=== PATIENT | female | born 1965 | race Caucasian/White ===

== ENCOUNTER 2019-09-06 15:45 | Emergency (ER) | payer BC ==
[~2019-09-06] VITALS: Ht 162.6 cm; Wt 60.3 kg
--- OUTSIDE RECORDS SUMMARY | ~2019-09-06 | XMS | Encounter Summary ---
Demographics + + + | Address | [address] | | | [place] [address] | + + + | Home Phone | | + + + | Preferred Language | Unknown | + + + | Marital Status | | + + + | Oriental Orthodox Affiliation | 1013 | + + + | Race | Unknown | + + + | Ethnic Group | Unknown | + + + Author + + + | Author | [facility] | | | and [place] | + + + | Organization | [facility] | | | and [place] | + + + | Address | Unknown | + + + | Phone | Unavailable | + + + Support + + + + + | Name | Relationship | Address | Phone | + + + + + | Gamaliel Cornell | ECON | [address] | | | | | [place], [place] | | | | | [address] | | + + + + + Care Team Providers + +------+ + | Care Hat Forming Machine Operator Name | Role | Phone | + +------+ + | Raven Kim PA-C | PCP | | + +------+ + Encounter Details +--------+ + + + + | Date | Type | Department | Care Team | Description | +--------+ + + + + | 03/08/ | Transcribed | [facility] | Yuli He | | | 2019 | Orders | THERAPY PT MARYBEL | MD [address] | | | | | [address] | [address] | | | | | [place], [place] | [place], [place] | | | | | [address] | [address] | | | | | [phone] | [phone] | | | | | | | | +--------+ + + + + Social History + + + +--------+ + | Tobacco Use | Types | Packs/Day | Years | Date | | | | | Used | | + + + +--------+ + | Former Smoker | Cigarettes | | | Quit: 05/04/1987 | + + + +--------+ + + +---+---+---+ | Smokeless Tobacco: | | | | | Never Used | | | | + +---+---+---+ + + +---------+ + | Alcohol Use | Drinks/Week | oz/Week | Comments | + + +---------+ + | Yes | 1 Glasses of wine | 2.0 | 1-2 bottles per | | | 1 Cans of beer | | month | + + +---------+ + + + + | Sex Assigned at | Date Recorded | | | | + + + | Not on file | | + + + + + + + | Job Start Date | Occupation | Industry | + + + + | Not on file | Not on file | Not on file | + + + + + + + + | Travel History | Travel Start | Travel End | + + + + + + | No recent travel history available. | + + documented as of this encounter Plan of Treatment +--------+---------+ + + + | Date | Type | Specialty | Care Team | Description | +--------+---------+ + + + | 11/21/ | Office | Urology | Stephanie Robles | | | 2020 | Visit | | MD [address] | | | | | | [address] | | | | | | [place] [address] | | | | | | [phone] | | | | | | | | +--------+---------+ + + + documented as of this encounter Visit Diagnoses Not on filedocumented in this encounter"
--- OUTSIDE RECORDS SUMMARY | ~2019-09-06 | XMS | Encounter Summary ---
Demographics + + + | Address | [address] | | | [place] [address] | + + + | Home Phone | | + + + | Preferred Language | Unknown | + + + | Marital Status | | + + + | Yazidism Affiliation | 1013 | + + + | Race | Unknown | + + + | Ethnic Group | Unknown | + + + Author + + + | Author | [facility] | | | and [place] | + + + | Organization | [facility] | | | and [...] [place], [place] | | | | | [address] | | + + + + + Care Team Providers + +------+ + | Care Segmental Paving Supervisor Name | Role | Phone | + +------+ + | Raven Kim PA-C | PCP | | + +------+ + Encounter Details +--------+ + + + + | Date | Type | Department | Care Team | Description | +--------+ + + + + | 06/15/ | Abstract | [facility] | Provider, | | | 2019 | | GASTROENTEROLOGY | MD Daniel [address] | | | | | [address] [facility] | Fatmata Robledo | | | | | [address] [place] | [place] [address] | | | | | [address] | | | | | | [phone] | | | +--------+ + + + + Social History + +-------+ +--------+------+ | Tobacco Use | Types | Packs/Day | Years | Date | | | | | Used | | + +-------+ +--------+------+ | Former Smoker | | | | | + +-------+ +--------+------+ + +---+---+---+ | Smokeless Tobacco: | | [...] Urology | Stephanie Robles | | | 2019 | Visit | | MD [address] | | | | | | [address] | | | | | | [place] [address] | | | | | | [phone] | | | | | | | | +--------+---------+ + + + documented as of this encounter Visit Diagnoses Not on filedocumented in this encounter"
--- OUTSIDE RECORDS SUMMARY | ~2019-09-06 | XMS | Encounter Summary ---
Demographics + + + | Address | [address] | | | [place] [address] | + + + | Home Phone | | + + + | Preferred Language | Unknown | + + + | Marital Status | | + + + | Methodist Affiliation | 1013 | + + + | Race | Unknown | + + + | Ethnic Group | Unknown | + + + Author + + + | Author | [facility] | | | and [place] | + + + | Organization | [facility] | | | and [place] | + + + | Address | Unknown | + + + | Phone | Unavailable | + + + Support + + + + + | Name | Relationship | Address | Phone | + + + + + | Gamaliel Cornell | ECON | [address] | | | | | [place], [place] | | | | | [address] | | + + + + + Care Team Providers + +------+ + | Care Regional Cra Name | Role | Phone | + +------+ + | Raven Kim PA-C | PCP | | + +------+ + Reason for Visit Diagnostic/Screening (Routine) +--------+--------+ + + + + | Status | Reason | Specialty | Diagnoses / | Referred By | Referred To | | | | | Procedures | Contact | Contact | +--------+--------+ + + + + | Closed | | | Diagnoses | Ying | Jethro | | | | | ABIM[facility]A | Yuli | Pulmonary | | | | | (braulio | MD Keyonna | Function Lab | | | | | of breath) | [address] | [address] | | | | | Procedures | [address] | [address] | | | | | [address]CO ONLY [address] | [address] | [place], [place] | | | | | [place] | [place], [place] | [address] | | | | | | [address] | Phone: | | | | | | Phone: | [phone] | | | | | | [phone] | Fax: | | | | | | Fax: | [phone] | | | | | | [phone] | | +--------+--------+ + + + + Encounter Details +--------+ + + + + | Date | Type | Department | Care Team | Description | +--------+ + + + + | 03/30/ | Hospital | [facility] | Yuli He | Shortness of breath | | 2019 | Encounter | PULMONARY FUNCTION | MD [address] | | | | | LAB [address] [facility] | [address] [facility] [address] | | | | | [place], [place] | [place], [place] | | | | | [address] | [address] | | | | | [phone] | [phone] | | | | | | | [...] + + documented as of this encounter Medications at Time of Discharge + + + +---------+ + + | Medication | Sig | Dispensed | Refills | Start | End Date | | | | | | Date | | + + + +---------+ + + | ALPRAZolam | Take 0.5 mg by mouth | | 0 | | | | (ALPRAZOLAM XR) 0.5 | nightly. | | | | | | MG 24 hr tablet | | | | | | + + + +---------+ + + | ALPRAZolam (XANAX) | TK 1 TO 2 TS PO QHS | | 4 | 10/02/19 | | | 0.5 mg tablet | PRN | | | 19 | | + + + +---------+ + + | baclofen | TK 1 TO 2 TS PO 3 XD | | 0 | 10/16/19 | | | (LIORESAL) 10 mg | PRF SPASMS | | | 18 | | | tablet | | | | | | + + + +---------+ + + | betamethasone | APPLY A THIN LAYER | | 1 | 05/03/20 | | | dipropionate 0.05% | TO AFFECTED AREAS ON | | | 18 | | | cream | THE HANDS | | | | | | | DIRECTED BID FOLLOW | | | | | | | IMMEDIATELY WITH | | | | | | | MOISTURIZER | | | | | + + + +---------+ + + | Calcium | Take by mouth. | | 0 | | | | Carb-Cholecalciferol | | | | | | | (CALCIUM 1000 + D | | | | | | | PO) | | | | | | + + + +---------+ + + | cholecalciferol | Take 1,000 Units by | | 0 | | | | (VITAMIN D-3) 1000 | mouth Daily. | | | | | | units TABS | | | | | | + + + +---------+ + + | DULoxetine | | | 0 | 01/16/20 | | | (CYMBALTA) 30 mg | | | | 12 | | | capsule | | | | | | + + + +---------+ + + | DULoxetine | TK ONE C PO QD | | 1 | 04/05/20 | | | (CYMBALTA) [address] | | | | 18 | | | capsule | | | | | | + + + +---------+ + + | enoxaparin | Inject 0.6 mLs under | 6 | 0 | 09/13/19 | | | (LOVENOX) 100 mg/mL | the skin See Admin | Syringe | | 19 | | | injection | Instructions for 6 | | | | | | | doses. As directed | | | | | + + + +---------+ + + | estradiol | | | 4 | 02/08/20 | | | (ESTRACE) 0.1 mg/g | | | | 19 | | | vaginal cream | | | | | | + + + +---------+ + + | fluticasone | 1 spray by Nasal | | 0 | | | | (FLONASE) 50 | route Daily. | | | | | | mcg/nasal spray | | | | | | + + + +---------+ + + | levalbuterol | INHALE 2 PUFFS INTO | | 2 | 03/03/20 | | | (XOPENEX HFA) 45 | LUNGS EVERY 4 TO 6 | | | 19 | | | mcg/puff inhaler | HOURS DIRECTED | | | | | + + + +---------+ + + | levothyroxine | TK 1 T PO QD | | 0 | 05/29/19 | | | (SYNTHROID) 100 mcg | | | | 18 | | | tablet | | | | | | + + + +---------+ + + | loteprednol | INSTILL 1 TO 2 DROPS | | 10 | 03/28/20 | | | (LOTEMAX) 0.5 % | INTO BOTH EYES 4 | | | 19 | | | ophthalmic | TIMES DAILY | | | | | | suspension | | | | | | + + + +---------+ + + | Magnesium 100 MG | Take by mouth. | | 0 | | | | CAPS | | | | | | + + + +---------+ + + | pimecrolimus | Elidel 1 % topical | | 0 | | | | (ELIDEL) 1% cream | cream | | | | | + + + +---------+ + + | SUMAtriptan | TK 1 T PO AOS OF | | 2 | 06/12/19 | | | (IMITREX) 50 mg | MIGRAINE | | | 18 | | | tablet | DIRECTED. REPEAT | | | | | | | DOSE IN 2 HOUR IF | | | | | | | SYMPTOMS PERSIST. | | | | | | | MAX D DOSE 200 MG | | | | | + + + +---------+ + + | warfarin | TK 3 TS PO D OR UTD | | 5 | 09/15/19 | | | (COUMADIN) 4 MG | | | | 19 | | | tablet | | | | | | + + + +---------+ + + | amoxicillin | TK 4 CS PO 1 HOUR | | 0 | 05/05/19 | | | (AMOXIL) 500 MG | PRIOR TO DENTAL | | | 19 | 9 | | capsule | APPOINTMENT | | | | | + + + +---------+ + + | azithromycin | | | 0 | 12/01/19 | | | (ZITHROMAX) 250 mg | | | | 18 | 9 | | tablet | | | | | | + + + +---------+ + + | enoxaparin | Inject 0.6 mLs under | 21 | 0 | 02/18/20 | | | (LOVENOX) 60 mg/0.6 | the skin every 12 | Syringe | | 19 | 9 | | mL injection | hours. | | | | | + + + +---------+ + + | enoxaparin | inject 1 SYRINGE | | 0 | 09/11/19 | | | (LOVENOX) 60 mg/0.6 | subcutaneously (SEE | | | 19 | 9 | | mL injection | ADMIN INSTRUCTIONS) | | | | | | | FOR 6 DO... (REFER | | | | | | | TO PRESCRIPTION | | | | | | | NOTES). | | | | | + + + +---------+ + + | | INSTILL 1 1/4 INCH | | 1 | 12/19/19 | | | [id number]-cdgqvrzsq-o | RIBBON TO BOTH EYES | | | 18 | 9 | | examethasone | TID | | | | | | (MAXITROL) | | | | | | | [id number] | | | | | | | ophthalmic ointment | | | | | | + + + +---------+ + + | QVAR REDIHALER 40 | INHALE 1 PUFF TWICE | | 2 | 03/03/20 | | | MCG/ACT inhaler | DAILY DIRECTED | | | 19 | 9 | | | RINSE MOUTH AFTER | | | | | | | USE | | | | | + + + +---------+ + + documented as of this encounter [...] [address] | | | | | | [place] [address] | | | | | | [phone] | | | | | | | | +--------+---------+ + + + documented as of this encounter Procedures + +--------+ + + + | Procedure Name | Priori | Date/Time | Associated Diagnosis | Comments | | | ty | | | | + +--------+ + + + | PFT PULMONARY | JUANCARLOS | 03/30/2019 | Shortness of | Results for this | | FUNCTION TESTING | | 10:30 AM | breath | procedure are in the | | ORDERS | | PST | | results section. | + +--------+ + + + | PFT PULMONARY | JUANCARLOS | 03/30/2019 | Shortness of | Results for this | | FUNCTION TESTING | | 10:30 AM | breath | procedure are in the | | ORDERS | | PST | | results section. | + +--------+ + + + | PFT PULMONARY | JUANCARLOS | 03/30/2019 | Shortness of | Results for this | | FUNCTION TESTING | | 10:30 AM | breath | procedure are in the | | ORDERS | | PST | | results section. | + +--------+ + + + documented in this encounter Results Pulmonary function test full PFT (03/30/2019 10:30 AM PST) + + + | Narrative | Performed At | + + + | Eder Smith MD 04/08/2019 1:24 PM [facility] | | | Center Service: Pulmonology PULMONARY FUNCTION TEST Name : | | | Nilsa Cornell : 1965 FINDINGS | | | SPIROMETRY: 1. FEV-1/FVC is 75 2. FEV-1 is 2.63/96. 3. | | | FVC is 3.49/100 . DIFFUSING CAPACITY: Diffusing capacity is | | | 18.4/77 INTERPRETATION: The spirometry is normal. The diffusing | | | capacity is normal. Eder Smith MD 04/08/2019 1:23 PM | | | | | + + + documented in this encounter Visit Diagnoses + + | Diagnosis | + + | Shortness of breath | + + documented in this encounter"
--- OUTSIDE RECORDS SUMMARY | ~2019-09-06 | XMS | Encounter Summary ---
Demographics + + + | Address | [address] | | | [place] [address] | + + + | Home Phone | | + + + | Preferred Language | Unknown | + + + | Marital Status | | + + + | Buddhism Affiliation | 1013 | + + + | Race | Unknown | + + + | Ethnic Group | Unknown | + + + Author + + + | Author | [facility] | | | and [place] | + + + | Organization | [facility] | | [...] [place], [place] | | | | | [address] | | + + + + + Care Team Providers + +------+ + | Care Roll Hauler Name | Role | Phone | + +------+ + | Raven Kim PA-C | PCP | | + +------+ + Reason for Visit + + + | Reason | Comments | + + + | Anticoagulation | | + + + Encounter Details +--------+ + + + + | Date | Type | Department | Care Team | Description | +--------+ + + + + | 02/16/ | Telephone | [facility] | Jeovanny, | Anticoagulation | | 2019 | | CARDIOLOGY NATALEE | Alyssa Haley RN | | | | | [address] | | | | | | [place] | | | | | | [address] | | | | | | [phone] | | | +--------+ + + + [...] | | | | | | [address] | | | | | | [place] [address] | | | | | | [phone] | | | | | | | | +--------+---------+ + + + documented as of this encounter Visit Diagnoses Not on filedocumented in this encounter"
--- OUTSIDE RECORDS SUMMARY | ~2019-09-06 | XMS | Encounter Summary ---
Demographics + + + | Address | [address] | | | [place] [address] | + + + | Home Phone | | + + + | Preferred Language | Unknown | + + + | Marital Status | | + + + | Sabianist Affiliation | 1013 | + + + | Race | Unknown | + + + | Ethnic Group | Unknown | + + + Author + + + | Author | [facility] | | | and [place] | + + + | Organization | [facility] | | | and [...] [place], [place] | | | | | [address] | | + + + + + Care Team Providers + +------+ + | Care Fixed Wing Aircraft Flight Engineer Name | Role | Phone | + +------+ + | Raven Kim PA-C | PCP | | + +------+ + Reason for Visit + + + | Reason | Comments | + + + | Lab Results | | + + + Encounter Details +--------+ + + + + | Date | Type | Department | Care Team | Description | +--------+ + + + + | 06/30/ | Telephone | [facility] | Shankar Kaufman, | Lab Results | | 2018 | | PHYSIATRY [address] | [address] | | | | | [address] | [place], [place] | | | | | [place], [place] | [address] | | | | | [address] | | | | | | [phone] | | | +--------+ + + + [...] | | | | | [place] [address] | | | | | | [phone] | | | | | | | | +--------+---------+ + + + documented as of this encounter Visit Diagnoses Not on filedocumented in this encounter"
--- OUTSIDE RECORDS SUMMARY | ~2019-09-06 | XMS | Encounter Summary ---
Demographics + + + | Address | [address] | | | [place] [address] | + + + | Home Phone | | + + + | Preferred Language | Unknown | + + + | Marital Status | | + + + | Zoroastrian Affiliation | CHR | + + + | Race | White | + + + | Ethnic Group | Not or | + + + Author + + + | Author | [facility] | + + + | Organization | [facility] | + + + | Address | Unknown | + + + | Phone | Unavailable | + + + Support + + + + + | Name | Relationship | Address | Phone | + + + + + | Gamaliel Cornell | ECON | [address] | | | | | [place], [place] | | | | | [address] | | + + + + + Care Team Providers + +------+ + | Care Maintenance Advisor Name | Role | Phone | + +------+ + | Raven Kim | PCP | | + +------+ + Encounter Details +--------+ + + + + | Date | Type | Department | Care Team | Description | +--------+ + + + + | 05/05/ | Abstract | Otolaryngology | David Wilson | | | 2020 | | Laryngology Services | MD Adalgisa [address] | | | | | at [facility] [address] | [address] | | | | | [place], [place] | [place], [place] | | | | | [address] | [address] | | | | | [phone] | [phone] | | | | | | | | +--------+ + + + + Social History + +-------+ +--------+------+ | Tobacco Use | Types | Packs/Day | Years | Date | | | | | Used | | + +-------+ +--------+------+ | Never Smoker | | | | | + +-------+ +--------+------+ + + +---------+ + | Alcohol Use | Drinks/Week | oz/Week | Comments | + + +---------+ + | Yes | | | | + + +---------+ + + + [...] as of this encounter Plan of Treatment Not on filedocumented as of this encounter Visit Diagnoses Not on filedocumented in this encounter"
--- OUTSIDE RECORDS SUMMARY | ~2019-09-06 | XMS | Encounter Summary ---
Demographics + + + | Address | [address] | | | [place] [address] | + + + | Home Phone | | + + + | Preferred Language | Unknown | + + + | Marital Status | | + + + | Baptist Affiliation | 1013 | + + + [...] + + + + + | Gamaliel Kraig | ECON | [address] | | | | | [place] | | | | | [address] | | + + + + + Care Team Providers + +------+ + | Care Laundry Operator Name | Role | Phone | + +------+ + PCP | Unavailable | + +------+ + Encounter Details +--------+ + + + + | Date | Type | Department | Care Team | Description | +--------+ + + + + | 09/06/ | Hospital | [facility] | Anirudh Fleming | | | 2008 | Encounter | [facility] | MD [address] | | | | | GENERIC CONV DEPT | [address] [place] | | | | | [address] | [address] | | | | | [place] | | | | | | [address] | | | | | | [phone] | | | +--------+ + + + + Social History + +-------+ +--------+------+ | Tobacco Use | Types | Packs/Day | Years | Date | | | | | Used | | + +-------+ +--------+------+ | Never Assessed | | | | | + +-------+ +--------+------+ + + + | Sex Assigned at [...] | | | | | [place] [address] | | | | | | [phone] | | | | | | | | +--------+---------+ + + + documented as of this encounter Visit Diagnoses Not on filedocumented in this encounter"
--- OUTSIDE RECORDS SUMMARY | ~2019-09-06 | XMS | Encounter Summary ---
Demographics + + + | Address | [address] | | | [place] [address] | + + + | Home Phone | | + + + | Preferred Language | Unknown | + + + | Marital Status | | + + + | Anabaptist Affiliation | [id number] | + + + | Race | Unknown | + + + | Ethnic Group | Unknown | + + + Author + + + | Author | [facility] | | | and [place] | + + + | Organization | [facility] | | | and [place] | + + + | Address | Unknown | + + + | Phone | Unavailable | + + + Support + + + + + | Name | Relationship | Address | Phone | + + + + + | Gamaliel Cornell | ECON | [address] | | | | | [place], [place] | | | | | [address] | | + + + + + Care Team Providers + +------+ + | Care Lighting Technician Name | Role | Phone | + +------+ + | Bernard Cesar MD | PCP | | + +------+ + Reason for Visit Auth/Cert +--------+--------+ + + + + | Status | Reason | Specialty | Diagnoses / | Referred By | Referred To | | | | | Procedures | Contact | Contact | +--------+--------+ + + + + | | | | Diagnoses | | Gamaliel, | | | | | Cystocele | | Evelio Romero MD | | | | | Cystocele | | [id number] | | | | | Procedures | | [place] | | | | | Not Provided | | [place] | | | | | | | [place], [place] | | | | | | | [address] | | | | | | | Phone: | | | | | | | [phone] | | | | | | | Fax: | | | | | | | [phone] | +--------+--------+ + + + + Encounter Details +--------+---------+ + + + | Date | Type | Department | Care Team | Description | +--------+---------+ + + + | 01/22/ | Surgery | [facility] | Evelio Alston, | Repair Anterior | | 2015 | | MED CTR OR INTRA OP | [id number] | Colporrhaphy | | | | [address] | [place] | | | | | [place], [place] | [place] [address] | | | | | [address] | [phone] | | | | | [phone] | | | +--------+---------+ + + + Social History + +-------+ [...] +---------+ + | Yes | | | 1-2 bottles per | | | | | month | + + +---------+ [...] + + documented as of this encounter Last Filed Vital Signs + + + + + | Vital Sign | Reading | Time Taken | Comments | + + + + + | Blood Pressure | 116/74 | 01/24/2015 4:00 PM | | | | | PDT | | + + + + + | Pulse | 81 | 01/24/2015 4:00 PM | | | | | PDT | | + + + + + | Temperature | 36.8 C (98.2 F) | 01/24/2015 4:00 PM | | | | | PDT | | + + + + + | Respiratory Rate | 16 | 01/24/2015 4:00 PM | | | | | PDT | | + + + + + | Oxygen Saturation | 96% | 01/23/2015 7:25 AM | | | | | PDT | | + + + + + | Inhaled Oxygen | - | - | | | Concentration | | | | + + + + + | Weight | 61.2 kg (135 lb) | 01/22/2015 9:24 AM | | | | | PDT | | + + + + + | Height | 160 cm (5' 3") | 01/22/2015 9:24 AM | | | | | PDT | | + + + + + | Body Mass Index | 23.91 | 01/22/2015 9:24 AM | | | | | PDT | | + + + + + documented in this encounter Discharge Summaries Evelio Alston MD - 01/24/2015 5:38 PM PDTFormatting of this note might be different fro m the original. Physician Discharge Summary Patient ID: Nilsa Cornell [id number] y.o. 1965 Admit date: 01/22/2015 Discharge date and time: January 24, 2015 Admitting Physician: Evelio Alston MD Discharge Physician: Same Admission Diagnoses: Cystocele [618.01] Discharge Diagnoses: Same Admission Condition: good Discharged Condition: good Indication for Admission: See dictated H&P, however briefly Ms. cornell was admitted for darian gical correction of a symptomatic cystocele. Hospital Course: Patient underwent an anterior colporrhaphy on the morning of January 22. Although able to void, residual volumes were excessive and therefore patient was discharge d home with an indwelling catheter and leg bag. Consults: none Significant Diagnostic Studies: None Treatments: surgery: Anterior colporrhaphy Discharge Exam: See progress notes Disposition: home Patient Instructions: Discharge Medications Notice Some of the medications listed here do not show instructions, such as how often to take th e medication. Ask your doctor or nurse how to use these medications. Specifically ask about these and similar medications: - DULoxetine (CYMBALTA) 30 mg capsule - amitriptyline (ELAVIL) 75 MG tablet New Medications Details ibuprofen 800 MG tablet Take 1 tablet by mouth every 8 hours as needed for Pain for up to 10 days. aka: ADVIL,MOTRIN Unchanged Medications Details amitriptyline 75 MG tablet aka: ELAVIL CYMBALTA [address] capsule Generic drug: DULoxetine LOVENOX 60 mg/0.6 mL injection Generic drug: enoxaparin Inject 60 mg under the skin every 12 hours. SYNTHROID PO TABS Discontinued Medications COUMADIN PO Activity: no lifting, Driving, or Strenuous exercise for 2 weeks Diet: regular diet Wound Care: none needed Follow-up with voiding trial in 2 weeks. Signed: Evelio Alston MD 01/24/2015 17:38 documented in this en counter Discharge Instructions Instructions Shu Bravo RN - 01/24/2015 Discharge Instructions: Caring for Your Leg Bag You are going home with a urinary catheter and collection device (drainage bag) in place. O ne type of collection device is called a leg bag.This is a smaller drainage bag that you c an wear on your legto collect urine during the day. The bag can fit under your clothing. Y ou can move around with greater ease when using a leg bag instead of a larger collection bag . You were shown how to care for your catheter in the hospital. This sheet will help you lyle mber those steps when you are at home. Home care Wash your hands thoroughly before and after you care for your catheter or collection dev ice. Gather your supplies: Alcohol wipes Soap and water Towel and washcloth Leg strap and leg bag Use soap and water to wash the area where your catheter enters your body. Rinse well. Secure the bag mckee to your leg: Position the leg band high on your thigh with the product label pointing away from your leg. Stretch the leg band in place and fasten. Place the catheter tubing over the bag and secure it. You may secure it with a Velcro ta b or other method, depending on the product you use. Be sure to leave enough loop in the cat heter above the leg band to avoid pulling on the tube. Every 4 to 6 hours, reposition the bandto prevent pressure from the elastic on your le g. You can do this by changing the bag to the other leg or by raising or lowering the leg ba nd. Wash the band as frequently as needed. You can hand wash and dry the leg band. Place the bag in the bag mckee. Clean the urine bag end of the catheter and your catheter port with an alcohol wipe. Place a towel under the bag and port to keep urine from dripping onto your leg. Before connecting the outlet valve at the bottom of the bagto the catheter, make sure that it is firmly closed. Flip the valve upward toward the bag;it needs to snap firmly in place. Be sure not to tug on the tubing. Be gentle. Attach the urine bag to the end of the catheter; insert the connector snugly into the ca theter port. You can avoid dribbling urine by bending the catheter tubing just below the tip and holding it while you disconnect it from the catheter. Be careful to keep the tip clean while connecting the leg bag tubing to the catheter this keeps germs from getting into the system. Drain the bag when it is full. To drain the bag, flip the clamp downward. Direct the fle xible outlet tube to control the flow of urine. You don t have to disconnect the leg bag f rom the catheter to empty it. Raise your leg up to the edge of the toilet to reach the leg b ag. Then you can empty the bag directly into the toilet. This way, you won t need to bend over, which may be uncomfortable. Keep the leg bag clean. Rinse daily with equal parts water and vinegar to reduce odor an d keep the bag free of germs. Remember to keep the drainage bag below the level of your bladder for proper drainage. Follow-up Make a follow-up appointment as directed by your health care provider. When to call your health care provider Call yourhealth care providerimmediately if you have any of the following: Redness, swelling, or warmth around the catheter entry site Pus draining from your catheter entry site or into the catheter tubing and bag Blood, clots, or floating debris in the urine Nausea and vomiting Shaking chills Fever above 100.4F (38C) Pain that is not relieved by medication Catheter that falls out or is dislodged 2265-8614 [employer]. [address] [place] [address], [place] [address]. All righ ts reserved. This information is not intended as a substitute for professional medical care. Always follow your healthcare professional's instructions. c Pelvic Organ Prolapse: Surgery for Cystocele Cystocele occurs when the bladder prolapses (sags) into the vagina. The goal of surgery is to repair the problem. This will help relieve your symptoms. Your surgery may include1 or more repairs. The Surgical Procedure Cystocele can be treated with an anterior repair. This type of surgery is done through the vagina. The sagging bladder is moved back into its normal position. Sutures (stitches) are p laced in tissue between the bladder and the vagina. This helps hold the bladder in place. In some cases, another type of surgery is done. It can help correct weakness in the front wall of the vagina. The vagina is attached to strong tissues in the side wall of the pelvis. Your Incisions During surgery, the doctor will reach your pelvic organs through the vagina or the abdomen. An incision may be made in the vaginal wall. If an incision is made on the abdomen (lower b katya), it may be vertical (up and down). Or, it may be transverse (across). Possible Risks and Complications of this Surgery Infection Bleeding Risks of anesthesia Damage to nerves, muscles, or nearby pelvic structures Blood clots Prolapse of the pelvic organ or organs occurring again 3655-[address] [employer]. [address] [place] [address]. All rig ts reserved. This information is not intended as a substitute for professional medical care. Always follow your healthcare professional's instructions. documented in this encounter Medications at Time of Discharge [...] + + + +---------+ + + | amitriptyline | | | 0 | 01/16/20 | | | (ELAVIL) 75 MG | | | | 12 | 8 | | tablet | | | | | | + + + +---------+ + + | enoxaparin | Inject 60 mg under | | 0 | | | | (LOVENOX) 60 mg/0.6 | the skin every 12 | | | | 8 | | mL injection | hours. | | | | | + + + +---------+ + + | ibuprofen | Take 1 tablet by | 30 | 0 | 01/25/20 | | | (ADVIL,MOTRIN) 800 | mouth every 8 hours | tablet | | 15 | 5 | | MG tablet | as needed for Pain | | | | | | | for up to 10 days. | | | | | + + + +---------+ + + | Levothyroxine | TABS | | 0 | 01/16/20 | | | Sodium (SYNTHROID | | | | 12 | 8 | | PO) | | | | | | + + + +---------+ + + documented as of this encounter Progress Notes Shu Bravo RN - 01/24/2015 6:00 PM PDTPatient's catheter connected to a leg bag and pt given instructions on how to change from a leg bag to an overnight bag as well as how to em pty catheter bag. Pt given verbal and written discharge instructions. Questions answered and she verbalizes understanding. Discharged to home in stable condition with her .Elect ronically signed by Shu Bravo RN at 01/24/2015 6:15 PM PDTStefanyuapoorva, Evelio Romero MD - 015 5:31 PM PDTPM Check S-progressively increasing residual volumes of the bladder necessitated replacing the Pabon catheter. Also had a sense of constipation and 2 enemas and a suppository only yielded a s mall amount of stool. She still feels as if there is stool back up in the vagina. O-VSS Perineum: Minimal blood. Rectal exam is performed and there is no stool within at least 10-12 cm of the anus. Urinalysis: Nitrite negative, leukocyte esterase negative and 0-2 white cells. A/P-bladder atony following anterior colporrhaphy. Will send home with indwelling catheter . Regarding bowel function will just continue to use stool softeners, fish oil and will inc rease oral water intake which usually works for her. She will follow-up in 2 weeks for catheter removal and voiding test. Otherwise routine pos t-op instructions. Shu Bowman RN - 01/24/2015 5:30 PM PDTDr. Alston at bedside and does rectal exam. No stool f elt in rectum eventhough pt feels like there is. Pt given discharge instructions by Dr. Brittaney dejesus. Shu Bowman RN - 4:31 PM PDTPt is up ambulating in the hallways. Shu Bowman RN - 01/24/2015 4:00 PM PDTPt up to the [facility] hroom and just passes water, no stool.Electronically signed by Shu Bravo RN at 5 4:31 PM Shu Bowman RN - 01/24/2015 3:45 PM PDTNo results from dulcolax suppositor y. Second tap water enema given. 4:3 0 PM PDTShu Bravo RN - 01/24/2015 2:28 PM PDTPt up to the bathroom and only had one sm all hard piece of stool come out. Dr. Alston notified and orders received for dulcolax suppos itory now, followed by another tap water enema in one hour. Shu Bowman RN - 01/24/2015 2:05 PM PDTPt given tap w ater enema. Tolerated well. Shu Bowman RN - 01/24/2015 11:45 AM PDTPt up to the bathroom and voids 200cc. Bladder scan done for 675cc. Dr. Alston notified and order received to place indwelling pabon cathet er. Pabon catheter then placed using sterile technique and pt tolerated well. Approximately 700cc clear yellow urine returns. 1: 00 PM Evelio Charles MD - 01/24/2015 8:12 AM PDTPOD#2 S-declined recatheterization throughout the evening. Residual this am just above 400cc. Has agreed to one straight catheterization to empty bladder and "start from scratch". Will reas sess at noon. O-Vss No exam A/P- as above. Tera Bowman RN - 01/24/2015 8:00 AM PDTPt unable to void any more. Dr. Alston here and orders st raight cath to be done. Straight cath done using sterile technique. 500cc epi urine return s. Pt tolerated it well. Shu Kimball RN - 01/23/2015 5:45 PM PDTPt up to the bathroom and voids 100cc. Bladder sc an done for 354cc. Pt rates pain at 2/10. Up ambulating. Evelio Charles MD - 01/23/2015 5:20 PM PDTPM Check S-Nilsa is sleeping, so we did not disturb her. By the nurses report, she has voided twic e but significant residual has remained. We'll replace the Pabon catheter if more than 400 c c are in the bladder without her being able to void. O-VSS No exam A/P-some return of bladder function, but I anticipate she will need her Pabon catheter repl aced this evening. Shu Fam RN - 01/23/2015 4:05 PM PDTPt up to the bathroom and voids 175cc. Bladder scann ed for 324cc. Pt up ambulating in hallways.Electronically signed by Shu Bravo RN at 01/03 4:19 PM Shu Bowman RN - 01/23/2015 3:00 PM PDTPt up to the bathroom and void s 100cc. Bladder scan done for 251cc. Pt also passed 2 quarter sized blood clots when she wa s up. Shu Bowman RN - 01/23/2015 12:30 PM PDTPt is unable to void. Bladder scan done for 474cc. Straight cath don e using sterile technique for 500cc clear yellow urine. Pt tolerated well.Electronically sig ramsey by Shu Bravo RN at 01/23/2015 12:40 PM Shu Bowman RN - 01/23/2015 11:40 AM PD TPt unable to void any more. Dr. Alston notified and wants to wait a little longer to see if she can void more before doing a straight cath. Shu Bowman RN - 01/23/2015 11:00 AM PDTPt up to the bathroom and is able to void 100cc. Bladder scan done for 298cc. Pt back up to the bathroom to see if she can void more. hIsabel pimentel RN - 01/23/2015 7:35 AM PDTNo change since last notes. Plans on discharge tod ay. Adequate pain control. uEvelio guerin MD - 01/23/2015 7:32 AM PDTPOD#1 S-ambulating without difficulty. Adequate pain control and no nausea O-VSS UOP-appropriate amount and clear Lungs: clear Cardiac: regular rate and rhythm Abdomen: soft and nontender Perineum: minimal vaginal bleeding A/P- stable postop day 1. Will discontinue bladder catheter and monitor voidings. Will re assess for discharge, later today. Electronically signed by Evelio Alston MD at 5 7:39 AM Isabel Gibbons RN - 01/23/2015 12:15 AM PDTUp to br to change pad/ per icare. Some light red vaginal drainage. Medicated for pain. Isabel Gibbons RN - 01/22/2015 9:00 PM PDTUp to sink for HS care; pericare done. Some moderate to light drainage noted.Electronica lly signed by Isabel Carpenter RN at 01/23/2015 1:36 AM Evelio Charles MD - 01/22 4:51 PM PDTPM Check S-findings reviewed. Adequate pain control and no nausea. Catheter was replaced. O-VSS Chest: Clear Cardiac: Regular rate and rhythm Perineum: Scant bleeding A/P-stable approximately 6 hours postop. CPM Shu Bowman RN - 01/22/2015 4:30 PM PDTFoley catheter placed usin g sterile technique. Pt tolerated well. 15 5:20 PM PDTShu Bravo RN - 01/22/2015 4:20 PM PDTPt up to the bedside commode to id. She does feel the urge to void but she is unable to. Bladder scan done for 398cc. Dr. Leobardo guerin notified and order received to place indwelling pabon catheter. hu Bravo RN - 01/22/2015 2:20 PM PDTPt is a little bit sleepy and O2 saturations 88% on room air. RT notified and oxygen placed.Electr onically signed by Shu Bravo RN at 01/22/2015 2:39 PM PDTShu Bravo RN - 01/22/2015 2:15 PM PDTPt c/o neck pain and upper back pain. She reports she has chronic pain issues w ith her neck and upper back. Pt has an ice pack on her neck. Medicated with toradol.Electron ically signed by Shu Bravo RN at 01/22/2015 5:21 PM Shu Bowman RN - 01/22/2015 1:30 PM PDTDrMadhuri Alston at bedside and removes vaginal packing. Shu Bowman RN - 01/22/2015 1:20 PM PDTPt back from surgery. Moved to new bed. C/o neck/upper back pain rated at 5/10. See vitals and assessment . Elton Jenkins MD - 01/22/2015 12:42 PM PDTPatient complaining of neck pain. She is a chronic neck patient an d requests her dose of robaxin. Will write for one tablet. Electronically signed by: Elton Uribe MD 01/22/2015 12:43 documented in this encounter Plan of Treatment +--------+---------+ + + + | Date | Type | Specialty | Care Team | Description | +--------+---------+ + + + | 11/21/ | Office | Urology | Stephanie Robles | | | 2019 | Visit | | MD [address] | | | | | | [address] | | | | | | [place] [address] | | | | | | [phone] | | | | | | | | +--------+---------+ + + + documented as of this encounter Procedures + +--------+ + + + | Procedure Name | Priori | Date/Time | Associated Diagnosis | Comments | | | ty | | | | + +--------+ + + + | URINALYSIS WITH | Routin | 01/24/2015 | | Results for this | | MICROSCOPIC IF | e | 1:45 PM | | procedure are in the | | INDICATED | | PDT | | results section. | + +--------+ + + + | RESPIRATORY THERAPY | Routin | 01/22/2015 | | | | COMMUNICATION | e | 5:31 PM | | | | | | PDT | | | + +--------+ + + + | URINALYSIS WITH | Routin | 01/22/2015 | | Results for this | | MICROSCOPIC WITH | e | 10:29 AM | | procedure are in the | | CULTURE IF INDICATED | | PDT | | results section. | + +--------+ + + + | POCT FINGERSTICK INR | STAT | 01/22/2015 | | Results for this | | | | 10:28 AM | | procedure are in the | | | | PDT | | results section. | + +--------+ + + + | CBC WITH | STAT | 01/22/2015 | | Results for this | | DIFFERENTIAL | | 10:27 AM | | procedure are in the | | | | PDT | | results section. | + +--------+ + + + | REPAIR A&P | | 01/22/2015 | Cystocele | | | COLPORRHAPHY | | 10:16 AM | | | | | | PDT | | | + +--------+ + + + documented in this encounter Results Urinalysis with Microscopic if Indicated (01/24/2015 1:45 PM PDT) + + + + + + | Component | Value | Ref Range | Performed | Pathologist | | | | | At | Signature | + + + + + + | Color, | Yellow | Light Yellow, | [facility] | | | Urine | | Yellow | [facility] | | | | | | [facility] | | | | | | [facility] - | | | | | | LABORATORY | | + + + + + + | Clarity | Clear | Clear | [facility] | | | | | | [facility] | | | | | | [facility] | | | | | | [facility] - | | | | | | LABORATORY | | + + + + + + | pH, Urine | 7.0 | 5.0 - 8.0 | [facility] | | | | | | [facility] | | | | | | [facility] | | | | | | [facility] - | | | | | | LABORATORY | | + + + + + + | Specific | 1.010 | 1.001 - 1.030 | [facility] | | | [place], | | | [facility] | | | Urine | | | MEDICAL | | | | | | CENTER - | | | | | | LABORATORY | | + + + + + + | Protein, | Negative | Negative | [facility] | | | Urine | | | [facility] | | | | | | [facility] | | | | | | [facility] - | | | | | | LABORATORY | | + + + + + + | Blood, | Moderate (A) | Negative | [facility] | | | Urine | | | [facility] | | | | | | [facility] | | | | | | [facility] - | | | | | | LABORATORY | | + + + + + + | Glucose, | Negative | Negative | [facility] | | | Urine | | | [facility] | | | | | | [facility] | | | | | | [facility] - | | | | | | LABORATORY | | + + + + + + | Ketones, | Negative | Negative | [facility] | | | Urine | | | [facility] | | | | | | [facility] | | | | | | [facility] - | | | | | | LABORATORY | | + + + + + + | Bilirubin, | Negative | Negative | [facility] | | | Urine | | | [facility] | | | | | | [facility] | | | | | | [facility] - | | | | | | LABORATORY | | + + + + + + | Nitrite, | Negative | Negative | [facility] | | | Urine | | | [facility] | | | | | | [facility] | | | | | | [facility] - | | | | | | LABORATORY | | + + + + + + | Leukocyte | Negative | Negative | [facility] | | | Esterase, | | | [facility] | | | Urine | | | MEDICAL | | | | | | CENTER - | | | | | | LABORATORY | | + + + + + + | Urobilinoge | 0.2 E.U./dL | 0.2 E.U./dL, | [facility] | | | n, Urine | | 1.0 E.U./dL | [facility] | | | | | | [facility] | | | | | | [facility] - | | | | | | LABORATORY | | + + + + + + | White Blood | 0-2 | 0 - 2 /HPF | [facility] | | | Cells, | | | [facility] | | | Urine | | | MEDICAL | | | | | | CENTER - | | | | | | LABORATORY | | + + + + + + | Red Blood | 2-5 (A) | 0 - 2 /HPF | [facility] | | | Cells, | | | [facility] | | | Urine | | | MEDICAL | | | | | | CENTER - | | | | | | LABORATORY | | + + + + + + | Squamous | 0-2 | 0 - 2 /LPF | [facility] | | | Epithelial | | | [facility] | | | Cells, | | | MEDICAL | | | Urine | | | CENTER - | | | | | | LABORATORY | | + + + + + + | Bacteria, | 1+ (A) | Negative /HPF | [facility] | | | Urine | | | [facility] | | | | | | [facility] | | | | | | [facility]ENTER - | | | | | | LABORATORY | | + + + + + + + + | Specimen | + + | Urine - Urine | | specimen from ureter | | (specimen) | + + + + + + + | Performing | Address | City/State/Zipcode | Phone Number | | Organization | | | | + + + + + | [facility] | [address] | [place] | [phone] | | [facility] | | [address] | | | - LABORATORY | | | | + + + + + Urinalysis with Microscopic with Culture if Indicated (01/22/2015 10:29 AM PDT) + + + + + + | Component | Value | Ref Range | Performed | Pathologist | | | | | At | Signature | + + + + + + | Color, | Yellow | Light Yellow, | [facility] | | | Urine | | Yellow | [facility] | | | | | | MEDICAL | | | | | | CENTER - | | | | | | LABORATORY | | + + + + + + | Clarity | Clear | Clear | [facility] | | | | | | [facility] | | | | | | [facility] | | | | | | [facility] - | | | | | | LABORATORY | | + + + + + + | pH, Urine | 6.0 | 5.0 - 8.0 | [facility] | | | | | | [facility] | | | | | | [facility] | | | | | | [facility] - | | | | | | LABORATORY | | + + + + + + | Specific | 1.025 | 1.001 - 1.030 | [facility] | | | [place], | | | [facility] | | | Urine | | | MEDICAL | | | | | | CENTER - | | | | | | LABORATORY | | + + + + + + | Protein, | Negative | Negative | [facility] | | | Urine | | | [facility] | | | | | | [facility] | | | | | | CENTER - | | | | | | LABORATORY | | + + + + + + | Blood, | Negative | Negative | [facility] | | | Urine | | | [facility] | | | | | | [facility] | | | | | | C[facility] - | | | | | | LABORATORY | | + + + + + + | Glucose, | Negative | Negative | [facility] | | | Urine | | | [facility] | | | | | | [facility] | | | | | | [facility] - | | | | | | LABORATORY | | + + + + + + | Ketones, | Negative | Negative | [facility] | | | Urine | | | [facility] | | | | | | [facility] | | | | | | CENTER - | | | | | | LABORATORY | | + + + + + + | Bilirubin, | Negative | Negative | [facility] | | | Urine | | | [facility] | | | | | | [facility] | | | | | | C[facility] - | | | | | | LABORATORY | | + + + + + + | Nitrite, | Positive (A) | Negative | [facility] | | | Urine | | | [facility] | | | | | | [facility] | | | | | | CENTER - | | | | | | LABORATORY | | + + + + + + | Leukocyte | Negative | Negative | [facility] | | | Esterase, | | | [facility] | | | Urine | | | MEDICAL | | | | | | CENTER - | | | | | | LABORATORY | | + + + + + + | Urobilinoge | 1.0 E.U./dL | 0.2 E.U./dL, | [facility] | | | n, Urine | | 1.0 E.U./dL | [facility] | | [facility] | [facility] | | | | | | CENTER - | | | | | | LABORATORY | | + + + + + + | White Blood | 5-10 (A) | 0 - 2 /HPF | [facility] | | | Cells, | | | [facility] | | | Urine | | | MEDICAL | | | | | | CENTER - | | | | | | LABORATORY | | + + + + + + | Red Blood | 2-5 (A) | 0 - 2 /HPF | [facility] | | | Cells, | | | [facility] | | | Urine | | | MEDICAL | | | | | | CENTER - | | | | | | LABORATORY | | + + + + + + | Squamous | 0-2 | 0 - 2 /LPF | [facility] | | | Epithelial | | | [facility] | | | Cells, | | | MEDICAL | | | Urine | | | CENTER - | | | | | | LABORATORY | | + + + + + + | Bacteria, | 3+ (A) | Negative /HPF | [facility] | | | Urine | | | [facility] | | | | | | MEDICAL | | | | | | CENTER - | | | | | | LABORATORY | | + + + + + + + + | Specimen | + + | Urine | + + + + + + + | Performing | Address | City/State/Zipcode | Phone Number | | Organization | | | | + + + + + | [facility] | [address] | [place] | [phone] | | [facility] | | [address] | | | - LABORATORY | | | | + + + + + POC Fingerstick INR (01/22/2015 10:28 AM PDT) + +-------+ + + + | Component | Value | Ref Range | Performed | Pathologist | | | | | At | Signature | + +-------+ + + + | INR, POC | 1.1 | 0.9 - 1.2 | | | + +-------+ + + + | Instrument | | | | | | ID | | | | | + +-------+ + + + + + | Specimen | + + | Blood specimen | | (specimen) | + + CBC with Differential (01/22/2015 10:27 AM PDT) + +-------+ + + + | Component | Value | Ref Range | Performed | Pathologist | | | | | At | Signature | + +-------+ + + + | WBC | 7.0 | 4.0 - 11.0 K/uL | [facility] | | | | | | [facility] | | | | | | [facility] | | | | | | CENTER - | | | | | | LABORATORY | | + +-------+ + + + | RBC | 4.72 | 3.70 - 5.20 | [facility] | | | | | M/uL | [facility] | | | | | | MEDICAL | | | | | | CENTER - | | | | | | LABORATORY | | + +-------+ + + + | Hemoglobin | 14.3 | 11.5 - 16.0 | [facility] | | | | | g/dL | [facility] | | | | | | [facility] | | | | | | CENTER - | | | | | | LABORATORY | | + +-------+ + + + | Hematocrit | 43.9 | 34.0 - 47.0 % | [facility] | | | | | | [facility] | | | | | | [facility] | | | | | | CENTER - | | | | | | LABORATORY | | + +-------+ + + + | MCV | 93.1 | 83.0 - 101.0 fL | [facility] | | | | | | [facility] | | | | | | [facility] | | | | | | CENTER - | | | | | | LABORATORY | | + +-------+ + + + | MCH | 30.3 | 28.0 - 35.0 pg | [facility] | | | | | | [facility] | | | | | | [facility] | | | | | | CENTER - | | | | | | LABORATORY | | + +-------+ + + + | MCHC | 32.5 | 32.0 - 36.0 | [facility] | | | | | g/dL | [facility] | | | | | | [facility] | | | | | | CENTER - | | | | | | LABORATORY | | + +-------+ + + + | RDW-CV | 14.0 | <15.0 % | [facility] | | | | | | [facility] | | | | | | [facility] | | | | | | CENTER - | | | | | | LABORATORY | | + +-------+ + + + | Platelet | 307 | 140 - 440 K/uL | [facility] | | | Count | | | [facility] | | | | | | [facility] | | | | | | CENTER - | | | | | | LABORATORY | | + +-------+ + + + | MPV | 8.4 | fL | [facility] | | | | | | [facility] | | | [facility] | | [facility] | | | | | | CENTER - | | | | | | LABORATORY | | + +-------+ + + + | % | 66.3 | 45.0 - 82.0 % | [facility] | | | Neutrophils | | | [facility] | | | | | | [facility]ICAL | | | | | | CENTER - | | | | | | LABORATORY | | + +-------+ + + + | % | 21.1 | 20.0 - 45.0 % | [facility] | | | Lymphocytes | | | [facility] | | | | | | [facility]ICAL | | | | | | CENTER - | | | | | | LABORATORY | | + +-------+ + + + | % Monocytes | 8.6 | 4.0 - 12.0 % | [facility] | | | | | | [facility] | | | | | | [facility] | | | | | | CENTER - | | | | | | LABORATORY | | + +-------+ + + + | % | 3.2 | 0.0 - 5.0 % | [facility] | | | Eosinophils | | | [facility] | | | | | | MEDICAL | | | | | | CENTER - | | | | | | LABORATORY | | + +-------+ + + + | % Basophils | 0.8 | 0.0 - 1.0 % | [facility] | | | | | [facility] | | | | | | [facility] - | | | | | | LABORATORY | | + +-------+ + + + | Absolute | 4.60 | 1.80 - 8.50 | [facility] | | | Neutrophils | | K/uL | [facility] | | | | | [facility] | | | | | | CENTER - | | | | | | LABORATORY | | + +-------+ + + + | Absolute | 1.50 | 0.60 - 3.20 | [facility] | | | Lymphocytes | | K/uL | [facility] | | | | | | [facility] | | | | | | CENTER - | | | | | | LABORATORY | | + +-------+ + + + | Absolute | 0.60 | 0.00 - 1.00 | [facility] | | | Monocytes | | K/uL | [facility] | | | | | | [facility] | | | | | | CENTER - | | | | | | LABORATORY | | + +-------+ + + + | Absolute | 0.20 | 0.00 - 0.40 | [facility] | | | Eosinophils | | K/uL | [facility] | | | | | | [facility]ICAL | | | | | | CENTER - | | | | | | LABORATORY | | + +-------+ + + + | Absolute | 0.10 | 0.00 - 0.10 | [facility] | | | Basophils | | K/uL | [facility] | | | | | | MEDICAL | | | | | | CENTER - | | | | | | LABORATORY | | + +-------+ + + + + + | Specimen | + + | Blood | + + + + + + + | Performing | Address | City/State/Zipcode | Phone Number | | Organization | | | | + + + + + | [facility] | [address] | [place] | [phone] | | [facility] | | [address] | | | - LABORATORY | | | | + + + + + documented in this encounter Visit Diagnoses + + | Diagnosis | + + | Cystocele Cystocele, midline | + + documented in this encounter Administered Medications + +--------+ +--------+------+ + | Medication Order | MAR | Action | Dose | Rate | Site | | | Action | Date | | | | + +--------+ +--------+------+ + | vasopressin (PITRESSIN) 20 | Given | 01/23/20 | 10 mLs | | Surgical | | Units in bupivacaine (PF) | | 15 11:06 | | | Site | | (MARCAINE) 50 mL OpTesia mixture | | AM PDT | | | | | PRN, Starting 01/22/15 at | | | | | | | 1106, Intra-op | | | | | | + +--------+ +--------+------+ + +---+---+ | | | +---+---+ documented in this encounter
--- OUTSIDE RECORDS SUMMARY | ~2019-09-06 | XMS | Encounter Summary ---
Demographics + + + | Address | [address] | | | [place] [address] | + + + | Home Phone | | + + + | Preferred Language | Unknown | + + + | Marital Status | | + + + | Samaritan Affiliation | 1013 | + + + | Race | Unknown | + + + | Ethnic Group | Unknown | + + + Author + + + | Author | [facility] | | | and [place] | + + + | Organization | [facility] | | | and [...] [place], [place] | | | | | [address] | | + + + + + Care Team Providers + +------+ + | Care Logistics Solution Manager Name | Role | Phone | + +------+ + | Raven Kim PA-C | PCP | | + +------+ + Encounter Details +--------+ + + + + | Date | Type | Department | Care Team | Description | +--------+ + + + + | 10/30/ | Orders Only | [facility] [place] | Shankar Kaufman, | Dysphagia, | | 2018 | | NEUROLOGY SPIKEGATLeigha | MD [address] | unspecified type | | | | [address], | [place] | (Primary Dx) | | | | [address] [place] | [address] | | | | | [place] [address] | | | | | | [phone] | | | +--------+ + + + [...] [address] | | | | | | [place] [address] | | | | | | [phone] | | | | | | | | +--------+---------+ + + + + +---------+--------+ + + | Name | Type | Priori | Associated Diagnoses | Order Schedule | | | | ty | | | + +---------+--------+ + + | FL Barium Swallow | Imaging | Routin | Dysphagia, | Expected: | | | | e | unspecified type | 10/30/2017, Expires: | | | | | | 10/30/2018 | + +---------+--------+ + + documented as of this encounter Visit Diagnoses + + | Diagnosis | + + | Dysphagia, unspecified type - Primary | + + documented in this encounter"
--- OUTSIDE RECORDS SUMMARY | ~2019-09-06 | XMS | Encounter Summary ---
Demographics + + + | Address | [address] | | | [place] [address] | + + + | Home Phone | | + + + | Preferred Language | Unknown | + + + | Marital Status | | + + + | Gnosticism Affiliation | 1013 | + + + | Race | Unknown | + + + | Ethnic Group | Unknown | + + + Author + + + | Author | [facility] | | | and [place] | + + + | Organization | [facility] | | | [...] [place], [place] | | | | | [address] | | + + + + + Care Team Providers + +------+ + | Care Sales And Marketing Intern Name | Role | Phone | + +------+ + | Raven Kim PA-C | PCP | | + +------+ + Reason for Visit + + + | Reason | Comments | + + + | Procedure | | + + + Encounter Details +--------+ + + + + | Date | Type | Department | Care Team | Description | +--------+ + + + + | 09/10/ | Telephone | [facility] [place] | Pipo Don MD | Procedure | | 2019 | | GASTROENTEROLOGY | [address], [place] | | | | | [address] [place] | [address] [place], [place] | | | | | [address] [place], [place] | [address] | | | | | [address] | | | | | | [phone] | | | +--------+ + + + [...] | | | | | [place] [address] | | | | | | [phone] | | | | | | | | +--------+---------+ + + + documented as of this encounter Visit Diagnoses Not on filedocumented in this encounter"
--- OUTSIDE RECORDS SUMMARY | ~2019-09-06 | XMS | Encounter Summary ---
Demographics + + + | Address | [address] | | | [place] [address] | + + + | Home Phone | | + + + | Preferred Language | Unknown | + + + | Marital Status | | + + + | Mandaeism Affiliation | 1013 | + + + | Race | Unknown | + + + | Ethnic Group | Unknown | + + + Author + + + | Author | [facility] | | | and [place] | + + + | Organization | [facility] | | | [...] [place], [place] | | | | | [address] | | + + + + + Care Team Providers + +------+ + | Care Eddy Current Inspector Name | Role | Phone | + +------+ + | Raven Kim PA-C | PCP | | + +------+ + Reason for Visit + + + | Reason | Comments | + + + | Follow-up | [facility] study | + + + Encounter Details +--------+ + + + + | Date | Type | Department | Care Team | Description | +--------+ + + + + | 09/16/ | Telephone | [facility] Pipo Don MD | Follow-up ([facility] | | 2019 | | GASTROENTEROLOGY | [address], [place] | study) | | | | [address] [place] | [address] [place], [place] | | | | | [address] [place], [place] | [address] | | | | | [address] | | | | | | [phone] | | | +--------+ + + + [...] | | | | | [place] [address] | | | | | | [phone] | | | | | | | | +--------+---------+ + + + documented as of this encounter Visit Diagnoses Not on filedocumented in this encounter"
--- OUTSIDE RECORDS SUMMARY | ~2019-09-06 | XMS | Encounter Summary ---
Demographics + + + | Address | [address] | | | [place] [address] | + + + | Home Phone | | + + + | Preferred Language | Unknown | + + + | Marital Status | | + + + | Voodoo Affiliation | 1013 | + + + | Race | Unknown | + + + | Ethnic Group | Unknown | + + + Author + + + | Author | [facility] | | | and [place] | + + + | Organization | [facility] | | | [...] [place], [place] | | | | | [address] | | + + + + + Care Team Providers + +------+ + | Care Gold Stamper Name | Role | Phone | + +------+ + | Raevn Kim PA-C | PCP | | + +------+ + Reason for Visit + + + | Reason | Comments | + + + | New Patient | | + + + | Gastroesophageal | | | Reflux | | + + + Evaluate & Treat (Routine) +--------+--------+ + + + + | Status | Reason | Specialty | Diagnoses / | Referred By | Referred To | | | | | Procedures | Contact | Contact | +--------+--------+ + + + + | Closed | | Gastroenterol | Diagnoses | Bebeto, | Arian, | | | | ogy | Acid reflux | Robert Otto MD | Pipo Ahuja MD | | | | | Procedures | [address] | [address], | | | | | office | [place] | [address] [address] | | | | | visit | [place], | [place], | | | | | | [place] [address] | [place] [address] | | | | | | Phone: | Phone: | | | | | | [phone] | [phone] | | | | | | Fax: | Fax: | | | | | | [phone] | [phone] | +--------+--------+ + + + + Encounter Details +--------+---------+ + + + | Date | Type | Department | Care Team | Description | +--------+---------+ + + + | 08/17/ | Office | [facility] | Pipo Don MD | Change in voice | | 2019 | Visit | GASTROENTEROLOGY | [address], [place] | (Primary Dx); | | | | [address] [place] | [address] [place], [place] | Gastroesophageal | | | | [address] [place], [place] | [address] | reflux disease, | | | | [address] | | esophagitis presence | | | | [phone] | | not specified | +--------+---------+ + + + Social History [...] + + + | Blood Pressure | 122/70 | 08/17/2018 3:32 PM | | | | | PDT | | + + + + + | Pulse | 80 | 08/17/2018 3:32 PM | | | | | PDT | | + + + + + | Temperature | - | - | | + + + + + | Respiratory Rate | 16 | 08/17/2018 3:32 PM | | | | | PDT | | + + + + + | Oxygen Saturation | - | - | | + + + + + | Inhaled Oxygen | - | - | | | Concentration | | | | + + + + + | Weight | 63.6 kg (140 lb 3.4 | 08/17/2018 3:32 PM | | | | oz) | PDT | | + + + + + | Height | 160 cm (5' 3") | 08/17/2018 3:32 PM | | | | | PDT | | + + + + + | Body Mass Index | 24.84 | 08/17/2018 3:32 PM | | | | | PDT | | + + + + + documented in this encounter Plan of Treatment +--------+---------+ + + + | Date | Type | Specialty | Care Team | Description | +--------+---------+ + + + | 11/21/ | Office | Urology | Stephanie Robles | | | 2019 | Visit | | MD [address] | | | | | [address] | | | | | | [place] [address] | | | | | | [phone] | | | | | | | | +--------+---------+ + + + documented as of this encounter Visit Diagnoses + + | Diagnosis | + + | Change in voice - Primary Other voice and resonance disorders | + + | Gastroesophageal reflux disease, esophagitis presence not specified | + + documented in this encounter
--- OUTSIDE RECORDS SUMMARY | ~2019-09-06 | XMS | Encounter Summary ---
Demographics + + + | Address | [address] | | | [place] [address] | + + + | Home Phone | | + + + | Preferred Language | Unknown | + + + | Marital Status | | + + + | Restorationist Affiliation | 1013 | + + + | Race | Unknown | + + + | Ethnic Group | Unknown | + + + Author + + + | Author | [facility] | | | and [place] | + + + | Organization | [facility] | | | [...] [place], [place] | | | | | [address] | | + + + + + Care Team Providers + +------+ + | Care Container Finishing Inspector Name | Role | Phone | [...] | | | | Diagnoses | | | | | | | port | | | | | | | surgical | | | | | | | bleeding | | | | | | | Procedures | | | | | | | REPAIR A&P | | | | | | | COLPORRHAPHY | | | +--------+--------+ + + + + Encounter Details +--------+---------+ + + + | Date | Type | Department | Care Team | Description | +--------+---------+ + + + | 01/29/ | Surgery | [facility] | Pipo Rajan | Re-suturing of a/p | | 2014 | | [facility] | DO [address] | repair | | | | [address] | [address] [facility] | | | | | [place] | [place] [address] | | | | | [address] | [phone] | | | | | [phone] | | | +--------+---------+ + + + [...] + + + | Blood Pressure | 102/61 | 01/30/2015 3:39 PM | | | | | PDT | | + + + + + | Pulse | 86 | 01/30/2015 3:39 PM | | | | | PDT | | + + + + + | Temperature | 36.4 C (97.5 F) | 01/30/2015 3:39 PM | | | | | PDT | | + + + + + | Respiratory Rate | 17 | 01/30/2015 3:39 PM | | | | | PDT | | + + + + + | Oxygen Saturation | 100% | 01/30/2015 4:00 AM | | | | | PDT | | + + + + + | Inhaled Oxygen | - | - | | | Concentration | | | | + + + + + | Weight | 61.2 kg (135 lb) | 01/29/2015 8:59 AM | | | | | PDT | | + + + + + | Height | 160 cm (5' 3") | 01/29/2015 8:59 AM | | | | | PDT | | + + + + + | Body Mass Index | 23.91 | 01/29/2015 8:59 AM | | | | | PDT | | + + + + + documented in this encounter Discharge Instructions Instructions Nita Ramírez RN - 01/30/2015 If more straight cath supplies are needed [facility] has them and can also do teaching , phone number: [phone]. In emergency go to the emergency department. Follow up with physicians as directed. Self-Catheterization for Women This is what you ll need Soap and warm water, or a moist towelette Water-soluble lubricating jelly (not petroleum jelly) Clean catheter Mirror Toilet or basin Self-catheterization helps you empty your bladder if it doesn t empty by itself. It also helps if your bladder doesn t empty all the way. Follow the steps below. 1. Preparation Gather all equipment needed. Arrange clothing so it is out of the way. Wash your hands and your genitals. Use warm, soapy water or a moist towelette. Always wa sh from front to back. 2. Lubricate the catheter Lubricate2 inches to 4inches of the catheter tip. Place the other end in the toilet or basin. 3. Insert the catheter Spread the labia. Find the urethra with a mirror, or with your index finger. Slowly insert the catheter into your urethra. If it doesn t go in, take a deep breath and bear down as if trying to urinate. 4. Empty urine When the urine starts flowing, gently advance an additional one-half to one inch. When the urine stops flowing, slowly remove the catheter. 5. Wash the catheter Wash the catheter in mild soap and water. Rinse it well. Run water through it. Then let it air-dry. Wash your hands. If you use a basin, wash it out. [id number] [employer]. [address] [place] [address], [place] [address]. All righ ts reserved. This information is [...] + + + +---------+ + + | docusate-senna | Take 1 tablet by | 30 | 1 | 01/31/20 | | | (SENOKOT-S) 50-8.6 | mouth 2 times daily. | tablet | | 15 | 8 | | mg per tablet | | | | | | + + + +---------+ + + | enoxaparin | Inject 60 mg under | | 0 | | | | (LOVENOX) 60 mg/0.6 | the skin every 12 | | | | 8 | | mL injection | hours. | | | | | + + + +---------+ + + | ferrous sulfate | Take 1 tablet by | 60 | 1 | 01/31/20 | | | 325 mg tablet | mouth 2 times daily. | tablet | | 15 | 8 | + + + +---------+ + + | | Take 1-2 tablets by | 30 | 0 | 01/31/20 | | | HYDROcodone-acetamin | mouth every 6 hours | tablet | | 15 | 8 | | ophen (NORCO) 5-325 | as needed for Pain | | | | | | mg per tablet | for up to 30 doses. | | | | | + + + +---------+ + + | ibuprofen | Take 1 tablet by | 30 | 1 | 01/31/20 | | | (ADVIL,MOTRIN) 800 | mouth [...] documented as of this encounter Progress Notes Nita Ramírez RN - 01/30/2015 5:20 PM PDTDischarged to home with spouse. Electronic ally signed by Nita Ramírez RN at 01/30/2015 5:38 PM PDTVanNita amin RN - 5:00 PM PDTPatient was able to do the self cath independently this time. w as present and shown how to do procedure as well. Discharge instructions gone over with jazzmine ent and her spouse, both verbalize understanding. Nita Jason RN - 01/30/2015 2:00 PM PDTPatient giuliana ded in self catheterization, needed a little help. Will try again at 4pm and see if she is m ore comfortable. Nita mosley RN - 01/30/2015 11:45 AM PDTCase manager employment here to help organize supplies for self cathing at home. 12:0 0 PM Nita Jason RN - 01/30/2015 11:10 AM PDTPatient is still unable to void. Dr Rajan notified, new orders taken. Patient when given the choice of going home self ca theterizing or home with a pabon, she choose self catheterization. So intermittent cath done on patient while she used a hand held mirror to watch how the procedure is done. Patient wi ll try to self cath next time. Nita Jason RN - 01/30/2015 9:00 AM PDTUp to bathroom, unable to void . PVR is 381ml, encouraged patient to try again in about 30 minutes. Pipo Wu DO - 01/30/2015 8:26 AM PDT [facility] Progress note Hospital Day: 2 POST OP DAY # 1 Day Post-Op DATE/TIME: 01/30/2015 8:27 49 y.o. year old female SUBJECTIVE/ROS: Nilsa Cornell is now Hospital Day: 2. Post Procedure(s) with comments: Re-suturing of a/p repair - Re-suturing of a/p repair Pain is adequately controlled. Patient is passing flatus. She does not complain of nause a. Currently tolerating a normal diet as tolerated diet. Patient is not voiding without di fficulty however her Pabon catheter was just removed this morning. Patient reports no vagina l bleeding. . OBJECTIVE: Temp: 36 C (96.8 F) BP: 100/66 mmHg Pulse: 81 Resp: 16 SpO2: 100 % on Min/Max Temp past 24 hours:Temp Av.3 C (97.3 F) Min: 36 C (96.8 F) Max: 36. 8 C (98.2 F) Intake/Output Summary (Last 24 hours) at 01/30/15 0827 Last data filed at 01/30/15 0400 Gross per 24 hour Intake 1330 ml Output 2220 ml Net -890 ml General: alert, cooperative and no distress Heart: RRR Lungs: CTA B/L Abdomen:soft and non-distened, appropriate tenderness Incision/ Wound: clean, dry and no drainage Extremities: edema absence Hematology: Lab Results Component Value Date HGB 8.7 01/30/2015 HCT 25.9 01/30/2015 WBC 7.7 01/30/2015 PLT 255 01/30/2015 ASSESSMENT: POD #1 moderate anemia. Patient's hematocrit this morning was 25.9 significant drop from h er preoperative level. Patient has had no bleeding on the floor since her surgery. Her elisa n is significantly improved. The other concern is in regards to her thromboprophylaxis. Braeden geiger will receive a Lovenox dose this morning as well as 12 mg of Coumadin. Patient will t hen return to her alternating dose of Coumadin and continue on Lovenox 50 mg twice daily unt il she is therapeutic. This was on the recommendations of her primary care physician. PLAN: She will be discharged to home. If the patient is unable to void we will replace her Pabon catheter have the patient self cath after her release. Prescriptions including Lovenox, ir on, hydrocodone, senna S will be given to the patient prior to discharge. I expect this patient will be hospitalized for less than 2-midnights and expect the post-ho spital plan to be determined once additional information is obtained. Electronically Signed by: Pipo Rajan DO, 01/30/2015 8:27 [facility] Nita Jason RN - 01/30/2015 7:45 AM PDTAssessment completed. Denies complaints at this time. El ectronically signed by Nita Ramírez RN at 01/30/2015 9:35 AM Xochilt Alvarez RN - 01/29/2015 11:15 PM PDTPt requested nightly amitriptyline. called for orders and given t o pt. Melinda Mcgill RN - 01/29/2015 10:14 PM PDTReport to Xochilt Anand to assume care Melinda Mcgill RN - 7:15 PM PDTReport from Nita thornton, Assumed care Nita Jason RN - 01/29/2015 6:15 PM PDTPat ient stood at edge of bed to wash up a little, tolerated well. Nita Jason RN - 01/29/2015 4:15 PM P DTC/o pain increasing, encouraged to use [employer] consultant more frequently. Patient states she keeps forge tting that [employer] consultant is there. Nita Jason RN - 01/29/2015 3:30 PM PDTSleeping with even, unlabored respira tions. Nita Jason RN - 01/29/2015 3:00 PM PDTC/o pain 12/11, dilaudid [employer] consultant started. C/o itching and na usea, medicated with both benadryl and reglan both. esiree, Nita Otto RN - 01/29/2015 2:30 PM PDTReceived from PACU via stretcher. Transferred to bed using maxi sheet, tolerated well. Assessment com pleted. documented in this encounter Plan of Treatment +--------+---------+ + + + | Date | Type | Specialty | Care Team | Description | +--------+---------+ + + + | 11/21/ | Office | Urology | Stephanie Robles | | | 2019 | Visit | | MD [address] | | | | | | [address] | | | | | | [place] [address] | | | | | | [phone] | | | | | | | | +--------+---------+ + + + documented as of this encounter Procedures + +--------+ + + + | Procedure Name | Priori | Date/Time | Associated Diagnosis | Comments | | | ty | | | | + +--------+ + + + | PROTIME INR | Routin | 01/30/2015 | | Results for this | | | e | 5:58 AM | | procedure are in the | | | | PDT | | results section. | + +--------+ + + + | CBC WITH | Routin | 01/30/2015 | | Results for this | | DIFFERENTIAL | e | 5:58 AM | | procedure are in the | | | | PDT | | results section. | + +--------+ + + + | URINALYSIS WITH | Routin | 01/29/2015 | | Results for this | | MICROSCOPIC WITH | e | 4:49 PM | | procedure are in the | | CULTURE IF INDICATED | | PDT | | results section. | + +--------+ + + + | REPAIR A&P | | 01/29/2015 | port surgical | | | COLPORRHAPHY | | 12:06 PM | bleeding | | | | | PDT | | | + +--------+ + + + documented in this encounter Results Protime INR (01/30/2015 5:58 AM PDT) + + + + + + | Component | Value | Ref Range | Performed | Pathologist | | | | | At | Signature | + + + + + + | Prothrombin | 13.1 | 11.3 - 13.9 | [facility] | | | Time | | seconds | [facility] | | | | | | MEDICAL | | | | | | CENTER - | | | | | | LABORATORY | | + + + + + + | INR | 0.99Comment: Usual Oral | 0.90 - 1.10 | [facility] | | | | Anticoagulation Range: | | [facility] | | | | 2.0 - 3.0High | | MEDICAL | | | | Level Oral | | CENTER - | | | | Anticoagulation Range: | | LABORATORY | | | | 2.5 - 3.5 | | | | + + + + + + + + | Specimen | + + | Blood | + + + + + + + | Performing | Address | City/State/Zipcode | Phone Number | | Organization | | | | + + + + + | [facility] | [address] | [place] | [phone] | | [facility] | | [address] | | | - LABORATORY | | | | + + + + + CBC with Differential (01/30/2015 5:58 AM PDT) + + + + + + | Component | Value | Ref Range | Performed | Pathologist | | | | | At | Signature | + + + + + + | WBC | 7.7 | 4.0 - 11.0 K/uL | [facility] | | | | | | [facility] | | | | | | MEDICAL | | | | | | CENTER - | | | | | | LABORATORY | | + + + + + + | RBC | 2.78 (L) | 3.70 - 5.20 | [facility] | | | | | M/uL | [facility] | | | | | | MEDICAL | | | | | | CENTER - | | | | | | LABORATORY | | + + + + + + | Hemoglobin | 8.7 (L) | 11.5 - 16.0 | [facility] | | | | | g/dL | [facility] | | | | | | MEDICAL | | | | | | CENTER - | | | | | | LABORATORY | | + + + + + + | Hematocrit | 25.9 (L) | 34.0 - 47.0 % | [facility] | | | | | | [facility] | | | | | | MEDICAL | | | | | | CENTER - | | | | | | LABORATORY | | + + + + + + | MCV | 93.0 | 83.0 - 101.0 fL | [facility] | | | | | | [facility] | | | | | | MEDICAL | | | | | | CENTER - | | | | | | LABORATORY | | + + + + + + | MCH | 31.3 | 28.0 - 35.0 pg | [facility] | | | | | | [facility] | | | | | | MEDICAL | | | | | | CENTER - | | | | | | LABORATORY | | + + + + + + | MCHC | 33.6 | 32.0 - 36.0 | [facility] | | | | | g/dL | [facility] | | | | | | MEDICAL | | | | | | CENTER - | | | | | | LABORATORY | | + + + + + + | RDW-CV | 13.6 | <15.0 % | [facility] | | | | | | [facility] | | | | | | MEDICAL | | | | | | CENTER - | | | | | | LABORATORY | | + + + + + + | Platelet | 255 | 140 - 440 K/uL | [facility] | | | Count | | | [facility] | | | | | | MEDICAL | | | | | | CENTER - | | | | | | LABORATORY | | + + + + + + | MPV | 7.9 | fL | [facility] | | | | | | [facility] | | | | | | MEDICAL | | | | | | CENTER - | | | | | | LABORATORY | | + + + + + + | % | 68.2 | 45.0 - 82.0 % | [facility] | | | Neutrophils | | | [facility] | | | | | | MEDICAL | | | | | | CENTER - | | | | | | LABORATORY | | + + + + + + | % | 18.7 (L) | 20.0 - 45.0 % | [facility] | | | Lymphocytes | | | [facility] | | | | | | MEDICAL | | | | | | CENTER - | | | | | | LABORATORY | | + + + + + + | % Monocytes | 8.0 | 4.0 - 12.0 % | [facility] | | | | | | [facility] | | | | | | MEDICAL | | | | | | CENTER - | | | | | | LABORATORY | | + + + + + + | % | 4.3 | 0.0 - 5.0 % | [facility] | | | Eosinophils | | | [facility] | | | | | | MEDICAL | | | | | | CENTER - | | | | | | LABORATORY | | + + + + + + | % Basophils | 0.8 | 0.0 - 1.0 % | [facility] | | | | | | [facility] | | | | | | MEDICAL | | | | | | CENTER - | | | | | | LABORATORY | | + + + + + + | Absolute | 5.30 | 1.80 - 8.50 | [facility] | | | Neutrophils | | K/uL | [facility] | | | | | | MEDICAL | | | | | | CENTER - | | | | | | LABORATORY | | + + + + + + | Absolute | 1.40 | 0.60 - 3.20 | [facility] | | | Lymphocytes | | K/uL | [facility] | | | | | | MEDICAL | | | | | | CENTER - | | | | | | LABORATORY | | + + + + + + | Absolute | 0.60 | 0.00 - 1.00 | [facility] | | | Monocytes | | K/uL | [facility] | | | | | | MEDICAL | | | | | | CENTER - | | | | | | LABORATORY | | + + + + + + | Absolute | 0.30 | 0.00 - 0.40 | [facility] | | | Eosinophils | | K/uL | [facility] | | | | | | MEDICAL | | | | | | CENTER - | | | | | | LABORATORY | | + + + + + + | Absolute | 0.10 [...] | + + + + + | [facility] | [address] | [place] | [phone] | | [facility] | | [address] | | | - LABORATORY | | | | + + + + + Urinalysis with Microscopic with Culture if Indicated (01/29/2015 4:49 PM PDT) + + + + + [...] | | | | | | [facility] | | | | | | MEDICAL | | | | | | CENTER - | | | | | | LABORATORY | | + + + + + + | pH, Urine | 5.5 | 5.0 - 8.0 | [facility] | | | | | | [facility] | | | | | | MEDICAL | | | | | | CENTER - | | | | | | LABORATORY | | + + + + + + | Specific | >=1.030 | 1.001 - 1.030 | [facility] | | | [place], | | | [facility] | | | Urine | | | [...] + + + | White Blood | 2-5 (A) | 0 - 2 /HPF | [facility] | | | Cells, | | | [facility] | | | Urine | | | MEDICAL | | | | | | CENTER - | | | | | | LABORATORY | | + + + + + + | Red Blood | 0-2 | 0 - 2 [...] + + + + + + | Urine | Urine Culture Not | | [facility] | | | Comment | Indicated | | [facility] | | | [...] + + + + + | [facility] | [address] | [place] | [phone] | | [facility] | | [address] | | | - LABORATORY | | | | + + + + + documented in this encounter Visit Diagnoses Not on filedocumented in this encounter Administered Medications + +--------+ +------+------+ + | Medication Order | MAR | Action | Dose | Rate | Site | | | Action | Date | | | | + +--------+ +------+------+ + | bupivacaine (MARCAINE) 0.25% | Given | 01/30/20 | 1 mL | | Surgical | | injection PRN, Starting Mon | | 15 12:47 | | | Site | | 01/29/15 at 1247, Intra-op | | PM PDT | | | | + +--------+ +------+------+ + +---+---+ | | | +---+---+ + +-------+ + +---+ + | clindamycin (CLEOCIN) 2% | Given | 01/30/20 | 1 | | Surgical | | vaginal cream PRN, Starting Mon | | 15 12:46 | applicat | | Site | | 01/29/15 at 1246, Intra-op | | PM PDT | or | | | + +-------+ + +---+ + +---+---+ | | | +---+---+ + +-------+ + +---+ + | vasopressin (PITRESSIN) | Given | 01/30/20 | 20 Units | | Surgical | | injection PRN, Starting Mon | | 15 12:47 | | | Site | | 01/29/15 at 1247, Intra-op | | PM PDT | | | | + +-------+ + +---+ + +---+---+ | | | +---+---+ documented in this encounter
--- OUTSIDE RECORDS SUMMARY | ~2019-09-06 | XMS | Encounter Summary ---
Demographics + + + | Address | [address] | | | [place] [address] | + + + | Home Phone | | + + + | Preferred Language | Unknown | + + + | Marital Status | | + + + | Judaism Affiliation | 1013 | + + + | Race | Unknown | + + + | Ethnic Group | Unknown | + + + Author + + + | Author | [facility] | | | and [place] | + + + | Organization | [facility] | | | [...] [address] | | | | | [place], [place] | | | | | [address] | | + + + + + Care Team Providers + +------+ + | Care Fisher Scallop Name | Role | Phone | + +------+ + | Raven Kim PA-C | PCP | | + +------+ + Reason for Visit +--------+ + | Reason | Comments | +--------+ + | Other | request to [facility] | +--------+ + Encounter Details +--------+ + + + + | Date | Type | Department | Care Team | Description | +--------+ + + + + | 04/05/ | Documentati | [facility] | Shiv, | Other (request to | | 2018 | on | PULMONOLOGY [address] | Anabel [facility] | [facility]) | | | | KRISTY ROSARIO | Food And Beverage Manager | | | | | [place] | | | | | | [address] | | | | | | [phone] | | | +--------+ + + + [...] documented as of this encounter Progress Notes Anabel Chaney, Education And Development Manager - 04/05/2019 4:09 PM PSTSent faxed request to [facility] for GI imaging and chart notes faxed to , confirmation reciev ed documented in this encounter Plan of Treatment [...] | | | | | [place] [address] | | | | | | [phone] | | | | | | | | +--------+---------+ + + + documented as of this encounter Visit Diagnoses Not on filedocumented in this encounter"
--- OUTSIDE RECORDS SUMMARY | ~2019-09-06 | XMS | Encounter Summary ---
Demographics + + + | Address | [address] | | | [place] [address] | + + + | Home Phone | | + + + | Preferred Language | Unknown | + + + | Marital Status | | + + + | Sikhism Affiliation | 1013 | + + + | Race | Unknown | + + + | Ethnic Group | Unknown | + + + Author + + + | Author | [facility] | | | and [place] | + + + | Organization | [facility] | | | [...] [place], [place] | | | | | [address] | | + + + + + Care Team Providers + +------+ + | Care Dispatch Manager Name | Role | Phone | [...] | Jethro | | | | | Iqra | Yuli | Pulmonary | | | | | of breath | MD Keyonna | Function Lab | | | | | Cr(e)st | [address] | [address] | | | | | syndrome | [address] | [address] | | | | | (HCC) | [address] | [place], [place] | | | | | Procedures | [place], [place] | [address] | | | | | PFT | [address] | Phone: | | | | | | Phone: | [phone] | | | | | | [phone] | Fax: | | | | | | Fax: | [phone] | | | | | | [phone] | | +--------+--------+ + + + + Encounter Details +--------+ + + + + | Date | Type | Department | Care Team | Description | +--------+ + + + + | 03/01/ | Hospital | [facility] | Yuli He | Shortness of breath; | | 2019 | Encounter | PULMONARY FUNCTION | MD 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) | | | | LAB [address] | [address] | | | | | [place], [place] | [place], [place] | | | | | [address] | [address] | | | | | [phone] | [phone] | | | | | | | [...] | 1 | 12/19/19 | | | [id number]-gmbbniseg-a | RIBBON TO BOTH EYES | | | 18 | 9 | | examethasone | TID | | | | | | (MAXITROL) | | | | | | | 3.5-47892-7.1 | | | | | | | [...] [address] | | | | | | [place] [address] | | | | | | [phone] | | | | | | | | +--------+---------+ + + + documented as of this encounter Procedures + +--------+ + + + | Procedure Name | Priori | Date/Time | Associated Diagnosis | Comments | | | ty | | | | + +--------+ + + + | PFT PULMONARY | Routin | 03/01/2019 | Shortness of | Results for this | | FUNCTION TESTING | e | 3:57 PM | breath CRST | procedure are in the | | ORDERS | | PDT | syndrome (HCC) | results section. | + +--------+ + + + documented in this encounter Results Pulmonary function test full PFT (03/01/2019 3:57 PM PDT) + + + | Narrative | Performed At | + + + | Sonya Parker MD 03/01/2019 15:59 PULMONARY | | | FUNCTION TEST NAME: Nilsa Cornell : 1965 MRN: | | | [id number] REASON FOR TESTING: Dyspnea FINDINGS | | | SPIROMETRY: 1. FEV-1/FVC is 74 2. FEV-1 is 2.65 L or 85% 3. FVC | | | is 3.59L or 89%. LUNG VOLUMES: 1. TLC is 5.17L or 89%. 2. | | | RV/TLC is 31. DIFFUSING CAPACITY: Not done INTERPRETATION: | | | Pre-bronchodilator spirometry did not show any underlying | | | obstruction. Lung volumes are within normal. The rest of the | | | pulmonary function test was not completed because of worsening | | | symptoms of anxiety, shortness of breath, and cramping of the legs. | | | The patient was brought to the emergency department. Sonya | | | Isabelle Parker MD Pulmonary and Critical Care Medicine [facility] | | | [facility] [address], [address] | | | [place] [address] | | + + + documented in this encounter Visit Diagnoses + + | Diagnosis | + + | Shortness of breath | + + | CRST syndrome (HCC) Systemic sclerosis | + + documented in this encounter Administered Medications + +--------+ +--------+------+------+ | Medication Order | MAR | Action | Dose | Rate | Site | | | Action | Date | | | | + +--------+ +--------+------+------+ | albuterol 2.5 mg/3 mL nebulizer | Given | 03/01/20 | 2.5 mg | | | | solution 2.5 mg 2.5 mg, | | 19 10:57 | | | | | Nebulization, RT Once, Tue | | AM PDT | | | | | 03/01/19 at 1115, For 1 dose, RT | | | | | | | will administer., | | | | | | + +--------+ +--------+------+------+ +---+---+ | | | +---+---+ documented in this encounter"
--- OUTSIDE RECORDS SUMMARY | ~2019-09-06 | XMS | Encounter Summary ---
Demographics + + + | Address | [address] | | | [place] [address] | + + + | Home Phone [...] [place], [place] | | | | | [address] | | + + + + + Care Team Providers + +------+ + | Care City Detective Name | Role | Phone | + +------+ + | Raven Kim PA-C | PCP | | + +------+ + Encounter Details +--------+ + + + + | Date | Type | Department | Care Team | Description | +--------+ + + + + | 06/29/ | Imaging | [facility] | Provider, | | | 2018 | Exam | [facility] | MD [address] | | | | | IMAGING [address] | [address] | | | | | [address] [place] | [place] [address] | | | | | [place] [address] | | | | | | [phone] | | | +--------+ + + + [...] + +---------+ + | Yes | 1 Cans of beer 1 | 2.0 | 1-2 bottles per | | | Glasses of wine | | month | + + +---------+ [...] [address] | | | | | | [place] [address] | | | | | | [phone] | | | | | | | | +--------+---------+ + + + documented as of this encounter Procedures + +--------+ + + + | Procedure Name | Priori | Date/Time | Associated Diagnosis | Comments | | | ty | | | | + +--------+ + + + | MRI BRAIN W WO | Routin | 03/10/2017 | | Results for this | | CONTRAST | e | 10:15 AM | | procedure are in the | | | | PST | | results section. | + +--------+ + + + documented in this encounter Results MRI Brain w wo Contrast (03/10/2017 10:15 AM PST) + + | Specimen | + + | | + + + + + | Narrative | Performed At | + + + | External films for comparison only - no result from [facility]. | [facility] | + + + + +---------+ + + | Performing | Address | City/State/Zipcode | Phone Number | | Organization | | | | + +---------+ + + | [facility] | | | | + +---------+ + + documented in this encounter Visit Diagnoses Not on filedocumented in this encounter"
--- OUTSIDE RECORDS SUMMARY | ~2019-09-06 | XMS | Encounter Summary ---
Demographics + + + | Address | [address] | | | [place] [address] | + + + | Home Phone | | + + + | Preferred Language | Unknown | + + + | Marital Status | | + + + | Sabianist Affiliation | 1013 | + + + | Race | Unknown | + + + | Ethnic Group | Unknown | + + + Author + + + | Author | [facility] | | | and [place] | + + + | Organization | [facility] | | | and [place] | + + + | Address | Unknown | + + + | Phone | Unavailable | + + + Support + + + + + | Name | Relationship | Address | Phone | + + + + + | Gamaliel Cornell | ECON | [address] | | | | | [place], [place] | | | | | [address] | | + + + + + Care Team Providers + +------+ + | Care Weight Control Lecturer Name | Role | Phone | + [...] | | | | Diagnoses | | Harri, | | | | | Change in | | Pipo Ahuja MD | | | | | voice | | [address], | | | | | Gastroesopha | | [address] | | | | | geal reflux | | [place], | | | | | disease, | | [place] [address] | | | | | esophagitis | | Phone: | | | | | presence not | | [phone] | | | | | specified | | Fax: | | | | | Procedures | | [phone] | | | | | LA | | | | | | | ESOPHAGOGAST | | | | | | | RODUODENOSCO | | | | | | | PY TRANSORAL | | | | | | | DIAGNOSTIC | | | | | | | LA EGD | | | | | | | TRANSORAL | | | | | | | BIOPSY | | | | | | | SINGLE/MULTI | | | | | | | PLE LA GERD | | | | | | | TST W/ | | | | | | | MUCOS PH | | | | | | | ELECTROD LA | | | | | | | ANESTHESIA | | | | | | | UPPER GI | | | | | | | ENDOSCOPIC | | | | | | | PX NOS | | | | | | | ENDOSCOPIC | | | | | | | 48 HOUR PH | | | | | | | WALKER | | | | | | | "CAPSULE" | | | +--------+--------+ + + + + Encounter Details +--------+ + + + + | Date | Type | Department | Care Team | Description | +--------+ + + + + | 09/14/ | Anesthesia | [facility] | Jl Nunez MD | | | 2019 | Event | [facility] | [address] | | | | | [address] | [place] | | | | | [place] | [address] | | | | | [address] | [phone] | | | | | [phone] | | | +--------+ + + + + Anesthesia Record + + + + + | Procedure Name | Responsible | Anesthesia Start | Anesthesia Stop Time | | | Anesthesiologist | Time | | + + + + + | ENDOSCOPIC 48 HOUR | Jl Nunez MD | 09/14/18 1113 | 09/14/18 1138 | | PH WALKER "CAPSULE" | | | | | (N/A ) | | | | + + + + + +----+---+ + + | Da | T | Event | Comment | | te | i | | | | | m | | | | | e | | | +----+---+ + + | 05 | 1 | An Checkout | Pre-use anesthesia machine/equipment checkout. | | /1 | 1 | | | | 4/ | 1 | | | | 20 | 1 | | | | 19 | | | | +----+---+ + + | | 1 | | | | | 1 | | | | | 1 | | | | | 2 | | | +----+---+ + + | | 1 | An Start | | | | 1 | Data | | | | 1 | | | | | 2 | | | +----+---+ + + | | 1 | An Start | Reassessment prior to anesthesia induction/procedure. | | | 1 | | | | | 1 | | | | | 3 | | | +----+---+ + + | | 1 | First | | | | 1 | Inc/Proc St | | | | 1 | | | | | 3 | | | +----+---+ + + | | 1 | Pre-Procedu | | | | 1 | ral Timeout | | | | 1 | Completed | | | | 5 | | | +----+---+ + + | | 1 | An Stop | Patient handed off to recovery nurse. | | | 3 | | | | | 8 | | | +----+---+ + + +------+ | Meds | +------+ + + + | Name | Total | + + + | propofol | 150 mg | + + + | propofol | 109.03 mg | + + + | lidocaine 2% | 50 mg | + + + | lactated ringers (LR) infusion | 100 mL | + + + + + | No agents on file. | + + + + | No blood administrations on file. | + + +--------+ + + + | Type | Details | Placement | Removal | +--------+ + + + | Periph | 09/14/18; 1124; Left; Hand; | 09/14/18 1124 by | 09/14/18 1249 by | | lavelle | [id number]-syk-cjveea catheter system; | Carol Plummer, | Carol Plummer, | | IV | 20 gauge, 1 1/4 in length; | RN | RN | | | distraction, intradermal | | | | | injection; 09/14/18; 1249 | | | +--------+ + + + documented in this encounter Social History + + + +--------+ + [...] [address] | | | | | | [place] [address] | | | | | | [phone] | | | | | | | | +--------+---------+ + + + documented as of this encounter Visit Diagnoses Not on filedocumented in this encounter Administered Medications + +---------+ +------+------+------+ | Medication Order | MAR | Action | Dose | Rate | Site | | | Action | Date | | | | + +---------+ +------+------+------+ | lactated ringers (LR) infusion | New Bag | 09/15/19 | | | | | at 100 mL/hr, Intravenous, | | 19 10:56 | | | | | CONTINUOUS, Starting 09/14/18 | | AM PDT | | | | | at 1130, Pre-op | | | | | | + +---------+ +------+------+------+ +---+---+ | | | +---+---+ + +-------+ +-------+---+---+ | lidocaine (PF) 2% injection | Given | 09/15/19 | 50 mg | | | | Intravenous, PRN, Starting Tue | | 19 11:17 | | | | | 09/14/18 at 1117, Anesthesia | | AM PDT | | | | | Intra-op | | | | | | + +-------+ +-------+---+---+ +---+---+ | | | +---+---+ + + + + +-------+---+ | propofol (DIPRIVAN) injection | Rate/Dos | 09/15/19 | 180 | 70.1 | | | Intravenous, CONTINUOUS PRN, | e Change | 19 11:23 | mcg/kg/m | mL/hr | | | Starting 09/14/18 at 1120, | | AM PDT | in | | | | Anesthesia Intra-op | | | | | | + + + + +-------+---+ +---------+ + +-------+---+ | New Bag | 09/15/19 | 140 | 54.5 | | | | 19 11:20 | mcg/kg/m | mL/hr | | | | AM PDT | in | | | +---------+ + +-------+---+ +---+---+ | | | +---+---+ + +-------+ +-------+---+---+ | propofol (DIPRIVAN) injection | Given | 09/15/19 | 40 mg | | | | Intravenous, PRN, Starting Tue | | 19 11:23 | | | | | 09/14/18 at 1116, Anesthesia | | AM PDT | | | | | Intra-op | | | | | | + +-------+ +-------+---+---+ +-------+ +-------+---+---+ | Given | 09/15/19 | 30 mg | | | | | 19 11:18 | | | | | | AM PDT | | | | +-------+ +-------+---+---+ | Given | 09/15/19 | 70 mg | | | | | 19 11:17 | | | | | | AM PDT | | | | +-------+ +-------+---+---+ +---+---+ | | | +---+---+ documented in this encounter
--- OUTSIDE RECORDS SUMMARY | ~2019-09-06 | XMS | Encounter Summary ---
Demographics + + + | Address | [address] | | | [place] [address] | + + + | Home Phone | | + + + | Preferred Language | Unknown | + + + | Marital Status | | + + + | Methodist Affiliation | 1013 | + + + | Race | Unknown | + + + | Ethnic Group | Unknown | + + + Author + + + | Author | [facility] | | | and [place] | + + + | Organization | [facility] | | | and [place] | + + + | Address | Unknown | + + + | Phone | Unavailable | + + + Support + + + + + | Name | Relationship | Address | Phone | + + + + + | Gamaliel Cornell | ECON | [address] | | | | | [place], [place] | | | | | [address] | | + + + + + Care Team Providers + +------+ + | Care Welding Machine Operator Helper Gas Name | Role | Phone | + [...] | +--------+ + + + + | 02/28/ | Telephone | [facility] | Jeovanny, | Anticoagulation | | 2019 | | CARDIOLOGY NATALEE | Alyssa Haley RN | | | | | [address] | | | | | | [place] | | | | | | [address] | | | | | | [phone] | | | +--------+ + + + [...] | | | | | [place] [address] | | | | | | [phone] | | | | | | | | +--------+---------+ + + + documented as of this encounter Visit Diagnoses Not on filedocumented in this encounter"
--- OUTSIDE RECORDS SUMMARY | ~2019-09-06 | XMS | Encounter Summary ---
Demographics + + + | Address | [address] | | | [place] [address] | + + + | Home Phone | | + + + | Preferred Language | Unknown | + + + | Marital Status | | + + + | Druze Affiliation | 1013 | + + + | Race | Unknown | + + + | Ethnic Group | Unknown | + + + Author + + + | Author | [facility] | | | and [place] | + + + | Organization | [facility] | | | and [...] [place], [place] | | | | | [address] | | + + + + + Care Team Providers + +------+ + | Care Hall Clerk Name | Role | Phone | + +------+ + | Raven Kim PA-C | PCP | | + +------+ + Reason for Referral Evaluate & Treat (Routine) +--------+ + + + + + | Status | Reason | Specialty | Diagnoses / | Referred By | Referred To | | | | | Procedures | Contact | Contact | +--------+ + + + + + | Closed | Specialty | | Diagnoses | Kaufman, | Byron, | | | Services | | General | Shankar Meyers MD | MD Sera | | | Required | | weakness | [address] | | | | | Procedures | [address] | | | | | | HIM 10[address] | [place], | [place], [place] | | | | | | [place] [address] | [address] Phone: | | | | | | Phone: | [phone] | | | | | | [phone] | Fax: | | | | | | Fax: | [phone] | | | | | | [phone] | | +--------+ + + + + + Reason for Visit + + + | Reason | Comments | + + + | Neck Pain | | + + + | Pain | generalized | + + + Encounter Details +--------+---------+ + + + | Date | Type | Department | Care Team | Description | +--------+---------+ + + + | 09/29/ | Office | [facility] | Shankar Kaufman, | Fibromyalgia | | 2018 | Visit | PHYSIATRY [address] | [address] | (Primary Dx); | | | | [address] | [place], [place] | Vitamin D | | | | [place], [place] | [address] | deficiency; General | | | | [address] | | weakness; Chronic | | | | [phone] | | daily headache; | | | | | | Chronic migraine | | | | | | without aura without | | | | | | status migrainosus, | | | | | | not intractable | +--------+---------+ + + + Social History [...] + + + | Blood Pressure | 146/92 | 09/29/2017 3:14 PM | | | | | PDT | | + + + + + | Pulse | 75 | 09/29/2017 3:14 PM | | | | | PDT | | + + + + + | Temperature | - | - | | + + + + + | Respiratory Rate | - | - | | + + + + + | Oxygen Saturation | - | - | | + + + + + | Inhaled Oxygen | - | - | | | Concentration | | | | + + + + + | Weight | 62.1 kg (137 lb) | 09/29/2017 3:14 PM | | | | | PDT | | + + + + + | Height | 160 cm (5' 3") | 09/29/2017 3:14 PM | | | | | PDT | | + + + + + | Body Mass Index | 24.27 | 09/29/2017 3:14 PM | | | | | PDT | | + + + + + documented in this encounter Patient Instructions Patient Instructions Cindy Sandoval RN - 09/29/2017 2:40 PM PDTContinue to avoid caff eine Please keep sleep study consultation Start medication gabapentin, take as directed Continue regular daily exercise Referral to cardiology, there office will call you to schedule an appt. Electronically sign ed by Cindy Sandoval RN at 09/29/2017 3:51 PM PDT documented in this encounter Progress Notes Shankar Kaufman MD - 09/29/2017 2:40 PM PDTFormatting of this note might be different fro m the original. Shankar Kaufman MD [address] [facility], [address] [place] [address] FAX: PHYSICAL MEDICINE AND REHABILITATION H&P CHIEF COMPLAINT: Chief Complaint Patient presents with Neck Pain Pain generalized HISTORY OF PRESENT ILLNESS: Nilsa Cornell is a 51 y.o. female being seen today in follow-up for complaints of neck pain and headaches and upper extremity tingling. Nilsa Cornell was last see n on 06/22 and 06/24. Previously it was recommended that have and MRI completed, discontinue t he use of tylenol and advil, and have labs drawn. She returns today to review MRI and lab r esults and talk about her fibromyalgia. Nilsa Cornell reports stopping advil initi ally but has since started back on advil and aleve since falling on September 06 that has been ca using her pain. Nilsa Cornell reports participating in PT a few times since her fa ll. Nilsa Cornell reports still feeling very fatigued. Nilsa Cornell state s she has a sleep consult scheduled. Overall Nilsa Cornell reports that her symptoms are improving. Nilsa rey rates the pain as moderate. describes the pain as Soreness to legs and hips, general ly her pain all over. Her symptoms worsen with being still, climbing stairs and working out . Her symptoms improve with nothing. Nilsa Cornell does not describe numbness of the upper extremities. She does not report weakness of the upper extremities. She does n ot have bowel and bladder dysfunction. She does not have saddle anesthesia. Treatments for these complaints have included: Physical Therapy, medications,. Nilsa Cornell is currently taking aleve and cymbalta for treatment of pain. Nilsa Banegass medications, allergies, past medical, surgical, social and family histories were reviewed and updated as appropriate. CURRENT MEDICATIONS: Current Outpatient Prescriptions Medication Sig Dispense Refill ALPRAZolam (ALPRAZOLAM XR) 0.5 MG 24 hr tablet Take 0.5 mg by mouth nightly. DULoxetine (CYMBALTA) 30 mg capsule (Patient taking differently: 60 mg Daily.) fluticasone (FLONASE) 50 mcg/nasal spray 1 spray by Nasal route Daily. levothyroxine (SYNTHROID) 100 mcg tablet TK 1 T PO QD 0 SUMAtriptan (IMITREX) 50 mg tablet TK 1 T PO AOS OF MIGRAINE DIRECTED. REPEAT DOSE I N 2 HOUR IF SYMPTOMS PERSIST. MAX D DOSE 200 MG 2 warfarin (COUMADIN) 4 MG tablet 8 mg. 2 tablets a day except 3 tablets on Thursday No current facility-administered medications for this visit. ALLERGIES: Allergies Allergen Reactions Sulfa Antibiotics Diarrhea and Nausea And Vomiting REVIEW OF SYSTEMS: Review of Systems Constitutional: Positive for malaise/fatigue (feel exhausted). Eyes: Negative. Cardiovascular: Negative. Musculoskeletal: POSITIVE for generalized pain/soreness Skin: Negative. Neurological: Positive for headaches. Psychiatric/Behavioral: The patient has insomnia. GENERALLY: No fever, no night sweats, no anemia, no fatigue, no recent profound weight ch anges. EYES: No eye problems, no use of corrective lenses, no eye injury, no double vision, no bl indness. EARS, NOSE, AND THROAT: No changes in taste or smell, no hearing difficulty, no ringing in the ears, no ear drainage, no dizziness, no voice changes, no difficulty swallowing, no sig nificant snoring, no sleep apnea, no sinus problems, no major dental work. NEUROLOGICALLY:The patient has no numbness/pain of arms, no numbness/pain of legs, no awake with numbness/pain, no weakness, no muscle aching, no coordination difficulty, no change in walk, no head injury, no neck injury, no back injury, no pain in neck, no pain in back, no stroke, no fainting spells, no loss of consciousness, no tremor/shaking, no seizures, no hea daches, no migraine, no memory loss, no speech difficulty, no confusion and no numbness of f alvarado. PSYCHIATRIC: No depression, no sleep disorders, no anxiety, no bipolar disorder, no psycho tic episodes. CARDIOVASCULAR: No heart attacks, no heart murmur, no heart fluttering, no chest pain, no ankle swelling. LUNG DISEASE: No shortness of breath, no cough, no tuberculosis, no bloody cough, no asth ma, no emphysema/COPD. GASTROINTESTINAL: No bowel disease, no nausea or vomiting, no rectal bleeding, no constipa tion, no stool incontinence, no liver disease, no gallbladder disease, no abdominal pain, no ulcers. KIDNEY DISEASE: No urinary frequency, no painful or difficult urination, no incontinence. ENDOCRINE: No diabetes, no thyroid disease, no osteopenia or osteoporosis, no breast drain age. SKIN: No breast lumps, no skin changes, no rashes, no itches. HEMATOLOGIC/LYMPHATIC: No enlarged lymph nodes, no easy or unusual bleeding, no personal h istory of cancer. RHEUMATOLOGIC: No joint arthritis, no rheumatoid arthritis. PHYSICAL EXAMINATION: Blood pressure (!) 146/92, pulse 75, height 1.6 m (5' 3"), weight 62.1 kg (137 lb), last fl nstrual period 02/21/2014, not currently . Body mass index is 24.27 kg/m. Vitals: 09/29/17 1514 BP: (!) 146/92 Pulse: 75 PainSc: 5 GENERAL: The patient is well developed and well nourished. She does not appear uncomfortab le when seated. HEENT: Normocephalic and atraumatic. Normal sclerae without icterus. NECK (ANTERIOR): There is no apparent cervical lymphadenopathy or thyromegaly. PULMONARY: The patient is in no acute respiratory distress with unlabored respirations. CARDIOVASCULAR: Regular rate and rhythm. There is not lower extremity edema. ABDOMEN: Non-distended. SKIN: Limited skin exam shows no significant rashes or lesions. There are not scars in the cervical region. NEUROLOGIC: The patient is awake, alert, and oriented. She follows simple and complex commands. Her speech is fluent. She comprehends speech well. She has no apparent deficits with short or penitentiary memory. The cranial nerves appear grossly intact. MUSCULOSKELETAL : The patient localized the majority of the pain to bilateral hips There was no redness, effusion, warmth or joint line tenderness in the knees or ankles. DATABASE: MRI cervical spine competed 03/10/2017 was reviewed personally by me in detail during today 's visit. I concur with the results as reported by the Radiologist. The imaging demonstrate s: Degenerative disc disease and spondylosis at C6-C7. Mild bilateral foraminal narrowing is suspected . ASSESSMENT: 1. Fibromyalgia 2. Vitamin D deficiency 3. General weakness 4. Chronic daily headache 5. Chronic migraine without aura without status migrainosus, not intractable PLAN: 1. Today we discussed the results of Nilsa Cornell's labs she had drawn in detail. Explained to Nilsa Cornell that her liver enzymes were elevated and was advised t o follow up with her PCP. Nilsa Cornell states she did see her PCP and was tested f or hepatitis and liver enzymes were re-drawn and normal. Nilsa Cornell was also a dvised that she is vitamin d deficicient. Nilsa Cornell states she's also seeing he r pcp for this diagnosis as well and reports starting a Vitamin D supplement. Today we disc ussed the Pathophysiology of vitamin D deficiency and the effects it can have on the body . Nilsa Cornell was advised that we will test her vitamin D level again in 6 months after starting vitamin D supplements. 2. Today we discussed the possibility of sleep apnea with Nilsa Cornell's symptoms of chronic fatigue. Nilsa Cornell states she has a sleep study consultat ion scheduled on 10/28/2017. 3. Today we discussed her medication Cymbalta and to continue taking the dose she is comfor table with. 4. Today we discussed medication gabapentin in detail today as a possible option for treat ment of Nilsa Cornell's pain. Low dose gabapentin may give her some benefit. Brigid Cornell shows interest in trying this medication. She will take 1 tablet at night for 1 week then 2 tablets at night for 1 week, then 1 tablet in the morning and one tablet at night. Medication will be ordered and called into her pharmacy today. Taper up the dose of the medication as directed. If she has side effects to the medication, she should reduce the dose of the medication to the last dose that she was able to tolerate without side effe cts. 5. Today we discussed that with the symptoms she is having there is a good possibility she is experiencing fibromyalgia. We discussed the pathophysiology of fibromyalgia and chemistry changes in the brain. Explained to Nilsa Cornell that fibromyalgia tends to have some genetic predisposition to it and can be associated with depression, vitamin d deficienc y, headaches, and fatigue. 6. Today we discussed the importance of regular daily exercise. Explained to Nilsa Wilkes that the best treatment for fibromyalgia is aerobic exercise and water based exerci se. Nilsa Cornell is encouraged to maintain physical activity. We discussed herminio t inactivity may increase rate of degeneration when arthritis is involved. We discussed that activity maintains function, strength, and mobility. Nilsa Cornell is encour aged to maintain gradually increasing levels of activity. 7. Nilsa Cornell was advised to continue to avoid caffinated beverages. 8. Referral to cardiology will be ordered today to asses Nilsa Cornell's symptoms of fatigue. She has mechanical heart valve. She reports always feeling tired. She has not had cardiology appointment in over 3 years. She is on coumadin anticoagulation. 9. Nilsa Cornell will return to clinic for scheduled botox injections on 10/22/2017 for the treatment of chronic daily headaches. Nilsa Cornell has fibromyalgia. She was encouraged to participate in aerobic acti vity daily, which she has done in the recent past. We may consider cognitive behavioral the rapy in the future. She will continue Cymbalta. She will start gabapentin at low dose. She will have cardiology for routine management of mechanical heart valve and to determine if her fatigue may have cardiac origin. She will continue with treatment of her vitamin D deficiency. She will proceed with sleep clinic consult for her fatigue and possible sleep apnea. She will return to the clinic for Botox injections to treat her chronic daily headaches. Thank you for allowing me to be involved in the care of your patient. If you have any ques tions regarding the care of your patient please don't hesitate to call. Approximately 40 minutes was spent face to face with Nilsa Cornell, over half of w hich was spent formulating and discussing their medical treatment plan. I, Shankar Kaufman MD personally performed the services described in this documentation, as scribed by in my presence, Cindy Sandoval RN and are both accurate and complete. Shankar Kaufman MD - 09/29/2017 documented in this en counter Plan of Treatment +--------+---------+ + + + | Date | Type | Specialty | Care Team | Description | +--------+---------+ + + + | 11/21/ | Office | Urology | Stephanie Robles | | | 2019 | Visit | | MD [address] | | | | | | [address] | | | | | | [place] [address] | | | | | | [phone] | | | | | | | | +--------+---------+ + + + + + +--------+ + + | Name | Type | Priori | Associated Diagnoses | Order Schedule | | | | ty | | | + + +--------+ + + | Cardiology, External | Outpatient | Routin | General weakness | Ordered: 09/29/2017 | | - AMB Referral | Referral | e | | | + + +--------+ + + documented as of this encounter Procedures + +--------+ + + + | Procedure Name | Priori | Date/Time | Associated Diagnosis | Comments | | | ty | | | | + +--------+ + + + | IMAGING REPORT - | | 10/05/2017 | | Results for this | | EXTERNAL SCAN | | 12:00 AM | | procedure are in the | | | | PDT | | results section. | + +--------+ + + + documented in this encounter Results IMAGING REPORT - EXTERNAL SCAN (10/05/2017 12:00 AM PDT) + + + | Narrative | Performed At | + + + | Ordered by an | | | unspecified provider. | | + + + documented in this encounter Visit Diagnoses + + | Diagnosis | + + | Fibromyalgia - Primary Mylagia and myositis, unspecified | + + | Vitamin D deficiency Unspecified vitamin D deficiency | + + | General weakness Other malaise and fatigue | + + | Chronic daily headache Headache | + + | Chronic migraine without aura without status migrainosus, not intractable Chronic | | migraine without aura, without mention of intractable migraine without mention of status | | migrainosus | + + documented in this encounter
--- OUTSIDE RECORDS SUMMARY | ~2019-09-06 | XMS | Encounter Summary ---
Demographics + + + | Address | [address] | | | [place] [address] | + + + | Home Phone | | + + + | Preferred Language | Unknown | + + + | Marital Status | | + + + | Orthodox Affiliation | 1013 | + + + | Race | Unknown | + + + | Ethnic Group | Unknown | + + + Author + + + | Author | [facility] | | | and [place] | + + + | Organization | [facility] | | | [...] [place], [place] | | | | | [address] | | + + + + + Care Team Providers + +------+ + | Care Steel Box Toe Inserter Name | Role | Phone | + +------+ + | Bernard Cesar MD | PCP | | + +------+ + Encounter Details +--------+ + + + + | Date | Type | Department | Care Team | Description | +--------+ + + + + | 02/14/ | Abstract | [facility] | Shankar Kaufman Leigha Luigi, | | | 2017 | | PHYSIATRY [address] | MD [address] | | | | | [address] | [place], [place] | | | | | [place], [place] | [address] | | | | | [address] | | | | | | [phone] | | | +--------+ + + + [...] [address] | | | | | | [place] [address] | | | | | | [phone] | | | | | | | | +--------+---------+ + + + documented as of this encounter Visit Diagnoses Not on filedocumented in this encounter"
--- OUTSIDE RECORDS SUMMARY | ~2019-09-06 | XMS | Encounter Summary ---
Demographics + + + | Address | [address] | | | [place] [address] | + + + | Home Phone | | + + + | Preferred Language | Unknown | + + + | Marital Status | | + + + | Moravian Affiliation | 1013 | + + + | Race | Unknown | + + + | Ethnic Group | Unknown | + + + Author + + + | Author | [facility] | | | and [place] | + + + | Organization | [facility] | | [...] [place], [place] | | | | | [address] | | + + + + + Care Team Providers + +------+ + | Care Supply Chain Coordinator Name | Role | Phone | + +------+ + | Raven Kim PA-C | PCP | | + +------+ + Reason for Referral Diagnostic/Screening (Routine) +--------+--------+ + + + + | Status | Reason | Specialty | Diagnoses / | Referred By | Referred To | | | | | Procedures | Contact | Contact | +--------+--------+ + + + + | Closed | | Radiology | Diagnoses | Ying, | [facility] [address] | | | | | Breath | Yuli | [address] | | | | | shortness | MD Keyonna | [place], [place] | | | | | 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[address] | | | | | cutis, | [address] | Phone: | | | | | Raynaud's | [address] | [phone] | | | | | syndrome, | [place], [place] | Fax: | | | | | sclerodactyl | [address] | [phone] | | | | | y and | Phone: | | | | | | telangiectas | [phone] | | | | | | ia (CRST) | Fax: | | | | | | syndrome | [phone] | | | | | | (HCC) | | | | | | | Procedures | | | | | | | CT Chest | | | | | | | High | | | | | | | Resolution | | | | | | | WO Contrast | | | | | | | CT Chest | | | | | | | High | | | | | | | Resolution w | | | | | | | contrast | | | +--------+--------+ + + + + Reason for Visit Diagnostic/Screening (Routine) +--------+--------+ + + + + | Status | Reason | Specialty | Diagnoses / | Referred By | Referred To | | | | | Procedures | Contact | Contact | +--------+--------+ + + + + | Closed | | Radiology | Diagnoses | Ying, | [facility] [address] | | | | | Breath | Yuli | [address] | | | | | shortness | MD Keyonna | [place] | | | | | 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[address] | | | | | cutis, | [address] | Phone: | | | | | Raynaud's | [address] | [phone] | | | | | syndrome, | [place], [place] | Fax: | | | | | sclerodactyl | [address] | [phone] | | | | | y and | Phone: | | | | | | telangiectas | [phone] | | | | | | ia (CRST) | Fax: | | | | | | syndrome | [phone] | | | | | | (HCC) | | | | | | | Procedures | | | | | | | CT Chest | | | | | | | High | | | | | | | Resolution | | | | | | | WO Contrast | | | | | | | CT Chest | | | | | | | High | | | | | | | Resolution w | | | | | | | contrast | | | +--------+--------+ + + + + Encounter Details +--------+ + + + + | Date | Type | Department | Care Team | Description | +--------+ + + + + | 03/01/ | Hospital | [facility] | David Heen | Breath shortness; | | 2019 | Encounter | [facility] [address] | MD [address]onna [address] | Calcinosis cutis, | | | | [address] | [address] | Raynaud's syndrome, | | | | [place], [place] | [place], [place] | 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 | | | | [phone] | [phone] | (CRST) syndrome | | | | | | (HCC) | +--------+ + + + + Social [...] A THIN LAYER | | 1 | //20 | | | dipropionate 0.05% | TO [...] | 1 | 12/19/19 | | | [id number] | RIBBON TO BOTH EYES | | | 18 | 9 | | examethasone | TID | | | | | | (MAXITROL) | | | | | | | [id number] | | | | | | | [...] | | | | | | [address] | | | | | | [place] [address] | | | | | | [phone] | | | | | | | | +--------+---------+ + + + documented as of this encounter Procedures + +--------+ + + + | Procedure Name | Priori | Date/Time | Associated Diagnosis | Comments | | | ty | | | | + +--------+ + + + | CT CHEST HIGH | Routin | 03/01/2019 | Breath shortness | Results for this | | RESOLUTION WO | e | 3:45 PM | Calcinosis cutis, | procedure are in the | | CONTRAST | | PDT | Raynaud's syndrome, | results section. 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 No evidence of pulmonary fibrosis. 2. Mild bronchitis. 3. | [facility] | | Status post mitral valve replacement. Signed by: Chloe | | | Angelo Salamanca Date/Time: 03/02/2019 8:43 PM | | + + + + + + | Narrative | Performed At | + + + | CT CHEST WITHOUT CONTRAST (CPT) CT CHEST HIGH RESOLUTION | [facility] | | CLINICAL INFORMATION: Shortness of breath, Calcinosis cutis, | | | Raynaud's syndrome, sclerodactyly and telangiectasia (CRST) syndrome | | | COMPARISON: CHEST 2 VWS (09/07/2007); CHEST 1 VW (08/05/2007); CHEST | | | 1 VW (08/04/2007); PROCEDURE: Axial images through the chest with | | | thin section reconstructions. Additional limited prone and expiratory | | | views when possible. Multiplanar reconstructions. At least one | | | of the following CT dose optimization techniques were used: Automated | | | exposure control; Adjustment of mA and/or kV according to patient | | | size; Use of iterative reconstruction technique. FINDINGS: LUNGS, | | | PLEURA AND AIRWAYS: No pneumothorax or pleural fluid. No pulmonary | | | fibrosis. There is mild bronchiectasis. Nonspecific scarring is | | | seen along the lung apices. CHEST Mediastinum: The visualized | | | thyroid is normal. Mild calcification of the aortic arch is | | | present. The trachea and esophagus are normal. The patient is | | | status post mitral valve replacement. Lymph Nodes: No adenopathy. | | | Upper Abdomen: No significant abnormality in the visualized upper | | | abdomen. BODY WALL Soft Tissues: No bowel or inflamed fat | | | containing hernia, mass or hemorrhage. Bones: No acute fracture or | | | vertebral end plate destruction. No lytic or blastic lesion. | | + + + + + | Procedure Note | + + | Ivan, Rad Results In - 03/02/2019 8:47 PM PDT | | CT CHEST WITHOUT CONTRAST (CPT) | | | | CT CHEST HIGH RESOLUTION | | | | CLINICAL INFORMATION: | | Shortness of breath, Calcinosis cutis, Raynaud's syndrome, | | sclerodactyly and telangiectasia (CRST) syndrome | | | | COMPARISON: | | CHEST 2 VWS (09/07/2007); CHEST 1 VW (08/05/2007); CHEST 1 VW (08/04/2007); | | | | PROCEDURE: | | Axial images through the chest with thin section reconstructions. | | Additional limited prone and expiratory views when possible. | | Multiplanar reconstructions. | | | | At least one of the following CT dose optimization techniques were | | used: Automated exposure control; Adjustment of mA and/or kV according | | to patient size; Use of iterative reconstruction technique. | | | | FINDINGS: | | LUNGS, PLEURA AND AIRWAYS: No pneumothorax or pleural fluid. No | | pulmonary fibrosis. There is mild bronchiectasis. Nonspecific | | scarring is seen along the lung apices. | | | | CHEST | | Mediastinum: The visualized thyroid is normal. Mild calcification of | | the aortic arch is present. The trachea and esophagus are normal. The | | patient is status post mitral valve replacement. | | Lymph Nodes: No adenopathy. | | Upper Abdomen: No significant abnormality in the visualized upper | | abdomen. | | | | BODY WALL | | Soft Tissues: No bowel or inflamed fat containing hernia, mass or | | hemorrhage. | | Bones: No acute fracture or vertebral end plate destruction. No lytic | | or blastic lesion. | | | | IMPRESSION: | | 1. No evidence of pulmonary fibrosis. | | 2. Mild bronchitis. | | 3. Status post mitral valve replacement. | | | | | | | | | | Signed by: Jadyn Corona, Angelo | | Sign Date/Time: 03/02/2019 8:43 PM | + + + +---------+ + + | Performing | Address | City/State/Zipcode | Phone Number | | Organization | | | | + +---------+ + + | [facility] | | | | + +---------+ + + documented in this encounter Visit Diagnoses + + | Diagnosis | + + | Breath shortness Shortness of breath | + + | Calcinosis cutis, Raynaud's syndrome, sclerodactyly and telangiectasia (CRST) syndrome | | (HCC) | + + documented in this encounter"
--- OUTSIDE RECORDS SUMMARY | ~2019-09-06 | XMS | Encounter Summary ---
Demographics + + + | Address | [address] | | | [place] [address] | + + + | Home Phone | | + + + | Preferred Language | Unknown | + + + | Marital Status | | + + + | Islam Affiliation | 1013 | + + + | Race | Unknown | + + + | Ethnic Group | Unknown | + + + Author + + + | Author | [facility] | | | and [place] | + + + | Organization | [facility] | | [...] [place], [place] | | | | | [address] | | + + + + + Care Team Providers + +------+ + | Care Cylinder Sander Operator Name | Role | Phone | [...] | +--------+ + + + + | 01/29/ | Hospital | [facility] | iPpo Rajan | | | 2014 - | Encounter | [facility] | DO [address] | | | | | [address] | [facility] | | | 01/30/ | | [place] | [place] [address] | | | 2014 | | [address] | [phone] | | | | | [phone] | | | +--------+ + + + [...] can also do teaching , phone number: [phone]. In emergency go to the emergency department. [...] you use a basin, wash it out. [phone] [employer]. [address] [place] [address], [place] [address]. All righ ts reserved. This information is [...] Nita Ramírez RN at 01/30/2015 5:38 PM PDTVanderNita berrios RN - 5:00 PM PDTPatient was able [...] mosley RN - 01/30/2015 11:45 AM PDTCase reception centre manager here to help organize supplies for self [...] try again in about 30 minutes. Pipo Wu, - 01/30/2015 8:26 AM PDT [facility] Progress note Hospital Day: 2 POST [...] F) Intake/Output Summary (Last 24 hours) at 01/30/15826 Last data filed at 01/30/15 0400 Gross [...] Signed by: Pipo Rajan DO, 01/30/2015 8:27 [facility] Nita Jason RN - 01/30/2015 7:45 AM [...] - 7:15 PM PDTReport from Nita thornton, Tarah care Nita Jason RN - 01/29/2015 6:15 PM PDTPat ient stood at edge of bed to wash up a little, tolerated well. Nita Jason RN - 01/29/2015 4:15 PM P DTC/o pain increasing, encouraged to use cylinder sander operator more frequently. Patient states she keeps forge tting that cylinder sander operator is there. Nita Jason RN - 01/29/2015 3:30 PM PDTSleeping with even, unlabored respira tions. Nita Jason RN - 01/29/2015 3:00 PM PDTC/o pain 8/10, dilaudid cylinder sander operator started. C/o itching and na usea, medicated [...] [address] | | | | | | [place] [address] | | | | | | [phone] | | | | | | | [...] | | | Anticoagulation Range: | | [facility] | | | | 2.0 - 3.0High [...] [address] | [place] | [phone] | | [facility] | | [address] | | | - LABORATORY | | [...] | | Neutrophils | | K/uL | [facility] | | | | | | MEDICAL | | | | | | CENTER - | | | | | | LABORATORY | | + + + + + + | Absolute | 1.40 | 0.60 - 3.20 | [facility] | | | Lymphocytes | | K/uL | [facility] | | | | | | MEDICAL | | | | | | CENTER - | | | | | | LABORATORY | | + + + + + + | Absolute | 0.60 | 0.00 - 1.00 | [facility] | | | Monocytes | | K/uL | [facility] | | | | | | [...] | | Basophils | | K/uL | [facility] | | | | | | [...] + | [facility] | [address] | [place] | [phone] | | [facility] | | [address] | | | - LABORATORY | | [...] - 1.030 | [facility] | | | [place], | | | [facility] | | [...] ST. | [address] | [place] | [phone] | | [facility] | | [address] | | | - LABORATORY | | | | + + + + + documented in this encounter Visit Diagnoses Not on filedocumented in this encounter Administered Medications + +--------+ +-------+------+------+ | Medication Order | MAR | Action | Dose | Rate | Site | | | Action | Date | | | | + +--------+ +-------+------+------+ | amitriptyline (ELAVIL) tablet | Given | 01/30/20 | 75 mg | | | | 75 mg 75 mg, Oral, NIGHTLY PRN, | | 15 11:14 | | | | | Insomnia, Starting 01/29/15 at | | PM PDT | | | | | 2238 | | | | | | + +--------+ +-------+------+------+ +---+---+ | | | +---+---+ + +-------+ +-------+---+---+ | diphenhydrAMINE (BENADRYL) | Given | 01/30/20 | 25 mg | | | | injection 25 mg 25 mg, | | 15 11:14 | | | | | Intravenous, EVERY 6 HOURS PRN, | | PM PDT | | | | | Itching, Starting 01/29/15 at | | | | | | | 1441 | | | | | | + +-------+ +-------+---+---+ +-------+ +-------+---+---+ | Given | 01/30/20 | 25 mg | | | | | 15 3:07 | | | | | | PM PDT | | | | +-------+ +-------+---+---+ +---+---+ | | | +---+---+ + +-------+ +-------+---+---+ | DULoxetine (CYMBALTA) DR | Given | 01/31/20 | 60 mg | | | | capsule 60 mg 60 mg, Oral, | | 15 12:48 | | | | | DAILY, First dose on Thu01/30/15 | | PM PDT | | | | | at 1215, Do not open capsule., | | | | | | + +-------+ +-------+---+---+ +---+---+ | | | +---+---+ + +-------+ +-------+---+ + | enoxaparin (LOVENOX) 60 mg/0.6 | Given | 01/31/20 | 60 mg | | Abdomen- | | mL injection 60 mg 60 mg, | | 15 9:10 | | | RLQ | | Subcutaneous, EVERY 12 HOURS (2 | | AM PDT | | | | | times per day), First dose on Mon | | | | | | | 01/29/15 at 2100 | | | | | | + +-------+ +-------+---+ + +-------+ +-------+---+ + | Given | 01/30/20 | 60 mg | | Abdomen- | | | 15 8:08 | | | LUQ | | | PM PDT | | | | +-------+ +-------+---+ + +---+---+ | | | +---+---+ + +-------+ +--------+---+---+ | fentaNYL injection 25-50 mcg | Given | 01/30/20 | 25 mcg | | | | 25-50 mcg, Intravenous, EVERY 5 | | 15 2:07 | | | | | MIN PRN, Pain, Starting Mon | | PM PDT | | | | | 01/29/15 at 1257, Maximum total | | | | | | | dose 100 mcg. PACU IV Narcotic | | | | | | | Priority: Only use fentanyl for | | | | | | | immediate post-op pain (one dose) | | | | | | | or breakthrough pain when any | | | | | | | other IV narcotics ordered have | | | | | | | been ineffective (if ordered). | | | | | | | If both morphine and | | | | | | | hydromorphone are ordered, use | | | | | | | morphine first, and use | | | | | | | hydromporphone if morphine | | | | | | | ineffective., Recovery/Phase I | | | | | | + +-------+ +--------+---+---+ + + +--------+---+---+ | Given | 01/30/20 | 25 mcg | | | | | 15 1:44 | | | | | | PM PDT | | | | + + +--------+---+---+ | Given by Other | 01/30/20 | 25 mcg | | | | | 15 1:22 | | | | | | PM PDT | | | | + + +--------+---+---+ +---+---+ | | | +---+---+ + +-------+ +---------+---+---+ | HYDROcodone-acetaminophen | Given | 01/31/20 | 2 | | | | (NORCO) 5-325 mg per tablet 1-2 | | 15 5:07 | tablets | | | | tablet 1-2 tablet, Oral, EVERY 4 | | PM PDT | | | | | HOURS PRN, Pain, Starting Mon | | | | | | | 01/29/15 at 1433, If ineffective | | | | | | | use [place] 10/325 if ordered. If | | | | | | | not tolerated, use Percocet then | | | | | | | Oxycodone if ordered., | | | | | | | Post-op/Phase II | | | | | | + +-------+ +---------+---+---+ +-------+ +---------+---+---+ | Given | 01/31/20 | 2 | | | | | 15 12:48 | tablets | | | | | PM PDT | | | | +-------+ +---------+---+---+ | Given | 01/31/20 | 2 | | | | | 15 9:10 | tablets | | | | | AM PDT | | | | +-------+ +---------+---+---+ +---+---+ | | | +---+---+ + +-------+ +------+---+---+ | HYDROmorphone (DILAUDID) | Given | 01/30/20 | 1 mg | | | | injection 0.5-1 mg 0.5-1 mg, | | 15 11:19 | | | | | Intravenous, EVERY 1 HOUR PRN, | | AM PDT | | | | | Pain, Starting 01/29/15 at | | | | | | | 0906, 0.5mg to 1mg, | | | | | | + +-------+ +------+---+---+ +-------+ +------+---+---+ | Given | 01/30/20 | 1 mg | | | | | 15 9:38 | | | | | | AM PDT | | | | +-------+ +------+---+---+ +---+---+ | | | +---+---+ + +---------+ +---+---+---+ | HYDROmorphone in saline | New Bag | 01/30/20 | | | | | (DILAUDID) 1 mg/mL GRANULATOR MACHINE OPERATOR | | 15 3:01 | | | | | Intravenous, CONTINUOUS, Starting | | PM PDT | | | | | 01/29/15 at 1500, for adult | | | | | | | patients LESS than 65 years old | | | | | | | and NO risk of sleep apnea, | | | | | | | Post-op/Phase II, Loading | | | | | | | Dose(mg): 0, Starting GRANULATOR MACHINE OPERATOR | | | | | | | Dose(mg): 0.2, Incremental | | | | | | | Increase GRANULATOR MACHINE OPERATOR Dose(mg): 0.1, | | | | | | | Maximum GRANULATOR MACHINE OPERATOR Dose(mg): 0.4, | | | | | | | Lockout Interval(min): 10, One | | | | | | | Hour Limit(mg): 3 | | | | | | + +---------+ +---+---+---+ +---+---+ | | | +---+---+ + +-------+ +-------+---+---+ | ketorolac (TORADOL) injection | Given | 01/31/20 | 30 mg | | | | 30 mg 30 mg, Intravenous, EVERY | | 15 12:48 | | | | | 6 HOURS (4 times per day), First | | PM PDT | | | | | dose on Thu01/29/15 at 1800, For | | | | | | | 48 hours, If urine output is less | | | | | | | than 240mL/8 hours (30 mL/hr) or | | | | | | | if signs of bleeding, contact MD | | | | | | | and hold ketorolac., | | | | | | | Post-op/Phase II | | | | | | + +-------+ +-------+---+---+ +-------+ +-------+---+---+ | Given | 01/31/20 | 30 mg | | | | | 15 6:08 | | | | | | AM PDT | | | | +-------+ +-------+---+---+ | Given | 01/30/20 | 30 mg | | | | | 15 6:04 | | | | | | PM PDT | | | | +-------+ +-------+---+---+ +---+---+ | | | +---+---+ + +---------+ +--------+ +---+ | lactated ringers (LR) infusion | New Bag | 01/30/20 | 1,000 | 25 mL/hr | | | at 25 mL/hr, Intravenous, | | 15 1:33 | mLs | | | | CONTINUOUS, Starting 01/29/15 | | PM PDT | | | | | at 1015, Pre-op | | | | | | + +---------+ +--------+ +---+ +---------+ +---+ +---+ | New Bag | 01/30/20 | | 25 mL/hr | | | | 15 9:32 | | | | | | AM PDT | | | | +---------+ +---+ +---+ +---+---+ | | | +---+---+ + +---------+ +---+-------+---+ | lactated ringers (LR) infusion | New Bag | 01/30/20 | | 100 | | | at 100 mL/hr, Intravenous, | | 15 10:22 | | mL/hr | | | CONTINUOUS, Starting 01/29/15 | | PM PDT | | | | | at 1500, Post-op/Phase II | | | | | | + +---------+ +---+-------+---+ +---+---+ | | | +---+---+ + +-------+ +--------+---+---+ | levothyroxine (SYNTHROID, | Given | 01/31/20 | 88 mcg | | | | LEVOTHROID) tablet 88 mcg 88 | | 15 12:48 | | | | | mcg, Oral, DAILY BEFORE | | PM PDT | | | | | BREAKFAST, First dose on Thu | | | | | | | 01/30/15 at 1215, Give before | | | | | | | breakfast., | | | | | | + +-------+ +--------+---+---+ +---+---+ | | | +---+---+ + +-------+ +-------+---+---+ | metoclopramide (REGLAN) 5 mg/mL | Given | 01/30/20 | 10 mg | | | | injection 10 mg 10 mg, | | 15 3:12 | | | | | Intravenous, EVERY 4 HOURS PRN, | | PM PDT | | | | | Nausea, Vomiting, Starting Mon | | | | | | | 01/29/15 at 1433, Use if | | | | | | | ondansetron and prochlorperazine | | | | | | | ineffective after 30 minutes or | | | | | | | not ordered Use PO option unless | | | | | | | NPO status or unable to tolerate, | | | | | | | Post-op/Phase II | | | | | | + +-------+ +-------+---+---+ +---+---+ | | | +---+---+ + +-------+ +------+---+---+ | ondansetron (ZOFRAN) injection | Given | 01/30/20 | 4 mg | | | | 4 mg 4 mg, Intravenous, ONCE | | 15 2:05 | | | | | PRN, Nausea, Starting 01/29/15 | | PM PDT | | | | | at 1257, For 1 dose, | | | | | | | Recovery/Phase I | | | | | | + +-------+ +------+---+---+ +---+---+ | | | +---+---+ + +-------+ +-------+---+---+ | warfarin (COUMADIN) tablet 12 | Given | 01/31/20 | 12 mg | | | | mg 12 mg, Oral, Daily - | | 15 12:48 | | | | | Warfarin, First dose on Thu | | PM PDT | | | | | 01/30/15 at 1800, Reproductive | | | | | | | Risk: Use appropriate handling | | | | | | | precautions. Drug education | | | | | | | required., | | | | | | + +-------+ +-------+---+---+ +---+---+ | | | +---+---+ documented in this encounter
--- OUTSIDE RECORDS SUMMARY | ~2019-09-06 | XMS | Encounter Summary ---
Demographics + + + | Address | [address] | | | [place] [address] | + + + | Home Phone | | + + + | Preferred Language | Unknown | + + + | Marital Status | | + + + | Adventist Affiliation | 1013 | + + + | Race | Unknown | + + + | Ethnic Group | Unknown | + + + Author + + + | Author | [facility] | | | and [place] | + + + | Organization | [facility] | | | and [place] | + + + | Address | Unknown | + + + | Phone | Unavailable | + + + Support + + + + + | Name | Relationship | Address | Phone | + + + + + | Gamalielxiao [place] | ECON | [address] | | | | | [place], [place] | | | | | [address] | | + + + + + Care Team Providers + +------+ + | Care Pile Driving Nozzleman Name | Role | Phone | + +------+ + PCP | Unavailable | + +------+ + Encounter Details +--------+ + + + + | Date | Type | Department | Care Team | Description | +--------+ + + + + | 06/30/ | Hospital | [facility] | Eder Bunch | Unspecified Chest | | 2008 | Encounter | [facility] | [address] | Pain | | | | CLINICAL DECISION | [address] [place], [place] | | | | | [address] | [id number] | | | | | [place], [place] | | | | | | [address] | | | | | | [phone] | | | +--------+ + + + [...] | | | | | [place] [address] | | | | | | [phone] | | | | | | | | +--------+---------+ + + + documented as of this encounter Visit Diagnoses + + | Diagnosis | + + | Chest pain, unspecified | + + documented in this encounter"
--- OUTSIDE RECORDS SUMMARY | ~2019-09-06 | XMS | Encounter Summary ---
Demographics + + + | Address | [address] | | | [place] [address] | + + + | Home Phone | | + + + | Preferred Language | Unknown | + + + | Marital Status | | + + + | Moravian Affiliation | 1013 | + + + | Race | Unknown | + + + | Ethnic Group | Unknown | + + + Author + + + | Author | [facility] | | | and [place] | + + + | Organization | [facility] | | | [...] [place], [place] | | | | | [address] | | + + + + + Care Team Providers + +------+ + | Care Hole Digger Truck Driver Name | Role | Phone | + [...] + + + + | 01/29/ | Anesthesia | [facility] | Jesus Hyman MD | | | 2014 | Event | MED CTR OR IN[facility] OP | [address] | | | | | [address] | [place] | | | | | [place] | [address] | | | | | [address] | | | | | | [phone] | | | +--------+ + + + + Anesthesia Record + + + + + | Procedure Name | Responsible | Anesthesia Start | Anesthesia Stop Time | | | Anesthesiologist | Time | | + + + + + | Re-suturing of a/p | Jesus Hyman MD | 01/29/15 1220 | 01/29/15 1306 | | repair (N/A Cervix) | | | | + + + + + +----+---+ + + | Da | T | Event | Comment | | te | i | | | | | m | | | | | e | | | +----+---+ + + | 09 | 0 | | | | /2 | 9 | | | | 8/ | 3 | | | | 20 | 0 | | | | 15 | | | | +----+---+ + + | | 1 | An Checkout | Pre-use anesthesia machine/equipment checkout. | | | 2 | | | | | 1 | | | | | 3 | | | +----+---+ + + | | 1 | An Start | Reassessment prior to anesthesia induction/procedure. | | | 2 | | | | | 2 | | | | | 0 | | | +----+---+ + + | | 1 | Antibiotic | | | | 2 | Given | | | | 2 | | | | | 0 | | | +----+---+ + + | | 1 | Preoxygenat | | | | 2 | ed | | | | 2 | | | | | 3 | | | +----+---+ + + | | 1 | An | | | | 2 | Induction | | | | 2 | | | | | 4 | | | +----+---+ + + | | 1 | An | | | | 2 | Intubation | | | | 2 | | | | | 6 | | | +----+---+ + + | | 1 | [place] | | | | 2 | 43-degrees | | | | 2 | | | | | 8 | | | +----+---+ + + | | 1 | [place] off | | | | 2 | | | | | 5 | | | | | 8 | | | +----+---+ + + | | 1 | Breathing | | | | 2 | Spontaneous | | | | 5 | ly | | | | 8 | | | +----+---+ + + | | 1 | Oropharynx | | | | 2 | Suctioned | | | | 5 | | | | | 9 | | | +----+---+ + + | | 1 | an stop | | | | 3 | data | | | | 0 | | | | | 1 | | | +----+---+ + + | | 1 | An Stop | Patient handed off to recovery nurse. | | | 0 | | | | | 6 | | | +----+---+ + + +------+ | Meds | +------+ + + + | Name | Total | + + + | fentaNYL | 50 mcg | + + + | propofol | 80 mg | + + + | propofol | 64.26 mg | + + + | lidocaine 2% | 50 mg | + + + | ceFAZolin in dextrose (ANCEF) | 2 g | | IVPB 2 g | | + + + | ondansetron | 2 mg | + + + | lactated ringers (LR) infusion | 850 mL | + + + + + | Name | + + | N2O Flow Rate (L/Min) | + + | O2 Flow Rate (L/Min) | + + | Insp O2 | + + | Exp SEV | + + | Air Flow Rate (L/Min) | + + + + | No blood administrations on file. | + + +--------+ + + + | Type | Details | Placement | Removal | +--------+ + + + | [READ | 01/29/15; 931; removed in past; | 01/29/15931 by | 02/01/15 0000 by | | ONLY] | 02/01/15 | Cortney Delatorre RN | Rachel Farris RN | | | | | | | Periph | | | | | eral | | | | | IV - | | | | | Single | | | | | Lumen | | | | | | | | | +--------+ + + + | Airway | Placement Date: 01/29/15; | 01/29/15 1226 by | 01/29/15 1310 by | | | Placement Time: 1226; Mask | Jesus Hyman MD | Pallavi Villegas RN | | | Ventilation: EZ; Airway Grade: I; | | | | | Attempts: 1; Airway Type: | | | | | laryngeal mask, cuffed, | | | | | non-disposable; Size: 3; Trauma: | | | | | none; Placement Check: verified | | | | | by capnography; Placed By: | | | | | Anesthesiologist; Removal Date: | | | | | 01/29/15; Removal Time: 1310 | | | +--------+ + + + | Urethr | 01/29/15; 1248; indicated due to | 01/29/15 1248 by | 01/30/15 0800 by Nita | | al | specific surgical procedure; | Pamela Dixon RN | Fam Ramírez RN | | Cathet | indwelling double lumen catheter; | | | | er | latex; 14; 1; 10; 10; none; leg | | | | | bag to dependent drainage; | | | | | urethral catheter removed, tubing | | | | | intact; healing within | | | | | expectations; 01/30/15; 0800 | | | +--------+ + + + | Read | 01/29/15; 1248; perineum; | 01/29/15 1248 by | 07/27/18 1342 by | | only - | 07/27/18 (Completed/Removed by | Pamela Dixon RN | User Epic | | | Utility); 1342 (Completed/Removed | | | | Incisi | by Utility) | | | | on | | | | +--------+ + + + documented in this encounter Social History + +-------+ +--------+------+ | Tobacco [...] | | | | | [place] [address] | | | | | | [phone] | | | | | | | | +--------+---------+ + + + documented as of this encounter Visit Diagnoses Not on filedocumented in this encounter Administered Medications + +--------+ +------+------+------+ | Medication Order | MAR | Action | Dose | Rate | Site | | | Action | Date | | | | + +--------+ +------+------+------+ | ceFAZolin in dextrose (ANCEF) | Given | 01/30/20 | 2 g | | | | IVPB 2 g 2 g, Intravenous, | | 15 12:20 | | | | | Administer over 30 Minutes, Prior | | PM PDT | | | | | to Incision, Starting Mon | | | | | | | 01/29/15 at 0904, For 1 dose, | | | | | | | administer within 1 hour of | | | | | | | incision, Pre-op | | | | | | + +--------+ +------+------+------+ +---+---+ | | | +---+---+ + +-------+ +--------+---+---+ | fentaNYL injection | Given | 01/30/20 | 50 mcg | | | | Intravenous, PRN, Pain, Starting | | 15 12:22 | | | | | 01/29/15 at 1222, Anesthesia | | PM PDT | | | | | Intra-op | | | | | | + +-------+ +--------+---+---+ +---+---+ | | | +---+---+ + +-------+ +-------+---+---+ | lidocaine (PF) 2% injection | Given | 01/30/20 | 50 mg | | | | Intravenous, PRN, Starting Mon | | 12:24 | | | | | 01/29/15 at 1224, Anesthesia | | PM PDT | | | | | Intra-op | | | | | | + +-------+ +-------+---+---+ +---+---+ | | | +---+---+ + +-------+ +------+---+---+ | ondansetron (ZOFRAN) injection | Given | 01/30/20 | 2 mg | | | | Intravenous, PRN, Nausea, | | 15 12:25 | | | | | Vomiting, Starting 01/29/15 at | | PM PDT | | | | | 1225, Anesthesia Intra-op | | | | | | + +-------+ +------+---+---+ +---+---+ | | | +---+---+ + +-------+ +-------+---+---+ | propofol (DIPRIVAN) injection | Given | 01/30/20 | 80 mg | | | | Intravenous, PRN, Starting Mon | | 15 12:24 | | | | | 01/29/15 at 1224, Anesthesia | | PM PDT | | | | | Intra-op | | | | | | + +-------+ +-------+---+---+ +---+---+ | | | +---+---+ + +---------+ + +-------+---+ | propofol (DIPRIVAN) injection | New Bag | 01/30/20 | 50 | 18.4 | | | Intravenous, CONTINUOUS PRN, | | 15 12:34 | mcg/kg/m | mL/hr | | | Starting 01/29/15 at 1234, | | PM PDT | in | | | | Anesthesia Intra-op | | | | | | + +---------+ + +-------+---+ +---+---+ | | | +---+---+ documented in this encounter"
--- OUTSIDE RECORDS SUMMARY | ~2019-09-06 | XMS | Encounter Summary ---
Demographics + + + | Address | [address] | | | [place] [address] | + + + | Home Phone | | + + + | Preferred Language | Unknown | + + + | Marital Status | | + + + | Sikhism Affiliation | CHR | + + + | Race | White | + + + | Ethnic Group | Not or | + + + Author + + + | Author | [facility] | + + + | Organization | [facility] | + + + | Address | Unknown | + + + | Phone | Unavailable | + + + Support + + + + + | Name | Relationship | Address | Phone | + + + + + | Gamaliel Cornell | ECON | [address] | | | | | [place], [place] | | | | | [address] | | + + + + + Care Team Providers + +------+ + | Care Roofing Machine Operator Name | Role | Phone | + +------+ + | Bernard Cesar MD | PCP | | + +------+ + Reason for Visit + + + | Reason | Comments | + + + | New patient | | | consultation | | + + + Office Visit - E/M Services (Routine) +--------+--------+ + + + + | Status | Reason | Specialty | Diagnoses / | Referred By | Referred To | | | | | Procedures | Contact | Contact | +--------+--------+ + + + + | Closed | | Otolaryngolog | | Non-[facility] | Rick, | | | | y | | Epic Dept | Elton Otto MD | | | | | | | [address] | | | | | | | [address] | | | | | | | [place], [place] | | | | | | | [address] | | | | | | | Phone: | | | | | | | [phone] | | | | | | | Fax: | | | | | | | [phone] | +--------+--------+ + + + + Encounter Details +--------+---------+ + + + | Date | Type | Department | Care Team | Description | +--------+---------+ + + + | 04/06/ | Office | [facility] | Elton Cabrera, | Atypical Face Pain | | 2007 | Visit | Center at [facility] [address] | [address] | | | | | [address] | [place], [place] | | | | | Mailcode: [place] | [address] | | | | | [facility] | [phone] | | | | | and Healing, | | | | | | Building , 5th | | | | | | Floor [place], [place] | | | | | | [address] | | | | | | [phone] | | | +--------+---------+ + + + [...] + documented as of this encounter Progress Elton Cole - 04/06/2008 3:25 PM PSTI personally interviewed the patient, duplicated the pertinent parts of the physical examination and procedure and personally formulated the plan. I have reviewed, entered my findings, and agree with the above documentation. Elton Cabrera M.D., M.P.H., F.A.C.S. Director, [facility] Professor and Chief, Rhinology and Sinus Surgery Department of Otolaryngology/Head and Neck Surgery omasa Del Valle - 04/06 2:15 PM PST HPI: Nilsa Cornell is a 42 y.o. female who presents to the [facility] in consu ltation for Chronic headaches, referred by Dr. Cesar in [place], [place]. Current symptom s include facial pain. Symptoms began many years ago. Symptom severity is moderate. Impro vement occurred with Nothing. Additional evaluation has included CT scan sinuses. No current outpatient prescriptions on file. I have reviewed the New Patient History Form which was completed by the patient. I have ma de appropriate changes to the form, signed it and will have it scanned to the medical record . PHYSICAL EXAM: Ear, nose, and throat exam reveals a pleasant, well-developed, well-nourish ed patient, in no apparent distress. Voice quality is within normal limits. External audit ory canals and tympanic membranes appear normal. Anterior rhinoscopy reveals mucosal edema. Oral cavity and oropharynx reveals healthy mucosa. The pharyngeal mucosa reveals no lesio ns. Lips and tongue are within normal limits. Neck reveals no mass, adenopathy, or thyrom egaly. Salivary glands are normal to palpation. A current CT was reviewed which reveals overall well ventilated sinuses, septal deviation t o the right, Procedure: Nasal endoscopy was performed after lidocaine 4% topical anesthetic was placed. A rigid endoscope was utilized to evaluate the sinonasal cavities, mucosa, sinus ostia and turbinates. Overall, no significant mucosal inflammation is observed, no mucostasis, no ezra yposis. ASSESSMENT: Chronic headaches. Non-sinogenic in origin as her CT does not demosntrate any s igns of sinusitis, and at this stage her main complaint areher debilitating headaches. She h ad seen a neurologist several years ago and they had not addressed her atypical facial pain. We recommend a consultation with our Neurology colleagues to specifically address these iss ues. We've discussed issues and options today. The risks, benefits and alternatives were discus sed and questions answered. The patient has elected to proceed with referral to Neurology with Dr. Lisa Herrera and Dr. Salvador and return for follow up as needed. documented in this encou nter Plan of Treatment Not on filedocumented as of this encounter Procedures + +--------+ + + + | Procedure Name | Priori | Date/Time | Associated Diagnosis | Comments | | | ty | | | | + +--------+ + + + | RADIOLOGY | | 04/05/2008 | | Results for this | | | | 12:00 AM | | procedure are in the | | | | PST | | results section. | + +--------+ + + + documented in this encounter Results RADIOLOGY (04/05/2008 12:00 AM PST) + + + | Narrative | Performed At | + + + | | | + + + + + | Procedure Note | + + | Colt Graves - 04/05/2008 12:00 AM PST | + + documented in this encounter Visit Diagnoses + + | Diagnosis | + + | Atypical face pain | + + documented in this encounter"
--- OUTSIDE RECORDS SUMMARY | ~2019-09-06 | XMS | Encounter Summary ---
Demographics + + + | Address | [address] | | | [place] [address] | + + + | Home Phone | | + + + | Preferred Language | Unknown | + + + | Marital Status | | + + + | Jehovah'S Witness Affiliation | CHR | + + + | Race | White | + + + | Ethnic Group | Not or | + + + Author + + + | Author | [facility] | + + + | Organization | [facility] | + + + | Address | Unknown | + + + | Phone | Unavailable | + + + Support + + + + + | Name | Relationship | Address | Phone | + + + + + | Gamaliel Cornell | ECON | [address] | | | | | [place], [place] | | | | | [address] | | + + + + + Care Team Providers + +------+ + | Care University Dean Name | Role | Phone | + [...] | | | | | | | [place], [place] | | | | | | | [address] | | | | | | | Phone: | | | | | | | [phone] | | | | | | | Fax: | | | | | | | [phone] | +--------+--------+ + + + + Encounter Details +--------+---------+ + + + | Date | Type | Department | Care Team | Description | +--------+---------+ + + + | 04/06/ | Office | [facility] | Elton Cabrera, | Atypical Face Pain | | 2007 | Visit | Center at [facility] [address] | [address] | | | | | [address] | [place], [place] | | | | | Mailcode: [place] | [address] | | | | | [facility] | [phone] | | | | | and Healing, | | | | | | Building , 5th | | | | | | Floor [place], [place] | | | | | | [address] | | | | | | [phone] | | | +--------+---------+ + + + [...] documentation. Elton Cabrera M.D., M.P.H., F.A.C.S. Director, [facility] Professor and Chief, Rhinology and Sinus Surgery Department of Otolaryngology/Head and Neck Surgery omasa Del Valle - 04/06 2:15 PM PST HPI: Nilsa Cornell is a 42 y.o. female who presents to the [facility] in consu ltation for Chronic headaches, referred by Dr. Cesar in [place], [place]. Current symptom s include facial pain. [...]
--- OUTSIDE RECORDS SUMMARY | ~2019-09-06 | XMS | Encounter Summary ---
Demographics + + + | Address | [address] | | | [place] [address] | + + + | Home Phone | | + + + | Preferred Language | Unknown | + + + | Marital Status | | + + + | Restoration Affiliation | 1013 | + + + | Race | Unknown | + + + | Ethnic Group | Unknown | + + + Author + + + | Author | [facility] | | | and [place] | + + + | Organization | [facility] | | | and [place] | + + + | Address | Unknown | + + + | Phone | Unavailable | + + + Support + + + + + | Name | Relationship | Address | Phone | + + + + + | Gamaliel Cornell | ECON | [address] | | | | | [place], [place] | | | | | [address] | | + + + + + Care Team Providers + +------+ + | Care Body Service Team Member Name | Role | Phone | + [...] + | Closed | | Radiology | Procedures | Provider, | | | | | | CT | Daniel, | | | | | | Cervical | [address] | | | | | | Spine wo | [address] | | | | | | Contrast | [place] | | | | | | | [address] | | +--------+--------+ + + + + Encounter Details +--------+ + + + + | Date | Type | Department | Care Team | Description | +--------+ + + + + | 03/30/ | Imaging | [facility] | Jorge, | | | 2016 | Exam | [facility] | [address], [address] | | | | | IM[address] | [address] | | | | | [address] [place] | [place] [address] | | | | | [place] [address] | | | | | | [phone] | | | +--------+ + + + [...] | | | | | [place] [address] | | | | | | [phone] | | | | | | | | +--------+---------+ + + + documented as of this encounter Procedures + +--------+ + + + | Procedure Name | Priori | Date/Time | Associated Diagnosis | Comments | | | ty | | | | + +--------+ + + + | CT CERVICAL SPINE WO | Routin | 09/27/2009 | | Results for this | | CONTRAST | e | 10:55 AM | | procedure are in the | | | | PDT | | results section. | + +--------+ + + + documented in this encounter Results CT Cervical Spine wo Contrast (09/27/2009 10:55 AM PDT) + + | Specimen | + + | | + + + + + | Narrative | Performed At | + + + | External films | [facility] | | for comparison only - no result from [place]. | | + + + + +---------+ + + | Performing | Address | City/State/Zipcode | Phone Number | | Organization | | | | + +---------+ + + | [facility] | | | | + +---------+ + + documented in this encounter Visit Diagnoses Not on filedocumented in this encounter"
--- OUTSIDE RECORDS SUMMARY | ~2019-09-06 | XMS | Encounter Summary ---
Demographics + + + | Address | [address] | | | [place] [address] | + + + | Home Phone | | + + + | Preferred Language | Unknown | + + + | Marital Status | | + + + | Adventist Affiliation | 1013 | + + + | Race | Unknown | + + + | Ethnic Group | Unknown | + + + Author + + + | Author | [facility] | | | and [place] | + + + | Organization | [facility] | | | and [...] [place], [place] | | | | | [address] | | + + + + + Care Team Providers + +------+ + | Care Manager Business Systems Name | Role | Phone | + +------+ + | Raven Kim PA-C PCP | | + +------+ + Reason for Visit +---------+ + | Reason | Comments | +---------+ + | Anxiety | C/o worsening SOB, hyperventilation, and hand cramping while | | | performing outpatient PFT today. | +---------+ + Encounter Details +--------+ + + + + | Date | Type | Department | Care Team | Description | +--------+ + + + + | 03/01/ | Emergency | [facility] | Eduin Khoury, | Medication side | | 2019 | | MEDICAL CENTER | PA-C [address] | effect (Primary Dx); | | | | EMERGENCY CENTER | [address] [place], [place] | SOB (shortness of | | | | [address] | [address] | breath) | | | | [place], [place] | | | | | | [address] | Carmenza Espino, DO [address] | | | | | [phone] | [address] | | | | | | [place] [address] | | | | | | [phone] | | | | | | | [...] + + + | Blood Pressure | 152/72 | 03/01/2019 1:37 PM | | | | | PDT | | + + + + + | Pulse | 71 | 03/01/2019 1:37 PM | | | | | PDT | | + + + + + | Temperature | 36.6 C (97.9 F) | 03/01/2019 11:45 AM | | | | | PDT | | + + + + + | Respiratory Rate | 16 | 03/01/2019 1:37 PM | | | | | PDT | | + + + + + | Oxygen Saturation | 99% | 03/01/2019 1:37 PM | | | | | PDT | | + + + + + | Inhaled Oxygen | - | - | | | Concentration | | | | + + + + + | Weight | 57.6 kg (127 lb) | 03/01/2019 11:41 AM | | | | | PDT | | + + + + + | Height | 162.6 cm (5' 4") | 03/01/2019 11:45 AM | | | | | PDT | | + + + + + | Body Mass Index | 21.8 | 03/01/2019 11:41 AM | | | | | PDT | | + + + + + documented in this encounter Discharge Instructions AttachmentsThe following attachments cannot be sent through Care Everywhere.Albuterol inhal ation solution (Belarusian)documented in this encounter Medications at Time of [...] | 1 | 12/19/19 | | | [id number] | RIBBON TO BOTH EYES | | | 18 | 9 | | examethasone | TID | | | | | | (MAXITROL) | | | | | | | 3.5-48209-8.1 | | | | | | | ophthalmic ointment | | | | | | + + + +---------+ + + documented as of this encounter Plan of Treatment +--------+---------+ + + + | Date | Type | Specialty | Care Team | Description | +--------+---------+ + + + | 11/21/ | Office | Urology | tSephanie Robles | | | 2020 | Visit | | MD [address] | | | | | [facility] [address] | | | | | | [place] [address] | | | | | | [phone] | | | | | | | | +--------+---------+ + + + documented as of this encounter Procedures + +--------+ + + + | Procedure Name | Priori | Date/Time | Associated Diagnosis | Comments | | | ty | | | | + +--------+ + + + | ECG 12 LEAD | Routin | 03/01/2019 | | Results for this | | | e | 12:47 PM | | procedure are in the | | | | PDT | | results section. | + +--------+ + + + documented in this encounter Results ECG 12 lead (03/01/2019 12:47 PM PDT) + + + + + + | Component | Value | Ref Range | Performed | Pathologist | | | | | At | Signature | + + + + + + | VENTRICULAR | 77 | BPM | [facility] | | | RATE EKG | | | | | + + + + + + | ATRIAL RATE | 77 | BPM | [facility] | | + + + + + + | P-R | 156 | ms | [facility] | | | INTERVAL | | | | | + + + + + + | QRS | 70 | ms | [facility] | | | DURATION | | | | | + + + + + + | Q-T | 432 | ms | [facility] | | | INTERVAL | | | | | + + + + + + | Q-T | 488 | ms | [facility] | | | INTERVAL | | | | | | (CORRECTED) | | | | | + + + + + + | P WAVE AXIS | -64 | degrees | [facility] | | + + + + + + | QRS AXIS | -54 | degrees | [facility] | | + + + + + + | T AXIS | 26 | degrees | [facility] | | + + + + + + | INTERPRETAT | Unusual P axis, possible | | [facility] | | | ION TEXT | ectopic atrial | | | | | | rhythmLeft axis | | | | | | deviationLow voltage | | | | | | QRSInferior infarct , | | | | | | age undeterminedCannot | | | | | | rule out Anterior | | | | | | infarct (cited on or | | | | | | before | | | | | | 01-MAR-2019)Abnormal | | | | | | ECGWhen compared with | | | | | | ECG of 02-FEB-2018 | | | | | | 14:12,Previous ECG has | | | | | | undetermined rhythm, | | | | | | needs reviewInferior | | | | | | infarct is now | | | | | | PresentNonspecific T | | | | | | wave abnormality now | | | | | | evident in Inferior | | | | | | leadsThis ECG contains | | | | | | Unconfirmed | | | | | | Interpretation | | | | | | Statements. See ED | | | | | | Record for Physician | | | | | | Interpretation. | | | | | | Confirmed by MUSE READ | | | | | | ONLY, -COMPUTER ([id number]), | | | | | | legal editor Shane Campbell | | | | | | Jason ([id number]) on 03/02/2019 | | | | | | 2:46:35 AM | | | | + + + + + + + + | Specimen | + + | | + + + + + | Narrative | Performed At | + + + | | | + + + + +---------+ + + | Performing | Address | City/State/Zipcode | Phone Number | | Organization | | | | + +---------+ + + | [facility] | | | | + +---------+ + + documented in this encounter Visit Diagnoses + + | Diagnosis | + + | Medication side effect - Primary Unspecified adverse effect of unspecified drug, | | medicinal and biological substance | + + | SOB (shortness of breath) Shortness of breath | + + documented in this encounter
--- OUTSIDE RECORDS SUMMARY | ~2019-09-06 | XMS | Encounter Summary ---
Demographics + + + | Address | [address] | | | [place] [address] | + + + | Home Phone | | + + + | Preferred Language | Unknown | + + + | Marital Status | | + + + | Sabianist Affiliation | 1013 | + + + | Race | Unknown | + + + | Ethnic Group | Unknown | + + + Author + + + | Author | [facility] | | | and [place] | + + + | Organization | [facility] | | [...] [place], [place] | | | | | [address] | | + + + + + Care Team Providers + +------+ + | Care Shank Stitcher Name | Role | Phone | + +------+ + | Raven Kim PA-C | PCP | | + +------+ + Reason for Visit +--------+ + | Reason | Comments | +--------+ + | Other | | +--------+ + Encounter Details +--------+ + + + + | Date | Type | Department | Care Team | Description | +--------+ + + + + | 11/12/ | Telephone | [facility] | Shankar Kaufman, | Other | | 2017 | | PHYSIATRY [address] | MD [address] | | | | | [address] | [place], [place] | | | | | [place], [place] | [address] | | | | | [address] | | | | | | [phone] | | | +--------+ + + + [...] | | | | | [place] [address] | | | | | | [phone] | | | | | | | | +--------+---------+ + + + documented as of this encounter Visit Diagnoses Not on filedocumented in this encounter"
--- OUTSIDE RECORDS SUMMARY | ~2019-09-06 | XMS | Encounter Summary ---
Demographics + + + | Address | [address] | | | [place] [address] | + + + | Home Phone [...] [place], [place] | | | | | [address] | | + + + + + Care Team Providers + +------+ + | Care Mangle Roller Name | Role | Phone | + +------+ + | Raven Kim PA-C | PCP | | + +------+ + Reason for Visit + + + | Reason | Comments | + + + | Establish Care | | + + + Evaluate & Treat (Routine) + +--------+ + + + + | Status | Reason | Specialty | Diagnoses / | Referred By | Referred To | | | | | Procedures | Contact | Contact | + +--------+ + + + + | Authorized | | Pulmonology | Diagnoses | Harrjuli, | Son | | | | | Cough | ARRON Carbajal | Pulmonology | | | | | | [address] | | | | | | [address] | [address] | | | | | | [address] | [place], [place] | | | | | | [place], | [address] | | | | | | [place] [address] | Phone: | | | | | | Phone: | [phone] | | | | | | [phone] | Fax: | | | | | | Fax: | [phone] | | | | | | [phone] | | + +--------+ + + + + Encounter Details +--------+---------+ + + + | Date | Type | Department | Care Team | Description | +--------+---------+ + + + | 04/05/ | Office | [facility] | Marly Kaufman, | Shortness of breath | | 2019 | Visit | 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 [address] | 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 [address] | (Primary Dx); | | | | ERNIEETH[address]Adalgisa [address] | DR WATKINS, | Scleroderma (HCC); | | | | [facility] [place] | [place] [address] | Cough in adult; | | | | [address] | [phone] | Post-nasal drip; | | | | [phone] | | Seasonal allergic | | | | | | rhinitis due to | | | | | | pollen | +--------+---------+ + + + Social History + + [...] + + + | Blood Pressure | 138/98 | 04/05/2019 1:59 PM | | | | | PST | | + + + + + | Pulse | 71 | 04/05/2019 1:59 PM | | | | | PST | | + + + + + | Temperature | 36.1 C (96.9 F) | 04/05/2019 1:59 PM | | | | | PST | | + + + + + | Respiratory Rate | - | - | | + + + + + | Oxygen Saturation | 100% | 04/05/2019 1:59 PM | | | | | PST | | + + + + + | Inhaled Oxygen | - | - | | | Concentration | | | | + + + + + | Weight | 58.5 kg (129 lb) | 04/05/2019 1:59 PM | | | | | PST | | + + + + + | Height | 162.6 cm (5' 4") | 04/05/2019 1:59 PM | | | | | PST | | + + + + + | Body Mass Index | 22.14 | 04/05/2019 1:59 PM | | | | | PST | | + + + + + documented in this encounter Progress Notes Marly Kaufman ARNP - 04/05/2019 1:45 PM PSTFormatting of this note might be different fr om the original. Subjective: Patient ID: Nilsa Cornell is a 53 y.o. female. History of CRST, palpitations, SVT, hypothyroidism, sp MVR, chronic anticoagulation, hiatal hernia with severe GERD. Former occ asional smoker, not more than 10 collective pack years. HPI 04/05/19: Nilsa Cornell is a 53 y.o. female presenting today to [facility] care as a new patient to the clinic. She was referred to us by Raven Kim PA-C for eval and treatment of cough. 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 She notes progressively increased joint pain, worsening raynaud's symptoms of t he hands and feet, and progressively worsening dyspnea over the last year. She reports Dariela uds symptoms of the hands began a couple years ago. She notes her hands and feet have always looked large and bulky, but the skin started thickening on a couple of fingers since the be ginning of the year. She notes her voice quality changed at the beginning of the year, she u nderwent ENT eval with Dr Flakito Kaufman and vocal chord disease was noted, she was sent to GI f or eval and treatment of possible GERD related vocal chord changes. GI MD, Dr Aldana in [place] performed EGD and garcia study and found no sign of esophageal disease, but did note hi atal hernia and gastroparesis. She was not followed up with as closely as she preferred, so her PCP sent her to [place] [facility] specialist, Dr Gray. Ms Cornell reports Dr Gray noted esoph ageal dysmotility and also suggested she undergo EGD again in 6 months. We do not have Dr Bates's records, but are requesting these today. She was also [facility] Dr Yuli He. No treatment for Scleroderma has been initiated yet. She has an initial c onsultation with [facility] otolaryngology on May 06, 2019. She has had a dry cough in the morn ings for over a year. She also has a lifetime of seasonal allergy symptoms such as nasal con gestion, and post nasal drip. She is using xyzal and flonase for this currently without grea t relief. She was recently placed on Qvar and albuterol for dyspnea with exertion and chest tightness with activity in the pool. She reports this has greatly improved her breathing and activity intolerance and would like to continue these medications. She is requesting update d script to try to get insurance coverage as she paid for them out of pocket last month. Denies fever, chills, rashes, night sweats, chest pain, palpitations, peripheral edema, po or appetite, or unintentional weight loss. Social Hx: Nilsa is originally from [place]. She moved to [place] in 1984. 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 She denies any noxious exposures. Denies e xposure to birds. Denies tobacco history. Family history significant for grandmother with lupus, aunt with scleroderma, cousins with MS and lupus. No lung diseases noted in her family history. Family History Problem Relation Age of Onset Osteoporosis Mother Thyroid disease Mother Stroke Father Depression Father Thyroid cancer Father Lupus Maternal Grandmother Glaucoma Maternal Grandfather Arthritis Other Anxiety disorder Daughter Other (see comment) Daughter Neurofibromatosis Anxiety disorder Daughter Thyroid disease Daughter Alcohol abuse Brother ADD/ADHD Brother Bipolar disorder Paternal Grandmother Auto-Immune Disorders Maternal Aunt Neurofibromatosis Lupus Maternal Aunt Multiple sclerosis Maternal Aunt Stroke Maternal Aunt Renal failure Maternal Aunt Review of Systems Constitutional: Negative for activity change, appetite change, chills, diaphoresis, fatigue , fever and unexpected weight change. HENT: Negative for congestion, ear pain, facial swelling, hearing loss, mouth sores, nosebl eeds, postnasal drip, rhinorrhea, sinus pressure, sinus pain, sneezing, sore throat, tinnitu s, trouble swallowing and voice change. Eyes: Negative for pain, redness and itching. Respiratory: Negative for apnea, cough, choking, chest tightness, shortness of breath, whee zing and stridor. Cardiovascular: Negative for chest pain, palpitations and leg swelling. Gastrointestinal: Negative for abdominal distention, abdominal pain, nausea and vomiting. Musculoskeletal: Negative for arthralgias, back pain, gait problem, joint swelling, myalgia s, neck pain and neck stiffness. Skin: Negative for color change, pallor, rash and wound. Allergic/Immunologic: Negative for environmental allergies, food allergies and immunocompro mised state. Neurological: Negative for dizziness, syncope, weakness, light-headedness and headaches. Hematological: Negative for adenopathy. Does not bruise/bleed easily. Objective: Physical Exam Vitals signs reviewed. Constitutional: General: She is not in acute distress. Appearance: Normal appearance. She is well-developed. She is not ill-appearing, toxic-ap pearing or diaphoretic. HENT: Head: Normocephalic and atraumatic. Right Ear: External ear normal. Left Ear: External ear normal. Nose: Nose normal. No congestion or rhinorrhea. Mouth/Throat: Mouth: Mucous membranes are moist. Pharynx: Oropharynx is clear. No posterior oropharyngeal erythema. Eyes: General: No scleral icterus. Right eye: No discharge. Left eye: No discharge. Conjunctiva/sclera: Conjunctivae normal. Pupils: Pupils are equal, round, and reactive to light. Neck: Musculoskeletal: Normal range of motion and neck supple. No muscular tenderness. Thyroid: No thyromegaly. Vascular: No JVD. Trachea: No tracheal deviation. Cardiovascular: Rate and Rhythm: Normal rate and regular rhythm. Heart sounds: Normal heart sounds. No murmur. No friction rub. No gallop. Pulmonary: Effort: Pulmonary effort is normal. No respiratory distress. Breath sounds: Normal breath sounds. No stridor. No wheezing, rhonchi or rales. Chest: Chest wall: No tenderness. Abdominal: General: Bowel sounds are normal. There is no distension. Palpations: Abdomen is soft. Tenderness: There is no tenderness. There is no guarding. Musculoskeletal: Normal range of motion. General: No tenderness or deformity. Lymphadenopathy: Cervical: No cervical adenopathy. Skin: General: Skin is warm and dry. Capillary Refill: Capillary refill takes less than 2 seconds. Coloration: Skin is not pale. Findings: No erythema or rash. Neurological: Mental Status: She is alert and oriented to person, place, and time. Psychiatric: Mood and Affect: Mood normal. Behavior: Behavior normal. Thought Content: Thought content normal. Judgment: Judgment normal. Allergies Allergen Reactions Sulfa Antibiotics Diarrhea and Nausea And Vomiting Vitals: 04/05/19 1359 BP: (!) 138/98 Pulse: 71 Temp: 36.1 C (96.9 F) TempSrc: Oral SpO2: 100% Weight: 58.5 kg (129 lb) Height: 1.626 m (5' 4") Patient Active Problem List Diagnosis NECK PAIN HYPOTHYROIDISM DEGENERATIVE DISC DISEASE Anticoagulated Chronic constipation Heart valve disorder Change in voice Gastroesophageal reflux disease, esophagitis presence not specified History of mitral valve replacement with mechanical valve Nonsustained supraventricular tachycardia Palpitations Current Outpatient Medications: ALPRAZolam (ALPRAZOLAM XR) 0.5 MG 24 hr tablet, Take 0.5 mg by mouth nightly., Disp: , Rfl: ALPRAZolam (XANAX) 0.5 mg tablet, TK 1 TO 2 TS PO QHS PRN, Disp: , Rfl: 4 amoxicillin (AMOXIL) 500 MG capsule, TK 4 CS PO 1 HOUR PRIOR TO DENTAL APPOINTMENT, D isp: , Rfl: 0 azithromycin (ZITHROMAX) 250 mg tablet, , Disp: , Rfl: 0 baclofen (LIORESAL) 10 mg tablet, TK 1 TO 2 TS PO 3 XD PRF SPASMS, Disp: , Rfl: 0 betamethasone dipropionate 0.05% cream, APPLY A THIN LAYER TO AFFECTED AREAS ON THE UMANZOR NDS DIRECTED BID FOLLOW IMMEDIATELY WITH MOISTURIZER, Disp: , Rfl: 1 Calcium Carb-Cholecalciferol (CALCIUM 1000 + D PO), Take by mouth., Disp: , Rfl: cholecalciferol (VITAMIN D-3) 1000 units TABS, Take 1,000 Units by mouth Daily., Disp: , Rfl: DULoxetine (CYMBALTA) 30 mg capsule, , Disp: , Rfl: DULoxetine (CYMBALTA) [address] capsule, TK ONE C PO QD, Disp: , Rfl: 1 enoxaparin (LOVENOX) 100 mg/mL injection, Inject 0.6 mLs under the skin See Admin Inst ructions for 6 doses. As directed, Disp: 6 Syringe, Rfl: 0 enoxaparin (LOVENOX) 60 mg/0.6 mL injection, Inject 0.6 mLs under the skin every 12 ho urs., Disp: 21 Syringe, Rfl: 0 enoxaparin (LOVENOX) 60 mg/0.6 mL injection, inject 1 SYRINGE subcutaneously (SEE ADMI N INSTRUCTIONS) FOR 6 DO... (REFER TO PRESCRIPTION NOTES)., Disp: , Rfl: 0 estradiol (ESTRACE) 0.1 mg/g vaginal cream, , Disp: , Rfl: 4 fluticasone (FLONASE) 50 mcg/nasal spray, 1 spray by Nasal route Daily., Disp: , Rfl: levothyroxine (SYNTHROID) 100 mcg tablet, TK 1 T PO QD, Disp: , Rfl: 0 Magnesium 100 MG CAPS, Take by mouth., Disp: , Rfl: roackujr-oecyltbay-fickdduefebyv (MAXITROL) 3.5-48482-6.1 ophthalmic ointment, INSTILL 1 1/4 INCH RIBBON TO BOTH EYES TID, Disp: , Rfl: 1 pimecrolimus (ELIDEL) 1% cream, Elidel 1 % topical cream, Disp: , Rfl: SUMAtriptan (IMITREX) 50 mg tablet, TK 1 T PO AOS OF MIGRAINE DIRECTED. REPEAT DOSE IN 2 HOUR IF SYMPTOMS PERSIST. MAX D DOSE 200 MG, Disp: , Rfl: 2 warfarin (COUMADIN) 4 MG tablet, TK 3 TS PO D OR UTD, Disp: , Rfl: 5 Current Facility-Administered Medications: enoxaparin (LOVENOX) 60 mg/0.6 mL injection 60 mg, 60 mg, Subcutaneous, See Admin Inst ructions, Pipo Don MD Labs Reviewed: Component Latest Ref Rng & Units 06/24/2017 4:25 PM CRP <8.00 mg/L 1.01 Component Latest Ref Rng & Units 06/24/2017 4:25 PM Na 136 - 149 mmol/L 142 K 3.5 - 5.1 mmol/L 3.7 Chloride 98 - 109 mmol/L 104 Carbon dioxide 24 - 31 mmol/L 30 Anion Gap 3 - 16 mmol/L 8 Glucose 70 - 109 mg/dL 77 BUN 7 - 18 mg/dL 11 Creatinine 0.60 - 1.30 mg/dL 0.66 EGFR IF NOT >=60 mL/min/1.73m2 >60 Calcium 8.3 - 10.5 mg/dL 9.7 Albumin 3.2 - 5.0 g/dL 4.1 Bilirubin Total (Calculated) 0.1 - 1.5 mg/dL 0.9 Total Protein 6.0 - 7.8 g/dL 7.0 AST (SGOT) (REF) 10 - 42 U/L 53 (H) ALT (SGPT) (REF) 6 - 45 U/L 48 (H) ALK PHOS 40 - 110 U/L 101 Globulin 2.1 - 3.8 g/dL 2.9 Albumin/Globulin Ratio 0.8 - 2.0 1.4 BUN/Creatinine Ratio 16.7 Component Latest Ref Rng & Units 06/24/2017 4:25 PM ESR <30 mm/hr 3 Component Latest Ref Rng & Units 06/24/2017 4:25 PM WBC 4.0 - 11.0 K/uL 6.1 RBC COUNT 3.70 - 5.20 M/uL 4.43 TOTAL Hemoglobin 11.5 - 16.0 g/dL 13.5 Hematocrit 34.0 - 47.0 % 41.4 MCV 83.0 - 101.0 fL 93.5 MCH 28.0 - 35.0 pg 30.4 MCHC 32.0 - 36.0 g/dL 32.5 RDW-CV <15.0 % 14.3 Platelet Count 140 - 440 K/uL 357 MPV fL 8.1 % Neutrophils 45.0 - 82.0 % 74.2 % Lymphocytes 20.0 - 45.0 % 16.0 (L) % Monocytes 4.0 - 12.0 % 6.9 % Eosinophils 0.0 - 5.0 % 2.0 % Basophils 0.0 - 1.0 % 0.9 Absolute Neutrophils 1.80 - 8.50 K/uL 4.60 Absolute Lymphocytes 0.60 - 3.20 K/uL 1.00 Absolute Monocytes 0.00 - 1.00 K/uL 0.40 Absolute Eosinophils 0.00 - 0.40 K/uL 0.10 Absolute Basophils 0.00 - 0.10 K/uL 0.10 Component Latest Ref Rng & Units 06/24/2017 4:25 PM MYOGLOBIN 25 - 58 ng/mL <21 (L) Component Latest Ref Rng & Units 06/24/2017 4:25 PM LDH TOTAL 91 - 180 U/L 220 (H) Component Latest Ref Rng & Units 06/24/2017 4:25 PM Aldolase 3.3 - 10.3 U/L 8.1 Component Latest Ref Rng & Units 06/24/2017 4:25 PM CK, Total 22 - 269 U/L 49 Component Latest Ref Rng & Units 06/24/2017 4:25 PM DS DNA AB 0 - 9 IU/mL 1 DAILY RELEASE AND DUPE PRINTER Autoantibody 0.0 - 0.9 AI <0.2 CABRERA Autoantibody 0.0 - 0.9 AI <0.2 Cabrera DAILY RELEASE AND DUPE PRINTER Antibodies 0.0 - 0.9 AI <0.2 Scleroderma SCL-70 0.0 - 0.9 AI <0.2 SS-A Autoantibody 0.0 - 0.9 AI <0.2 SS-B Autoantibody 0.0 - 0.9 AI <0.2 Antichromatin IgG, Antibodies 0.0 - 0.9 AI <0.2 RIBOSOMAL P AB 0.0 - 0.9 AI <0.2 TAINA-1 autoantibody IgG 0.0 - 0.9 AI <0.2 Centromere B Autoantibody 0.0 - 0.9 AI 0.3 See below: Comment Reflex positive for connective tissue disease Component Latest Ref Rng & Units 06/24/2017 4:25 PM Cyclic Citrullin Peptide Ab 0 - 19 units 8 Component Latest Ref Rng & Units 06/24/2017 4:25 PM RHEUMATOID FACTOR 0.0 - 13.9 IU/mL <10.0 Component Latest Ref Rng & Units 06/24/2017 4:25 PM Lyme IgG/IgM EIA 0.00 - 0.90 ISR <0.91 Imaging: HRCT chest 03-01-2019: FINDINGS: LUNGS, PLEURA AND AIRWAYS: No pneumothorax or pleural fluid. No pulmonary fibrosis. There is mild bronchiectasis. Nonspecific scarring is seen along the lung apices. CHEST Mediastinum: The visualized thyroid is normal. Mild calcification of the aortic arch is present. The trachea and esophagus are normal. The patient is status post mitral valve replacement. Lymph Nodes: No adenopathy. Upper Abdomen: No significant abnormality in the visualized upper abdomen. IMPRESSION: 1. No evidence of pulmonary fibrosis. 2. Mild bronchitis. 3. Status post mitral valve replacement. Echo 03-01-2019: 1. Normal left ventricular systolic function. Left ventricular ejection fraction estimate d at 67% 2. Normal left ventricular wall motion. 3. Normal right ventricular size and systolic function 4. Normally functioning mechanical mitral valve. No prosthetic valvular or paravalvular r egurgitation. Mean gradient is 5 mmHg. Right Sided Pressures Normal right sided pressures. The right atrial pressure is normal. There is no pulmonary hypertension. Estimated right ventricular systolic pressure (RVSP) is 11 mmHg. Pulmonary Function Test: 03-01-2019: SPIROMETRY: 1. FEV-1/FVC is 74 2. FEV-1 is 2.65 L or 85% 3. FVC is 3.59L or 89%. LUNG VOLUMES: 1. TLC is 5.17L or 89%. 2. RV/TLC is 31. DIFFUSING CAPACITY: Not done INTERPRETATION: Pre-bronchodilator spirometry did not show any underlying obstruction. Lung volumes are w ithin normal. The rest of the pulmonary function test was not completed because of worsenin g symptoms of anxiety, shortness of breath, and cramping of the legs. The patient was broug ht to the emergency department. Assessment and Plan: 1. Shortness of breath Ms Cornell is a 53 year old female with progressively worsening shortness of breath for last 6 months. She has scleroderma, and was told she likely has CRST. We are working to collect the documentation for her diagnoses now including records from Rheumatology and GI specialis ts in [place]. She has seen many providers in the last year and we would like all records c entrally located for viewing in [facility] EMR. Considering her response to Qvar, we have requested she undergo methacholine challenge testing without PFT and will follow up with a P FT in 6 months (August,) for monitoring of autoimmune disease related lung progression. If any changes at that point, follow up imaging would be warranted at that time. I have plac ed Qvar refill for Nilsa per her urgent request. I expect it will not be paid for by insur [employer] as she does not have COPD or known asthma. My hope is that a methacholine challenge bright t may help define why she feels dyspneic with activity, or if generalized inflammation from autoimmune disease is more likely. I explained this to her, and she was pleased with this pl an. She will have to discontinue Qvar in preparation for methacholine challenge test and she is ok with this. She has another month supply of Qvar at home. I will contact her with the results of the methacholine challenge and direct her on future medication use at that time. - QVAR REDIHALER 40 MCG/ACT inhaler; Inhale 2 puffs into the lungs 2 times daily. Dispense : 3 Inhaler; Refill: 4 - Pulmonary function test - Methacholine challenge test only. 2. Scleroderma (HCC) Ms Cornell notes she was told she has CRST. She presents today without clear evidence of CRE ST and more of scleroderma. I have not visualized telangiectasia or calcinosis cutis, but he r hands do appear larger than average and skin mildly thickened. She notes she has been told by Dr Gray in [place] that she does have esophageal dysmotility. We have requested record s from Dr Gray today. She has not been started on therapy for scleroderma yet. Her PFT and CT chest in February, are clear of pulmonary disease. We will monitor her for progressio n for now. 3. Cough in adult Ms Cornell has had a cough for over a year. It is not productive. She notes qvar helps treme ndously. She does have post nasal drip and seasonal allergy symptoms that are not well contr olled on xyzal and flonase. - QVAR REDIHALER 40 MCG/ACT inhaler; Inhale 2 puffs into the lungs 2 times daily. Dispense : 3 Inhaler; Refill: 4 - Pulmonary function test; -methacholine challenge test. 4. Post-nasal drip Continue xyzal and flonase. Adding astelin for more coverage. - azelastine 0.1% nasal spray; 1 spray by Nasal route 2 times daily. Use in each nostril tw ice a day Dispense: 30 mL; Refill: 11 5. Seasonal allergic rhinitis due to pollen She is using flonase and xyzal already without great relief of symptoms. She can try asteli n with current regimen next. - azelastine 0.1% nasal spray; 1 spray by Nasal route 2 times daily. Use in each nostril tw ice a day Dispense: 30 mL; Refill: 11 It is a pleasure to be a part of Nilsa Cornell's care team. I have requested Mindy riggins follow up with me in 6-8 weeks. She was encouraged to return if needed for urgent appoint ment, and should present to the ED for emergent symptoms. Please feel free to contact us if questions or concerns arise. MICHEL Carmen [facility] PULMONOLOGY [address] [place] [place] [address] Dept: [phone] Loc: [phone] I have discussed my findings and plan with Dr Smith today. We are [facility] as detailed above. Electronically signed by MICHEL Rosenthal at 04/05 4:43 PM PSTdocumented in this encounter Plan of Treatment +--------+---------+ + + + | Date | Type | Specialty | Care Team | Description | +--------+---------+ + + + | 11/21/ | Office | Urology | Stephanie Robles | | | 2020 | Visit | | MD [address] | | | | | | [address] | | | | | | [place] [address] | | | | | | [phone] | | | | | | | | +--------+---------+ + + + documented as of this encounter Results Pulmonary function test (04/11/2019 8:30 AM PST) + + + | Narrative | Performed At | + + + | Sonya Parker MD 04/11/2019 12:15 PM | | | METHACHOLINE CHALLENGE TEST 04/11/2019 The patient underwent | | | serial administration of inhaled methacholine, and did not | | | demonstrate a reduction by more than 20% in his FEV1 with | | | methacholine challenge. Conclusion: This is a negative | | | methacholine challenge test, indicating the absence of bronchial | | | hyper-reactivity. Sonya Parker MD Pulmonary and | | | Critical Care Medicine [facility] | | | [address], [facility] [place] [place] [address] | | + + + documented in this encounter Visit Diagnoses + + | Diagnosis | + + | Shortness of breath - Primary | + + | Scleroderma (HCC) Systemic sclerosis | + + | Cough in adult | + + | Post-nasal drip Postnasal drip | + + | Seasonal allergic rhinitis due to pollen | + + documented in this encounter
--- OUTSIDE RECORDS SUMMARY | ~2019-09-06 | XMS | Encounter Summary ---
Demographics + + + | Address | [address] | | | [place] [address] | + + + | Home Phone | | + + + | Preferred Language | Unknown | + + + | Marital Status | | + + + | Hoahaoism Affiliation | CHR | + + + | Race | White | + + + | Ethnic Group | Not or | + + + Author + + + | Organization | Unknown | + + + | Address | Unknown | + + + | Phone | Unavailable | + + + Support + + + + + | Name | Relationship | Address | Phone | + + + + + | Gamaliel Cornell | ECON | [address] | | | | | [place], [place] | | | | | [address] | | + + + + + Care Team Providers + +------+ + | Care Boat Dispatcher Name | Role | Phone | + +------+ + | Raven Kim | PCP | | + +------+ + Encounter Details +--------+--------+ + + + | Date | Type | Department | Care Team | Description | +--------+--------+ + + + | 05/09/ | Travel | | | | | 2020 | | | | | +--------+--------+ + + + Social History + +-------+ [...]
--- OUTSIDE RECORDS SUMMARY | ~2019-09-06 | XMS | Encounter Summary ---
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 | Role | Phone | + [...] | | | | Cystocele | | [address] | | | | | Procedures | | [place] | | | | | Not Provided | | [place] | | | | | | | [place], [place] | | | | | | | [address] | | | | | | | Phone: | | | | | | | [phone] | | | | | | | Fax: | | | | | | | [phone] | +--------+--------+ + + + + Encounter Details +--------+ + + + + | Date | Type | Department | Care Team | Description | +--------+ + + + + | 01/22/ | Hospital | [facility] | Evelio Alston, | | | 2015 - | Encounter | [facility] | [id number] | | | | | [address] | [place] | | | 01/24/ | | [place] | [place] [address] | | | 2015 | | [address] | [phone] | | | | | [phone] | | | +--------+ + + + [...] Physician Discharge Summary Patient ID: Nilsa Cornell [id number] y.o. 1965 Admit date: 01/22/2015 Discharge date and time: January 24, 2015 Admitting Physician: Evelio Alston MD Discharge Physician: Same Admission Diagnoses: Cystocele [618.01] Discharge Diagnoses: Same Admission Condition: good Discharged Condition: good Indication for Admission: See dictated H&P, however briefly Ms. cornell was admitted for draian gical correction of a symptomatic cystocele. Hospital [...] Catheter that falls out or is dislodged [id number] [employer] [address] [place] [address], [place] [id number]. All righ ts reserved. This information is [...] the pelvic organ or organs occurring again [id number] [employer] [address] [place] [address], [place] [address]. All righ ts reserved. This information is [...] Shu Bravo RN at 01/24/2015 6:15 PM PDTWuapoorva, Evelio Romero MD - 015 5:31 PM [...] 01/24/2015 4:00 PM PDTPt up to the [facility] hroom and just passes water, no stool.Electronically [...] return s. Pt tolerated it well. Shu Bravo RN - 01/23/2015 5:45 PM PDTPt up to the bathroom and voids 100cc. Bladder sc an done for 354cc. Pt rates pain at 2/10. Up ambulating. Evelio Charles MD - 01/23/2015 5:20 PM PDTPM Check S-Nisla is sleeping, so we did not disturb [...] Evelio Alston MD at 5 7:39 AM PDTIsabel Carpenter RN - 01/23/2015 12:15 AM PDTUp to [...] technique. Pt tolerated well. 15 5:20 PM Shu Bowman RN - 01/22/2015 4:20 PM PDTPt up to the bedside commode to vo id. She does feel the urge to void but she is unable to. Bladder scan done for 398cc. Dr. Leobardo guerin notified and order received to place indwelling pabon catheter. Shu Bowman RN - 01/22/2015 2:20 PM PDTPt is a little bit sleepy and O2 saturations 88% on room air. RT notified and oxygen placed.Electr onically signed by Shu Bravo RN at 01/22/2015 2:39 PM Shu Bowman RN - 01/22/2015 2:15 PM PDTPt c/o [...] at 5/10. See vitals and assessment . aElton tolbert MD - 01/22/2015 12:42 PM PDTPatient complaining [...] [address] | | | | | | [place] [address] | | | | | | [phone] | | | | | | | [...] - 1.030 | [facility] | | [place], | | | [facility] | | [...] + | [facility] | [address] | [place] | [phone] | | [facility] | | [address] | | | - LABORATORY | | [...] | | Urine | | Yellow | [facility] | | | | [...] - 1.030 | [facility] | | | [place], | | | [facility] | | [...] [address] | [place] | [phone] | | [facility] | | [address] | | | - LABORATORY | | [...] [facility] | | | | | | [facility] | | | | [...] | | Lymphocytes | | K/uL | [facility] | [...] [address] | [place] | [phone] | | [facility] | | [address] | | | - LABORATORY | | [...] | amitriptyline (ELAVIL) tablet | Given | 01/24/20 | 75 mg | | | | 75 mg 75 mg, Oral, NIGHTLY, | | 15 8:29 | | | | | First dose on 01/22/15 at | | PM PDT | | | | | 2100, Post-op/Phase II | | | | | | + +--------+ +-------+------+------+ +-------+ +-------+---+---+ | Given | 01/23/20 | 75 mg | | | | | 15 8:33 | | | | | | PM PDT | | | | +-------+ +-------+---+---+ +---+---+ | | | +---+---+ + +---------+ +-----+-------+---+ | ampicillin 1 g in sodium | New Bag | 01/23/20 | 1 g | 100 | | | chloride 0.9% 50 mL IVPB 1 g, | | 15 4:36 | | mL/hr | | | Intravenous, Administer over 30 | | PM PDT | | | | | Minutes, ONCE, 01/22/15 at | | | | | | | 1700, For 1 dose, Activate system | | | | | | | and mix before use., | | | | | | + +---------+ +-----+-------+---+ +---+---+ | | | +---+---+ + +-------+ +-------+---+---+ | bisacodyl (DULCOLAX) | Given | 01/25/20 | 10 mg | | | | suppository 10 mg 10 mg, Rectal, | | 15 2:36 | | | | | DAILY PRN, Constipation, | | PM PDT | | | | | Starting 01/24/15 at 1427 | | | | | | + +-------+ +-------+---+---+ +---+---+ | | | +---+---+ + +-------+ +--------+---+---+ | docusate sodium (COLACE) | Given | 01/25/20 | 100 mg | | | | capsule 100 mg 100 mg, Oral, 2 | | 15 8:58 | | | | | TIMES DAILY PRN, Constipation, | | AM PDT | | | | | Starting 01/22/15 at 1320, | | | | | | | First line agent for | | | | | | | constipation, Post-op/Phase II | | | | | | + +-------+ +--------+---+---+ +---+---+ | | | +---+---+ + +-------+ +-------+---+---+ | DULoxetine (CYMBALTA) DR | Given | 01/25/20 | 60 mg | | | | capsule 60 mg 60 mg, Oral, | | 15 8:58 | | | | | DAILY, First dose on Thu01/22/15 | | AM PDT | | | | | at 1345, Do not open capsule., | | | | | | | Post-op/Phase II | | | | | | + +-------+ +-------+---+---+ +-------+ +-------+---+---+ | Given | 01/24/20 | 60 mg | | | | | 15 8:59 | | | | | | AM PDT | | | | +-------+ +-------+---+---+ | Given | 01/23/20 | 60 mg | | | | | 15 4:31 | | | | | | PM PDT | | | | +-------+ +-------+---+---+ +---+---+ | | | +---+---+ + +-------+ +-------+---+ + | enoxaparin (LOVENOX) 60 mg/0.6 | Given | 01/25/20 | 60 mg | | Abdomen- | | mL injection 60 mg 60 mg, | | 15 8:58 | | | LLQ | | Subcutaneous, EVERY 12 HOURS (2 | | AM PDT | | | | | times per day), First dose on Mon | | | | | | | 01/22/15 at 1345, Post-op/Phase | | | | | | | II | | | | | | + +-------+ +-------+---+ + +-------+ +-------+---+ + | Given | 01/24/20 | 60 mg | | Abdomen- | | | 15 8:30 | | | RLQ | | | PM PDT | | | | +-------+ +-------+---+ + | Given | 01/24/20 | 60 mg | | Abdomen- | | | 15 8:59 | | | LUQ | | | AM PDT | | | | +-------+ +-------+---+ + +---+---+ | | | +---+---+ + +-------+ +-------+---+---+ | famotidine (PEPCID) injection | Given | 01/25/20 | 20 mg | | | | 20 mg 20 mg, Intravenous, 2 | | 15 9:41 | | | | | TIMES DAILY, First dose on Mon | | AM PDT | | | | | 01/22/15 at 1345, Prior to | | | | | | | administration, prepare a 20 mg | | | | | | | dose by diluting 2 mL of | | | | | | | famotidine 10 mg/mL to 10 mL with | | | | | | | normal saline., Post-op/Phase II | | | | | | + +-------+ +-------+---+---+ +-------+ +-------+---+---+ | Given | 01/24/20 | 20 mg | | | | | 15 9:02 | | | | | | PM PDT | | | | +-------+ +-------+---+---+ | Given | 01/24/20 | 20 mg | | | | | 15 8:59 | | | | | | AM PDT | | | | +-------+ +-------+---+---+ +---+---+ | | | +---+---+ + +-------+ +-------+---+---+ | gentamicin 90 mg in sodium | Given | 01/23/20 | 90 mg | | | | chloride 0.9% 50 mL IVPB 90 mg, | | 15 10:28 | | | | | Intravenous, Administer over 30 | | AM PDT | | | | | Minutes, ONCE, 01/22/15 at | | | | | | | 1030, For 1 dose, Pre-op | | | | | | + +-------+ +-------+---+---+ +---------+ +-------+--------+---+ | New Bag | 01/23/20 | 90 mg | 104.5 | | | | 15 10:27 | | mL/hr | | | | AM PDT | | | | +---------+ +-------+--------+---+ +---+---+ | | | +---+---+ + +-------+ +---------+---+---+ | HYDROcodone-acetaminophen | Given | 01/25/20 | 2 | | | | (NORCO) 5-325 mg per tablet 1-2 | | 15 5:39 | tablets | | | | tablet 1-2 tablet, Oral, EVERY 4 | | PM PDT | | | | | HOURS PRN, Pain, Starting Mon | | | | | | | 01/22/15 at 1320, If ineffective | | | | | | | use [place] 10/325 if ordered. If | | | | | | | not tolerated, use Percocet then | | | | | | | Oxycodone if ordered., | | | | | | | Post-op/Phase II | | | | | | + +-------+ +---------+---+---+ +-------+ +---------+---+---+ | Given | 01/25/20 | 2 | | | | | 15 1:26 | tablets | | | | | PM PDT | | | | +-------+ +---------+---+---+ | Given | 01/25/20 | 2 | | | | | 15 8:58 | tablets | | | | | AM PDT | | | | +-------+ +---------+---+---+ +---+---+ | | | +---+---+ + +-------+ +--------+---+---+ | HYDROmorphone (DILAUDID) | Given | 01/23/20 | 0.5 mg | | | | injection 0.2-0.5 mg 0.2-0.5 mg, | | 15 12:28 | | | | | Intravenous, EVERY 5 MIN PRN, | | PM PDT | | | | | Pain, Starting 01/22/15 at | | | | | | | 1129, Maximum total dose 4 mg. | | | | | | | PACU IV Narcotic Priority: Only | | | | | | | use fentanyl for immediate | | | | | | | post-op pain (one dose) or | | | | | | | breakthrough pain when any other | | | | | | | IV narcotics ordered have been | | | | | | | ineffective (if ordered). If | | | | | | | both morphine and hydromorphone | | | | | | | are ordered, use morphine first, | | | | | | | and use hydromporphone if | | | | | | | morphine ineffective., | | | | | | | Recovery/Phase I | | | | | | + +-------+ +--------+---+---+ +-------+ +--------+---+---+ | Given | 01/23/20 | 0.5 mg | | | | | 15 12:19 | | | | | | PM PDT | | | | +-------+ +--------+---+---+ +---+---+ | | | +---+---+ + +-------+ +-------+---+---+ | ketorolac (TORADOL) injection | Given | 01/25/20 | 30 mg | | | | 30 mg 30 mg, Intravenous, EVERY | | 15 9:41 | | | | | 6 HOURS (4 times per day), First | | AM PDT | | | | | dose on 01/22/15 at 1345, For | | | | | | [...] +-------+ +-------+---+---+ +-------+ +-------+---+---+ | Given | 01/25/20 | 30 mg | | | | | 15 4:21 | | | | | | AM PDT | | | | +-------+ +-------+---+---+ | Given | 01/24/20 | 30 mg | | | | | 15 8:29 | | | | | | PM PDT | | | | +-------+ +-------+---+---+ +---+---+ | | | +---+---+ + +---------+ +---+-------+---+ | lactated ringers (LR) infusion | New Bag | 01/23/20 | | 100 | | | at 10-100 mL/hr, Intravenous, | | 15 10:26 | | mL/hr | | | CONTINUOUS, Starting 01/22/15 | | AM PDT | | | | | at 0945, TKO., Pre-op | | | | | | + +---------+ +---+-------+---+ +---------+ +---+---+---+ | New Bag | 01/23/20 | | | | | | 15 10:20 | | | | | | AM PDT | | | | +---------+ +---+---+---+ +---+---+ | | | +---+---+ + +-------+ +---------+---+---+ | levothyroxine (SYNTHROID, | Given | 01/24/20 | 100 mcg | | | | LEVOTHROID) tablet 100 mcg 100 | | 15 11:10 | | | | | mcg, Oral, DAILY BEFORE | | AM PDT | | | | | BREAKFAST, First dose on Mon | | | | | | | 01/22/15 at 1345, Post-op/Phase II | | | | | | + +-------+ +---------+---+---+ +-------+ +---------+---+---+ | Given | 01/23/20 | 100 mcg | | | | | 15 4:32 | | | | | | PM PDT | | | | +-------+ +---------+---+---+ +---+---+ | | | +---+---+ + +-------+ + +---+---+ | methocarbamol (ROBAXIN) tablet | Given | 01/23/20 | 1,500 mg | | | | 1,500 mg 1,500 mg, Oral, EVERY 6 | | 15 12:51 | | | | | HOURS PRN, Muscle spasms, | | PM PDT | | | | | Starting 01/22/15 at 1245, | | | | | | | Recovery/Phase I | | | | | | + +-------+ + +---+---+ +---+---+ | | | +---+---+ documented in this encounter
--- OUTSIDE RECORDS SUMMARY | ~2019-09-06 | XMS | Encounter Summary ---
Demographics + + + | Address | [address] | | | [place] [address] | + + + | Home Phone | | + + + | Preferred Language | Unknown | + + + | Marital Status | | + + + | Worship Affiliation | 1013 | + + + [...] [place], [place] | | | | | [address] | | + + + + + Care Team Providers + +------+ + | Care Fashion Design Professor Name | Role | Phone | + +------+ + PCP | Unavailable | + +------+ + Encounter Details +--------+ + + + + | Date | Type | Department | Care Team | Description | +--------+ + + + + | 02/05/ | Hospital | [facility] | Elton Castillo | | | 2010 | Encounter | [facility] [address] | [address] | | | | [address] | [place]iz[place] | | | | | [place], [place] | [place] [address] | | | | | [address] | [phone] | | | | | [phone] | | | +--------+ + + + [...] [address] | | | | | | [facility] [address] | | | | | | [place] [address] | | | | | | [phone] | | | | | | | | +--------+---------+ + + + documented as of this encounter Procedures + +--------+ + + + | Procedure Name | Priori | Date/Time | Associated Diagnosis | Comments | | | ty | | | | + +--------+ + + + | ECHO COMPLETE | Routin | 02/05/2010 | | Results for this | | | e | 3:19 PM | | procedure are in the | | | | PDT | | results section. | + +--------+ + + + documented in this encounter Results ECHO Complete (02/05/2010 3:19 PM PDT) + + | Specimen | + + | | + + + + + | Narrative | Performed At | + + + | [place] [address] | | | Patient Name: HERNANDO CORNELL Date of : | | | 1965 Medical Record: [id number] Account: [id number] | | | Exam Date/Time: 02/05/2010 14:17 Performing | | | Physician: Elton Castillo MD Order Detail: [id number] Exam | | | Description: ECHO CARDIAC ADULT WITH DOPPLER COLOR FLOW | | | | | | INDICATIONS eval for Constrictive Pericarditis. | | | CONCLUSIONS 1. Degenerative Valvular Heart Disease. 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 Aortic, Tricuspid, and Pulmonic | | | valve grossly NML. Trace TR. 2. Est systolic PAP 16mmHg. 3. LV | | | dimensions, systolic and diastolic functions NML, LVEF 60-65%. | | | LA/RA/RV NML. 4. Very small Pericardial effusion, no evidence of | | | tamponade. 5. No evidence of constrictive physiology. FINDINGS | | | -------- [no group]: Degenerative Valvular Heart Disease. ECG | | | rhythm: Sinus rhythm. Study: A 2-dimensional transthoracic | | | echocardiogram with m-mode, spectral and color flow Doppler was | | | perfomed. Study: This was a technically adequate study. Left | | | Ventricle: Overall left ventricular systolic function is normal with, | | | an EF between 60 - 65 %. Left Ventricle: Left Ventricle ejection | | | fraction by m-mode measures 59%. Left Ventricle: The left ventricle | | | cavity size is normal. Left Ventricle: Left ventricular wall | | | thickness is normal. Left Ventricle: The diastolic filling pattern is | | | normal for the age of the patient. Right Ventricle: The right | | | ventricle is normal in size. Right Ventricle: The right ventricular | | | systolic function is normal. Left Atrium: The left atrial size is | | | normal Left Atrium: , and the LA measures 4.0cm. Right Atrium: The | | | right atrial size is normal Right Atrium: , and the RA measures | | | 3.8cm. Aortic Valve: The aortic valve is trileaflet and appears | | | structurally normal. Aortic Valve: There is no evidence of aortic | | | regurgitation. Mitral Valve: The mechanical MVR is well seated. | | | Tricuspid Valve: The tricuspid valve appears structurally normal. | | | Tricuspid Valve: Trace tricuspid regurgitation present. Tricuspid | | | Valve: Right ventricular systolic pressure (pulmonary artery systolic | | | pressure) is normal at < 35 mmHg. Pulmonic Valve: The pulmonic valve | | | is normal. Pulmonic Valve: A wave normal. Pericardium: There is a | | | trivial pericardial effusion present. IVC/Hepatic Veins: The IVC is | | | small (<1.5cm) and collapses with sniff, consistent with central | | | venous pressures of 0-5mmHg. Mass: No mass visualized Thrombus: No | | | clot visualized Thrombus: No vegetation visualized. Septum: No ASD | | | observed. MEASUREMENTS LA Major: 4.07 cm | | | EDV(Teich): 77.02 ml IVSd: 0.58 cm LVIDd: 4.16 cm LVPWd: | | | 0.72 cm LVOT Diam: 1.65 cm %FS: 36.11 % EF(Teich): | | | 66.17 % ESV(Teich): 26.05 ml IVSs: 1.06 cm LVIDs: 2.66 cm | | | LVPWs: 0.99 cm SV(Teich): 50.97 ml RA Major: 3.82 cm | | | RVIDd: 2.81 cm LVEF MOD A2C: 66.34 % SV MOD A2C: 51.13 ml | | | LVEF MOD A4C: 67.24 % SV MOD A4C: 53.67 ml EF Biplane: | | | 67.26 % LVEDV MOD BP: 80.96 ml LVESV MOD BP: 26.50 ml LVEDV | | | MOD A2C: 77.07 ml LVLd A2C: 6.73 cm LVEDV MOD A4C: 79.83 ml | | | LVLd A4C: 7.26 cm LVESV MOD A2C: 25.93 ml LVLs A2C: 5.71 | | | cm LVESV MOD A4C: 26.15 ml LVLs A4C: 5.97 cm LAAs A4C: | | | 11.79 cm2 LAESV A-L A4C: 27.07 ml LALs A4C: 4.35 cm Ao Diam: | | | 2.81 cm AV Cusp: 1.86 cm LA Diam: 4.04 cm LA/Ao: 1.43 | | | %FS: 30.66 % EDV(Teich): 69.55 ml EF(Teich): 58.77 % | | | ESV(Teich): 28.67 ml IVSd: 0.53 cm IVSs: 0.85 cm LVIDd: | | | 3.98 cm LVIDs: 2.76 cm LVPWd: 0.69 cm LVPWs: 1.01 cm | | | SV(Teich): 40.88 ml IVC diameter: 1.29 cm IVC collapse: | | | 0.46 cm IVC % collapse: 62.99 % HR: 62.42 BPM AV maxPG: | | | 5.44 mmHg AV meanP.08 mmHg AV Vmax: 1.16 m/s AV Vmean: | | | 0.83 m/s AV VTI: 23.46 cm JASVIR Vmax: 1.67 cm2 JASVIR (VTI): | | | 1.99 cm2 AVET: 310.53 ms LVCI Dopp: 1.74 l/minm2 LVCO Dopp: | | | 2.80 l/min HR: 60.11 BPM LVOT maxP.30 mmHg LVOT | | | meanP.77 mmHg LVSI Dopp: 29.01 ml/m2 LVSV Dopp: 46.71 | | | ml LVOT Vmax: 0.90 m/s LVOT Vmean: 0.63 m/s LVOT VTI: | | | 21.69 cm MR maxP.27 mmHg MR meanP.27 mmHg MR Vmax: | | | 1.60 m/s MR Vmean: 0.63 m/s MR VTI: 59.84 cm MV A Sergio: | | | 0.46 m/s MV DecT: 175.04 ms MV E Sergio: 1.46 m/s MV E/A Ratio: | | | 3.95 MV PHT: 54.24 ms MVA By PHT: 4.05 cm2 MV A Dur: | | | 72.25 ms Septal e': 0.09 m/s Septal E/e': 14.85 Lateral e': | | | 0.10 m/s Lateral E/e': 14.43 P Vein A: 0.19 m/s P Vein A | | | Dur: 51.75 ms P Vein D: 0.54 m/s P Vein S/D Ratio: 0.73 P | | | Vein S: 0.40 m/s HR: 64.40 BPM WY maxP.45 mmHg WY | | | meanP.03 mmHg WY Vmax: 1.36 m/s WY Vmean: 0.82 m/s WY | | | VTI: 28.38 cm HR: 64.15 BPM PV maxP.54 mmHg PV meanPG: | | | 2.18 mmHg PV Vmax: 0.94 m/s PV Vmean: 0.70 m/s PV VTI: | | | 18.04 cm TR maxP.45 mmHg TR Vmax: 1.69 m/s TV A Sergio: | | | 0.32 m/s TV Dec Gregory: 4.76 m/s2 TV Dec Time: 133.12 ms TV E | | | Sergio: 0.63 m/s TV E/A Ratio: 1.94 Senior Project Accountant: ELVIRA | | | Authenticated by: Elton Castillo MD Report Date/Time: 02-05-2010 | | | 22:09:52 | | + + + + + | Procedure Note | + + | Bulmaro Love - 12/26/2018 6:58 PM [facility] | | [place], [place] [address]Nb: Patient Name: Mona CORNELL of : | | 1965Medical Record: [id number]: [id number] | | Date/Time: 02/05/2010 14:17Performing Physician: Elton Boyce Detail: | | Description: ECHO CARDIAC ADULT WITH DOPPLER COLOR | | FLOW INDICATIONS | | -eval for Constrictive Pericarditis. CONCLUSIONS 1. Degenerative Valvular | | Heart Disease. Mechanical prosthetic valve in the Mitral position, stable, no | | significant MR, mean gradient 3mmHg. Aortic, Tricuspid, and Pulmonic valve grossly NML. | | Trace TR. 2. Est systolic PAP 16mmHg. 3. LV dimensions,systolic and diastolic | | functions NML, LVEF 60-65%. LA/RA/RV NML. 4. Very small Pericardial effusion, no | | evidence of tamponade. 5. No evidence of constrictive physiology. FINDINGS--------[no | | group]: Degenerative Valvular Heart Disease.ECG rhythm: Sinus rhythm.Study: A | | 2-dimensional transthoracic echocardiogram with m-mode, spectral and color flow Doppler | | was perfomed.Study: This was a technically adequate study.Left Ventricle: Overall left | | ventricular systolic function is normal with, an EF between 60 - 65 %.Left Ventricle: | | Left Ventricle ejection fraction by m-mode measures 59%.Left Ventricle: The left | | ventricle cavity size is normal.Left Ventricle: Left ventricular wall thickness is | | normal.Left Ventricle: The diastolic filling pattern is normal for the age of the | | patient.Right Ventricle: The right ventricle is normal in size.Right Ventricle: The | | right ventricular systolic function is normal.Left Atrium: The left atrial size is | | normalLeft Atrium: , and the LA measures 4.0cm.Right Atrium: The right atrial size is | | normalRight Atrium: , and the RA measures 3.8cm.Aortic Valve: The aortic valve is | | trileaflet and appears structurally normal.Aortic Valve: There is no evidence of aortic | | regurgitation.Mitral Valve: The mechanical MVR is well seated.Tricuspid Valve: The | | tricuspid valve appears structurally normal.Tricuspid Valve: Trace tricuspid | | regurgitation present.Tricuspid Valve: Right ventricular systolic pressure (pulmonary | | artery systolic pressure) is normal at < 35 mmHg.Pulmonic Valve: The pulmonic valve is | | normal.Pulmonic Valve: A wave normal.Pericardium: There is a trivial pericardial | | effusion present.IVC/Hepatic Veins: The IVC is small (<1.5cm) and collapses with sniff, | | consistent with central venous pressures of 0-5mmHg.Mass: No mass visualizedThrombus: No | | clot visualizedThrombus: No vegetation visualized.Septum: No ASD observed. | | MEASUREMENTS LA Major: 4.07 cmEDV(Teich): 77.02 mlIVSd: 0.58 cmLVIDd: | | 4.16 cmLVPWd: 0.72 cmLVOT Diam: 1.65 cm%FS: 36.11 %EF(Teich): 66.17 | | %ESV(Teich): 26.05 mlIVSs: 1.06 cmLVIDs: 2.66 cmLVPWs: 0.99 cmSV(Teich): 50.97 | | mlRA Major: 3.82 cmRVIDd: 2.81 cmLVEF MOD A2C: 66.34 %SV MOD A2C: 51.13 mlLVEF | | MOD A4C: 67.24 %SV MOD A4C: 53.67 mlEF Biplane: 67.26 %LVEDV MOD BP: 80.96 | | mlLVESV MOD BP: 26.50 mlLVEDV MOD A2C: 77.07 mlLVLd A2C: 6.73 cmLVEDV MOD A4C: | | 79.83 mlLVLd A4C: 7.26 cmLVESV MOD A2C: 25.93 mlLVLs A2C: 5.71 cmLVESV MOD A4C: | | 26.15 mlLVLs A4C: 5.97 cmLAAs A4C: 11.79 uc2BTKQB A-L A4C: 27.07 mlLALs A4C: | | 4.35 cmAo Diam: 2.81 cmAV Cusp: 1.86 cmLA Diam: 4.04 cmLA/Ao: 1.43%FS: 30.66 | | %EDV(Teich): 69.55 mlEF(Teich): 58.77 %ESV(Teich): 28.67 mlIVSd: 0.53 cmIVSs: | | 0.85 cmLVIDd: 3.98 cmLVIDs: 2.76 cmLVPWd: 0.69 cmLVPWs: 1.01 cmSV(Teich): | | 40.88 mlIVC diameter: 1.29 cmIVC collapse: 0.46 cmIVC % collapse: 62.99 %HR: | | 62.42 BPMAV maxP.44 mmHgAV meanP.08 mmHgAV Vmax: 1.16 m/Jenn Vmean: 0.83 | | m/Jenn VTI: 23.46 cmAVA Vmax: 1.67 cm2AVA (VTI): 1.99 za9PVZN: 310.53 msLVCI | | Dopp: 1.74 l/oilf5MHAH Dopp: 2.80 l/minHR: 60.11 BPMLVOT maxP.30 mmHgLVOT | | meanP.77 mmHgLVSI Dopp: 29.01 ml/m2LVSV Dopp: 46.71 mlLVOT Vmax: 0.90 | | m/sLVOT Vmean: 0.63 m/sLVOT VTI: 21.69 cmMR maxP.27 mmHgMR meanP.27 | | mmHgMR Vmax: 1.60 m/sMR Vmean: 0.63 m/sMR VTI: 59.84 cmMV A Sergio: 0.46 m/sMV | | DecT: 175.04 msMV E Sergio: 1.46 m/sMV E/A Ratio: 3.95MV PHT: 54.24 msMVA By PHT: | | 4.05 cm2MV A Dur: 72.25 msSeptal e': 0.09 m/sSeptal E/e': 14.85Lateral e': 0.10 | | m/sLateral E/e': 14.43P Vein A: 0.19 m/sP Vein A Dur: 51.75 msP Vein D: 0.54 | | m/sP Vein S/D Ratio: 0.73P Vein S: 0.40 m/sHR: 64.40 BPMPR maxP.45 mmHgPR | | meanP.03 mmHgPR Vmax: 1.36 m/sPR Vmean: 0.82 m/sPR VTI: 28.38 cmHR: 64.15 | | BPMPV maxP.54 mmHgPV meanP.18 mmHgPV Vmax: 0.94 m/sPV Vmean: 0.70 m/sPV | | VTI: 18.04 cmTR maxP.45 mmHgTR Vmax: 1.69 m/sTV A Sergio: 0.32 m/sTV Dec | | Gregory: 4.76 m/s2TV Dec Time: 133.12 msTV E Sergio: 0.63 m/sTV E/A Ratio: 1.94 | | Senior Project Accountant: MIKAuthenticated by: Elton ARCEOeport Date/Time: 02-05-2010 22:09:52 | |LA Major: 4.07 cm | |EDV(Teich): 77.02 ml | |IVSd: 0.58 cm | |LVIDd: 4.16 cm | |LVPWd: 0.72 cm | |LVOT Diam: 1.65 cm | |%FS: 36.11 % | |EF(Teich): 66.17 % | |ESV(Teich): 26.05 ml | |IVSs: 1.06 cm | |LVIDs: 2.66 cm | |LVPWs: 0.99 cm | |SV(Teich): 50.97 ml | |RA Major: 3.82 cm | |RVIDd: 2.81 cm | |LVEF MOD A2C: 66.34 % | |SV MOD A2C: 51.13 ml | |LVEF MOD A4C: 67.24 % | |SV MOD A4C: 53.67 ml | |EF Biplane: 67.26 % | |LVEDV MOD BP: 80.96 ml | |LVESV MOD BP: 26.50 ml | |LVEDV MOD A2C: 77.07 ml | |LVLd A2C: 6.73 cm | |LVEDV MOD A4C: 79.83 ml | |LVLd A4C: 7.26 cm | |LVESV MOD A2C: 25.93 ml | |LVLs A2C: 5.71 cm | |LVESV MOD A4C: 26.15 ml | |LVLs A4C: 5.97 cm | |LAAs A4C: 11.79 cm2 | |LAESV A-L A4C: 27.07 ml | |LALs A4C: 4.35 cm | |Ao Diam: 2.81 cm | |AV Cusp: 1.86 cm | |LA Diam: 4.04 cm | |LA/Ao: 1.43 | |%FS: 30.66 % | |EDV(Teich): 69.55 ml | |EF(Teich): 58.77 % | |ESV(Teich): 28.67 ml | |IVSd: 0.53 cm | |IVSs: 0.85 cm | |LVIDd: 3.98 cm | |LVIDs: 2.76 cm | |LVPWd: 0.69 cm | |LVPWs: 1.01 cm | |SV(Teich): 40.88 ml | |IVC diameter: 1.29 cm | |IVC collapse: 0.46 cm | |IVC % collapse: 62.99 % | |HR: 62.42 BPM | |AV maxP.44 mmHg | |AV meanP.08 mmHg | |AV Vmax: 1.16 m/s | |AV Vmean: 0.83 m/s | |AV VTI: 23.46 cm | |JASVIR Vmax: 1.67 cm2 | |JASVIR (VTI): 1.99 cm2 | |AVET: 310.53 ms | |LVCI Dopp: 1.74 l/minm2 | |LVCO Dopp: 2.80 l/min | |HR: 60.11 BPM | |LVOT maxP.30 mmHg | |LVOT meanP.77 mmHg | |LVSI Dopp: 29.01 ml/m2 | |LVSV Dopp: 46.71 ml | |LVOT Vmax: 0.90 m/s | |LVOT Vmean: 0.63 m/s | |LVOT VTI: 21.69 cm | |MR maxP.27 mmHg | |MR meanP.27 mmHg | |MR Vmax: 1.60 m/s | |MR Vmean: 0.63 m/s | |MR VTI: 59.84 cm | |MV A Sergio: 0.46 m/s | |MV DecT: 175.04 ms | |MV E Sergio: 1.46 m/s | |MV E/A Ratio: 3.95 | |MV PHT: 54.24 ms | |MVA By PHT: 4.05 cm2 | |MV A Dur: 72.25 ms | |Septal e': 0.09 m/s | |Septal E/e': 14.85 | |Lateral e': 0.10 m/s | |Lateral E/e': 14.43 | |P Vein A: 0.19 m/s | |P Vein A Dur: 51.75 ms | |P Vein D: 0.54 m/s | |P Vein S/D Ratio: 0.73 | |P Vein S: 0.40 m/s | |HR: 64.40 BPM | |WY maxP.45 mmHg | |WY meanP.03 mmHg | |WY Vmax: 1.36 m/s | |WY Vmean: 0.82 m/s | |WY VTI: 28.38 cm | |HR: 64.15 BPM | |PV maxP.54 mmHg | |PV meanP.18 mmHg | |PV Vmax: 0.94 m/s | |PV Vmean: 0.70 m/s | |PV VTI: 18.04 cm | |TR maxP.45 mmHg | |TR Vmax: 1.69 m/s | |TV A Sergio: 0.32 m/s | |TV Dec Gregory: 4.76 m/s2 | |TV Dec Time: 133.12 ms | |TV E Sergio: 0.63 m/s | |TV E/A Ratio: 1.94 | | | |Senior Project Accountant: ELVIRA | |Authenticated by: Elton Castillo MD | |Report Date/Time: 02-05-2010 22:09:52 | + + documented in this encounter Visit Diagnoses Not on filedocumented in this encounter"
--- OUTSIDE RECORDS SUMMARY | ~2019-09-06 | XMS | Encounter Summary ---
Demographics + + + | Address | [address] | | | [place] [address] | + + + | Home Phone | | + + + | Preferred Language | Unknown | + + + | Marital Status | | + + + | Yazidism Affiliation | 1013 | + + + | Race | Unknown | + + + | Ethnic Group | Unknown | + + + Author + + + | Author | [facility] | | | and [place] | + + + | Organization | [facility] | | [...] [place], [place] | | | | | [address] | | + + + + + Care Team Providers + +------+ + | Care Pin Machine Operator Name | Role | Phone [...] | NEUROLOGY SPIKEGATLeigha | MD [address] | unspecified type | | | | [address], | [place] | (Primary Dx) | | | | [address] [place] | [address] | | | | | [place] [address] | | | | | | [phone] | | | +--------+ + + + [...] [address] | | | | | | [place] [address] | | | | | | [phone] | | | | | | | [...]
--- OUTSIDE RECORDS SUMMARY | ~2019-09-06 | XMS | Encounter Summary ---
Demographics + + + | Address | [address] | | | [place] [address] | + + + | Home Phone | | + + + | Preferred Language | Unknown | + + + | Marital Status | | + + + | Holiness Affiliation | 1013 | + + + | Race | Unknown | + + + | Ethnic Group | Unknown | + + + Author + + + | Author | [facility] | | | and [place] | + + + | Organization | [facility] | | | [...] [place], [place] | | | | | [address] | | + + + + + Care Team Providers + +------+ + | Care Audio Visual Coordinator Name | Role | Phone | + +------+ + | Raven Kim PA-C | PCP | | + +------+ + Reason for Visit + + + | Reason | Comments | + + + | Medication | lovenox | | Management | | + + + Encounter Details +--------+ + + + + | Date | Type | Department | Care Team | Description | +--------+ + + + + | 09/10/ | Telephone | [facility] | Pipo Don MD | Medication | | 2018 | | GASTROENTEROLOGY | [address], [place] | Management (lovenox) | | | | [address] [place] | [address] [place] [facility] [place], [place] | | | | | [address] [place], [place] | [address] | | | | | [address] | | | | | | [phone] | | | +--------+ + + + [...] | | | | | [address] | | | | | | [place] [address] | | | | | | [phone] | | | | | | | | +--------+---------+ + + + documented as of this encounter Visit Diagnoses Not on filedocumented in this encounter"
--- OUTSIDE RECORDS SUMMARY | ~2019-09-06 | XMS | Encounter Summary ---
Demographics + + + | Address | [address] | | | [place] [address] | + + + | Home Phone | | + + + | Preferred Language | Unknown | + + + | Marital Status | | + + + | Baptist Affiliation | 1013 | + + + | Race | Unknown | + + + | Ethnic Group | Unknown | + + + Author + + + | Author | [facility] | | | and [place] | + + + | Organization | [facility] | | | and [...] [place], [place] | | | | | [address] | | + + + + + Care Team Providers + +------+ + | Care Atomizer Assembler Name | Role | Phone | + [...] | | voice | | [address], | | | | | Gastroesopha | | [address] | | | | | geal reflux | | [place], | | | | | disease, | | [place] [address] | | | | | esophagitis | | Phone: | | | | | presence not | | [phone] | | | | | specified | | Fax: | | | | | Procedures | | [phone] | | | | | AR | | | | | | | ESOPHAGOGAST | | | | | | | RODUODENOSCO | | | | | | | PY TRANSORAL | | | | | | | DIAGNOSTIC | | | | | | | AR EGD | | | | | | | TRANSORAL | | | | | | | BIOPSY | | | | | | | SINGLE/MULTI | | | | | | | PLE AR GERD | | | | | | | TST W/ | | | | | | | MUCOS PH | | | | | | | ELECTROD AR | | | | | | | [...] Description | +--------+---------+ + + + | 09/14/ | Surgery | [facility] | Pipo Don MD | ENDOSCOPIC 48 HOUR | | 2019 | | MED CTR MP INTRA OP | [address], [place] | PH WALKER "CAPSULE" | | | | [address] | [address] [place], [place] | | | | | [place], [place] | [address] | | | | | [address] | | | | | | [phone] | | | +--------+---------+ + + + [...] + + + | Blood Pressure | 136/70 | 09/14/2018 12:00 PM | | | | | PDT | | + + + + + | Pulse | 69 | 09/14/2018 12:00 PM | | | | | PDT | | + + + + + | Temperature | 37.1 C (98.8 F) | 09/14/2018 10:51 AM | | | | | PDT | | + + + + + | Respiratory Rate | 16 | 09/14/2018 12:00 PM | | | | | PDT | | + + + + + | Oxygen Saturation | 98% | 09/14/2018 12:00 PM | | | | | PDT | | + + + + + | Inhaled Oxygen | - | - | | | Concentration | | | | + + + + + | Weight | 64.9 kg (143 lb 1.3 | 09/14/2018 10:51 AM | | | | oz) | PDT | | + + + + + | Height | 162.6 cm (5' 4") | 09/14/2018 10:51 AM | | | | | PDT | | + + + + + | Body Mass Index | 24.56 | 09/14/2018 10:51 AM | | | | | PDT | | + + + + + documented in this encounter Discharge Instructions Instructions Carol Plummer RN - 09/14/2018 Upper GI Endoscopy During endoscopy, a long, flexible tube is used to view the inside of your upper GI tract. Upper GI endoscopy allows your healthcare provider to look directly into the beginning of y our gastrointestinal (GI) tract. The esophagus, stomach, and duodenum (the first part of the small intestine) make up the upper GI tract. Before the exam Follow these and any other instructions you are given before your endoscopy. If you don t follow the healthcare provider s instructions carefully, the test may need to be canceled or done over: Don't eat or drink anything after midnight the night before your exam. If your exam is i n the afternoon, drink only clear liquids in the morning. Don't eat or drink anything for8 hours before the exam. In some cases, you may be able to take medicines with sips of water until 2 hours before the procedure. Speak with your healthcare provider about this. Bring your X-rays and any other test results you have. Because you will be sedated, arrange for an adult to drive you home after the exam. Tell your healthcare provider before the exam if you are taking any medicines or have an y medical problems. The procedure Here is what to expect: You will lie on the endoscopy table. Usually patients lie on the left side. You will be monitored and given oxygen. Your throat may be numbed with a spray or gargle. You are given medicine through an intr avenous (IV) line that will help you relax and remain comfortable. You may be awake or aslee p during the procedure. The healthcare provider will put the endoscope in your mouth and down your esophagus.I tis thinner than most pieces of food that you swallow. It will not affect your breathing. The medicine helps keep you from gagging. Air is put into your GI tract to expand it. It can make you burp. During the procedure, the healthcare provider can take biopsies (tissue samples), remove abnormalities, such as polyps, or treat abnormalities through a variety of devices placed t hrough the endoscope. You will not feel this. The endoscope carries images of your upper GI tract to a video screen. If you are awake, you may be able to look at the images. After the procedure is done, you will rest for a time. An adult must drive you home. When to call your healthcare provider Contact your healthcare provider if you have: Black or tarry stools, or blood in your stool Fever Pain in your belly that does not go away Nausea and vomiting, or vomiting blood Date Last Reviewed: 11/02/[id number] [employer]. [address] [place] [id number]. All righ ts reserved. This information is [...] PO 3 XD | | 0 | //20 | | | (LIORESAL) 10 mg | [...] | 1 | 12/19/19 | | | [id number] | RIBBON TO BOTH EYES | | | 18 | 9 | | examethasone | TID | | | | | | (MAXITROL) | | | | | | | [id number] | | | | | | | [...] | | | | | | [address] | | | | | | [place] [address] | | | | | | [phone] | | | | | | | | +--------+---------+ + + + documented as of this encounter Procedures + +--------+ + + + | Procedure Name | Priori | Date/Time | Associated Diagnosis | Comments | | | ty | | | | + +--------+ + + + | POCT FINGERSTICK INR | STAT | 09/14/2018 | | Results for this | | | | 11:32 AM | | procedure are in the | | | | PDT | | results section. | + +--------+ + + + | HELICOBACTER PYLORI | Routin | 09/14/2018 | | Results for this | | BIOPSY | e | 11:23 AM | | procedure are in the | | | | PDT | | results section. | + +--------+ + + + | ENDOSCOPIC 48 HOUR | | 09/14/2018 | Change in voice | | | PH WALKER "CAPSULE" | | 11:13 AM | Gastroesophageal | | | | | PDT | reflux disease, | | | | | | esophagitis presence | | | | | | not specified | | + +--------+ + + + +---+--------+ | | | | | Specia | | | l | | | Needs | | | | | | Loveno | | | x | | | bridgi | | | ng | | | while | | | off | | | coumad | | | in | +---+--------+ + +--------+ +---+ + | ENDOSCOPY, GI W/ | Routin | 09/14/2018 | | | | CAPSULE | e | 11:11 AM | | | | | | PDT | | | + +--------+ +---+ + | EGD | Routin | 09/14/2018 | | Results for this | | | e | 11:11 AM | | procedure are in the | | | | PDT | | results section. | + +--------+ +---+ + | SURGICAL PATHOLOGY | Routin | 09/14/2018 | | Results for this | | EXAM | e | 12:00 AM | | procedure are in the | | | | PDT | | results section. | + +--------+ +---+ + documented in this encounter Results POC Fingerstick INR (09/14/2018 11:32 AM PDT) + +---------+ + + + | Component | Value | Ref Range | Performed | Pathologist | | | | | At | Signature | + +---------+ + + + | INR, POC | 1.7 (A) | 0.9 - 1.2 | [facility] | | | | | [facility] | | | | | | [facility] | | | | | | [facility]AT[facility] | | + +---------+ + + + | Instrument | [id number] | | [facility] | | | ID | | [facility] | | | | | | [facility] | | | | | | LABORATORY | | + +---------+ + + + + + | Specimen | + + | Blood | + + + + + + + | Performing | Address | City/State/Zipcode | Phone Number | | Organization | | | | + + + + + | [facility] | [address] | [place] [address] | [phone] | | [facility] | | | | | LABORATORY | | | | + + + + + Helicobactor pylori Biopsy (09/14/2018 11:23 AM PDT) + + + + + + | Component | Value | Ref Range | Performed | Pathologist | | | | | At | Signature | + + + + + + | Helicobacte | Negative | Negative | [facility] | | | r pylori Ag | | | [facility] | | [facility] - | | | | | | LAB[facility]ATORY | | + + + + + + + + | Specimen | + + | Tissue - Specimen | | from stomach | | (specimen) | + + + + + + + | Performing | Address | City/State/Zipcode | Phone Number | | Organization | | | | + + + + + | [facility] | [address] | [place] | [phone] | | [facility] | | [address] | | | - LABORATORY | | | | + + + + + EGD (09/14/2018 11:11 AM PDT) + + | Specimen | + + | | + + + + + | Narrative | Performed At | + + + | Gastroenterology Patient Name: Nilsa Cornell Procedure Date: | [facility] | | 09/14/2018 11:11 AM Date of | [facility] | | : 1965 Admit Type: Ambulatory Age: 52 Room: [facility] 01 | | | Gender: Female Note Status: Finalized Attending MD: Pipo Don , | | | MD Procedure: Upper GI endoscopy Indications: | | | Suspected esophageal reflux, For therapy of esophageal | | | reflux Providers: Pipo Don MD, | | | Mateo Baugh RN, Phani Vu, | | | [facility], Jl Nunez MD (Anesthesia Staff) Referring MD: | | | Jesus Tate MD (Referring MD) Medicines: Propofol | | | per Anesthesia Complications: No immediate complications. | | | Estimated blood loss: Minimal. Procedure: Pre-Anesthesia | | | Assessment: - Prior to the procedure, a History and Physical | | | was performed, and patient medications, allergies and | | | sensitivities were reviewed. The patient's tolerance of | | | previous anesthesia was reviewed. - Prior to the procedure, a | | | History and Physical was performed, and patient medications | | | and allergies were reviewed. The patient is competent. The | | | risks and benefits of the procedure and the sedation options | | | and risks were discussed with the patient. All questions were | | | answered and informed consent was obtained. Patient identification | | | and proposed procedure were verified by the physician, the | | | nurse, the anesthesiologist and the pbx technician in the | | | endoscopy suite. Mental Status Examination: alert and | | | oriented. Airway Examination: normal oropharyngeal airway and | | | neck mobility and Mallampati Class III (part of the uvula | | | and soft palate visualized). Prophylactic Antibiotics: The | | | patient does not require prophylactic antibiotics. Prior | | | Anticoagulants: The patient has taken Coumadin (warfarin), | | | last dose was 3 days prior to procedure. ASA Grade | | | Assessment: III - A patient with severe systemic disease. | | | After reviewing the risks and benefits, the patient was deemed | | | in satisfactory condition to undergo the procedure. The anesthesia | | | plan was to use monitored anesthesia care (MAC). Immediately | | | prior to administration of medications, the patient was | | | re-assessed for adequacy to receive sedatives. The heart | | | rate, respiratory rate, oxygen saturations, blood pressure, | | | adequacy of pulmonary ventilation, and response to care were | | | monitored throughout the procedure. The physical status of | | | the patient was re-assessed after the procedure. - After | | | reviewing the risks and benefits, the patient was deemed in | | | satisfactory condition to undergo the procedure. - Immediately | | | prior to administration of medications, the patient was | | | re-assessed for adequacy to receive sedatives. - The heart | | | rate, respiratory rate, oxygen saturations, blood pressure, | | | adequacy of pulmonary ventilation, and response to care were monitored | | | throughout the procedure. - The physical status of | | | the patient was re-assessed after the procedure. After | | | obtaining informed consent, the endoscope was passed under direct | | | vision. Throughout the procedure, the patient's blood pressure, | | | pulse, and oxygen saturations were monitored continuously. | | | The Endoscope was introduced through the mouth, and advanced | | | to the third part of duodenum. The upper GI endoscopy was | | | accomplished without difficulty. The patient tolerated the | | | procedure well. Findings: The upper third of the esophagus, | | | middle third of the esophagus and lower third of the | | | esophagus were normal. The Z-line was regular and was found 35 | | | cm from the incisors. Biopsies were taken with a cold | | | forceps for histology. Verification of patient identification | | | for the specimen was done. Estimated blood loss was minimal. | | | The WALKER capsule with delivery system was introduced through | | | the mouth and advanced into the esophagus, such that the WALKER pH | | | capsule was positioned 31 cm from the incisors, which was 4 cm | | | proximal to the GE junction. The WALKER pH capsule was then | | | deployed and attached to the esophageal mucosa. The delivery | | | system was then withdrawn. Endoscopy was utilized for probe | | | placement and diagnostic evaluation. A gaping lower esophageal | | | sphincter was found. A 4 cm hiatal hernia was present. | | | Suspect gastroparesis due to absence of peristalsis. Biopsies were | | | taken with a cold forceps for Helicobacter pylori testing | | | using CLOtest. Verification of patient identification for the | | | specimen was done. Estimated blood loss was minimal. | | | Localized mild inflammation was found on the greater curvature of the | | | stomach and in the gastric antrum. The duodenal | | | bulb, second portion of the duodenum, area of the papilla and | | | third portion of the duodenum were normal. The retroflexed | | | view confirmed previous findings, Impression: - Normal upper | | | third of esophagus, middle third of esophagus and lower third | | | of esophagus. - Z-line regular, 35 cm from the incisors. | | | Biopsied. - Gaping lower esophageal sphincter. - 4 cm | | | hiatal hernia. - Gastroparesis. Biopsied. 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 - Normal duodenal bulb, second portion of the | | | duodenum, area of the papilla and third portion of the | | | duodenum. - The retroflexed view confirmed previous findings, | | | - The WALKER pH capsule was deployed. Recommendation: | | | - Patient has a contact number available for emergencies. The signs | | | and symptoms of potential delayed complications were | | | discussed with the patient. Return to normal activities | | | tomorrow. Written discharge instructions were provided to the | | | patient. - Discharge patient to home (ambulatory). - | | | Resume previous diet today. - Await pathology results. | | | - Return to primary care physician as previously scheduled. - | | | Telephone GI clinic for pathology results in 1 week. Pipo Don, | | | 09/14/2018 11:38:58 AM This report has been signed | | | electronically. Number of Addenda: 0 Note Initiated On: 09/14/2018 | | | 11:11 AM Scope In: 11:21:44 AM Scope Out: 11:29:49 AM | | | [facility], [address], [place] | | | [address] | | + + + + +---------+ + + | Performing | Address | City/State/Zipcode | Phone Number | | Organization | | | | + +---------+ + + | [facility] | | | | + +---------+ + + Surgical Pathology Exam (09/14/2018 12:00 AM PDT) + + | Specimen | + + | Tissue | + + + + + | Narrative | Performed At | + + + | SPECIMEN(S): A DISTAL ESOPHAGUS SPECIMEN SOURCE: [facility] | | ESOPHAGUS CLINICAL HISTORY: R49.9 (change in voice), K21.9 | [facility] | | (gastroesophageal reflux disease, esophagitis presence not specified). | | | MICROSCOPIC DESCRIPTION: Histologic sections of all submitted | | | blocks are examined by light microscopy. These findings, together with | | | the gross examination, support the pathologic diagnosis. FINAL | | | PATHOLOGIC DIAGNOSIS: Distal esophagus, biopsy: - Benign | | | esophageal mucosa; negative for increased epithelial eosinophils. - | | | Negative for glandular mucosa. JVR:[facility]:C2NR GROSS | | | DESCRIPTION: The specimen, labeled "JL, distal esophageal biopsy," is | | | received in formalin and consists of six pink-polk soft tissue | | | fragment(s) that measure 0.2-0.4 cm in greatest dimension. The | | | specimen is entirely submitted in cassette (A1). JS (under the | | | direct supervision of a pathologist) The Gross Description was | | | prepared using a voice recognition system. The report was reviewed | | | for accuracy; however, sound-alike word errors, addition and/or | | | deletions may occur. If there is any question about this report, | | | please contact Client Services. PERFORMING LABORATORY: The | | | technical component was performed by [employer], [address] [place] [address] | | | [facility] [address] (Ctc Operator: Nita Ríos MD; IA# | | | [id number]). Professional interpretation was performed by [employer] | | | [employer], [address] | | | [address] [place] [address] (Ctc Operator: José | | | Jadyn Samson). Diagnostician: José Samson MD | | | Pathologist Electronically Signed 09/15/2018 | | + + + + +---------+ + + | Performing | Address | City/State/Zipcode | Phone Number | | Organization | | | | + +---------+ + + | [facility] | | | | | [facility] | | | | + +---------+ + + documented in this encounter Visit Diagnoses + + | Diagnosis | + + | Change in voice Other voice and resonance disorders | + + | Gastroesophageal reflux disease, esophagitis presence not specified | + + documented in this encounter Admitting Diagnoses + + | Diagnosis | + + | Change in voice Other voice and resonance disorders | + + | Gastroesophageal reflux disease, esophagitis presence not specified | + + documented in this encounter Administered Medications + +---------+ [...] | | | | + +---------+ +------+------+------+ + +---+ | | | + +---+ | ondansetron (ZOFRAN) injection | | | 4 mg 4 mg, Oral, EVERY 4 HOURS | | | PRN, Nausea, Vomiting, Starting | | | 09/14/18 at 1207, | | | Recovery/Phase I | | + +---+ | | | + +---+ documented in this encounter
--- OUTSIDE RECORDS SUMMARY | ~2019-09-06 | XMS | Encounter Summary ---
Demographics + + + | Address | [address] | | | [place] [address] | + + + | Home Phone | | + + + | Preferred Language | Unknown | + + + | Marital Status | | + + + | Temple Affiliation | 1013 | + + + | Race | Unknown | + + + | Ethnic Group | Unknown | + + + Author + + + | Author | [facility] | | | and [place] | + + + | Organization | [facility] | | | and [...] [place], [place] | | | | | [address] | | + + + + + Care Team Providers + +------+ + | Care Quarter Supervisor Name | Role | Phone | + +------+ + | Bernard Cesar MD | PCP | | + +------+ + Reason for Visit + + + | Reason | Comments | + + + | Vaginal Bleeding | | + + + Encounter Details +--------+ + + + + | Date | Type | Department | Care Team | Description | +--------+ + + + + | 01/29/ | Emergency | [facility] | Dayne Kaplan, | Postoperative | | 2014 | | [facility] | MD [address] | vaginal bleeding | | | | CENTER [address] | [place] | (Primary Dx) | | | | [place], [place] | [id number] | | | | | [address] | | | | | | [phone] | | | +--------+ + + + [...] + + + | Blood Pressure | 110/91 | 01/29/2015 7:41 AM | | | | | PDT | | + + + + + | Pulse | 84 | 01/29/2015 7:41 AM | | | | | PDT | | + + + + + | Temperature | 35.8 C (96.4 F) | 01/29/2015 2:42 AM | | | | | PDT | | + + + + + | Respiratory Rate | 16 | 01/29/2015 2:42 AM | | | | | PDT | | + + + + + | Oxygen Saturation | 97% | 01/29/2015 7:41 AM | | | | | PDT | | + + + + + | Inhaled Oxygen | - | - | | | Concentration | | | | + + + + + | Weight | 61.2 kg (135 lb) | 01/29/2015 2:42 AM | | | | | PDT | | + + + + + | Height | 160 cm (5' 2.99") | 01/29/2015 2:42 AM | | | | | PDT | | + + + + + | Body Mass Index | 23.92 | 01/29/2015 2:42 AM | | | | | PDT | | + + + + + documented in this encounter Discharge Instructions Danye Ramírez MD - 01/29/2015Follow-up with gynecology clinic directly afte r leaving the emergency department documented in this encounter Medications at Time [...] [address] | | | | | | [place] [address] | | | | | | [phone] | | | | | | | | +--------+---------+ + + + documented as of this encounter Procedures + +--------+ + + + | Procedure Name | Priori | Date/Time | Associated Diagnosis | Comments | | | ty | | | | + +--------+ + + + | EXTRA GREEN TOP TUBE | Routin | 01/29/2015 | | Results for this | | | e | 3:22 AM | | procedure are in the | | | | PDT | | results section. | + +--------+ + + + | EXTRA GREEN TOP TUBE | Routin | 01/29/2015 | | Results for this | | | e | 3:20 AM | | procedure are in the | | | | PDT | | results section. | + +--------+ + + + | EXTRA GOLD TOP TUBE | Routin | 01/29/2015 | | Results for this | | | e | 3:20 AM | | procedure are in the | | | | PDT | | results section. | + +--------+ + + + | PTT | STAT | 01/29/2015 | | Results for this | | | | 3:10 AM | | procedure are in the | | | | PDT | | results section. | + +--------+ + + + | PROTIME INR | STAT | 01/29/2015 | | Results for this | | | | 3:10 AM | | procedure are in the | | | | PDT | | results section. | + +--------+ + + + | CBC WITH | STAT | 01/29/2015 | | Results for this | | DIFFERENTIAL | | 3:10 AM | | procedure are in the | | | | PDT | | results section. | + +--------+ + + + | TYPE AND SCREEN | STAT | 01/29/2015 | | Results for this | | | | 3:10 AM | | procedure are in the | | | | PDT | | results section. | + +--------+ + + + documented in this encounter Results EXTRA GREEN TOP TUBE (01/29/2015 3:22 AM PDT) + +-------+ + + + | Component | Value | Ref Range | Performed | Pathologist | | | | | At | Signature | + +-------+ + + + | Extra Green | Done | | [facility] | | | Top Tube | | | [facility] | | | | | | MEDICAL [...] + | [facility] | [address] | [place] | [phone] | | [facility] | | [address] | | | - LABORATORY | | | | + + + + + EXTRA GOLD TOP TUBE (01/29/2015 3:20 AM PDT) + +-------+ + + + | Component | Value | Ref Range | Performed | Pathologist | | | | | At | Signature | + +-------+ + + + | Extra Gold | Done | | [facility] | | | Top Tube | | | [facility] | | [...] + + | [facility] | [address] | [place] | [phone] | | [facility] | | [address] | | | - LABORATORY | | | | + + + + + EXTRA GREEN TOP TUBE (01/29/2015 3:20 AM PDT) + +-------+ + + + | Component | Value | Ref Range | Performed | Pathologist | | | | | At | Signature | + +-------+ + + + | Extra Green | Done | | [facility] | | | Top Tube | | | [facility] | | [...] [address] | [place] | [phone] | | [facility] | | [address] | | | - LABORATORY | | | | + + + + + Type and Screen (01/29/2015 3:10 AM PDT) + + + + + + | Component | Value | Ref Range | Performed | Pathologist | | | | | At | Signature | + + + + + + | ABO | O | | [facility] | | | | [facility] | | | | [facility] | MEDICAL | | | | | | CENTER - | | | | | | BLOOD BANK | | + + + + + + | Rh Type | Positive | | [facility] | | | | [facility] | | | | | | MEDICAL | | | | | | CENTER - | | | | | | BLOOD BANK | | + + + + + + | Antibody | Negative | | [facility] | | | Screen | | | [facility] | | | | | | MEDICAL | | | | | | CENTER - | | | | | | BLOOD BANK | | + + + + + + + + | Specimen | + + | Blood specimen | | (specimen) | + + + + + + + | Performing | Address | City/State/Zipcode | Phone Number | | Organization | | | | + + + + + | [facility] | [address] | [place] | | | [facility] | | [address] | | | - BLOOD BANK | | | | + + + + + PTT (01/29/2015 3:10 AM PDT) + +--------+ + + + | Component | Value | Ref Range | Performed | Pathologist | | | | | At | Signature | + +--------+ + + + | aPTT | 41 (H) | 22 - 36 seconds | [facility] | | | | | | [facility] | | | | | | MEDICAL | | | | | | CENTER - | | | | | | LABORATORY | | + +--------+ + + + + + | Specimen | + + | Blood | + + + + + + + | Performing | Address | City/State/Zipcode | Phone Number | | Organization | | | | + + + + + | [facility] | [address] | [place] | [phone] | | [facility] | | [address] | | | - LABORATORY | | | | + + + + + Protime INR (01/29/2015 3:10 AM PDT) + + + + + + | Component | Value | Ref Range | Performed | Pathologist | | | | | At | Signature | + + + + + + | Prothrombin | 13.0 | 11.3 - 13.9 | [facility] | | | Time | | seconds | [facility] | | | | | | MEDICAL | | | | | | CENTER - | | | | | | LABORATORY | | + + + + + + | INR | 0.98Comment: Usual Oral | 0.90 - 1.10 | [...] + | [facility] | [address] | [place] | [phone] | | [facility] | | [address] | | | - LABORATORY | | | | + + + + + CBC with Differential (01/29/2015 3:10 AM PDT) + + + + + + | Component | Value | Ref Range | Performed | Pathologist | | | | | At | Signature | + + + + + + | WBC | 9.5 | 4.0 - 11.0 K/uL | [facility] | | | | | | [facility] | | | | | | MEDICAL | | | | | | CENTER - | | | | | | LABORATORY | | + + + + + + | RBC | 3.75 | 3.70 - 5.20 | [facility] | | | | | M/uL | [facility] | | | | | | MEDICAL | | | | | | CENTER - | | | | | | LABORATORY | | + + + + + + | Hemoglobin | 11.6 | 11.5 - 16.0 | [facility] | | | | | g/dL | [facility] | | | | | | MEDICAL | | | | | | CENTER - | | | | | | LABORATORY | | + + + + + + | Hematocrit | 34.9 | 34.0 - 47.0 % | [facility] | | | | | | [facility] | | | | | | MEDICAL | | | | | | CENTER - | | | | | | LABORATORY | | + + + + + + | MCV | 93.1 | 83.0 - 101.0 fL | [facility] | | | | | | [facility] | | | | | | MEDICAL | | | | | | CENTER - | | | | | | LABORATORY | | + + + + + + | MCH | 31.0 | 28.0 - 35.0 pg | [facility] | | | | | | [facility] | | | | | | MEDICAL | | | | | | CENTER - | | | | | | LABORATORY | | + + + + + + | MCHC | 33.3 | 32.0 - 36.0 | [facility] | | | | | g/dL | [facility] | | | | | | MEDICAL | | | | | | CENTER - | | | | | | LABORATORY | | + + + + + + | RDW-CV | 13.9 | <15.0 % | [facility] | | | | | | [facility] | | | | | | MEDICAL | | | | | | CENTER - | | | | | | LABORATORY | | + + + + + + | Platelet | 347 | 140 - 440 K/uL | [facility] | | | Count | | | [facility] | | | | | | MEDICAL | | | | | | CENTER - | | | | | | LABORATORY | | + + + + + + | MPV | 8.1 | fL | [facility] | | | | | | [facility] | | | | | | MEDICAL | | | | | | CENTER - | | | | | | LABORATORY | | + + + + + + | % | 58.4 | 45.0 - 82.0 % | [facility] | | | Neutrophils | | | [facility] | | | | | | MEDICAL | | | | | | CENTER - | | | | | | LABORATORY | | + + + + + + | % | 24.7 | 20.0 - 45.0 % | [facility] | | | Lymphocytes | | | [facility] | | | | | | MEDICAL | | | | | | CENTER - | | | | | | LABORATORY | | + + + + + + | % Monocytes | 11.6 | 4.0 - 12.0 % | [facility] | | | | | | [facility] | | | | | | MEDICAL | | | | | | CENTER - | | | | | | LABORATORY | | + + + + + + | % | 4.6 | 0.0 - 5.0 % | [facility] | | | Eosinophils | | | [facility] | | | | | | MEDICAL | | | | | | CENTER - | | | | | | LABORATORY | | + + + + + + | % Basophils | 0.7 | 0.0 - 1.0 % | [facility] | | | | | | [facility] | | | | | | MEDICAL | | | | | | CENTER - | | | | | | LABORATORY | | + + + + + + | Absolute | 5.60 | 1.80 - 8.50 | [facility] | | | Neutrophils | | K/uL | [facility] | | | | | | MEDICAL | | | | | | CENTER - | | | | | | LABORATORY | | + + + + + + | Absolute | 2.40 | 0.60 - 3.20 | [facility] | | | Lymphocytes | | K/uL | [facility] | | | | | | MEDICAL | | | | | | CENTER - | | | | | | LABORATORY | | + + + + + + | Absolute | 1.10 (H) | 0.00 - 1.00 | [facility] | | | Monocytes | | K/uL | [facility] | | | | | | MEDICAL | | | | | | CENTER - | | | | | | LABORATORY | | + + + + + + | Absolute | 0.40 | 0.00 - 0.40 | [facility] | [...] + | [facility] | [address] | [place], [place] | [phone] | | [facility] | | [address] | | | - LABORATORY | | | | + + + + + documented in this encounter Visit Diagnoses + + | Diagnosis | + + | Postoperative vaginal bleeding - Primary Hemorrhage complicating a procedure | + + documented in this encounter Administered Medications + +--------+ +------+------+------+ | Medication Order | MAR | Action | Dose | Rate | Site | | | Action | Date | | | | + +--------+ +------+------+------+ | morphine injection 4 mg 4 mg, | Given | 01/30/20 | 4 mg | | | | Intravenous, EVERY 1 HOUR PRN, | | 15 7:22 | | | | | Pain, Starting 01/29/15 at | | AM PDT | | | | | 0258 | | | | | | + +--------+ +------+------+------+ +-------+ +------+---+---+ | Given | 01/30/20 | 4 mg | | | | | 15 5:48 | | | | | | AM PDT | | | | +-------+ +------+---+---+ | Given | 01/30/20 | 4 mg | | | | | 15 3:48 | | | | | | AM PDT | | | | +-------+ +------+---+---+ +---+---+ | | | +---+---+ documented in this encounter
--- OUTSIDE RECORDS SUMMARY | ~2019-09-06 | XMS | Encounter Summary ---
Demographics + + + | Address | [address] | | | [place] [address] | + + + | Home Phone | | + + + | Preferred Language | Unknown | + + + | Marital Status | | + + + | Holiness Affiliation | 1013 | + + + | Race | Unknown | + + + | Ethnic Group | Unknown | + + + Author + + + | Author | [facility] | | | and [place] | + + + | Organization | [facility] | | | [...] [place] | | | | | [address] | | + + + + + Care Team Providers + +------+ + | Care Pharmaceutical Laboratory Technician Name | Role | Phone | + +------+ + PCP | Unavailable | + +------+ + Encounter Details +--------+ + + + + | Date | Type | Department | Care Team | Description | +--------+ + + + + | 08/02/ | Hospital | [facility] | Anirudh Fleming | | | 2008 | Encounter | [facility] | MD Arlen [address] | | | | | LABORATORY [address] | [place] | | | | | [address] [place] | [address] | | | | | [address] | | | | | | [phone] | | | +--------+ + + + [...] | 11/21/ | Office | Urology | Margaret, Stephanie | | | 2020 | Visit | | MD [address] | | | | | | [facility] [address] | | | | | | [place] [address] | | | | | | [phone] | | | | | | | | +--------+---------+ + + + documented as of this encounter Visit Diagnoses Not on filedocumented in this encounter"
--- OUTSIDE RECORDS SUMMARY | ~2019-09-06 | XMS | Encounter Summary ---
Demographics + + + | Address | [address] | | | [place] [address] | + + + | Home Phone | | + + + | Preferred Language | Unknown | + + + | Marital Status | | + + + | Muslim Affiliation | 1013 | + + + | Race | Unknown | + + + | Ethnic Group | Unknown | + + + Author + + + | Author | [facility] | | | and [place] | + + + | Organization | [facility] | | | [...] [place], [place] | | | | | [address] | | + + + + + Care Team Providers + +------+ + | Care Ob/Gyn Doctor Name | Role | Phone | + [...] + + | 01/29/ | Anesthesia | [facility] | Jesus Hyman MD | | | 2014 | Event | [facility] OP | [address] | | | | | [address] | [place] | | | | | [place] | [address] | | | | | [address] | | | | | | [phone] | | | +--------+ + + + [...] +----+---+ + + | | 1 | [place] | | | | 2 | 43-degrees | | | | 2 | | | | | 8 | | | +----+---+ + + | | 1 | [place] off | | | | 2 | [...] | | | | | [place] [address] | | | | | | [phone] | | | | | | | [...]
--- OUTSIDE RECORDS SUMMARY | ~2019-09-06 | XMS | Encounter Summary ---
Demographics + + + | Address | [address] | | | [place] [address] | + + + | Home Phone | | + + + | Preferred Language | Unknown | + + + | Marital Status | | + + + | Taoist Affiliation | 1013 | + + + | Race | Unknown | + + + | Ethnic Group | Unknown | + + + Author + + + | Author | [facility] | | | and [place] | + + + | Organization | [facility] | | | and [...] [place], [place] | | | | | [address] | | + + + + + Care Team Providers + +------+ + | Care Physiotherapy Aide Name | Role | Phone | + [...] + + | 02/16/ | Telephone | [facility] | Jeovanny, | Anticoagulation | | 2019 | | CARDIOLOGY NATALEE | Alyssa Haley RN | | | | | [address] | | | | | | [place] | | | | | | [address] | | | | | | [phone] | | | +--------+ + + + [...] | | | | | [place] [address] | | | | | | [phone] | | | | | | | | +--------+---------+ + + + documented as of this encounter Visit Diagnoses Not on filedocumented in this encounter"
--- OUTSIDE RECORDS SUMMARY | ~2019-09-06 | XMS | Encounter Summary ---
Demographics + + + | Address | [address] | | | [place] [address] | + + + | Home Phone | | + + + | Preferred Language | Unknown | + + + | Marital Status | | + + + | Caodaism Affiliation | 1013 | + + + | Race | Unknown | + + + | Ethnic Group | Unknown | + + + Author + + + | Author | [facility] | | | and [place] | + + + | Organization | [facility] | | | [...] [place], [place] | | | | | [address] | | + + + + + Care Team Providers + +------+ + | Care Renewable Energy Project Manager Name | Role | Phone | [...] | +--------+ + + + + | 08/19/ | Telephone | [facility] | Pipo Don MD | Procedure | | 2019 | | GASTROENTEROLOGY | [address], [place] | | | | | [address] [place] | [address] [place], [place] | | | | | [address] [place], [place] | [address] | | | | | [address] | | | | | | [phone] | | | +--------+ + + + [...] | | | | | [place] [address] | | | | | | [phone] | | | | | | | | +--------+---------+ + + + documented as of this encounter Visit Diagnoses Not on filedocumented in this encounter"
--- OUTSIDE RECORDS SUMMARY | ~2019-09-06 | XMS | Encounter Summary ---
Demographics + + + | Address | [address] | | | [place] [address] | + + + | Home Phone | | + + + | Preferred Language | Unknown | + + + | Marital Status | | + + + | Shinto Affiliation | 1013 | + + + | Race | Unknown | + + + | Ethnic Group | Unknown | + + + Author + + + | Author | [facility] | | | and [place] | + + + | Organization | [facility] | | [...] [place], [place] | | | | | [address] | | + + + + + Care Team Providers + +------+ + | Care Critical Care Unit Manager Name | Role | Phone | + +------+ + | Raven Kim PA-C | PCP | | + +------+ + Encounter Details +--------+ + + + + | Date | Type | Department | Care Team | Description | +--------+ + + + + | 11/29/ | Orders Only | [facility] | Provider, | | | 2018 | | SYSTEM GENERIC OP | MD [address] | | | | | [address] | [place] | | | | | [address] [place], [place] | [place] [address] | | | | | [address] | | | | | | [phone] | | | +--------+ + + + [...] | | | | | [place] [address] | | | | | | [phone] | | | | | | | | +--------+---------+ + + + documented as of this encounter Visit Diagnoses Not on filedocumented in this encounter"
--- OUTSIDE RECORDS SUMMARY | ~2019-09-06 | XMS | Encounter Summary ---
Demographics + + + | Address | [address] | | | [place] [address] | + + + | Home Phone | | + + + | Preferred Language | Unknown | + + + | Marital Status | | + + + | Cheondoism Affiliation | 1013 | + + + | Race | Unknown | + + + | Ethnic Group | Unknown | + + + Author + + + | Author | [facility] | | | and [place] | + + + | Organization | [facility] | | | and [...] [place], [place] | | | | | [address] | | + + + + + Care Team Providers + +------+ + | Care Milk Bottler Name | Role | Phone | + [...] | | | | Cystocele | | [address] | | | | | Procedures | | [place] | | | | | Not Provided | | [place] | | | | | | | [place], [place] | | | | | | | [address] | | | | | | | Phone: | | | | | | | [phone] | | | | | | | Fax: | | | | | | | [phone] | +--------+--------+ + + + + Encounter Details +--------+---------+ + + + | Date | Type | Department | Care Team | Description | +--------+---------+ + + + | 01/22/ | Surgery | [facility] | Evelio lAston, | Repair Anterior | | 2015 | | MED CTR OR INTRA OP | [id number] | Colporrhaphy | | | | [address] | [place] | | | | | [place], [place] | [place] [address] | | | | | [address] | [phone] | | | | | [phone] | | | +--------+---------+ + + + [...] Physician Discharge Summary Patient ID: Nilsa Cornell [id number] y.o. 1965 Admit date: 01/22/2015 Discharge [...] Catheter that falls out or is dislodged [id number] [employer]. [address] [place] [address], [place] [address]. All righ ts reserved. This information is [...] the pelvic organ or organs occurring again [id number] [employer]. [address] [place] [address]. All rig ts reserved. This information is [...] 01/24/2015 4:00 PM PDTPt up to the [facility] hroom and just passes water, no stool.Electronically [...] [address] | | | | | | [place] [address] | | | | | | [phone] | | | | | | | [...] - 1.030 | [facility] | | | [place], | | | [facility] | | [...] + | [facility] | [address] | [place] | [phone] | | [facility] | | [address] | | | - LABORATORY | | [...] - 1.030 | [facility] | | | [place], | | | [facility] | | [...] [address] | [place] | [phone] | | [facility] | | [address] | | | - LABORATORY | | [...] [address] | [place] | [phone] | | [facility] | | [address] | | | - LABORATORY | | [...]
--- OUTSIDE RECORDS SUMMARY | ~2019-09-06 | XMS | Encounter Summary ---
Demographics + + + | Address | [address] | | | [place] [address] | + + + | Home Phone | | + + + | Preferred Language | Unknown | + + + | Marital Status | | + + + | Jehovah'S Witness Affiliation | 1013 | + + + | Race | Unknown | + + + | Ethnic Group | Unknown | + + + Author + + + | Author | [facility] | | | and [place] | + + + | Organization | [facility] | | | and [place] | + + + | Address | Unknown | + + + | Phone | Unavailable | + + + Support + + + + + | Name | Relationship | Address | Phone | + + + + + | Gamaliel Cornell | ECON | [address] | | | | | [place] | | | | | [address] | | + + + + + Care Team Providers + +------+ + | Care Bacteriology Teacher Name | Role | Phone | + [...] + + | Closed | Specialty | Otolaryngolog | Diagnoses | Kaufman, | [facility] | | | Services | y | Dysphagia, | Shankar Meyers MD | Otolaryngolog | | | Required | | unspecified | [address] | [address] | | | | | type | [address] | [address] | | | | | Dysphonia | [place], | [address] | | | | | Dysfunction | [place] [address] | [place], [place] | | | | | of both | Phone: | [address] | | | | | eustachian | [phone] | Phone: | | | | | tubes | Fax: | [phone] | | | | | | [phone] | Fax: | | | | | | | [phone] | +--------+ + + + + + Evaluate & Treat (Routine) +--------+ + + + + + | Status | Reason | Specialty | Diagnoses / | Referred By | Referred To | | | | | Procedures | Contact | Contact | +--------+ + + + + + | Closed | Specialty | Rehabilitatio | Diagnoses | Kaufman, | [facility] | | | Services | n | Dysphagia, | Shankar Meyers MD | Letter Of Credit Clerk [address] | | | Required | | unspecified | [address] | [address] [place] | | | | | type | [address] | [place], [place] | | | | | Dysphonia | [place], | [address] | | | | | [address] | [place] [address] | Phone: | | | | | (ICD-10-CM) | Phone: | [phone] | | | | | - 787.20 | [phone] | Fax: | | | | | (ICD-9-CM) - | Fax: | [phone] | | | | | Dysphagia, | [phone] | | | | | | unspecified | | | | | | | type | | | | | | | Procedures | | | | | | | inspector grain mill products eval | | | +--------+ + + + + + Reason for Visit + + + | Reason | Comments | + + + | Dysphagia | | + + + Encounter Details +--------+---------+ + + + | Date | Type | Department | Care Team | Description | +--------+---------+ + + + | 10/27/ | Office | [facility] | Shankar Kaufman, | Dysphagia, | | 2018 | Visit | PHYSIATRY [address] | MD [address] | unspecified type | | | | [address] | [place] | (Primary Dx); | | | | [place] | [address] | Dysphonia; | | | | [address] | | Dysfunction of both | | | | [phone] | | eustachian tubes | +--------+---------+ + + + Social History [...] + + + | Blood Pressure | 120/78 | 10/27/2017 5:08 PM | | | | | PDT | | + + + + + | Pulse | 78 | 10/27/2017 5:08 PM | | | | | PDT | | + + + + + | Temperature | 36.2 C (97.2 F) | 10/27/2017 5:08 PM | | | | | PDT [...] Weight | 62.1 kg (137 lb) | 10/27/2017 5:08 PM | | | | | PDT | | + + + + + | Height | 160 cm (5' 3") | 10/27/2017 5:08 PM | | | | | PDT | | + + + + + | Body Mass Index | 24.27 | 10/27/2017 5:08 PM | | | | | PDT | | + + + + + documented in this encounter Patient Instructions Patient Instructions Elena Carroll, St[employer]down [employer] Former - 10/27/2017 5:00 PM PDTSpeech therapy referral was placed today. Their office should be in contact with you. Otolaryngology consult was placed today. Their office should be in contact with you. documented in this encounter Progress Notes Shankar Kaufman MD - 10/27/2017 5:00 PM PDTFormatting of this note might be different fro m the original. Shankar Kaufman MD [address] [facility], [address] [place], [place] [address] FAX: PHYSICAL MEDICINE AND REHABILITATION H&P CHIEF COMPLAINT: Chief Complaint Patient presents with Dysphagia HISTORY OF PRESENT ILLNESS: Nilsa Cornell is a 51 y.o. female being seen today in follow-up for complaints of dysphagia, dysphonia and eustachian tube dysfunction following Botox injections on 10/22/17. She reports a change in her voice following Botox injections. She denies runny nose and coug h. She denies vertigo. She reports that she feels like she is under water. She reports that she feels like her throat is constricted. She reports that symptoms started one day followin g Botox injections 10/23/17 when she tried to swallow a mint. She reports that the thin rem aining portion of the mint stuck in her through and she had to eat food to get it to go down . She reports a persisting feeling of tightness over her throat since then and a continued feeling of difficulty swallowing. She reports that on on other occasion she also had diffic ulty swallowing her thyroid medication. She reports that the pill stopped in her upper thro at and wouldn't go down. She reports that she is still swallowing food. She denies problem s swallowing water. She reports a feeling of hesitation and having to think for initiating a swallow. She denies any weakness of face. She denies any weakness in arms. She denies a ny sensory changes on one side of the body. She denies any difficulty with word finding. S he reports that her voice feels horse. She reports that swallowing feels like process versu s as natural occurences. She reports increased worry since her symptoms have started, but de nies anxiety. CURRENT MEDICATIONS: Current Outpatient Prescriptions Medication Sig Dispense Refill ALPRAZolam (ALPRAZOLAM XR) 0.5 MG 24 hr tablet Take 0.5 mg by mouth nightly. baclofen (LIORESAL) 10 mg tablet TK 1 TO 2 TS PO 3 XD PRF SPASMS 0 DULoxetine (CYMBALTA) 30 mg capsule (Patient taking differently: 60 mg Daily.) fluticasone (FLONASE) 50 mcg/nasal spray 1 spray by Nasal route Daily. gabapentin (NEURONTIN) 300 mg capsule Take one capsule by mouth at night for one week, then two capsules at night for one week, then one capsule every morning and one capsule ever y evening. (Patient not taking: Reported on 10/22/2017) 90 capsule 2 ibuprofen (ADVIL,MOTRIN) 600 MG tablet TK 1 T PO Q 6 H FOR 7 DAYS. REPEAT INR AFTER 7 D AYS 0 levothyroxine (SYNTHROID) 100 mcg tablet TK 1 T PO QD 0 SUMAtriptan (IMITREX) 50 mg tablet TK 1 T PO AOS OF MIGRAINE DIRECTED. REPEAT DOSE I N 2 HOUR IF SYMPTOMS PERSIST. MAX D DOSE 200 MG 2 traMADol (ULTRAM) 50 mg tablet TK 1 TO 2 TS PO UP TO 3 XD PRF SEVERE PAIN 0 warfarin (COUMADIN) 4 MG tablet 8 mg. 2 tablets a day except 3 tablets on Thursday No current facility-administered medications for this visit. ALLERGIES: Allergies Allergen Reactions Sulfa Antibiotics Diarrhea and Nausea And Vomiting REVIEW OF SYSTEMS: ROS GENERALLY: No fever, no night sweats, no anemia, no fatigue, no recent profound weight ch anges. EYES: No eye problems, no use of corrective lenses, no eye injury, no double vision, no bl indness. EARS, NOSE, AND THROAT: No changes in taste or smell, no hearing difficulty, no ringing in the ears, no ear drainage, no dizziness, no voice changes, + difficulty swallowing, no sign ificant snoring, no sleep apnea, no sinus problems, no major dental work. NEUROLOGICALLY:The patient has no numbness/pain of arms, no numbness/pain of legs, no awake with numbness/pain, no weakness, no muscle aching, no coordination difficulty, no change in walk, no head injury, no neck injury, no back injury, no pain in neck, +pain in back, no st roke, no fainting spells, no loss of consciousness, no tremor/shaking, no seizures, +headach es, no migraine, no memory loss, no speech difficulty, no confusion and no numbness of face. PSYCHIATRIC: No depression, no sleep disorders, no [...] joint arthritis, no rheumatoid arthritis. PHYSICAL EXAMINATION: Vitals: 10/27/17 1708 BP: 120/78 Pulse: 78 Temp: 36.2 C (97.2 F) PainSc: 4 PainLoc: Head GENERAL: The patient is well developed and well nourished. HEENT: Normocephalic and atraumatic. Normal sclerae without icterus. Nose clear, no rhinorrhea noted. Small amount of wax in canal of right ear. Membrane of the right ear is mildly cloudy on the right. No fluid or erythema in the ears bilaterally. No signs of infection in ears. Tymapanic membrane partially obstructed by wax in left ear. Tonsils are normal in size. No sign of infection. Mild redness over posterior throat. Able to swallow water without difficulty. No coughing or signs of aspiration with swallow. NECK (ANTERIOR): There is no apparent cervical lymphadenopathy or thyromegaly. PULMONARY: The patient is in no acute respiratory distress with unlabored respirations. Nedra ng sounds are clear. No wheezing. No upper increase in upper airway sounds. CARDIOVASCULAR: Regular rate and rhythm. No murmurs, no gallops. ABDOMEN: Non-distended. SKIN: Limited skin exam shows no significant rashes or lesions. NEUROLOGIC: The patient is awake, alert, and oriented. She follows simple and complex commands. Her speech is fluent. She comprehends speech well. She has no apparent deficits with short or penitentiary memory. She reports feeling of dysphonia, but speech is clear, audible, normal volume. The cranial nerves appear grossly intact. MUSCULOSKELETAL : Normal strength in upper extremities and face. Facial movement intact. Eyelids movement and opposition is normal. Extraoccular muscles are intact. DATABASE: No new imaging was available to review. ASSESSMENT: 1. Dysphagia, unspecified type 2. Dysphonia 3. Dysfunction of both eustachian tubes PLAN: 1. Nilsa Cornell presents to clinic today for symptoms of dysphagia, dysphonia, a nd eustachian tube dysfunction (feeling like ears are plugged) on 10/23/17 following Botox in jection on 10/22/17. Nilsa Cornell reports an improvement in eustachian tube dysfunc tion today, 10/27/17 compared to yesterday 10/26/2017. Nilsa Cornell is concerned t hat symptoms may be as a results of Botox injections. Nilsa Cornell will have speech therapy consult with request to complete barium swa llow study, to evaluate for dysphagia. Nilsa Cornell will also have Otolaryngology consult for fiberoptic endoscopic eval uation of vocal cords as she reports dysphonia and feeling of ears being plugged. 2. We discussed today that Ms. Cornell symptoms could be the result of Botox, but this is s omewhat unlikely. We discussed that the effects of Botox at a minimum takes 3-4 days to hav e any effect and most cases it takes 7 days for Botox to take effect. She reported her symp toms started one day following injections, which is inconsistent with the known physiology o f Botox. We discussed that spread of Botox to distant muscle sites is known to occur, but likelihood of spread reduces over larger distances. She received Botox to forehead, temples, and post erior neck muscles. We discussed that spread to anterior neck muscles, while not impossible is unlikely. We discussed that spread to muscles effecting speech and swallowing is more c ommon with anterior neck Botox injections, which she did not receive. We also discussed that if Botox distant spread is to occur it is usually isolated to a sing le muscle. We discussed that spread to multiple muscles is increasingly unlikely. We reviewed the risks of Botox, which were also reviewed prior to injection. We discussed that the effects of Botox are semipermanent. We discussed that the effects of Botox will we ar off overtime. We discussed that Botox injections generally last 3-6 months and 4 months on average. While Nilsa Cornell's symptoms could be the result of distant spread of Botox, it is felt that her symptoms are more likely to be secondary to allergies or mild upper respira tory infection. Botox has also been known to cause time limited rhinorrhea. Repetitive swa llowing from rhinorrhea could contribute to her symptoms. Differential diagnosis includes, b ut not limited to (in no particular order): Botox distant spread with associated muscle weak ness, anxiety, laryngitis, pharyngitis, irritation of throat lining after having mint and pi ll stuck during the process of swallowing. 3. Nilsa Cornell should return to clinic as scheduled for review of Botox injectio ns. I spent 30 minutes in visit with Nilsa Cornell today with the majority of time spe nt counseling the patient on her diagnosis, options for her care, and coordinating her care. I, Shankar Kaufman MD personally performed the services described in this documentation, as scribed by in my presence, MARIA A Spann and are both accurate and complete. Shankar Kaufman MD - 10/27/2017 documented in this en counter Plan of [...] [address] | | | | | | [place] [address] | | | | | | [phone] | | | | | | | | +--------+---------+ + + + + + +--------+ + + | Name | Type | Priori | Associated Diagnoses | Order Schedule | | | | ty | | | + + +--------+ + + | * [facility] | Outpatient | Routin | Dysphagia, | Ordered: 10/27/2017 | | - AMB Referral | Referral | e | unspecified type | | | | | | Dysphonia | | + + +--------+ + + | * [facility] | Outpatient | Routin | Dysphagia, | Ordered: 10/27/2017 | | Otolaryngology - AMB | Referral | e | unspecified type | | | Referral | | | Dysphonia | | | | | | Dysfunction of both | | | | | | eustachian tubes | | + + +--------+ + + [...] unspecified type - Primary | + + | Dysphonia | + + | Dysfunction of both eustachian tubes Dysfunction of Eustachian tube | + + documented in this encounter
--- OUTSIDE RECORDS SUMMARY | ~2019-09-06 | XMS | Encounter Summary ---
Demographics + + + | Address | [address] | | | [place] [address] | + + + | Home Phone | | + + + | Preferred Language | Unknown | + + + | Marital Status | | + + + | Episcopal Affiliation | 1013 | + + + | Race | Unknown | + + + | Ethnic Group | Unknown | + + + Author + + + | Author | [facility] | | | and [place] | + + + | Organization | [facility] | | [...] [place], [place] | | | | | [address] | | + + + + + Care Team Providers + +------+ + | Care Regulatory Manager Name | Role | Phone | [...] | +--------+ + + + + | 07/15/ | Telephone | [facility] | Shankar Kaufman, | Lab Results | | 2018 | | PHYSIATRY [address] | MD [address] | | | | | [address] | [place], [place] | | | | | [place], [place] | [address] | | | | | [address] | | | | | | [phone] | | | +--------+ + + + [...] | | | | | [place] [address] | | | | | | [phone] | | | | | | | | +--------+---------+ + + + documented as of this encounter Visit Diagnoses Not on filedocumented in this encounter"
--- OUTSIDE RECORDS SUMMARY | ~2019-09-06 | XMS | Encounter Summary ---
Demographics + + + | Address | [address] | | | [place] [address] | + + + | Home Phone | | + + + | Preferred Language | Unknown | + + + | Marital Status | | + + + | Anabaptist Affiliation | 1013 | + + + | Race | Unknown | + + + | Ethnic Group | Unknown | + + + Author + + + | Author | [facility] | | | and [place] | + + + | Organization | [facility] | | [...] [place], [place] | | | | | [address] | | + + + + + Care Team Providers + +------+ + | Care Sales Team Recruiter Name | Role | Phone | + +------+ + | Bernard Cesar MD | PCP | | + +------+ + Encounter Details +--------+ + + + + | Date | Type | Department | Care Team | Description | +--------+ + + + + | 02/11/ | Hospital | [facility] | Evelio Alston, | | | 2015 | Encounter | MED CTR [place] | [id number] | | | | | PROCEDURES [address] | [place] | | | | | [place], | [place] [address] | | | | | [place] [address] | [phone] | | | | | [phone] | | | +--------+ + + + [...] + + + | Blood Pressure | 138/79 | 02/11/2015 3:00 PM | | | | | PDT | | + + + + + | Pulse | 76 | 02/11/2015 3:00 PM | | | | | PDT | | + + + + + | Temperature | 36.1 C (97 F) | 02/11/2015 3:00 PM | | | | | PDT | | + + + + + | Respiratory Rate | 16 | 02/11/2015 3:00 PM | | | | | PDT | | + + + + + | Oxygen Saturation | 99% | 02/11/2015 3:00 PM | | | | | PDT | | + + + + + | Inhaled Oxygen | - | - | | | Concentration | | | | + + + + + | Weight | - | - | | + + + + + | Height | - | - | | + + + + + | Body Mass Index | - | - | | + + + + + documented in this encounter Discharge Instructions Instructions Nita Ramírez RN - 02/11/2015 Oliva Catheter Removal Your health care provider has instructed you to remove your Oliva catheter. This is a thin, flexible tube that allows urine to drain out of your bladder and into a bag. It s importa nt to properly remove your catheter to help prevent infection and other complications. If yo u have any questions about removing the Oliva catheter, ask your health care provider before attempting to remove it. Otherwise, follow the instructions on this sheet. Oliva catheter The Oliva catheter is held in place by a small balloon that s filled with water. To remov e the catheter, you must first drain the water from the balloon. This is done using a syring e and the balloon port. This is the opening in the catheter that isn t attached to the bag . It allows you to access the balloon. Instructions for catheter removal Follow the directions closely. Note: If the catheter doesn t come out with gentle pulling , stop and call your health care provider right away. Empty the bag of urine if needed. Wash your hands with soap and warm water. Dry them well. Gather your supplies. This includes a syringe, wastebasket, atowel, and a syringe that was provided to you by your health care provider. Insert the syringe into the balloon port on the catheter. The syringe fits tightly into the port with a firm push and twist motion. Wait as the water from the balloon empties into the syringe. Once the balloon is emptied, gently pull out the catheter. Put the used catheter in the wastebasket. Also throw away the syringe. Use the towel to wipe up any spilled water or urine if necessary. Wash your hands again. When to seek medical care Call the health care provider right away if: You have a fever of100.4F(38C) or higher. You have questions about catheter removal. The catheter doesn t come out with gentle pulling. You can t urinate [id number] of catheter removal. Your abdomen is painful or bloated. You have burning pain with urination that lasts [id number]. You see a lot of blood in the urine (light bleeding [id number] is normal). It feels like the bladder is not emptying. 4212-[address] [employer]. [address] [place] [address]. All righ ts reserved. This information is [...] + +---------+ + + | warfarin | 8 mg. Followed by | | 0 | | | | (COUMADIN) 4 MG | Raven Kim | | | | 9 | | tablet | | | | | | + + + +---------+ + + documented as of this encounter Progress Notes Nita Ramírez RN - 02/11/2015 3:45 PM HUSAMDr Gamaliel notified that patient was able to 200cc after catheter removal and then post void residual bladder scan was 82cc. New orders taken. Patient discharged to home with instructions, verbalizes understanding. Nita Jason RN - 2014 3:00 PM PDTPresents to labor and delivery for scheduled appointment to remove Oliva ca theter. VS taken, ice water given. Oliva removed with catheter tip intact and 8cc deflated f rom balloon. Patient instructed to drink water and walk in halls, when she is able to void l et me know so i can do a pvr bladder scan. Patient and spouse both verbalize understanding.E lectronically signed by Nita Ramírez RN at 02/11/2015 3:04 PM PDTdocumented in this encounter Plan of Treatment +--------+---------+ + + + | Date | Type | Specialty | Care Team | Description | +--------+---------+ + + + | 11/21/ | Office | Urology | Margaret, Stephanie | | | 2020 | Visit | | MD [address] | | | | | | [address] | | | | | | [facility] [place] [address] | | | | | | [phone] | | | | | | | | +--------+---------+ + + + documented as of this encounter Visit Diagnoses Not on filedocumented in this encounter"
--- OUTSIDE RECORDS SUMMARY | ~2019-09-06 | XMS | Encounter Summary ---
Demographics + + + | Address | [address] | | | [place] [address] | + + + | Home Phone | | + + + | Preferred Language | Unknown | + + + | Marital Status | | + + + | Mu-Ism Affiliation | 1013 | + + + | Race | Unknown | + + + | Ethnic Group | Unknown | + + + Author + + + | Author | [facility] | | | and [place] | + + + | Organization | [facility] | | | [...] [place] | | | | | [address] | | + + + + + Care Team Providers + +------+ + | Care Purchasing Administrative Assistant Name | Role | Phone | + [...] | | | | | type | [address] | [address] | | | | | Dysphonia | [place], | [address] | | | | | Dysfunction | [place] [address] | [place], [place] | | | | | of both | Phone: | [address] | | | | | eustachian | [phone] | Phone: | | | | | tubes | Fax: | [phone] | | | | | | [phone] | Fax: | | | | | | | [phone] | +--------+ + + + + + [...] | Dysphagia, | Shankar Meyers MD | Journalism Intern [address] | | | Required | | unspecified | [address] | [address] [place] | | | | | type | [address] | [place], [place] | | | | | Dysphonia | [place], | [address] | | | | | [address] | [place] [address] | Phone: | | | | | (ICD-10-CM) | Phone: | [phone] | | | | | - 787.20 | [phone] | Fax: | | | | | (ICD-9-CM) - | Fax: | [phone] | | | | | Dysphagia, | [phone] | | | | | | unspecified | | | | | | | type | | | | | | | Procedures | | | | | | | sole rounder eval | | | +--------+ + + + + + Reason for Visit + + + | Reason | Comments | + + + | Dysphagia | | + + + Encounter Details +--------+---------+ + + + | Date | Type | Department | Care Team | Description | +--------+---------+ + + + | 10/27/ | Office | [facility] | Shankar Kaufman, | Dysphagia, | | 2018 | Visit | PHYSIATRY [address] | MD [address] | unspecified type | | | | [address] | [place] | (Primary Dx); | | | | [place] | [address] | Dysphonia; | | | | [address] | | Dysfunction of both | | | | [phone] | | eustachian tubes | +--------+---------+ + [...] encounter Patient Instructions Patient Instructions Elena Carroll, Dye Maker - 10/27/2017 5:00 PM PDTSpeech therapy referral was placed today. Their office should be in contact with you. Otolaryngology consult was placed today. Their office should be in contact with you. documented in this encounter Progress Notes Shankar Kaufman MD - 10/27/2017 5:00 PM PDTFormatting of this note might be different fro m the original. Shankar Kaufman MD [address] [facility], [address] [place], [place] [address] FAX: PHYSICAL MEDICINE AND REHABILITATION H&P CHIEF [...] has no apparent deficits with short or chcf memory. She reports feeling of dysphonia, but [...] [address] | | | | | | [place] [address] | | | | | | [phone] | | | | | | | [...]
--- OUTSIDE RECORDS SUMMARY | ~2019-09-06 | XMS | Encounter Summary ---
Demographics + + + | Address | [address] | | | [place] [address] | + + + | Home Phone | | + + + | Preferred Language | Unknown | + + + | Marital Status | | + + + | Worship Affiliation | CHR | + + + | Race | White | + + + | Ethnic Group | Not or | + + + Author + + + | Author | [facility] | + + + | Organization | [facility] | + + + | Address | Unknown | + + + | Phone | Unavailable | + + + Support + + + + + | Name | Relationship | Address | Phone | + + + + + | Gamaliel Cornell | ECON | [address] | | | | | [place], [place] | | | | | [address] | | + + + + + Care Team Providers + +------+ + | Care Doorkeeper Name | Role | Phone | + +------+ + | Bernard Cesar MD | PCP | | + +------+ + Encounter Details +--------+ + + + + | Date | Type | Department | Care Team | Description | +--------+ + + + + | 11/07/ | Telephone | Neurosurgery at | Zay Cortez MD | | | 2009 | | [facility] | [address] | | | | | and Healing [address] | Evelio Lamas | | | | | [place] Mailcode: | [place] [address] | | | | | [address] [facility] | [phone] | | | | | Health and Healing, | | | | | | | | | | | | Floor [place], [place] | | | | | | [address] | | | | | | [phone] | | | +--------+ + + + [...]
--- OUTSIDE RECORDS SUMMARY | ~2019-09-06 | XMS | Encounter Summary ---
Demographics + + + | Address | [address] | | | [place] [address] | + + + | Home Phone [...] + + + + + | Gamaliel Corenll | ECON | [address] | | | | | [place], [place] | | | | | [address] | | + + + + + Care Team Providers + +------+ + | Care Nitrator Operator Name | Role | Phone | + +------+ + | Raven Kim PA-C | PCP | | + +------+ + Reason for Visit +--------+ + | Reason | Comments | +--------+ + | Other | [place] [facility] | +--------+ + Encounter Details +--------+ + + + + | Date | Type | Department | Care Team | Description | +--------+ + + + + | 09/16/ | Telephone | [facility] | Pipo Don MD | Other ([place] | | 2019 | | MED CTR MP INTRA OP | [address], [place] | Monitor) | | | | [address] | [address] [place], [place] | | | | | [place], [place] | [id number] | | | | | [address] | | | | | | [phone] | | | +--------+ + + + [...] | | | | | [place] [address] | | | | | | [phone] | | | | | | | | +--------+---------+ + + + documented as of this encounter Visit Diagnoses Not on filedocumented in this encounter"
--- OUTSIDE RECORDS SUMMARY | ~2019-09-06 | XMS | Encounter Summary ---
Demographics + + + | Address | [address] | | | [place] [address] | + + + | Home Phone | | + + + | Preferred Language | Unknown | + + + | Marital Status | | + + + | Spiritism Affiliation | 1013 | + + + | Race | Unknown | + + + | Ethnic Group | Unknown | + + + Author + + + | Author | [facility] | | | and [place] | + + + | Organization | [facility] | | | [...] [place], [place] | | | | | [address] | | + + + + + Care Team Providers + +------+ + | Care Hat Blocking Machine Operator Name | Role | Phone [...] | | | | Diagnoses | | [place], | | | | | Cystocele | | Evelio Romero MD | | | | | Cystocele | | [address] | | | | | Procedures | | [place] | | | | | Not Provided | | [place] | | | | | | | [place], [place] | | | | | | | [address] | | | | | | | Phone: | | | | | | | [phone] | | | | | | | Fax: | | | | | | | [phone] | +--------+--------+ + + + + Encounter Details +--------+ + + + + | Date | Type | Department | Care Team | Description | +--------+ + + + + | 01/22/ | Anesthesia | [facility] | Elton Uribe | | | 2014 | Event | MED CTR OR INTRA OP | MD Jacque [address] | | | | | [address] | [address] [place] | | | | | [place] | [address] | | | | | [address] | | | | | | [phone] | Rivera Veloz | | | | | | MD Hernando [address] | | | | | | [address] [facility] | | | | | | [place] [address] | | | | | | [phone] | | | | | | | | +--------+ + + + + Anesthesia Record + + + + + | Procedure Name | Responsible | Anesthesia Start | Anesthesia Stop Time | | | Anesthesiologist | Time | | + + + + + | Repair Anterior | Elton Uribe, | 01/22/15 1031 | 01/22/15 1152 | | Colporrhaphlucio (N/A | | | | | Cervix) | | | | + + + + + +----+---+ + + | Da | T | Event | Comment | | te | i | | | | | m | | | | | e | | | +----+---+ + + | 09 | 1 | An Start | Reassessment prior to anesthesia induction/procedure. | | /2 | 0 | | | | 1/ | 3 | | | | 20 | 1 | | | | 15 | | | | +----+---+ + + | | 1 | An Start | | | | 0 | Data | | | | 3 | | | | | 1 | | | +----+---+ + + | | 1 | Antibiotic | | | | 0 | Given | | | | 3 | | | | | 2 | | | +----+---+ + + | | 1 | An | | | | 0 | Induction | | | | 3 | | | | | 4 | | | +----+---+ + + | | 1 | An | | | | 0 | Intubation | | | | 3 | | | | | 7 | | | +----+---+ + + | | 1 | Oropharynx | | | | 1 | Suctioned | | | | 4 | | | | | 8 | | | +----+---+ + + | | 1 | Extubated | | | | 1 | Awake | | | | 4 | | | | | 9 | | | +----+---+ + + | | 1 | An Stop | Patient handed off to recovery nurse. | | | 5 | | | | | 2 | | | +----+---+ + + | | 1 | | | | | 2 | | | | | 0 | | | | | 4 | | | +----+---+ + + +------+ | Meds | +------+ + +---------+ | Name | Total | + +---------+ | fentaNYL | 250 mcg | + +---------+ | propofol | 200 mg | + +---------+ | glycopyrrolate | 0.3 mg | + +---------+ | ondansetron | 4 mg | + +---------+ | lidocaine 2% | 60 mg | + +---------+ | cisatracurium | 10 mg | + +---------+ | gentamicin 90 mg in sodium | 90 mg | | chloride 0.9% 50 mL IVPB | | + +---------+ | ampicillin 2 g in sodium chloride | 2 g | | 0.9% 100 mL IVPB | | + +---------+ | neostigmine | 2 mg | + +---------+ | lactated ringers (LR) infusion | 650 mL | + +---------+ + + | Name | + + [...] +--------+ + + + | [READ | 01/22/15; 1025; Hematology; | 01/22/15 1025 by | 01/24/15 0945 by | | ONLY] | 01/24/15; 0945 | Nithin Osuna RN | Shu Bravo RN | | | | | | | Periph | | | | | eral | | | | | IV - | | | | | Single | | | | | Lumen | | | | | | | | | +--------+ + + + | Airway | Placement Date: 01/22/15; | 01/22/15 1037 by | 01/22/15 1149 by | | | Placement Time: 1037; Mask | Rivera Veloz, | Elton Uribe, | | | Ventilation: EZ; Airway Grade: I; | MD | MD | | | Successful Technique: FO-rigid; | | | | | Laryngoscope Blade Size: 3; | | | | | Attempts: 1; Airway Type: | | | | | endotracheal; Size: 7; Position: | | | | | Right; Airway Tube Secured At: | | | | | 0.2 m (7.87"); Tube Reference | | | | | Point: lip; Trauma: none; | | | | | Placement Check: verified by | | | | | capnography; Placed By: | | | | | Anesthesiologist; Removal Date: | | | | | 01/22/15; Removal Time: 1149 | | | +--------+ + + + | Read | 01/22/15; 1107; perineum; healing | 01/22/15 1107 by | 01/24/15 1800 by | | only - | within expectations; 01/24/15; | Rachel Newell RN | Shu Bravo RN | | | 1800 | | | | Incisi | | | | | on | | | | +--------+ + + + | Read | 01/22/15; 1107; vagina; healing | 01/22/15 1107 by | 01/24/15 1800 by | | only - | within expectations; 01/24/15; | Rachel Newell RN | Shu Bravo RN | | | 1800 | | | | Incisi | | | | | on | | [...] | | | | | | [facility] [address] | | | | | | [place] [address] | | | | | | [phone] | | | | | | | | +--------+---------+ + + + documented as of this encounter Visit Diagnoses Not on filedocumented in this encounter Administered Medications + +--------+ +------+------+------+ | Medication Order | MAR | Action | Dose | Rate | Site | | | Action | Date | | | | + +--------+ +------+------+------+ | ampicillin 2 g in sodium | Given | 01/23/20 | 2 g | | | | chloride 0.9% 100 mL IVPB 2 g, | | 15 10:47 | | | | | Intravenous, Administer over 30 | | AM PDT | | | | | Minutes, EVERY 6 HOURS (4 times | | | | | | | per day), First dose on Mon | | | | | | | 01/22/15 at 1200, Activate system | | | | | | | and mix before use., Pre-op | | | | | | + +--------+ +------+------+------+ +---+---+ | | | +---+---+ + +-------+ +-------+---+---+ | cisatracurium (NIMBEX) | Given | 01/23/20 | 10 mg | | | | injection Intravenous, PRN, | | 15 10:34 | | | | | Ventilator Dyssynchrony, Starting | | AM PDT | | | | | 01/22/15 at 1034, Anesthesia | | | | | | | Intra-op | | | | | | + +-------+ +-------+---+---+ +---+---+ | | | +---+---+ + +-------+ +---------+---+---+ | fentaNYL injection | Given | 01/23/20 | 100 mcg | | | | Intravenous, PRN, Pain, Starting | | 15 11:02 | | | | | 01/22/15 at 1034, Anesthesia | | AM PDT | | | | | Intra-op | | | | | | + +-------+ +---------+---+---+ +-------+ +---------+---+---+ | Given | 01/23/20 | 150 mcg | | | | | 15 10:34 | | | | | | AM [...] | | +---+---+ + +-------+ +--------+---+---+ | glycopyrrolate (PAULINEUL) | Given | 01/23/20 | 0.3 mg | | | | injection Intravenous, PRN, | | 15 11:30 | | | | | Secretions, Starting 01/22/15 | | AM PDT | | | | | at 1130, Anesthesia Intra-op | | | | | | + +-------+ +--------+---+---+ +---+---+ | | | +---+---+ + +---------+ [...] lidocaine (PF) 2% injection | Given | 01/23/20 | 60 mg | | | | Intravenous, PRN, Starting Mon | | 15 10:34 | | | | | 01/22/15 at 1034, Anesthesia | | AM PDT | | | | | Intra-op | | | | | | + +-------+ +-------+---+---+ +---+---+ | | | +---+---+ + +-------+ +------+---+---+ | neostigmine (BLOXIVERZ) 1 mg/mL | Given | 01/23/20 | 2 mg | | | | injection Intravenous, PRN, | | 15 11:30 | | | | | Starting 01/22/15 at 1130, | | AM PDT | | | | | Anesthesia Intra-op | | | | | | + +-------+ +------+---+---+ +---+---+ | | | +---+---+ + +-------+ +------+---+---+ | ondansetron (ZOFRAN) injection | Given | 01/23/20 | 4 mg | | | | Intravenous, PRN, Nausea, | | 15 10:53 | | | | | Vomiting, Starting 01/22/15 at | | AM PDT | | | | | 1053, Anesthesia Intra-op | | | | | | + +-------+ +------+---+---+ +---+---+ | | | +---+---+ + +-------+ +--------+---+---+ | propofol (DIPRIVAN) injection | Given | 01/23/20 | 200 mg | | | | Intravenous, PRN, Starting Mon | | 15 10:34 | | | | | 01/22/15 at 1034, Anesthesia | | AM PDT | | | | | Intra-op | | | | | | + +-------+ +--------+---+---+ +---+---+ | | | +---+---+ documented in this encounter
--- OUTSIDE RECORDS SUMMARY | ~2019-09-06 | XMS | Encounter Summary ---
Demographics + + + | Address | [address] | | | [place] [address] | + + + | Home Phone | | + + + | Preferred Language | Unknown | + + + | Marital Status | | + + + | Jewish Affiliation | CHR | + + + | Race | White | + + + | Ethnic Group | Not or | + + + Author + + + | Author | [facility] | + + + | Organization | [facility] | + + + | Address | Unknown | + + + | Phone | Unavailable | + + + Support + + + + + | Name | Relationship | Address | Phone | + + + + + | Gamaliel Cornell | ECON | [address] | | | | | [place], [place] | | | | | [address] | | + + + + + Care Team Providers + +------+ + | Care Plastics Engineering Teacher Name | Role | Phone | + +------+ + | Bernard Cesar MD | PCP | | + +------+ + Encounter Details +--------+ + + + + | Date | Type | Department | Care Team | Description | +--------+ + + + + | 11/07/ | Telephone | Neurosurgery at | Zay Cortez MD | | | 2009 | | [facility] | [address] | | | | | and Healing [address] | [address] | | | | | [place] Mailcode: | [place] [address] | | | | | [address] [facility] | [phone] | | | | | Health and Healing, | | | | | | | | | | | | Floor [place], [place] | | | | | | [address] | | | | | | [phone] | | | +--------+ + + + [...]
--- OUTSIDE RECORDS SUMMARY | ~2019-09-06 | XMS | Encounter Summary ---
Demographics + + + | Address | [address] | | | [place] [address] | + + + | Home Phone | | + + + | Preferred Language | Unknown | + + + | Marital Status | | + + + | Jewish Affiliation | 1013 | + + + [...] [place], [place] | | | | | [address] | | + + + + + Care Team Providers + +------+ + | Care Biller Name | Role | Phone | + [...] | | voice | | [address], | | | | | Gastroesopha | | [place] [address] | | | | | geal reflux | | [place], | | | | | disease, | | [place] [address] | | | | | esophagitis | | Phone: | | | | | presence not | | [phone] | | | | | specified | | Fax: | | | | | Procedures | | [phone] | | | | | [place] | | | | | | | ESOPHAGOGAST | | | | | | | RODUODENOSCO | | | | | | | PY TRANSORAL | | | | | | | DIAGNOSTIC | | | | | | | OK EGD | | | | | | | TRANSORAL | | | | | | | BIOPSY | | | | | | | SINGLE/MULTI | | | | | | | PLE OK GERD | | | | | | | TST W/ | | | | | | | MUCOS PH | | | | | | | ELECTROD OK | | | | | | | [...] + + | 09/14/ | Surgery | [facility] | Pipo Don MD | ENDOSCOPIC 48 HOUR | | 2019 | | MED CTR MP INTRA OP | [address], [place] | PH WALKER "CAPSULE" | | | | [address] | [address] [place], [place] | | | | | [place], [place] | [address] | | | | | [address] | | | | | | [phone] | | | +--------+---------+ + + + [...] vomiting, or vomiting blood Date Last Reviewed: 11/02/201519990212-7563 [employer]. [address] [place] [address]. All righ ts reserved. This information is [...] | 1 | 12/19/19 | | | xxqywopb-aeiugnyym-[id number] | RIBBON TO BOTH EYES | | | 18 | 9 | | examethasone | TID | | | | | | (MAXITROL) | | | | | | | [id number] | | | | | | | [...] | | | | | [place] [address] | | | | | | [phone] | | | | | | | [...] + + | [facility] | [address] | [place] [address] | [phone] | | [place] | | | [...] [address] | [place] | [phone] | | [facility] | | [address] | | | - LABORATORY | | [...] 1965 Admit Type: Ambulatory Age: 52 Room: [facility] 01 | | | Gender: Female Note Status: Finalized Attending MD: Pipo Don , | | | MD Procedure: Upper GI endoscopy Indications: | | | Suspected esophageal reflux, For therapy of esophageal | | | reflux Providers: Pipo Don MD, | | | Mateo Baugh RN, Phani Vu, | | | [facility], Jl Nunez MD (Anesthesia Staff) Referring [...] | | nurse, the anesthesiologist and the registered pharmacy technician in the | | | endoscopy [...] Scope Out: 11:29:49 AM | | | [facility], [address], [place] | | | [address] | | + + + + +---------+ [...] SPECIMEN(S): A DISTAL ESOPHAGUS SPECIMEN SOURCE: A. [facility]Y | | ESOPHAGUS CLINICAL HISTORY: R49.9 [...] | | | Negative for glandular mucosa. JVR:[facility]:C2NR GROSS | | | DESCRIPTION: The specimen, [...] | | technical component was performed by [facility], [address] [place] [address] | | | [facility] [address] (Brushing Machine Operator: Nita Ríos MD; IA# | | | [id number]). Professional interpretation was performed by [facility] | | | [employer], [address] | | | [facility] [address] [place] [address] (Brushing Machine Operator: José | | | Jadyn Samson). [...]
--- OUTSIDE RECORDS SUMMARY | ~2019-09-06 | XMS | Encounter Summary ---
Demographics + + + | Address | [address] | | | [place] [address] | + + + | Home Phone [...] [place], [place] | | | | | [address] | | + + + + + Care Team Providers + +------+ + | Care Car Dispatcher Name | Role | Phone | [...] | | | | CENTER [address] | [place] | (Primary Dx) | | | | [place], [place] | [id number] | | | | | [address] | | | | | | [phone] | | | +--------+ + + + [...] + documented in this encounter Discharge Instructions Dayne Ramírez MD - 01/29/2015Follow-up with gynecology clinic [...] [address] | | | | | | [place] [address] | | | | | | [phone] | | | | | | | [...] | [employer] | | | [facility] | | | | | | [...] [address] | [place] | [phone] | | [facility] | | [address] | | | - LABORATORY | | [...] [address] | [place] | [phone] | | [facility] | | [address] | | | - LABORATORY | | [...] [address] | [place] | [phone] | | [facility] | | [address] | | | - LABORATORY | | [...] [address] | [place] | | | [facility] | | [address] | | | - BLOOD BANK | [...] + | [facility] | [address] | [place] | [phone] | | [facility] | | [address] | | | - LABORATORY | | [...] + | [facility] | [address] | [place] | [phone] | | [facility] | | [address] | | | - LABORATORY | | [...] + | [address] | [address] | [place], [place] | [phone] | | [facility] | | [address] | | | - LABORATORY | | [...]
--- OUTSIDE RECORDS SUMMARY | ~2019-09-06 | XMS | Encounter Summary ---
Demographics + + + | Address | [address] | | | [place] [address] | + + + | Home Phone [...] + + | Author | [facility] | | | and [place] | + + + | Organization | [facility] | | [...] [place], [place] | | | | | [address] | | + + + + + Care Team Providers + +------+ + | Care Maintenance Manager Name | Role | Phone | [...] + + | 09/16/ | Telephone | [facility] | Pipo Don MD | Other ([facility] | | 2019 | | MED CTR MP INTRA OP | [address], [place] | Monitor) | | | | [address] | [address] [place], [place] | | | | | [place], [place] | [id number] | | | | | [address] | | | | | | [phone] | | | +--------+ + + + [...] | | | | | [place] [address] | | | | | | [phone] | | | | | | | | +--------+---------+ + + + documented as of this encounter Visit Diagnoses Not on filedocumented in this encounter"
--- OUTSIDE RECORDS SUMMARY | ~2019-09-06 | XMS | Encounter Summary ---
Demographics + + + | Address | [address] | | | [place] [address] | + + + | Home Phone | | + + + | Preferred Language | Unknown | + + + | Marital Status | | + + + | Spiritism Affiliation | 1013 | + + + | Race | Unknown | + + + | Ethnic Group | Unknown | + + + Author + + + | Author | [facility] | | | and [place] | + + + | Organization | [facility] | | | [...] [place], [place] | | | | | [address] | | + + + + + Care Team Providers + +------+ + | Care Submersible Pilot Name | Role | Phone | + +------+ + | Raven Kim PA-C | PCP | | + +------+ + Reason for Visit +--------+ + | Reason | Comments | +--------+ + | Other | Lovenox | +--------+ + Encounter Details +--------+ + + + + | Date | Type | Department | Care Team | Description | +--------+ + + + + | 09/10/ | Telephone | [facility] | Monty Kramer MD | Other (Lovenox) | | 2019 | | MED CTR MP INTRA OP | [address] | | | | | [address] | [place], [place] | | | | | [place], [place] | [address] | | | | | [address] | [phone] | | | | | [phone] | | | +--------+ + + + [...] | | | | | [place] [address] | | | | | | [phone] | | | | | | | | +--------+---------+ + + + documented as of this encounter Visit Diagnoses Not on filedocumented in this encounter"
--- OUTSIDE RECORDS SUMMARY | ~2019-09-06 | XMS | Encounter Summary ---
Demographics + + + | Address | [address] | | | [place] [address] | + + + | Home Phone | | + + + | Preferred Language | Unknown | + + + | Marital Status | | + + + | Latter-Day Affiliation | 1013 | + + + [...] [place] | | | | | [address] | | + + + + + Care Team Providers + +------+ + | Care Supervisor Warping Department Name | Role | Phone | + +------+ + | Raven Kim PA-C | PCP | | + +------+ + Reason for Visit +--------+ + | Reason | Comments | +--------+ + | Other | Lovenox question | +--------+ + Encounter Details +--------+ + + + + | Date | Type | Department | Care Team | Description | +--------+ + + + + | 09/10/ | Telephone | [facility] | Pipo Don MD | Other (Lovenox | | 2019 | | MED CTR MP INTRA OP | [address], [place] | question) | | | | [address] | [address] [place], [place] | | | | | [place], [place] | [address] | | | | | [address] | | | | | | [phone] | | | +--------+ + + + [...] | | | | | [place] [address] | | | | | | [phone] | | | | | | | | +--------+---------+ + + + documented as of this encounter Visit Diagnoses Not on filedocumented in this encounter"
--- OUTSIDE RECORDS SUMMARY | ~2019-09-06 | XMS | Encounter Summary ---
Demographics + + + | Address | [address] | | | [place] [address] | + + + | Home Phone | | + + + | Preferred Language | Unknown | + + + | Marital Status | | + + + | Confucianist Affiliation | 1013 | + + + | Race | Unknown | + + + | Ethnic Group | Unknown | + + + Author + + + | Author | [facility] | | | and [place] | + + + | Organization | [facility] | | [...] [place] | | | | | [place] | | | | | [address] | | + + + + + Care Team Providers + +------+ + | Care Golf Course Equipment Operator Name | Role | Phone | + +------+ + | Raven Kim PA-C | PCP | | + +------+ + Reason for Visit +--------+ + | Reason | Comments | +--------+ + | Other | recieved swallow test and chart records from [facility] | +--------+ + Encounter Details +--------+ + + + + | Date | Type | Department | Care Team | Description | +--------+ + + + + | 04/22/ | Documentati | [facility] | Shiv, | Other (recieved | | 2019 | on | PULMONOLOGY [address] | [facility] | swallow test and | | | | KRISTY ROSARIO | Director Of Emergency Nursing | chart records from | | | | [place], [place] | | [facility]) | | | | [address] | | | | | | [phone] | | | +--------+ + + + [...] of this encounter Progress Notes Anabel Chaney, Key Punch Teacher - 04/22/2019 8:58 AM PSTrecieved swallow [address] and chart records from [facility]. Labeled and scanned into pt chartElectronically sig ramsey by Anabel Chaney, Key Punch Teacher at 04/22/2019 8:59 AM PSTdocumented in this encounter Plan of Treatment +--------+---------+ + + + | Date | Type | Specialty | Care Team | Description | +--------+---------+ + + + | 11/21/ | Office | Urology | Stephanie Robles | | | 2019 | Visit | | MD [address] | | | | | | [address] | | | | | | [place] [address] | | | | | | [phone] | | | | | | | | +--------+---------+ + + + documented as of this encounter Visit Diagnoses Not on filedocumented in this encounter"
--- OUTSIDE RECORDS SUMMARY | ~2019-09-06 | XMS | Encounter Summary ---
Demographics + + + | Address | [address] | | | [place] [address] | + + + | Home Phone [...] [place] | | | | | [address] | | + + + + + Care Team Providers + +------+ + | Care Gill Box Fixer Name | Role | Phone | + +------+ + | Raven Kim PA-C | PCP | | + +------+ + Reason for Visit +--------+ + | Reason | Comments | +--------+ + | Other | recieved swallow test and chart records from [facility] | +--------+ + Encounter Details +--------+ + + + + | Date | Type | Department | Care Team | Description | +--------+ + + + + | 04/22/ | Documentati | [facility] | Shiv, | Other (recieved | | 2019 | on | PULMONOLOGY 1100 | [facility] | swallow test and | | | | KRISTY ROSARIO | Share Holder | chart records from | | | | [place], [place] | | [facility]) | | | | [address] | | | | | | [phone] | | | +--------+ + + + [...] of this encounter Progress Notes Anabel Chaney, Cut In Station Operator - 04/22/2019 8:58 AM PSTrecieved swallow [address] and chart records from [facility]. Labeled and scanned into pt chartElectronically sig ramsey by Anabel Chaney, Cut In Station Operator at 04/22/2019 8:59 AM PSTdocumented in this encounter Plan of Treatment +--------+---------+ + + + | Date | Type | Specialty | Care Team | Description | +--------+---------+ + + + | 11/21/ | Office | Urology | Stephanie Roblse | | | 2019 | Visit | | MD [address] | | | | | | [address] | | | | | | [place] [address] | | | | | | [phone] | | | | | | | | +--------+---------+ + + + documented as of this encounter Visit Diagnoses Not on filedocumented in this encounter"
--- OUTSIDE RECORDS SUMMARY | ~2019-09-06 | XMS | Encounter Summary ---
Demographics + + + | Address | [address] | | | [place] [address] | + + + | Home Phone | | + + + | Preferred Language | Unknown | + + + | Marital Status | | + + + | Religion Affiliation | 1013 | + + + | Race | Unknown | + + + | Ethnic Group | Unknown | + + + Author + + + | Author | [facility] | | | and [place] | + + + | Organization | [facility] | | | [...] [place], [place] | | | | | [address] | | + + + + + Care Team Providers + +------+ + | Care Cracker And Cookie Machine Operator Name | Role | Phone [...] | | | | [address] | [place], [place] | | | | | | [place], | [address] | | | | | | [place] [address] | Phone: | | | | | | Phone: | [phone] | | | | | | [phone] | Fax: | | | | | | Fax: | [phone] | | | | | | [phone] | | + +--------+ + + + + Encounter Details +--------+---------+ + + + | Date | Type | Department | Care Team | Description | +--------+---------+ + + + | 04/05/ | Office | [facility] | Marly Kaufman, | Shortness of breath | | 2019 | Visit | PULMONOLOGY 1100 | [facility] [address] | (Primary Dx); | | | | [place] | [address], | Scleroderma (HCC); | | | | [facility] | [place] [address] | Cough in adult; | | | | [address] | [phone] | Post-nasal drip; | | | | [phone] | | Seasonal allergic | | | [...] a 53 y.o. female presenting today to [facility] as a new patient [...] chord changes. GI MD, Dr Aldana in [place] performed EGD and garcia study and found no sign of esophageal disease, but did note hi atal hernia and gastroparesis. She was not followed up with as closely as she preferred, so her PCP sent her to [place] [facility] specialist, Dr Gray. Ms Cornell reports Dr Gray noted esoph ageal dysmotility and also suggested she undergo EGD again in 6 months. We do not have Dr Bates's records, but are requesting these today. [facility] Dr Yuli He. No treatment for Scleroderma has been initiated yet. She has an initial c onsultation with [facility] otolaryngology on May 06, 2019. She has [...] loss. Social Hx: Nilsa is originally from [place]. She moved to [place] in 1984. 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 She [...] CAPS, Take by mouth., Disp: , Rfl: zbhbudqu-nblzkioxz-mhzlgoeexyeak (MAXITROL) 3.5-76816-5.1 ophthalmic ointment, INSTILL 1 1/4 INCH RIBBON [...] DNA AB 0 - 9 IU/mL 1 C D REACTOR OPERATOR Autoantibody 0.0 - 0.9 AI <0.2 CABRERA Autoantibody 0.0 - 0.9 AI <0.2 Cabrera C D REACTOR OPERATOR Antibodies 0.0 - 0.9 AI <0.2 Scleroderma [...] from Rheumatology and GI specialis ts in [place]. She has seen many providers in the last year and we would like all records c entrally located for viewing in [facility]'s EMR. Considering her response to [facility], we [...] will not be paid for by insur [employer] as she does not have COPD or [...] has been told by Dr Gray in [place] that she does have esophageal dysmotility. We [...] if questions or concerns arise. MICHEL Carmen [facility] PULMONOLOGY [address] [place] [address] Dept: [phone] Loc: [phone] I have discussed my findings and plan with Dr Smith today. We are [facility] as detailed above. [...] | | | | | | [place] [address] | | | | | | [phone] | | | | | | | [...] and | | | Critical Care Medicine [facility] | | | [address], [facility] [place] [address] | | + + + documented in [...]
--- OUTSIDE RECORDS SUMMARY | ~2019-09-06 | XMS | Encounter Summary ---
Demographics + + + | Address | [address] | | | [place] [address] | + + + | Home Phone | | + + + | Preferred Language | Unknown | + + + | Marital Status | | + + + | Alevism Affiliation | 1013 | + + + | Race | Unknown | + + + | Ethnic Group | Unknown | + + + Author + + + | Author | [facility] | | | and [place] | + + + | Organization | [facility] | | [...] [place] | | | | | [address] | | + + + + + Care Team Providers + +------+ + | Care Coal Equipment Operator Name | Role | Phone | + +------+ + PCP | Unavailable | + +------+ + Encounter Details +--------+ + + + + | Date | Type | Department | Care Team | Description | +--------+ + + + + | 08/03/ | Hospital | [facility] | Marylou Pradhan | | | 2008 - | Encounter | [facility] | MD [address] | | | | | CARDIAC TELEMETRY | [address] [place] | | | 08/06/ | | [address] | [address] | | | 2007 | | [place] | | | | | | [address] | | | | | | [phone] | | | +--------+ + + + [...] + + documented as of this encounter Discharge Summaries Angelo Villagomez - 03/09/2013 4:10 PM PSTPATIENT NAME: Nilsa Mora DATE OF ADMISSION: 08/04/2007 AGE/SEX: 41/F DATE OF DISCHAR GE: 08/07/2007 : 1965 PREOPERATIVE DIAGNOSES: 1. Mitral regurgitation. 2. Mitral stenosis. POSTOPERATIVE DIAGNOSES: 1. Mitral regurgitation. 2. Mitral stenosis. OPERATIVE PROCEDURES: 1. Robotic mitral valve placement with a #29 St. Sandip mechanical valve. 2. Evaluation of left atrial appendage. HISTORY AND HOSPITAL COURSE: A 41-year-old female with increasing complaints of fatigue a nd shortness of breath. She had undergone evaluation and noted to have severe mitral regur gitation and mild to moderate mitral stenosis. She had normal LV function and had no sign ificant coronary artery disease. It did not appear that her valve would be reparable. The patient is aware of the risks, indications and benefits of surgeries including the standar d sternotomy approach versus the robotic approach. She would like to try the robotic appro ach. She was taken to surgery on 08/04/07 where she underwent robotic mitral valve placem ent with a #29 St. Sandip mechanical valve. The patient tolerated the procedure well and sta yed in the CICU in a stable condition. Postoperatively, the patient did well. The patient did have some postoperative pain which was given Lorane, as well as ibuprofen for this. She was started on Coumadin and titrated accordingly. On postoperative day #3, the patient wa s able to be discharged to [facility] where she will stay for 2 nights. DISCHARGE MEDICATIONS: 1. Elavil 75 mg at bedtime. 2. Celexa 20 mg at bedtime. 3. Synthroid 0.112 mg at bedtime. 4. Senokot one tablet twice daily. 5. Ibuprofen 40 mg q.8h. 6. Pepcid 21 mg daily. 7. Coumadin 4 mg daily. 8. Lorane 10 mg one tablet q.4h. p.r.n. pain, #60 with one refill given. DISPOSITION: The patient was discharged to the [facility] where she will stay on and Thursday nights. DISCHARGE INSTRUCTIONS: The patient will recheck PT/INR on Thursday with the results to Dr. Pradhan' office. The patient will have to take Coumadin 4 mg today and on Thursday. [facility] and activity level precautions. The patient will f ollow up with Dr. Pradhan in 3 to 4 weeks' time with chest x-ray prior to that. The patie nt again will call the office with further questions or concerns. STAN MORA [id number] 08/07/07 DIS IN [id number] DISCHARGE SUMMARY SILVANA Jesus ES N [facility] Tera Peck THIS REPORT IS CONFIDENTIAL AND NOT TO BE RELEASED WITHOUT PROPER AUTHORIZATION. [facility] ARRON Gallegos MD A SALES SERVICE TECHNICIAN/pmt #[id number] cc: ARRON Brown MD STAN MORA [id number] 08/07/07 DIS IN [id number] DISCHARGE SUMMARY SILVANA Jesus N [facility] Tera Peck THIS REPORT IS CONFIDENTIAL AND NOT TO BE RELEASED WITHOUT PROPER AUTHORIZATION.Electronica lly signed by Pati Love at 03/11/2013 4:54 AM PSTdocumented in this enc ounter Plan of Treatment +--------+---------+ + + + | Date | Type | Specialty | Care Team | Description | +--------+---------+ + + + | 11/21/ | Office | Urology | Stephanie Robles | | | 2020 | Visit | | MD [address] | | | | | | [address] | | | | | | [place] [address] | | | | | | [phone] | | | | | | | | +--------+---------+ + + + documented as of this encounter Procedures + +--------+ + + + | Procedure Name | Priori | Date/Time | Associated Diagnosis | Comments | | | ty | | | | + +--------+ + + + | SURGICAL PATHOLOGY | Routin | 08/04/2007 | | Results for this | | EXAM | e | 12:00 AM | | procedure are in the | | | | PDT | | results section. | + +--------+ + + + documented in this encounter Results Surgical Pathology Exam (08/04/2007 12:00 AM PDT) + + | Specimen | + + | | + + + + + | Narrative | Performed At | + + + | SURGICAL PATHOLOGY REPORT | [facility] | | Date Taken: 08/04/2007 Date Received: 08/04/2007 | | | Completed: 08/05/2007 Physician: MARYLOU PRADHAN Copy to: | | | DIAGNOSIS: Mitral valve, repair: Thickened valve leaflets with | | | myxoid degenerative changes, no vegetations identified. 0 | | | Jai Akhtar M.D. Electronic signature GROSS | | | DESCRIPTION: The specimen labeled and designated "Kraig, mitral | | | valve" is received in formalin and consists of three pale white to | | | pink-polk, rubbery valve leaflet fragments from 1.0 to 3.2 cm. The | | | outer surfaces are focally roughened. The chordae are rubbery and | | | appear thickened at their bases, up to 0.6 cm. Calcification or | | | vegetations are not identified. Director Of Sales Marketing section in A1. (PK) | | | 1: [address] | | | [address] or Testing performed at: | | | [facility] Evelio Hdz, | | | Jadyn, Director [address] [place], [place] [address], [place] [address] | | | | | + + + + + + + + | Performing | Address | City/State/Zipcode | Phone Number | | Organization | | | | + + + + + | [facility] | [address] | [place] [address] | | | [facility] | | | | | LABORATORY | | | | + + + + + | [place] | | | | + + + + + documented in this encounter Visit Diagnoses Not on filedocumented in this encounter
--- OUTSIDE RECORDS SUMMARY | ~2019-09-06 | XMS | Encounter Summary ---
Demographics + + + | Address | [address] | | | [place] [address] | + + + | Home Phone | | + + + | Preferred Language | Unknown | + + + | Marital Status | | + + + | Advent Affiliation | 1013 | + + + | Race | Unknown | + + + | Ethnic Group | Unknown | + + + Author + + + | Author | [facility] | | | and [place] | + + + | Organization | [facility] | | [...] [place], [place] | | | | | [address] | | + + + + + Care Team Providers + +------+ + | Care Digital Marketing Coordinator Name | Role | Phone | + +------+ + | Raven Kim PA-C | PCP | | + +------+ + Reason for Visit + + + | Reason | Comments | + + + | Imaging Only | | + + + Encounter Details +--------+ + + + + | Date | Type | Department | Care Team | Description | +--------+ + + + + | 06/26/ | Telephone | [facility] [place] | Shankar Kaufman, | Imaging Only | | 2018 | | PHYSIATRY [address] | MD [address] | | | | | [address] | [place] | | | | | [place] | [address] | | | | | [address] | | | | | | [phone] | | | +--------+ + + + [...] | | | | | [place] [address] | | | | | | [phone] | | | | | | | | +--------+---------+ + + + documented as of this encounter Visit Diagnoses Not on filedocumented in this encounter"
--- OUTSIDE RECORDS SUMMARY | ~2019-09-06 | XMS | Encounter Summary ---
Demographics + + + | Address | [address] | | | [place] [address] | + + + | Home Phone | | + + + | Preferred Language | Unknown | + + + | Marital Status | | + + + | Tenriism Affiliation | 1013 | + + + | Race | Unknown | + + + | Ethnic Group | Unknown | + + + Author + + + | Author | [facility] | | | and [place] | + + + | Organization | [facility] | | | and [...] [place], [place] | | | | | [address] | | + + + + + Care Team Providers + +------+ + | Care Corporate Physical Security Supervisor Name | Role | Phone | + +------+ + | Raven Kim PA-C | PCP | | + +------+ + Reason for Visit + + + | Reason | Comments | + + + | Botox Injection | side effects | + + + Encounter Details +--------+ + + + + | Date | Type | Department | Care Team | Description | +--------+ + + + + | 10/27/ | Telephone | [facility] [place] | Shankar Kaufman, | Botox Injection | | 2017 | | PHYSIATRY [address] | MD [address] | (side effects) | | | | [address] | [place] | | | | | [place] | [address] | | | | | [address] | | | | | | [phone] | | | +--------+ + + + [...] COOK | | | | | | [facility] [address] | | | | | | [phone] | | | | | | | | +--------+---------+ + + + documented as of this encounter Visit Diagnoses Not on filedocumented in this encounter"
--- OUTSIDE RECORDS SUMMARY | ~2019-09-06 | XMS | Encounter Summary ---
Demographics + + + | Address | [address] | | | [place] [address] | + + + | Home Phone | | + + + | Preferred Language | Unknown | + + + | Marital Status | | + + + | Baptist Affiliation | CHR | + + + [...] [place], [place] | | | | | [address] | | + + + + + Care Team Providers + +------+ + | Care Linux Unix System Administrator Name | Role | Phone | + [...]
--- OUTSIDE RECORDS SUMMARY | ~2019-09-06 | XMS | Encounter Summary ---
Demographics + + + | Address | [address] | | | [place] [address] | + + + | Home Phone | | + + + | Preferred Language | Unknown | + + + | Marital Status | | + + + | Yazidi Affiliation | 1013 | + + + [...] [place], [place] | | | | | [address] | | + + + + + Care Team Providers + +------+ + | Care Returned Goods Sorter Name | Role | Phone | + [...] | Closed | | | Diagnoses | Kaufman, | [facility] | | | | | Cough | [address]arly [address], | Pulmonary | | | | | Procedures | [address] | Function Lab | | | | | PULM | [address] | [address] | | | | | [address] | [address] | | | | | [facility] | [place], [place] | [place], [place] | | | | | | [address] | [address] | | | | | | Phone: | Phone: | | | | | | [phone] | [phone] | | | | | | Fax: | Fax: | | | | | | [phone] | [phone] | +--------+--------+ + + + + Encounter Details +--------+ + + + + | Date | Type | Department | Care Team | Description | +--------+ + + + + | 04/11/ | Hospital | [facility] | Marly Kaufman, | Shortness of breath; | | 2019 | Encounter | PULMONARY FUNCTION | [address] | Cough in adult | | | | LAB [address] | [address], | | | | | [place], [place] | [place] [address] | | | | | [address] | [phone] | | | | | [phone] | | | +--------+ + + + [...] + + + +---------+ + + | azelastine 0.1% | 1 spray by Nasal | 30 mL | 11 | 04/05/20 | | | nasal | route 2 times daily. | | | 19 | | | sprayIndications: | Use in each nostril | | | | | | Post-nasal drip, | twice a day | | | | | | Seasonal allergic | | | | | | | rhinitis due to | | | | | | | pollen | | | | | | + [...] + + + +---------+ + + | Methacholine | This medication has | 1 kit | 0 | 04/07/20 | | | Chloride | been compounded by | | | 19 | | | (METHACHOLINE PFT) | [facility] | | | | | | dilution kit | [facility] for | | | | | | | administration under | | | | | | | the direct | | | | | | | supervision of the | | | | | [facility] | | | | | | Function Lab. | | | | | + + + +---------+ + + | pimecrolimus | Elidel 1 % topical | | 0 | | | | (ELIDEL) 1% cream | cream | | | | | + + + +---------+ + + | QVAR REDIHALER 40 | Inhale 2 puffs into | 3 | 4 | 04/05/20 | | | MCG/ACT | the lungs 2 times | Inhaler | | 19 | | | inhalerIndications: | daily. | | | | | | Shortness of breath, | | | | | | | Cough in adult | | | | | | + [...] | | | | | [address] [facility] [address] | | | | | | [place] [address] | | | | | | [phone] | | | | | | | | +--------+---------+ + + + documented as of this encounter Procedures + +--------+ + + + | Procedure Name | Priori | Date/Time | Associated Diagnosis | Comments | | | ty | | | | + +--------+ + + + | PFT PULMONARY | Routin | 04/11/2019 | Shortness of | Results for this | | FUNCTION TESTING | e | 8:30 AM | breath Cough in | procedure are in the | | ORDERS | | PST | adult | results section. | + +--------+ + + + documented in this encounter Results Pulmonary function test (04/11/2019 [...] and | | | Critical Care Medicine [facility] | | | [address], [place] [address] | | + + + documented in this encounter Visit Diagnoses + + | Diagnosis | + + | Shortness of breath | + + | Cough in adult | + + documented in this encounter Administered Medications + +--------+ +--------+------+------+ | Medication Order | MAR | Action | Dose | Rate | Site | | | Action | Date | | | | + +--------+ +--------+------+------+ | albuterol 2.5 mg/3 mL nebulizer | Given | 04/11/20 | 2.5 mg | | | | solution 2.5 mg 2.5 mg, | | 19 9:16 | | | | | Nebulization, RT Once, Mon | | AM PST | | | | | 04/11/19 at 0930, For 1 dose, Dose | | | | | | | for outpatient testing., | | | | | | + +--------+ +--------+------+------+ +---+---+ | | | +---+---+ + +-------+ +---------+---+---+ | Methacholine (PROVOCHOLINE) | Given | 04/11/20 | 0.0625 | | | | 0.0625 mg/ml inhalation solution | | 19 9:20 | mg | | | | 0.0625 mg 0.0625 mg, Inhalation, | | AM PST | | | | | PRN, See Admin Instructions, | | | | | | | Starting 04/11/19 at 0919, For | | | | | | | 1 day, Use for challenge | | | | | | | testing., | | | | | | + +-------+ +---------+---+---+ +---+---+ | | | +---+---+ + +-------+ +---------+---+---+ | Methacholine (PROVOCHOLINE) | Given | 04/11/20 | 0.25 mg | | | | 0.25 mg/ml inhalation solution | | 19 9:20 | | | | | 0.25 mg 0.25 mg, Inhalation, | | AM PST | | | | | PRN, See Admin Instructions, | | | | | | | Starting 04/11/19 at 0919, For | | | | | | | 1 day, Use for challenge | | | | | | | testing., | | | | | | + +-------+ +---------+---+---+ +---+---+ | | | +---+---+ + +-------+ +------+---+---+ | methacholine (PROVOCHOLINE) 1 | Given | 04/11/20 | 1 mg | | | | mg/mL inhalation solution 1 mg 1 | | 19 9:20 | | | | | mg, Inhalation, PRN (PAR), | | AM PST | | | | | Other, Starting 04/11/19 at | | | | | | | 0919, For 1 day, Use for | | | | | | | challenge testing., | | | | | | + +-------+ +------+---+---+ +---+---+ | | | +---+---+ + +-------+ +-------+---+---+ | Methacholine (PROVOCHOLINE) 16 | Given | 04/11/20 | 16 mg | | | | mg/ml inhalation solution 16 mg | | 19 9:21 | | | | | 16 mg, Inhalation, PRN, See Admin | | AM PST | | | | | Instructions, Starting Mon | | | | | | | 04/11/19 at 0919, For 1 day, Use | | | | | | | for challenge testing., | | | | | | + +-------+ +-------+---+---+ +---+---+ | | | +---+---+ + +-------+ +------+---+---+ | Methacholine (PROVOCHOLINE) 4 | Given | 04/11/20 | 4 mg | | | | mg/ml inhalation solution 4 mg 4 | | 19 9:20 | | | | | mg, Inhalation, PRN, See Admin | | AM PST | | | | | Instructions, Starting Mon | | | | | | | 04/11/19 at 0919, For 1 day, Use | | | | | | | for challenge testing., | | | | | | + +-------+ +------+---+---+ +---+---+ | | | +---+---+ documented in this encounter"
--- OUTSIDE RECORDS SUMMARY | ~2019-09-06 | XMS | Encounter Summary ---
Demographics + + + | Address | [address] | | | [place] [address] | + + + | Home Phone | | + + + | Preferred Language | Unknown | + + + | Marital Status | | + + + | Evangelical Affiliation | 1013 | + + + [...] [place], [place] | | | | | [address] | | + + + + + Care Team Providers + +------+ + | Care Operations Assistant Name | Role | Phone | + +------+ + | Bernard Cesar MD | PCP | | + +------+ + Encounter Details +--------+ + + + + | Date | Type | Department | Care Team | Description | +--------+ + + + + | 04/02/ | Imaging | [facility] | Provider, | | | 2017 | Exam | [facility] | MD [address] | | | | | IMAGING [address] | [address] | | | | | [address] [place] | [place] [address] | | | | | [place] [address] | | | | | | [phone] | | | +--------+ + + + [...] [address] | | | | | | [place] [address] | | | | | | [phone] | | | | | | | | +--------+---------+ + + + documented as of this encounter Procedures + +--------+ + + + | Procedure Name | Priori | Date/Time | Associated Diagnosis | Comments | | | ty | | | | + +--------+ + + + | MRI CERVICAL SPINE | Routin | 03/10/2017 | | Results for this | | WO CONTRAST | e | 9:30 AM | | procedure are in the | | | | PST | | results section. | + +--------+ + + + documented in this encounter Results MRI Cervical Spine wo Contrast (03/10/2017 9:30 AM PST) + + | Specimen | + + | | + + + + + | Narrative | Performed At | + + + | External films | [facility] | | for comparison only - no result from [facility]. | | + + + + +---------+ + + | Performing | Address | City/State/Zipcode | Phone Number | | Organization | | | | + +---------+ + + | [facility] | | | | + +---------+ + + documented in this encounter Visit Diagnoses Not on filedocumented in this encounter"
--- OUTSIDE RECORDS SUMMARY | ~2019-09-06 | XMS | Encounter Summary ---
Demographics + + + | Address | [address] | | | [place] [address] | + + + | Home Phone | | + + + | Preferred Language | Unknown | + + + | Marital Status | | + + + | Religion Affiliation | 1013 | + + + | Race | Unknown | + + + | Ethnic Group | Unknown | + + + Author + + + | Author | [facility] | | | and [place] | + + + | Organization | [facility] | | | [...] [place], [place] | | | | | [address] | | + + + + + Care Team Providers + +------+ + | Care Denture Contour Wire Specialist Name | Role | Phone | + [...] + + | 06/30/ | Telephone | [facility] | Shankar Kaufman, | Lab Results | | 2018 | | PHYSIATRY [address] | [address] | | | | | [address] | [place], [place] | | | | | [place], [place] | [address] | | | | | [address] | | | | | | [phone] | | | +--------+ + + + [...] | | | | | [place] [address] | | | | | | [phone] | | | | | | | | +--------+---------+ + + + documented as of this encounter Visit Diagnoses Not on filedocumented in this encounter"
--- OUTSIDE RECORDS SUMMARY | ~2019-09-06 | XMS | Encounter Summary ---
Demographics + + + | Address | [address] | | | [place] [address] | + + + | Home Phone | | + + + | Preferred Language | Unknown | + + + | Marital Status | | + + + | Rastafari Affiliation | 1013 | + + + [...] [place], [place] | | | | | [address] | | + + + + + Care Team Providers + +------+ + | Care Web Merchant Name | Role | Phone | + +------+ + | Raven Kim PA-C | PCP | | + +------+ + Reason for Visit Evaluate & Treat (Routine) +--------+ + + + + + | Status | Reason | Specialty | Diagnoses / | Referred By | Referred To | | | | | Procedures | Contact | Contact | +--------+ + + + + + | Closed | Specialty | Physical | Diagnoses | Mandeep, | Shankar Kaufman | | | Services | Medicine and | Chronic | Shankar Meyers MD | Leigha Meyers MD [address] | | | Required | Rehabilitatio | daily | [address] | | | | n | headache | [address] | [place], | | | | | Chronic | [place], | [place] [address] | | | | | migraine | [place] [address] | Phone: | | | | | without aura | Phone: | [phone] | | | | | without | [phone] | Fax: | | | | | status | Fax: | [phone] | | | | | migrainosus, | [phone] | | | | | | not | | | | | | | intractable | | | | | | | Procedures | | | | | | | GA | | | | | | | CHEMODERVATE | | | | | | | | | | | | | | FACIAL/TRIGE | | | | | | | M/CERV MUSC | | | | | | | MIGRAINE - | | | | | | | BILATERAL | | | | | | | GA NEEDLE | | | | | | | EMG GUIDANCE | | | | | | | FOR | | | | | | | CHEMODENERVA | | | | | | | TION GA | | | | | | | INJECTION,ON | | | | | | | ABOTULINUMTO | | | | | | | BERNY, 1 | | | | | | | UNITS DOS | | | | | | | 10/22/17 | | | +--------+ + + + + + Encounter Details +--------+ + + + + | Date | Type | Department | Care Team | Description | +--------+ + + + + | 10/22/ | Procedure | [facility] | hSankar Kaufman, | Chronic migraine | | 2018 | visit | PHYSIATRY [address] | MD [address] | without aura without | | | | [address] | [place] | status migrainosus, | | | | [place], [place] | [address] | not intractable | | | | [address] | | (Primary Dx); | | | | [phone] | | Chronic daily | | | | | | headache | +--------+ + + + + Social [...] + + + | Blood Pressure | 130/79 | 10/22/2017 2:29 PM | | | | | PDT | | + + + + + | Pulse | 78 | 10/22/2017 2:29 PM | | | | | PDT | | + + + + + | Temperature | 36.2 C (97.2 F) | 10/22/2017 2:29 PM | | | | | PDT [...] Weight | 62.1 kg (137 lb) | 10/22/2017 2:29 PM | | | | | PDT | | + + + + + | Height | 160 cm (5' 3") | 10/22/2017 2:29 PM | | | | | PDT | | + + + + + | Body Mass Index | 24.27 | 10/22/2017 2:29 PM | | | | | PDT | | + + + + + documented in this encounter Patient Instructions Patient Instructions Shankar Kaufman MD - 10/22/2017 2:20 PM PDTRisks of Botox injection include, but are not limited to: bruising, bleeding, infection, damage to adjacent structure s, disability and . There is risk of developing upper respiratory symptoms (e.g. Rhinor cameron). There is risk of focal weakness and/or generalized weakness. There is risk of devel oping immunity to botulinum toxin with repeat injections. There is risk of respiratory fail ure, need for hospitalization and being placed on a ventilator. There is risk of dysphagia, aspiration and the possible need for alternative mechanism of feeding (e.g. Feeding tube). There is risk of developing an asymmetric facial features. There is risk of disconjugate g aze and double vision. There is risk of dysphonia. The effects of botulinum toxin take several days to take effect (approximately one week). T he effects of botulinum toxin usually reach peak effect at one month after injection. The e ffects of botulinum toxin are semi-permanent. This means that once botulinum toxin is injec lucy there is no way to reverse the effects of the botulinum toxin. The effects of botulinum toxin may last from three to six months, (four months on average). Please return to the clinic as scheduled to review your response to today's injections. documented in this encounter Progress Notes Shankar Kaufman MD - 10/22/2017 2:20 PM PDTFormatting of this note might be different fro m the original. Diagnosis: 1. Chronic migraine without aura without status migrainosus, not intractable 2. Chronic daily headache Procedure: Chemo-denervation of Facial and Neck Innervated muscles with botulinum toxin ty pe A (Botox), under needle EMG guidance for the treatment of 1. Chronic migraine without aura without status migrainosus, not intractable 2. Chronic daily headache Procedure detail: Nilsa Cornell was provided Risk Evaluation Mitigation Strategy (REMS) handout from [employer], the head of science of botulinum toxin type A. Informed consent was obtained. The risks, benefits, and alternative treatments to botulinum toxin injections were reviewed. Risks reviewed included, but not limited to: bruising, bleeding, infection, damage to adjac ent structures, disability and . The risk of developing upper respiratory symptoms (e.g . Rhinorrhea) were reviewed. The risk of increased neck pain was reviewed. The risk of foc al weakness and/or generalized weakness was reviewed. The risk of developing immunity to kana tulinum toxin with repeat injections was reviewed. The risk of respiratory failure, need fo r hospitalization and being placed on a ventilator was reviewed. The risk of dysphagia, asp iration and the possible need for alternative mechanism of feeding (e.g. Feeding tube) was r eviewed. The risk of developing an asymmetric face was reviewed. The risk of disconjugate gaze and double vision was reviewed. This risk of dysphonia was reviewed. Nilsa Rosasele Kraig was advised that the effects of botulinum toxin take several days to take effect (approximately one week). The patient was advised that the effects of botulinu m toxin usually reach peak effect at one month after injection. The patient was advised herminio t the effects of botulinum toxin are semi-permanent. This means that once botulinum toxin i s injected there is no way to reverse the effects of the botulinum toxin. The patient was a dvised that the effects of botulinum toxin may last from three to six months, and last four months on average. Once informed consent was obtained 200 units of botulinum toxin type A was reconstituted wi 8 ml of normal saline. The concentration of botulinum toxin type A was 25 units per ml. Care was taken not to agitate the botulinum toxin during the process of reconstitution. Th e botulinum toxin was milla up into 8 separate 1 ml syringes. The skin over each injection site was cleaned with alcohol swabs prior to injection. All f alvarado injections were performed using a 30 gauge 1/2 inch needle. All neck injections were pe rformed using needle EMG guidance. All neck injections were performed using a monopolar 30 gauge, 1 inch needle from [employer] manufactured by [employer]. Face: 3.125 units of botulinum toxin type A was injected into the left procerus muscle at one sit e. 3.125 units of botulinum toxin type A was injected into the right procerus muscle at one si te. 3.125 units of botulinum toxin type A was injected into the left frontalis muscle at each o f 3 separate sites, for a total of 9.375 units. 3.125 units of botulinum toxin type A was injected into the right frontalis muscle at each of 3 separate sites, for a total of 9.375 units. 3.125 units of botulinum toxin type A was injected into the left temporalis muscle at each of 4 separate sites, for a total of 12.5 units. 3.125 units of botulinum toxin type A was injected into the right temporalis muscle at each of 4 separate sites, for a total of 12.5 units. Neck: 12.5 units of botulinum toxin type A was injected into the left semispinalis capitus muscle at one site. 12.5 units of botulinum toxin type A was injected into the right semispinalis capitus muscl e at one site. 6.25 units of botulinum toxin type A was injected into the left occipitalis muscle at each of 2 separate sites, for a total of 12.5 units. 6.25 units of botulinum toxin type A was injected into the right occipitalis muscle at each of 2 separate sites, for a total of 12.5 units. 12.5 units of botulinum toxin type A was injected into the left trapezius muscle at each of 2 separate sites, for a total of 25 units. 12.5 units of botulinum toxin type A was injected into the right trapezius muscle at each o f 2 separate sites, for a total of 25 units. 12.5 units of botulinum toxin type A was injected into the left levator scapulae muscle at each of 2 separate sites, for a total of 25 units. 12.5 units of botulinum toxin type A was injected into the right levator scapulae muscle at each of 2 separate sites, for a total of 25 units. In total 200 units of botulinum toxin type A was injected. 0 units of botulinum toxin type A was unavoidably wasted. A total of 200 units of botulinum toxin is to be billed. In total 30 muscle sites were injected today. 16 face innervated sites were injected. 14 neck innervated sites were injected. The bilateral semispinalis muscles (left more than right) were the most dystonic under EMG guidance. The injections were tolerated without complication. Nilsa Cornell was instructed that should she have any alarming signs or symptoms she should seek emergent medical attenti on as well as inform me in the clinic. She will return to the clinic in approximately 6-8 w eeks to review her response to today's injections and to determine if botulinum injections s hould be repeated in the future; and review response to today's injections. Thank you for allowing me to be involved in the care of your patient. If you have any ques tions regarding the care of your patient please don't hesitate to call. Shankar Kaufman MD (Jr.) documented in this en counter Plan of Treatment +--------+---------+ + + + | Date | Type | Specialty | Care Team | Description | +--------+---------+ + + + | 11/21/ | Office | Urology | Stephanie Robles | | | 2020 | Visit | | MD [address] | | | | | | [facility] [address] | | | | | | [place] [address] | | | | | | [phone] | | | | | | | | +--------+---------+ + + + documented as of this encounter Visit Diagnoses + + | Diagnosis | + + | Chronic migraine without aura without status migrainosus, not intractable - Primary | | Chronic migraine without aura, without mention of intractable migraine without mention | | of status migrainosus | + + | Chronic daily headache Headache | + + documented in this encounter Administered Medications + + + +-------+------+ + | Medication Order | MAR | Action | Dose | Rate | Site | | | Action | Date | | | | + + + +-------+------+ + | onabotulinumtoxinA (BOTOX) | Given by | 10/23/19 | 100 | | Other | | injection 100 Units 100 Units, | Other | 18 3:52 | Units | | (Comment | | Intramuscular, ONCE, [facility] 10/22/17 | | PM PDT | | | ) | | at 1530, For 1 dose | | | | | | + + + +-------+------+ + +---+---+ | | | +---+---+ + + + +-------+---+ + | onabotulinumtoxinA (BOTOX) | Given by | 10/23/19 | 100 | | Other | | injection 100 Units 100 Units, | Other | 18 3:52 | Units | | (Comment | | Intramuscular, ONCE, [facility] 10/22/17 | | PM PDT | | | ) | | at 1530, For 1 dose | | | | | | + + + +-------+---+ + +---+---+ | | | +---+---+ documented in this encounter
--- OUTSIDE RECORDS SUMMARY | ~2019-09-06 | XMS | Clinical Summary ---
Demographics + + + | Address | [address] | | | [place] [address] | + + + | Home Phone | | + + + | Preferred Language | Unknown | + + + | Marital Status | | + + + | Baptist Affiliation | 1013 | + + + | Race | Unknown | + + + | Ethnic Group | Unknown | + + + Author + + + | Author | [facility] | | | and [place] | + + + | Organization | [facility] | | | [...] [place], [place] | | | | | [address] | | + + + + + Care Team Providers + +------+ + | Care Cook Fishing [facility]essel Name | Role | Phone | + +------+ + | Raven Kim PA-C | PCP | | + +------+ + Allergies + + + + + + | Active Allergy | Reactions | Severity | Noted | Comments | | | | | Date | | + + + + + + | Sulfa Antibiotics | Diarrhea, Nausea And | Medium | 01/23/20 | | | | Vomiting | | 15 | | + + + + + + Medications + +-----+ +---------+------+------+-------+ | Medication | Sig | Dispensed | Refills | Star | End | Statu | | | | | | t | Date | s | | | | | | Date | | | + +-----+ +---------+------+------+-------+ | DULoxetine | | | 0 | 01/02 | | Activ | | (CYMBALTA) 30 mg | | | | 08/21 | | e | | capsule | | | | 12 | | | + +-----+ +---------+------+------+-------+ +---+ + | | Additional | | | InformationPatient | | | not taking. Reported | | | on 06/22/2019 10:29 | | | AM | +---+ + + + +---------+---+------+---+-------+ | ALPRAZolam | Take 0.5 mg by mouth | | 0 | | | Activ | | (ALPRAZOLAM XR) 0.5 | nightly. | | | | | e | | MG 24 hr tablet | | | | | | | + + +---------+---+------+---+-------+ | fluticasone | 1 spray by Nasal | | 0 | | | Activ | | (FLONASE) 50 | route Daily. | | | | | e | | mcg/nasal spray | | | | | | | + + +---------+---+------+---+-------+ | levothyroxine | TK 1 T PO QD | | 0 | 01/2 | | Activ | | (SYNTHROID) 100 mcg | | | | 6/20 | | e | | tablet | | | | 18 | | | + + +---------+---+------+---+-------+ | SUMAtriptan | TK 1 T PO AOS OF | | 2 | 02/0 | | Activ | | (IMITREX) 50 mg | MIGRAINE | | | 9/20 | | e | | tablet | DIRECTED. REPEAT | | | 18 | | | | | DOSE IN 2 HOUR IF | | | | | | | | SYMPTOMS PERSIST. | | | | | | | | MAX D DOSE 200 MG | | | | | | + + +---------+---+------+---+-------+ | baclofen | TK 1 TO 2 TS PO 3 XD | | 0 | 06/ | | Activ | | (LIORESAL) 10 mg | PRF SPASMS | | | 08/21 | | e | | tablet | | | | 18 | | | + + +---------+---+------+---+-------+ | pimecrolimus | Elidel 1 % topical | | 0 | | | Activ | | (ELIDEL) 1% cream | cream | | | | | e | + + +---------+---+------+---+-------+ | enoxaparin | Inject 0.6 mLs under | 6 | 0 | 05/1 | | Activ | | (LOVENOX) 100 mg/mL | the skin See Admin | Syringe | | /20 | | e | | injection | Instructions for 6 | | | 19 | | | | | doses. As directed | | | | | | + + +---------+---+------+---+-------+ +---+ + | | Additional | | | InformationPatient | | | not taking. Reported | | | on 06/22/2019 10:29 | | | AM | +---+ + + + +---------+----+------+---+-------+ | Calcium | Take by mouth. | | 0 | | | Activ | | Carb-Cholecalciferol | | | | | | e | | (CALCIUM 1000 + D | | | | | | | | PO) | | | | | | | + + +---------+----+------+---+-------+ | Magnesium 100 MG | Take by mouth. | | 0 | | | Activ | | CAPS | | | | | | e | + + +---------+----+------+---+-------+ | cholecalciferol | Take 1,000 Units by | | 0 | | | Activ | | (VITAMIN D-3) 1000 | mouth Daily. | | | | | e | | units TABS | | | | | | | + + +---------+----+------+---+-------+ | ALPRAZolam (XANAX) | TK 1 TO 2 TS PO QHS | | 4 | 05/3 | | Activ | | 0.5 mg tablet | PRN | | | 1/20 | | e | | | | | | 19 | | | + + +---------+----+------+---+-------+ | betamethasone | APPLY A THIN LAYER | | 1 | 12/3 | | Activ | | dipropionate 0.05% | TO AFFECTED AREAS ON | | | 1/20 | | e | | cream | THE HANDS | | | 18 | | | | | DIRECTED BID FOLLOW | | | | | | | | IMMEDIATELY WITH | | | | | | | | MOISTURIZER | | | | | | + + +---------+----+------+---+-------+ | DULoxetine | TK ONE C PO QD | | 1 | 12/0 | | Activ | | (CYMBALTA) [address] | | | | 3/20 | | e | | capsule | | | | 18 | | | + + +---------+----+------+---+-------+ | warfarin | TK 3 TS PO D OR UTD | | 5 | 05/1 | | Activ | | (COUMADIN) 4 MG | | | | 4/20 | | e | | tablet | | | | 19 | | | + + +---------+----+------+---+-------+ | estradiol | | | 4 | 10/0 | | Activ | | (ESTRACE) 0.1 mg/g | | | | / | | e | | vaginal cream | | | | 19 | | | + + +---------+----+------+---+-------+ | levalbuterol | INHALE 2 PUFFS INTO | | 2 | 10/3 | | Activ | | (XOPENEX HFA) 45 | LUNGS EVERY 4 TO 6 | | | 1/20 | | e | | mcg/puff inhaler | HOURS DIRECTED | | | 19 | | | + + +---------+----+------+---+-------+ | loteprednol | INSTILL 1 TO 2 DROPS | | 10 | 11/2 | | Activ | | (LOTEMAX) 0.5 % | INTO BOTH EYES 4 | | | 5/20 | | e | | ophthalmic | TIMES DAILY | | | 19 | | | | suspension | | | | | | | + + +---------+----+------+---+-------+ | QVAR REDIHALER 40 | Inhale 2 puffs into | 3 | 4 | 12/0 | | Activ | | MCG/ACT | the lungs 2 times | Inhaler | | 3/20 | | e | | inhalerIndications: | daily. | | | 19 | | | | Shortness of breath, | | | | | | | | Cough in adult | | | | | | | + + +---------+----+------+---+-------+ | azelastine 0.1% | 1 spray by Nasal | 30 mL | 11 | 12/0 | | Activ | | nasal | route 2 times daily. | | | 20 | | e | | sprayIndications: | Use in each nostril | | | 19 | | | | Post-nasal drip, | twice a day | | | | | | | Seasonal allergic | | | | | | | | rhinitis due to | | | | | | | | pollen | | | | | | | + + +---------+----+------+---+-------+ | Methacholine | This medication has | 1 kit | 0 | 12/0 | | Activ | | Chloride | been compounded by | | | 5/20 | | e | | (METHACHOLINE PFT) | [facility] | | | 19 | | | | [facility] | [facility] | | | | | | | | administration under | | | | | | | | the direct | | | | | | | | supervision of the | | | | | | | | [facility] Pulmonary | | | | | | | | Function Lab. | | | | | | + + +---------+----+------+---+-------+ +---+ + | | Additional | | | InformationPatient | | | not taking. Reported | | | on 06/22/2019 10:29 | | | AM | +---+ + + +---+---+---+------+---+-------+ | cephalexin | | | 0 | 02/1 | | Activ | | (KEFLEX) 500 mg | | | | 8 | | e | | capsule | | | | 20 | | | + +---+---+---+------+---+-------+ + + +-------+ +------+------+-------+ | Hospital, Clinic, or | Ordered | Route | Frequency | Star | End | Statu | | Other Facility | Dose | | | t | Date | s | | Administered | | | | Date | | | | Medication | | | | | | | + + +-------+ +------+------+-------+ | enoxaparin | 60 mg | SC | SEE ADMIN | 09/01 | | Activ | | (LOVENOX) 60 mg/0.6 | | | INSTRUCTIONS | 06/23 | | e | | mL injection 60 mg | | | | 19 | | | + + +-------+ +------+------+-------+ Active Problems + + + | Problem | Noted Date | + + + | Recurrent UTI | 06/30/2019 | + + + | Change in voice | 08/19/2018 | + + + + + | Overview: Added automatically from request for surgery | | [id number] | + + + + + | Gastroesophageal reflux disease, esophagitis presence not | 08/19/2018 | | specified | | + + + + + | Overview: Added automatically from request for surgery | | [id number] | + + + + + | Chronic constipation | 06/15/2018 | + + + | Heart valve disorder | 06/15/2018 | + + + | Nonsustained supraventricular tachycardia | 05/06/2018 | + + + | History of mitral valve replacement with mechanical valve | 02/02/2018 | + + + | Palpitations | 02/02/2018 | + + + | Anticoagulated | 06/22/2017 | + + + | NECK PAIN | | + + + | HYPOTHYROIDISM | | + + + | DEGENERATIVE DISC DISEASE | | + + + Encounters +--------+ + + + + | Date | Type | Specialty | Care Team | Description | +--------+ + + + + | 06/24/ | Telephone | Pulmonology | Marly Kaufman, | Other (Results call) | | 2020 | | | COMMUNITY EDUCATOR | | +--------+ + + + + | 06/22/ | Office | Urology | Stephanie Robles | Recurrent UTI | | 2019 | Visit | | MD Jillian | (Primary Dx) | +--------+ + + + + from Last 3 Months Family History + + +------+ + | Medical History | Relation | Name | Comments | + + +------+ + | ADD/ADHD | Brother | | | + + +------+ + | Alcohol abuse | Brother | | | + + +------+ + | Anxiety disorder | Daughter | | | + + +------+ + | Other (see comment) | Daughter | | Neurofibromatosis | + + +------+ + | Anxiety disorder | Daughter | | | + + +------+ + | Thyroid disease | Daughter | | | + + +------+ + | Depression | Father | | | + + +------+ + | Stroke | Father | | | + + +------+ + | Thyroid cancer | Father | | | + + +------+ + | Auto-Immune | Maternal | | Neurofibromatosis | | Disorders | Aunt | | | + + +------+ + | Lupus | Maternal | | | | | Aunt | | | + + +------+ + | Multiple sclerosis | Maternal | | | | | Aunt | | | + + +------+ + | Renal failure | Maternal | | | | | Aunt | | | + + +------+ + | Stroke | Maternal | | | | | Aunt | | | + + +------+ + | Glaucoma | Maternal | | | | | Grandfath | | | | | er | | | + + +------+ + | Lupus | Maternal | | | | | Grandmoth | | | | | er | | | + + +------+ + | Osteoporosis | Mother | | | + + +------+ + | Thyroid disease | Mother | | | + + +------+ + | Arthritis | Other | | | + + +------+ + | Bipolar disorder | Paternal | | | | | Grandmoth | | | | | er | | | + + +------+ + + +------+ + + | Relation | Name | Status | Comments | + +------+ + + | Brother | | | | + +------+ + + | Daughter | | Alive | | + +------+ + + | Daughter | | Alive | | + +------+ + + | Father | | Alive | | + +------+ + + | Maternal Aunt | | | | + +------+ + + | Maternal Grandfather | | | | + +------+ + + | Maternal Grandmother | | | | + +------+ + + | Mother | | Alive | | + +------+ + + | Other | | | | + +------+ + + | Paternal Grandmother | | | | + +------+ + + Social History + + + [...] recent travel history available. | + + Last Filed Vital Signs + + + + + | Vital Sign | Reading | Time Taken | Comments | + + + + + | Blood Pressure | 143/87 | 06/22/2019 10:20 AM | | | | | PST | | + + + + + | Pulse | 77 | 06/22/2019 10:20 AM | | | | | PST | | + + + + + | Temperature | 36.2 C (97.1 F) | 06/22/2019 10:20 AM | | | | | PST | | + + + + + | Respiratory Rate | 16 | 03/01/2019 1:37 PM | | | | | PDT | | + + + + + | Oxygen Saturation | 100% | 06/22/2019 10:20 AM | | | | | PST | | + + + + + | Inhaled Oxygen | - | - | | | Concentration | | | | + + + + + | Weight | 60.3 kg (133 lb) | 06/22/2019 10:20 AM | | | | | PST | | + + + + + | Height | 162.6 cm (5' 4") | 06/22/2019 10:20 AM | | | | | PST | | + + + + + | Body Mass Index | 22.83 | 06/22/2019 10:20 AM | | | | | PST | | + + + + + Plan of Treatment +--------+---------+ + + + | Date | Type | Specialty | Care Team | Description | +--------+---------+ + + + | 11/21/ | Office | Urology | Stephanie Robles | | | 2019 | Visit | | MD [address] | | | | | | [address] | | | | | | [place] [address] | | | | | | [phone] | | | | | | | | +--------+---------+ + + + + + + + + | Health Maintenance | Due Date | Last Done | Comments | + + + + + | Vaccine: | | | | | Dtap/Tdap/Td (1 - | 7 | | | | Tdap) | | | | + + + + + | Cervical Cancer | | | | | Screening (Pap) | 6 | | | + + + + + | Breast Cancer | | | | | Screening | 1 | | | + + + + + | Colorectal Cancer | | | | | Screening | 6 | | | | (Colonoscopy) | | | | + + + + + | Vaccine: Zoster (2 | | 01/11/2018 | | | of 2) | 8 | | | + + + + + | Vaccine: Influenza | | | | | (Season Ended) | 0 | | | + + + + + Results Not on filefrom Last 3 Months Insurance +-------+--------+ +--------+-------+---------+------+ | Payer | Benefi | Subscriber | Effect | Phone | Address | Type | | | t Plan | ID | darling | | | | | | / | | Dates | | | | | | Group | | | | | | +-------+--------+ +--------+-------+---------+------+ | BCBS | BCBS | [id number] | 06/04/19 | | | PPO | | | OOS | 2 | 19-Pre | | | | | | PPO | | sent | | | | +-------+--------+ +--------+-------+---------+------+ | BCBS | BCBS | [id number] | 06/04/19 | | | PPO | | | OOS | 2 | 19-Pre | | | | | | PPO | | sent | | | | +-------+--------+ +--------+-------+---------+------+ + +--------+ +--------+ + + | Guarantor Name | Accoun | Relation to | Date | Phone | Billing Address | | | t Type | Patient | of | | | | | | | | | | + +--------+ +--------+ + + | Nilsa Cornell | Person | Self | [birth year] | [address] | | [place] | al/Fam | | 1965 | [id number] | [place], [place] | | | [place] | | | [address] (Home) | [address] | + +--------+ +--------+ + + | Nilsa Cornell | Person | Self | [birth year] | | [address] | | [place] | al/Fam | | 1965 | [id number] | [place], [place] | | | [place] | | | [address] (Home) | [address] | + +--------+ +--------+ + + Advance Directives + + + + + | Type | Date Recorded | Patient | Explanation | | | | Chart Clerk | | + + + + + | Power of | | | | | Test Lead Application Testing | | | | + + + + + | Advance | 01/22/2015 9:00 | | | | Directive | AM | | | + + + + + + + + + + | Code Status | Date | Date | Comments | | | Activated | Inactivated | | + + + + + | Full Code | 01/29/2015 | 01/30/2015 | | | | 2:33 PM | 7:39 PM | | + + + + + + + + +---+ | | | | | + + + +---+ | Full Code | 01/22/2015 | 01/24/2015 | | | | 1:21 PM | 8:19 PM | | + + + +---+
--- OUTSIDE RECORDS SUMMARY | ~2019-09-06 | XMS | Clinical Summary ---
Demographics + + + | Address | [address] | | | [place] [address] | + + + | Home Phone | | + + + | Preferred Language | Unknown | + + + | Marital Status | | + + + | Confucianist Affiliation | 1013 | + + + | Race | Unknown | + + + | Ethnic Group | Unknown | + + + Author + + + | Author | [facility] (Historical as of | | | 12-18-18) | + + + | Organization | [facility] (Historical as of | | | 12-18-18) | + + + | Address | Unknown | + + + | Phone | Unavailable | + + + Support + + + + + | Name | Relationship | Address | Phone | + + + + + | Gamaliel Cornell | ECON | [address] | | | | | [place] | | | | | [address] | | + + + + + Care Team Providers + +------+ + | Care Testing Analyst Name | Role | Phone | + +------+ + | Shankar Kaufman MD | PP | | + +------+ + Allergies + + + + + + | Active Allergy | Reactions | Severity | Noted | Comments | | | | | Date | | + + + + + + | Sulfa Antibiotics | Diarrhea, Nausea and | Medium | 01/23/20 | | | | Vomiting, Other | | 15 | | | | (See Comments) | | | | + + + + + + Current Medications + + +-------+---------+------+------+-------+ | Prescription | Sig. | Disp. | Refills | Star | End | Statu | | | | | | t | Date | s | | | | | | Date | | | + + +-------+---------+------+------+-------+ | ALPRAZolam (XANAX | Take 0.5 mg by | | | | | Activ | | XR) 0.5 MG 24 hr | mouth. | | | | | e | | tablet | | | | | | | + + +-------+---------+------+------+-------+ | baclofen | TK 1 TO 2 TS PO 3 XD | | | 10/02 | | Activ | | (LIORESAL) 10 mg | PRF SPASMS | | | 4/20 | | e | | tablet | | | | 18 | | | + + +-------+---------+------+------+-------+ | DULoxetine | | | | 09/ | | Activ | | (CYMBALTA) 30 MG | | | | 4/20 | | e | | capsule | | | | 12 | | | + + +-------+---------+------+------+-------+ | fluticasone | 1 spray by Nasal | | | | | Activ | | (FLONASE) 50 MCG/ACT | route. | | | | | e | | nasal | | | | | | | + + +-------+---------+------+------+-------+ | levothyroxine | TK 1 T PO QD | | | 01/2 | | Activ | | (SYNTHROID) 100 MCG | | | | 6/20 | | e | | tablet | | | | 18 | | | + + +-------+---------+------+------+-------+ | traMADol (ULTRAM) | TK 1 TO 2 TS PO UP | | | 10/02 | | Activ | | 50 MG tablet | TO 3 XD PRF SEVERE | | | 01/21 | | e | | | PAIN | | | 18 | | | + + +-------+---------+------+------+-------+ | warfarin | 8 mg. | | | | | Activ | | (COUMADIN) 4 MG | | | | | | e | | tablet | | | | | | | + + +-------+---------+------+------+-------+ | | clotrimazole-betamet | | | | | Activ | | clotrimazole-betamet | hasone 1 %-0.05 % | | | | | e | | hasone (LOTRISONE) | topical cream | | | | | | | cream | | | | | | | + + +-------+---------+------+------+-------+ | DULoxetine | Cymbalta 60 mg | | | | | Activ | | (CYMBALTA) [address] | capsule,delayed | | | | | e | | capsule | release Take 1 | | | | | | | | capsule every day by | | | | | | | | oral route. | | | | | | + + +-------+---------+------+------+-------+ | pimecrolimus | Elidel 1 % topical | | | | | Activ | | (ELIDEL) 1 % cream | cream | | | | | e | + + +-------+---------+------+------+-------+ | | TK 1 T PO BID | | 1 | 07/2 | | Activ | | amoxicillin-clavulan | | | | 6/20 | | e | | ate (AUGMENTIN) | | | | 18 | | | | 875-125 MG per | | | | | | | | tablet | | | | | | | + + +-------+---------+------+------+-------+ | RESTASIS 0.05 % | INT 1 GTT INTO OU | | 12 | 07/2 | | Activ | | ophthalmic emulsion | BID | | | 6/20 | | e | | | | | | 18 | | | + + +-------+---------+------+------+-------+ | SHINGRIX 50 MCG | ADM 0.5ML IM UTD | | 0 | 01/02 | | Activ | | injection | | | | 0/20 | | e | | | | | | 18 | | | + + +-------+---------+------+------+-------+ | omeprazole | Take 20 mg by mouth | | | | | Activ | | (PRILOSEC) 20 MG | 2 (two) times daily. | | | | | e | | capsule | | | | | | | + + +-------+---------+------+------+-------+ Active Problems + + + | Problem | Noted Date | + + + | Nonsustained supraventricular tachycardia (HCC) | 05/06/2018 | + + + | History of mitral valve replacement with mechanical valve | 02/02/2018 | + + + | Chronic constipation | 02/02/2018 | + + + | Degenerative disc disease | 02/02/2018 | + + + | Heart valve disorder | 02/02/2018 | + + + | Hypothyroidism | 02/02/2018 | + + + | Neck pain | 02/02/2018 | + + + | Palpitations | 02/02/2018 | + + + | Anticoagulated | 06/22/2017 | + + + Social History + + + +--------+------+ | Tobacco Use | Types | Packs/Day | Years | Date | | | | | Used | | + + + +--------+------+ | Light Tobacco Smoker | Cigarettes | | | | + + + +--------+------+ + +---+---+---+ | Smokeless Tobacco: | | | | | Never Used | | | | + +---+---+---+ + + | Tobacco Cessation: Ready to Quit: No | + + + + +---------+ + | Alcohol Use | Drinks/We | oz/Week | Comments | | | ek | | | + + +---------+ + | Yes | 12 | 9.0 | | | | Glasses | | | | | of wine | | | | | 3 Cans of | | | | | beer | | | + + +---------+ + + + + | Sex Assigned at | Date Recorded | | | | + + + | Not on file | | + + + Last Filed Vital Signs + + + + | Vital Sign | Reading | Time Taken | + + + + | Blood Pressure | 130/70 | 05/06/2018 1:13 PM PST | + + + + | Pulse | 76 | 05/06/2018 1:13 PM PST | + + + + | Temperature | - | - | + + + + | Respiratory Rate | 18 | 05/06/2018 1:13 PM PST | + + + + | Oxygen Saturation | 98% | 05/06/2018 1:13 PM PST | + + + + | Inhaled Oxygen | - | - | | Concentration | | | + + + + | Weight | 60.3 kg (133 lb) | 05/06/2018 1:13 PM PST | + + + + | Height | 162.6 cm (5' 4") | 05/06/2018 1:13 PM PST | + + + + | Body Mass Index | 22.83 | 05/06/2018 1:13 PM PST | + + + + Plan of Treatment + + + + + | Health Maintenance | Due Date | Last Done | Comments | + + + + + | Vaccine: | | | | | Dtap/Tdap/Td (1 - | 5 | | | | Tdap) | | | | + + + + + | Vaccine: | | | | | Pneumococcal 19-64 | 5 | | | | (PPSV23 only) Medium | | | | | Risk (1 of 1 - | | | | | PPSV23) | | | | + + + + + | Cervical Cancer | | | | | Screening (Pap) | 6 | | | + + + + + | Breast Cancer | | | | | Screening | 6 | | | | (Mammogram) | | | | + + + + + | Colon Cancer | | | | | Screening | 6 | | | | (Colonoscopy) | | | | + + + + + | Vaccine: Zoster (1 | | | | | of 2) | 6 | | | + + + + + | Vaccine: Influenza | | | | | (Season Ended) | 0 | | | + + + + + Results Not on filefrom Last 3 Months Insurance + +--------+ +------+-------+---------+ | Payer | Benefi | Subscriber | Type | Phone | Address | | | t Plan | ID | | | | | | / | | | | | | | Group | | | | | + +--------+ +------+-------+---------+ | COMMERCIAL OTHER | COMMER | [id number] | | | | | | CIAL | | | | | | | GENERI | | | | | | | C PLAN | | | | | + +--------+ +------+-------+---------+ | REGENCE | REGENC | [id number] | | | | | | E-OREG | 2 | | | | | | ON | | | | | + +--------+ +------+-------+---------+ + +--------+ +--------+ + + | Guarantor Name | Accoun | Relation to | Date | Phone | Billing Address | | | t Type | Patient | of | | | | | | | | | | + +--------+ +--------+ + + | HERNANDO CORNELL | Person | Self [birth year] | Home: | [address] | | [place] | [place] | | 1966 | [phone] [place] | | | [place] | | | [phone] | [address] | + +--------+ +--------+ + +
--- OUTSIDE RECORDS SUMMARY | ~2019-09-06 | XMS | Encounter Summary ---
Demographics + + + | Address | [address] | | | [place] [address] | + + + | Home Phone | | + + + | Preferred Language | Unknown | + + + | Marital Status | | + + + | Anabaptism Affiliation | 1013 | + + + | Race | Unknown | + + + | Ethnic Group | Unknown | + + + Author + + + | Author | [facility] | | | and [place] | + + + | Organization | [facility] | | | [...] [place], [place] | | | | | [address] | | + + + + + Care Team Providers + +------+ + | Care Telegraph Office Route Aide Name | Role | Phone | [...] | | | | | | | [address] | | +--------+--------+ + + + + [...] | [address] [place] | [place] [address] | | | | | [place] [address] | | | | | | [phone] | | | +--------+ + + + [...] | | | | | [place] [address] | | | | | | [phone] | | | | | | | [...] for comparison only - no result from [place]. | | + + + + +---------+ + + | Performing | Address | City/State/Zipcode | Phone Number | | Organization | | | | + +---------+ + + | [facility] | | | | + +---------+ + + documented in this encounter Visit Diagnoses Not on filedocumented in this encounter"
--- OUTSIDE RECORDS SUMMARY | ~2019-09-06 | XMS | Encounter Summary ---
Demographics + + + | Address | [address] | | | [place] [address] | + + + | Home Phone | | + + + | Preferred Language | Unknown | + + + | Marital Status | | + + + | Samaritan Affiliation | 1013 | + + + | Race | Unknown | + + + | Ethnic Group | Unknown | + + + Author + + + | Author | [facility] | | | and [place] | + + + | Organization | [facility] | | | [...] [place], [place] | | | | | [address] | | + + + + + Care Team Providers + +------+ + | Care Band Sewer Name | Role | Phone | + [...] PHYSIATRY [address] | MD [address] | | | | | [address] | [place], [place] | | | | | [place], [place] | [address] | | | | | [address] | | | | | | [phone] | | | +--------+ + + + [...] [address] | | | | | | [place] [address] | | | | | | [phone] | | | | | | | | +--------+---------+ + + + documented as of this encounter Visit Diagnoses Not on filedocumented in this encounter"
--- OUTSIDE RECORDS SUMMARY | ~2019-09-06 | XMS | Encounter Summary ---
Demographics + + + | Address | [address] | | | [place] [address] | + + + | Home Phone | | + + + | Preferred Language | Unknown | + + + | Marital Status | | + + + | Sabianist Affiliation | 1013 | + + + | Race | Unknown | + + + | Ethnic Group | Unknown | + + + Author + + + | Author | [facility] | | | and [place] | + + + | Organization | [facility] | | | [...] [place], [place] | | | | | [address] | | + + + + + Care Team Providers + +------+ + | Care Guide Winder Name | Role | Phone | + +------+ + | Raven Kim PA-C | PCP | | + +------+ + Encounter Details +--------+ + + + + | Date | Type | Department | Care Team | Description | +--------+ + + + + | 02/16/ | Transcribed | [facility] | Yuli He | Shortness of breath | | 2019 | Orders | CENTRAL SCHEDULING | MD [address] | (Primary Dx); [facility] | | | | [address] | [address] | syndrome (HCC) | | | | [place], [place] | [place], [place] | | | | | [address] | [address] | | | | | [phone] | [phone] | | | | | | | [...] [address] | | | | | | [facility] [address] | | | | | | [place] [address] | | | | | | [phone] | | | | | | | | +--------+---------+ + + + documented as of this encounter Results Pulmonary function test full PFT (03/01/2019 3:57 PM PDT) + + + | Narrative | Performed At | + + + | Sonya Parker MD 03/01/2019 15:59 PULMONARY | | | FUNCTION TEST NAME: Nilsa Cornell : 1965 MRN: | | | [id number] REASON FOR TESTING: Dyspnea FINDINGS | | [...] Parker MD Pulmonary and Critical Care Medicine [facility] | | | [facility] [address], [address] | | | [place] [address] | | + + + documented in this encounter Visit Diagnoses + + | Diagnosis | + + | Shortness of breath - Primary | + + | CRST syndrome (HCC) Systemic sclerosis | + + documented in this encounter"
--- OUTSIDE RECORDS SUMMARY | ~2019-09-06 | XMS | Encounter Summary ---
Demographics + + + | Address | [address] | | | [place] [address] | + + + | Home Phone [...] [place], [place] | | | | | [address] | | + + + + + Care Team Providers + +------+ + | Care Nuclear Licensing Engineer Name | Role | Phone | [...] 2019 | | GASTROENTEROLOGY | [address], [place] | | | | | [address] [place] | [address] [place], [place] | | | | | [address] [place], [place] | [address] | | | | | [address] | | | | | | [phone] | | | +--------+ + + + [...] | | | | | [place] [address] | | | | | | [phone] | | | | | | | | +--------+---------+ + + + documented as of this encounter Visit Diagnoses Not on filedocumented in this encounter"
--- OUTSIDE RECORDS SUMMARY | ~2019-09-06 | XMS | Encounter Summary ---
Demographics + + + | Address | [address] | | | [place] [address] | + + + | Home Phone | | + + + | Preferred Language | Unknown | + + + | Marital Status | | + + + | Faith Affiliation | [id number] | + + + | Race | Unknown | + + + | Ethnic Group | Unknown | + + + Author + + + | Author | [facility] | | | and [place] | + + + | Organization | [facility] | | [...] [place], [place] | | | | | [address] | | + + + + + Care Team Providers + +------+ + | Care Radar Scientist Name | Role | Phone | + [...] + + | Closed | Specialty | Sleep | Diagnoses | Mandeep, | | | | Services | Medicine | Poor sleep | Shankar Meyers MD | | | | Required | | Chronic | [address] | | | | | | daily | [address] | | | | | | headache | [place], | | | | | | Procedures | [place] [address] | | | | | | [facility] 07/14 | Phone: | | | | | | | [phone] | | | | | | | Fax: | | | | | | | [phone] | | +--------+ + + + + [...] | daily | [address] | | | | n | headache | [address] | [place], | | | | | Chronic | [place], | [place] [address] | | | | | migraine | [place] [address] | Phone: | | | | | without aura | Phone: | [phone] | | | | | without | [phone] | Fax: | | | | | status | Fax: | [phone] | | | | | migrainosus, | [phone] | | | | | | not | | | | | | | intractable | | | | | | | Procedures | | | | | | | OR | | | | | | | CHEMODERVATE | | | | | | | | | | | | | | FACIAL/TRIGE | | | | | | | M/CERV MUSC | | | | | | | MIGRAINE - | | | | | | | BILATERAL | | | | | | | OR NEEDLE | | | | | | | EMG GUIDANCE | | | | | | | FOR | | | | | | | CHEMODENERVA | | | | | | | TION OR | | | | | | | INJECTION,ON | | | | | | | ABOTULINUMTO | | | | | | | XINA, 1 | | | | | | | UNITS DOS | | | | | | | 10/22/17 | | | +--------+ + + + + + Reason for Visit + + + | Reason | Comments | + + + | Headache | | + + + Evaluate & Treat (Routine) +--------+--------+ + + + + | Status | Reason | Specialty | Diagnoses / | Referred By | Referred To | | | | | Procedures | Contact | Contact | +--------+--------+ + + + + | Closed | | Physical | Diagnoses | Judy, | Shankar Kaufman | | | | Medicine and | DDD | ARRON Carbajal | Leigha Meyers MD [address] | | | | Rehabilitatio | (degenerativ | [address] | | | | n | e disc | [place] | [place], | | | | | disease), | [address] | [place] [address] | | | | | cervical | [place], | Phone: | | | | | | [place] [address] | [phone] | | | | | | Phone: | Fax: | | | | | | [phone] | [phone] | | | | | | Fax: | | | | | | | [phone] | | +--------+--------+ + + + + Encounter Details +--------+---------+ + + + | Date | Type | Department | Care Team | Description | +--------+---------+ + + + | 06/22/ | Office | [facility] | Shankar Kaufman, | Chronic daily | | 2017 | Visit | PHYSIATRY [address] | MD [address] | headache (Primary | | | | [address] | [place] | Dx); Chronic | | | | [place] | [address] | migraine without | | | | [address] | | aura without status | | | | [phone] | | migrainosus, not | | | | | | intractable; | | | | | | Cervicogenic | | | | | | headache; Poor | | | | | | sleep; Medication | | | | | | overuse headache; | | | | | | Caffeine use; | | | | | | Anticoagulated | +--------+---------+ + + + Social History [...] + + + | Blood Pressure | 140/84 | 06/22/2017 11:36 AM | | | | | PST | | + + + + + | Pulse | 72 | 06/22/2017 11:36 AM | | | | | PST | | + + + + + | Temperature | - | - | | + + + + + | Respiratory Rate | 16 | 06/22/2017 11:36 AM | | | | | PST | | + + + + + | Oxygen Saturation | - | - | | + + + + + | Inhaled Oxygen | - | - | | | Concentration | | | | + + + + + | Weight | 61.2 kg (135 lb) | 06/22/2017 11:36 AM | | | | | PST | | + + + + + | Height | 160 cm (5' 3") | 06/22/2017 11:36 AM | | | | | PST | | + + + + + | Body Mass Index | 23.91 | 06/22/2017 11:36 AM | | | | | PST | | + + + + + documented in this encounter Patient Instructions Patient Instructions Elena Carroll, Cigarette Packing Machine Operator - 06/22/2017 11:20 AM PST Wor k towards caffeine free diet. Avoid routine use of abortive medications. Avoid use of alcohol. Sleep study referral was placed today. Their office should be in contact with you. Keep a headache diary. Document severity of pain and use of abortive medication. Laboratory tests have been requested. Please go to the lab to complete your laboratory bright ting. The results of your laboratory testing will be reviewed at your next appointment. If your labratory results demonstrate any emergent results the clinic will contact you. documented in this encounter Progress Notes Shankar Kaufman MD - 06/22/2017 11:20 AM PSTFormatting of this note might be different fro m the original. Shankar Kaufman MD [address] [facility], [address] [place], [place] [address] FAX: PHYSICAL MEDICINE AND REHABILITATION H&P Referring Provider: Raven Kim PA-C Date of Service: 06/22/17 Patient ID: [id number] y.o. female with chief complaint of headaches. HPI Nilsa Cornell reports that they first starting having headaches 15 years ago. She reports that she was about 35 years old when she had her first headache. In regards to sleep Nilsa Cornell reports that she does not sleep well. She report s that she sleeps about 5 hours a day. She reports that she wakes up about 2 times a night. She denies snoring. Nilsa Cornell reports that she wakes up with headaches. She als o reports clenching her jaw in her sleep. In regards to caffeine intake Nilsa Cornell reports that she drinks two cups of co ffee each morning. She reports that she also drinks spark before her workouts. Nilsajhony Rutherfordons reports reports that she has seen in the past. She reports that she is unsure of the medication she has tried in the past for the treatment of her hea daches. She reports that medication gave her side effects. Nilsa Madden Kraig reports th at she has tried occipital nerve blocks in the past with no relief. Nilsa Cornell r eports constant pressure in the occipital region. Nilsajhony Rutherfordons reports that she drinks wine on the weekends. Nilsajhony Cornell reports that she has history of smoking cigarettes. She reports rare/occasional cigarette u se socially, but no routine tobacco use. The location of the headaches are usually occipital and retro-orbital. The headaches involve the occipital region. The headaches are moderate to severe on a verbal analog scale. The frequency of the headaches is daily. The headaches occur approximately everyday. The duration of headaches is constant; lasting 24 hours a day. She reports that she has abo ut 3-4 severe headaches within a week. The headache progresses from onset to full severity with onset. The quality of headaches are: stabbing, pulsating and pressure. Headaches do wake them from sleep. Prodrome symptoms include: none. Aura symptoms include: blurry vision. Nilsa Cornell reports a constant ache in he r eyes. Nilsa Cornell denies changes in vision such as wavy lines. Symptoms associated with the headache include: nausea, lightheadedness, dizziness, diffcul ty with memory/concentration, scalp sensitivity, muscle ache and neck stiffness. She reports Physical headache triggers include: exposure to glare, flickering lights and fluorescent l ights. Food/Drink headache triggers include: none. Psychological headache triggers include: none. Seasonal/Allergy headache triggers include: cold or hot weather, high altitude, high humid ity and changes in weather. Occupation/Work headache triggers include: repetitive movements and prolonged computer use Migraine medications that have been tried to abort the headaches include: none. Medications that have been tried to abort the headaches include: Advil (ibuprofen). She re ports that she no longer takes ibuprofen because she is currently taking Coumadin. Nilsa Cornell reports history of mechanical heart valve. Muscle relaxant medications that have been tried to treat headaches include: Flexeril (cyc lobenzaprine). Opiate medications that have been tried to abort the headaches include: hydrocodone, oxyco done and oxycontin Prophylactic anticonvulsants that have been tried to prevent headaches include: none. Prophylactic antidepressants that been tried include: Cymbalta, amitriptyline and Lexapro. Nilsa Cornell reports that she has tried Amitriptyline in the past for about 15 ye ars. She reports that medication made her sluggish. She reports that her headaches did not i mprove with Amitriptyline. Nilsa Cornell is currently taking Cymbalta 60 mg with no relief. Prophylactic antihypertensives that have been tried include: none. Antiemetics that have been used to treat headache symptoms include: none. Past Medical History Past Medical History: Diagnosis Date Cervical spinal stenosis Chronic arthralgias of knees and hips hips bilaterally and shoulders Chronic daily headache Chronic sinusitis Degenerative cervical disc Depression with anxiety Disorder of right temporomandibular joint Heart valve replaced Hypothyroidism Long-term (current) use of anticoagulants Myalgia Paresthesias Persistent insomnia Presence of prosthetic heart valve Sleep-related bruxism Stomach ulcer TMJ dysfunction Past Surgical History Past Surgical History: Procedure Laterality Date CARDIAC VALVE REPLACEMENT 2007 mechanical heart valve mitral, Dr. Veliz; [facility]; [facility]. CHOLECYSTECTOMY, LAPAROSCOPIC 1995 ; [facility]. COLPORRHAPHY N/A 01/22/2015 Procedure: Repair Anterior Colporrhaphy; Surgeon: Evelio Alston MD; Location: [facility] MAIN OR COLPORRHAPHY N/A 01/29/2015 Procedure: Re-suturing of a/p repair ; Surgeon: Pipo Rajan DO; Location: [facility] MAIN OR Family History: Family History Problem Relation Age of Onset [...] sclerosis Maternal Aunt Stroke Maternal Aunt Renal Failure Maternal Aunt Social History: Social History Social History Marital status: Spouse name: Gamaliel Cornell Number of children: 2 Years of education: N/A Occupational History [employer] Social History Main Topics Smoking status: Former Smoker Smokeless tobacco: Never Used Alcohol use 1.2 oz/week 1 Glasses of wine, 1 Cans of beer per week Comment: 1-2 bottles per month Drug use: No Sexual activity: Not on file Other Topics Concern Not on file Social History Narrative No narrative on file Allergies: Allergies Allergen Reactions Sulfa Antibiotics Diarrhea and Nausea And Vomiting Medications: Outpatient Encounter Prescriptions as of 06/22/2017 Medication Sig Dispense Refill ALPRAZolam (ALPRAZOLAM XR) 0.5 MG 24 hr tablet Take 0.5 mg by mouth nightly. [DISCONTINUED] amitriptyline (ELAVIL) 75 MG tablet [DISCONTINUED] docusate-senna (SENOKOT-S) 50-8.6 mg per tablet Take 1 tablet by mouth 2 times daily. 30 tablet 1 DULoxetine (CYMBALTA) 30 mg capsule (Patient taking differently: 60 mg Daily.) [DISCONTINUED] enoxaparin (LOVENOX) 60 mg/0.6 mL injection Inject 60 mg under the skin every 12 hours. [DISCONTINUED] ferrous sulfate 325 mg tablet Take 1 tablet by mouth 2 times daily. 60 t ablet 1 fluticasone (FLONASE) 50 mcg/nasal spray 1 spray by Nasal route Daily. [DISCONTINUED] HYDROcodone-acetaminophen (NORCO) 5-325 mg per tablet Take 1-2 tablets b y mouth every 6 hours as needed for Pain for up to 30 doses. 30 tablet 0 levothyroxine (SYNTHROID) 100 mcg tablet TK 1 T PO QD 0 [DISCONTINUED] Levothyroxine Sodium (SYNTHROID PO) TABS (Patient taking differently: Ta ke 112 mcg by mouth Daily.) SUMAtriptan (IMITREX) 50 mg tablet TK 1 T PO AOS OF MIGRAINE DIRECTED. REPEAT DOSE I N 2 HOUR IF SYMPTOMS PERSIST. MAX D DOSE 200 MG 2 warfarin (COUMADIN) 4 MG tablet 8 mg. 2 tablets a day except 3 tablets on Thursday No facility-administered encounter medications on file as of 06/22/2017. Review of Systems: ROS GENERALLY: No fever, no night sweats, no anemia, + fatigue, no recent profound weight dixon nges. EYES: +eye problems, no use of corrective lenses, no eye injury, no double vision, no blin dness. EARS, NOSE, AND THROAT: No changes in taste or smell, no hearing difficulty, no ringing in the ears, no ear drainage, + dizziness, no voice changes,+ difficulty swallowing, no signif icant snoring, no sleep apnea, + sinus problems, +major dental work. NEUROLOGICALLY:The patient has+ numbness/pain of arms, +numbness/pain of legs, no awake wit h numbness/pain,+ weakness, +muscle aching, +coordination difficulty, no change in walk, no head injury,+ neck injury,+ back injury, + pain in neck,+pain in back, no stroke, no faintin g spells, no loss of consciousness, no tremor/shaking, no seizures, +headaches, no migraine, + memory loss, no speech difficulty, + confusion and + numbness of face. PSYCHIATRIC: + depression, +diffiuclty sleeping, + anxiety, no bipolar disorder, no psycho tic episodes. CARDIOVASCULAR: No heart attacks, no heart murmur, no heart fluttering, no chest pain, no ankle swelling. LUNG DISEASE: No shortness of breath, no cough, no tuberculosis, no bloody cough, no asth ma, no emphysema/COPD. GASTROINTESTINAL: No bowel disease, no nausea or vomiting, no rectal bleeding, + constipat ion, no stool incontinence, no liver disease,+ gallbladder disease, no abdominal pain, no ul cers. KIDNEY DISEASE: No urinary frequency, no painful or difficult urination, no incontinence. ENDOCRINE: No diabetes, no thyroid disease, no osteopenia or osteoporosis, no breast drain age. SKIN: No breast lumps, no skin changes, + rashes, +itches. HEMATOLOGIC/LYMPHATIC: No enlarged lymph nodes, no easy or unusual bleeding, no personal h istory of cancer. RHEUMATOLOGIC: + joint arthritis, no rheumatoid arthritis. Vitals: 06/22/17 1136 BP: 140/84 Pulse: 72 Resp: 16 PainSc: 4 PainLoc: Head Objective Physical Exam: General Appearance: Alert and Oriented to person, place, time and situation, no distress. HEENT: asymetry of the jaw crepitus within left TMJ. Tenderness to palpation diffusely over temples bilaterally Neck: Increased tone in cervical paraspinal muscles bilaterally Increased tone in right scalene complex Tenderness to palpation bilateral greater occipital nerves with reproduction of headache sy mptoms Increased tone in splenius capitis Heart: Regular Rate and Rhythm Lungs: No audible wheezing or crackles Abdomen: Non-distended Back: Symmetric Extremities: Rigth shoulder sits elevated to the left Neurological: Cranial Nerves: Grossly Intact Speech: Normal Memory: Intact Sensory: intact sensation Coordination: Intact with finger to nose testing in both upper extremities. Gait: normal. Balance: Romberg test negative mild swaying MOTOR EXAM: (5 IS NORMAL) * Indicates pain limited MUSCLE/ MOVEMENT: RIGHT LEFT Deltoids 5 5 Biceps 5 5 Triceps 4+ 5 Wrist Flexion 5 5 Wrist Extension 5 5 Finger Abduction 5 5 Rn Progressive Care Strength 5 5 REFLEX: RIGHT LEFT BICEPS 1+ 2+ BRACHIORADIALIS 1+ 2+ TRICEPS 2+ 2+ PATELLAR 2+ 2+ ACHILLES 2+ 2+ Database: Cervical MRI 03/10/2017 imaging was personally reviewed by me. I concur with findings repo rted by the radiologist. There is mild cervical spondylosis at C6-7. Brain imaging is not available at this time, but she reports recent brain imaging. Brain imaging has been reques lucy from outside source for review. Assessment 1. Chronic daily headache 2. Chronic migraine without aura without status migrainosus, not intractable 3. Cervicogenic headache 4. Poor sleep 5. Medication overuse headache 6. Caffeine use 7. Anticoagulated Plan 1. Today we discussed the pathology headaches. Nilsa Cornell has chronic headaches since the age of [age] years old. Today we discussed in detail the processes of headache chron ification and rebound headache. We discussed that headache chronification may be caused unfo rtunately by the medication that she is using to treat her headache pain. We discussed that rebound headaches can also be as a result includes the use of alcohol, nicotine use and slee p apnea. We discussed that the use of abortive medication, including ibprofen and tylenol ma y contribute to rebound headaches. We discussed the importance of reducing and more preferab le discontinuing the use of abortive medication including ibuprofen and tylenol . In additio n Nilsa Cornell was encouraged to become caffeine free, as this too may contribute to rebound headaches. Nilsa Cornell was also encouraged to avoid the use of alcoho l and nicotine use. Rebound headaches are as a results of withdrawal to substances that in c hange effect brain chemistry. We discussed that initially headaches may be worse with the discontinuation of caffeine, ty lenol, and alcohol for about 4-6 weeks. In addition we discussed the effects of sleep deprivation and hypoxia. We discussed that sl eep apnea is a results of hypoxic levels of oxygen. Nilsa Cornell has history of po or sleep. Nilsa Cornell reports a total of 5 hours of sleep on average. She reports being woken from sleep with headaches. Nilsa Cornell is low risk for sleep apnea. Nilsa Cornell will have sleep study to evaluate for sleep apnea that may be contrib uting to chronic daily headaches. 2. Today we discussed treatment options for chronic daily headaches includes, lifestyle dixon nges, medications and Botox injections. We discussed that Topamax is FDA approved for the tr eatment of chronic daily headaches. It is uncertain whether Nilsa Cornell has tried Topamax in the past. We will request raman notes from . We discussed that botox elaine s not work for everyone. We discussed that Botox injections consist of about 30 pin sticks. Nilsa Cornell has seen neurologist in the past for the treatment of chron ic daily headaches. .Nilsa Cornell has tried occipital nerve blocks with no relief. Nilsa Cornell has tried Amitriptyline. She is currently taking Cymbalta. Nilsa Cornell has chronic daily headaches for about 15 years. Headaches are constant in natu re with the severe headaches 3-4 times a week. Nilsa Cornell will discontinue abor tive medication and triggers for headaches through lifestyle changes. 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 Anticipate using 200 units of botulinum toxin. We discussed that the effects of botulinum toxin take several days to take effect (approxim ately one week). The effects of botulinum toxin usually reach peak effect at one month after injection. Nilsa Cornell was advised effects of botulinum toxin are semi-permane nt, meaning that once botulinum toxin is injected there is no way to reverse the effects of the botulinum toxin. The effects of botulinum toxin may last from three to six months, (fou r months on average). 3. Nilsa Cornell will also have laboratory test to evaluate for underlying conditi on such as temporal arteritis. 4. In addition we discussed pain chronicification can contribute to an increase in depressi on increasing electrical instability. Nilsa Cornell should return to clinic as sche duled to discuss neck pain and bilateral hand numbness. Nilsa Cornell will return t o clinic for Botox injections as scheduled. Nilsa Cornell has chronic daily headaches. Her headaches may be related to underl aric neck muscle tightness. She likely has component of medication overuse and rebound head aches She has tried and failed Topamax in the past (by her verbal report). She has headach es every day. She has severe headache 15+ days per month. She has had headaches for years. She has chronic daily headaches. She will have Botox chemo-denervation of facial and neck muscles, under EMG guidance for the treatment of chronic daily headaches. She has also bee n asked to make life style modifications. She has been asked to keep headache diary. She h as been instructed to abstain from all abortive medication. She has been asked to stop all caffeine. She is not currently using any tobacco. She has been asked to stop consumption o f all alcohol. Today we reviewed the risks, benefits and alternative treatments to Botox chemo-denervation . We discussed mechanism of action of Botox. We discussed the semi-permanent affects. We discussed the duration of effect of Botox. We discussed that it can take more than one roun d of Botox injections to determine if injections are going to be helpful. Sleep study has been requested. She has daytime sleepiness. She reports headaches that wa ke her from sleep. She has diffuse tenderness over temples. Temporal arteritis is unlikely due to age. CMP, CBC, ESR, and CRP have been requested. Nilsa Cornell also reports neck pain, total body pain, constant fatigue. She retu rns to the clinic in the near future to discuss possible nerve study and to discuss total kana dy pain. We may consider requesting labs relating to myopathy, fibromyalgia, etc in the fut ure. She asked about supplementation today. We discussed that she could take OTC magnesium only as directed, if she has normal renal function and cleared by her medical provider that fritz ges her anticoagulation. Thank you for allowing me to be involved in the care of your patient. If you have any ques tions regarding the care of your patient please don't hesitate to call. Approximately 60 minutes was spent face to face with Nilsa Cornell, over half of w hich was spent formulating and discussing their medical treatment plan. I, Shankar Kaufman MD personally performed the services described in this documentation, as scribed by in my presence, MARIA A Spann and are both accurate and complete. Shankar Kaufman MD - 06/22/2017 Cc: Raven Kim PA-C Cc: Raven Kim PA-C, Raven Kim PA-C documented in this en counter Plan of [...] [address] | | | | | | [place] [address] | | | | | | [phone] | | | | | | | | +--------+---------+ + + + + + +--------+ + + | Name | Type | Priori | Associated Diagnoses | Order Schedule | | | | ty | | | + + +--------+ + + | * [facility] [place] | Outpatient | Routin | Chronic daily | Ordered: 06/22/2017 | | Physiatry - AMB | Referral | e | headache Chronic | | | Referral | | | migraine without | | | | | | aura without status | | | | | | migrainosus, not | | | | | | intractable | | + + +--------+ + + | Sleep Studies, | Outpatient | Routin | Poor Sleep | Ordered: 06/22/2017 | | External - AMB | Referral | e | Chronic daily | | | Referral | | | headache | | + + +--------+ + + documented as of this encounter Results CBC with Differential (06/24/2017 4:25 PM PST) + + + + + + | Component | Value | Ref Range | Performed | Pathologist | | | | | At | Signature | + + + + + + | WBC | 6.1 | 4.0 - 11.0 K/uL | [facility] | | | | | | [facility] | | | | [facility] | | [facility] | | | | | | [facility]ORY | | + + + + + + | RBC | 4.43 | 3.70 - 5.20 | [facility] | | | | | M/uL | [facility] | | | | | | [facility] | | | | | [facility] - | | | | | | [facility]ATORY | | + + + + + + | Hemoglobin | 13.5 | 11.5 - 16.0 | [facility] | | | | | g/dL | [facility] | | | | | | [facility] | | | | | | [facility] - | | | | | | LABORATORY | | + + + + + + | Hematocrit | 41.4 | 34.0 - 47.0 % | [facility] | | | | | | [facility] | | | | | | [facility] | | | | | [facility] - | | | | | | [facility]ATORY | | + + + + + + | MCV | 93.5 | 83.0 - 101.0 fL | [facility] | | | | | | [facility] | | | | | | [facility] | | | | | [facility] - | | | | | | LAB[facility]ATORY | | + + + + + + | MCH | 30.4 | 28.0 - 35.0 pg | [facility] | | | | | | [facility] | | | | | | [facility] | | | | | | [facility] - | | | | | | LABORATORY | | + + + + + + | MCHC | 32.5 | 32.0 - 36.0 | [facility] | | | | | g/dL | [facility] | | | | | | [facility] | | | | | | [facility] - | | | | | | LABORATORY | | + + + + + + | RDW-CV | 14.3 | <15.0 % | [facility] | | | | | | [facility] | | | | | | [facility] | | | | | | [facility] - | | | | | | LAB[facility]ATORY | | + + + + + + | Platelet | 357 | 140 - 440 K/uL | [facility] [...] + + + + | % | 74.2 | 45.0 - 82.0 % | [facility] | | | Neutrophils | | | [facility] | | | | | | [facility] | | | | | | [facility] - | | | | | | LABORATORY | | + + + + + + | % | 16.0 (L) | 20.0 - 45.0 % | [facility] | | | Lymphocytes | | | [facility] | | | | | | [facility] | | | | | | [facility] - | | | | | | LABORATORY | | + + + + + + | % Monocytes | 6.9 | 4.0 - 12.0 % | [facility] | | | | | | [facility] - | | | | | | LABORATORY | | + + + + + + | % | 2.0 | 0.0 - 5.0 % | [facility] | | | Eosinophils | | | [facility] | | | [facility] | | [facility] | | | | | | CENTER - | | | | | | LABORATORY | | + + + + + + | % Basophils | 0.9 | 0.0 - 1.0 % | [facility] | | [facility] | [facility] | [facility] | [facility] | | | | | | CENTER - | | | | | | LABORATORY | | + + + + + + | Absolute | 4.60 | 1.80 - 8.50 | [facility] | | | Neutrophils | | K/uL | [facility] | | | | | | [facility] | | | | | | CENTER - | | | | | | LABORATORY | | + + + + + + | Absolute | 1.00 | 0.60 - 3.20 | [facility] | | | Lymphocytes | | K/uL | [facility] | | | | | | [facility] | | | | | | CENTER - | | | | | | LABORATORY | | + + + + + + | Absolute | 0.40 | 0.00 - 1.00 | [facility] | | | Monocytes | | K/uL | [facility] | | | | | | [facility]ICAL | | | | | | CENTER - | | | | | | LABORATORY | | + + + + + + | Absolute | 0.10 | 0.00 - 0.40 | [facility] | | | Eosinophils | | K/uL | [facility] | | | | | | [facility]ICAL | | | | | | CENTER - | | | | | | LABORATORY | | + + + + + + | Absolute | 0.10 | 0.00 - 0.10 | [facility] | | | Basophils | | K/uL | [facility] | [...] + | [facility] | [address] | [place], [place] | [phone] | | [facility] | | [address] | | | - LABORATORY | | | | + + + + + Sedimentation Rate (06/24/2017 4:25 PM PST) + +-------+ + + + | Component | Value | Ref Range | Performed | Pathologist | | | | | At | Signature | + +-------+ + + + | Erythrocyte | 3 | <30 mm/hr | [facility] | | | | | | [facility] | | | [facility] | | | MEDICAL | | | on Rate | | | CENTER - | | | | | | LABORATORY | | + +-------+ + + + + + | Specimen | + + | Blood | + + + + + + + | Performing | Address | City/State/Zipcode | Phone Number | | Organization | | | | + + + + + | [facility] | [address] | [place] | [phone] | | [facility] | | [address] | | | - LABORATORY | | | | + + + + + Comprehensive Metabolic Panel (06/24/2017 4:25 PM PST) + + + + + + | Component | Value | Ref Range | Performed | Pathologist | | | | | At | Signature | + + + + + + | Na | 142 | 136 - 149 | [facility] | | | | | mmol/L | [facility] | | | | | | MEDICAL | | | | | | CENTER - | | | | | | LABORATORY | | + + + + + + | K | 3.7 | 3.5 - 5.1 | [facility] | | | | | mmol/L | [facility] | | | | | | MEDICAL | | | | | | CENTER - | | | | | | LABORATORY | | + + + + + + | Cl | 104 | 98 - 109 mmol/L | [facility] | | | [facility] | [facility] | | | | | | [facility]ICAL | | | | | | CENTER - | | | | | | LABORATORY | | + + + + + + | CO2 | 30 | 24 - 31 mmol/L | [facility] | | | | [facility] | | | | | | MEDICAL | | | | | | CENTER - | | | | | | LABORATORY | | + + + + + + | Anion Gap | 8 | 3 - 16 mmol/L | [facility] | | | | | [facility] | | | | | | MEDICAL | | | | | | CENTER - | | | | | | LABORATORY | | + + + + + + | Glucose | 77 | 70 - 109 mg/dL | [facility] | | | [facility] | | | | | | [facility]ICAL | | | | | | CENTER - | | | | | | LABORATORY | | + + + + + + | BUN | 11 | 7 - 18 mg/dL | [facility] | | | | | | [facility] | | | | | | MEDICAL | | | | | | CENTER - | | | | | | LABORATORY | | + + + + + + | Creatinine | 0.66 | 0.60 - 1.30 | [facility] | | | | | mg/dL | [facility] | | | | | | MEDICAL | | | | | | CENTER - | | | | | | LABORATORY | | + + + + + + | eGFR if not | >60Comment: GLOMERULAR | >=60 | [facility] | | | | FILTRATION | mL/min/1.73m2 | [facility] | | | MICRONESIAN | RATE,ESTIMATED | | MEDICAL | | | | mL/min/1.80e3Efna than | | CENTER - | | | | 60 Chronic kidney | | LABORATORY | | | | disease,if found over a | | | | | | 3-month period.Less than | | | | | | 15 Kidney failureFor | | | | | | | | | | | | Americans,multiply the | | | | | | calculated GFR by 1.21. | | | | | | | | | | + + + + + + | Calcium | 9.7 | 8.3 - 10.5 | [facility] | | | | | mg/dL | [facility] | | | | | | MEDICAL | | | | | | CENTER - | | | | | | LABORATORY | | + + + + + + | Albumin | 4.1 | 3.2 - 5.0 g/dL | [facility] | | | | | | [facility] | | | | | | MEDICAL | | | | | | CENTER - | | | | | | LABORATORY | | + + + + + + | Bilirubin | 0.9 | 0.1 - 1.5 mg/dL | [facility] | | | Total | | | [facility] | | | | | | MEDICAL | | | | | | CENTER - | | | | | | LABORATORY | | + + + + + + | Total | 7.0 | 6.0 - 7.8 g/dL | [facility] | | | Protein | | | [facility] | | | | | | MEDICAL | | | | | | CENTER - | | | | | | LABORATORY | | + + + + + + | AST | 53 (H) | 10 - 42 U/L | [facility] | | | | | | [facility] | | [facility] | | | MEDICAL | | | | | | CENTER - | | | | | | LABORATORY | | + + + + + + | ALT | 48 (H) | 6 - 45 U/L | [facility] | | | | | | [facility] | | | | | | MEDICAL | | | | | | CENTER - | | | | | | LABORATORY | | + + + + + + | Alkaline | 101 | 40 - 110 U/L | [facility] | | | Phosphatase | | | [facility] | | | | | | MEDICAL | | | | | | CENTER - | | | | | | LABORATORY | | + + + + + + | Globulin | 2.9 | 2.1 - 3.8 g/dL | [facility] | | | | | | [facility] | | [facility] | [facility] | | | | | | CENTER - | | | | | | LABORATORY | | + + + + + + | Albumin/Yodit | 1.4 | 0.8 - 2.0 | [facility] | | | bulin Ratio | | | [facility] | | | | | | MEDICAL | | | | | | CENTER - | | | | | | LABORATORY | | + + + + + + | BUN/Creatin | 16.7 | | [facility] | | | ine Ratio | | | [facility] | | [...] [address] | [place] | [phone] | | [facility] | | [address] | | | - LABORATORY | | | | + + + + + C-Reactive Protein (06/24/2017 4:25 PM PST) + +-------+ + + + | Component | Value | Ref Range | Performed | Pathologist | | | | | At | Signature | + +-------+ + + + | CRP | 1.01 | <8.00 mg/L | [facility] | | | | | | [facility] [...] [address] | [place] | [phone] | | [facility] | | [address] | | | - LABORATORY | | | | + + + + + documented in this encounter Visit Diagnoses + + | Diagnosis | + + | Chronic daily headache - Primary Headache | + + | Chronic migraine without aura without status migrainosus, not intractable Chronic | | migraine without aura, without mention of intractable migraine without mention of status | | migrainosus | + + | Cervicogenic headache Headache | + + | Poor sleep | + + | Medication overuse headache Drug induced headache, not elsewhere classified | + + | Caffeine use | + + | Anticoagulated Encounter for long-term (current) use of anticoagulants | + + documented in this encounter
--- OUTSIDE RECORDS SUMMARY | ~2019-09-06 | XMS | Encounter Summary ---
Demographics + + + | Address | [address] | | | [place] [address] | + + + | Home Phone [...] [place], [place] | | | | | [address] | | + + + + + Care Team Providers + +------+ + | Care Strike Out Machine Operator Name | Role | Phone | + +------+ + | Raven Kim PA-C | PCP | | + +------+ + Reason for Visit +--------+ + | Reason | Comments | +--------+ + | Other | Results call | +--------+ + Encounter Details +--------+ + + + + | Date | Type | Department | Care Team | Description | +--------+ + + + + | 06/24/ | Telephone | [facility] | Marly Kaufman, | Other (Results call) | | 2019 | | PULMONOLOGY [address] | COMPACT ASSEMBLER [address] | | | | | [address] | [address], | | | | | [place], [place] | [place] [address] | | | | | [address] | [phone] | | | | | [phone] | | | +--------+ + + + [...] | | | | | [place] [address] | | | | | | [phone] | | | | | | | | +--------+---------+ + + + documented as of this encounter Visit Diagnoses Not on filedocumented in this encounter"
--- OUTSIDE RECORDS SUMMARY | ~2019-09-06 | XMS | Clinical Summary ---
Demographics + + + | Address | [address] | | | [place] [address] | + + + | Home Phone | | + + + | Preferred Language | Unknown | + + + | Marital Status | | + + + | Anabaptist Affiliation | CHR | + + + | Race | White | + + + | Ethnic Group | Not or | + + + Author + + + | Author | [facility] | + + + | Organization | [facility] | + + + | Address | Unknown | + + + | Phone | Unavailable | + + + Support + + + + + | Name | Relationship | Address | Phone | + + + + + | Gamaliel Cornell | ECON | [address] | | | | | [place], [place] | | | | | [address] | | + + + + + Care Team Providers + +------+ + | Care Reference Data Expert Name | Role | Phone | + +------+ + | Raven Kim | PCP | | + +------+ + Source Comments [facility] In[facility] Allergies + + + + + + | Active Allergy | Reactions | Severity | Noted | Comments | | | | | Date | | + + + + + + | Sulfa (Sulfonamide | Nausea/Vomiting | High | 04/06/20 | | | Antibiotics) | | | 08 | | + + + + + + Medications + + + +---------+------+------+-------+ | Medication | Sig | Dispensed | Refills | Star | End | Statu | | | | | | t | Date | s | | | | | | Date | | | + + + +---------+------+------+-------+ | WARFARIN OR | 3 days 12mg and 4 | | 0 | | | Activ | | | day 8 mg | | | | | e | + + + +---------+------+------+-------+ | duloxetine | Take 30 mg by mouth | | 0 | | | Activ | | (CYMBALTA) 30 mg | once daily. | | | | | e | | Oral Capsule, | | | | | | | | Delayed | | | | | | | | Release(E.C.) | | | | | | | + + + +---------+------+------+-------+ | beclomethasone | Inhale by mouth. | | 0 | 12/0 | | Activ | | (APRYL GRIFFINR) 40 | | | | 3/20 | | e | | mcg/actuation | | | | 19 | | | | inhalation HFA | | | | | | | | aerosol breath | | | | | | | | activated | | | | | | | + + + +---------+------+------+-------+ | levalbuterol 45 | INHALE 2 PUFFS INTO | | 0 | 10/3 | | Activ | | mcg/actuation | LUNGS EVERY 4 TO 6 | | | 1/20 | | e | | inhalation HFA | HOURS DIRECTED | | | 19 | | | | aerosol inhaler | | | | | | | + + + +---------+------+------+-------+ | azelastine 137 mcg | Instill 1 spray in | | 0 | 12/0 | | Activ | | (0.1 %) nasal | nose. | | | 3/20 | | e | | aerosol,spray | | | | 19 | | | + + + +---------+------+------+-------+ | baclofen 10 mg | TAKE 1 TO 2 TABLETS | | 0 | 11/0 | | Activ | | oral tablet | BY MOUTH THREE TIMES | | | 12/21 | | e | | | DAILY NEEDED FOR | | | 19 | | | | | SPASMS | | | | | | + + + +---------+------+------+-------+ | levothyroxine 100 | Take 100 mcg by | | 0 | 12/0 | | Activ | | mcg oral tablet | mouth once daily. | | | 01/21 | | e | | | | | | 19 | | | + + + +---------+------+------+-------+ | calcium | Take 120 mg by mouth | | 0 | | | Activ | | carbonate/vitamin D3 | once daily. | | | | | e | | (CALCIUM+D ORAL) | | | | | | | + + + +---------+------+------+-------+ | Levocetirizine | Take by mouth. 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 | + + + | Dysphonia | 05/19/2019 | + + + | Pharyngeal dysphagia | 05/19/2019 | + + + Family History + + +------+ + | Medical History | Relation | Name | Comments | + + +------+ + | Thyroid disease | Father | | | + + +------+ + | Autoimmune Disease | Mother | | | + + +------+ + | Thyroid disease | Mother | | | + + +------+ + | Osteoporosis | Other | | | + + +------+ + + +------+--------+ + | Relation | Name | Status | Comments | + +------+--------+ + | Father | | Alive | | + +------+--------+ + | Mother | | Alive | | + +------+--------+ + | Other | | | | + +------+--------+ + Social History + +-------+ +--------+------+ | [...] + + +---------+ + | Yes | 2 Glasses of wine | 2.0 | | + + +---------+ + + + + + | Alcohol Habits | Answer | Date Recorded | + + + + | How often do you have a drink containing | 2-4 times a month | 05/19/2019 | | alcohol? | | | + + + + | How many drinks containing alcohol do you | 1 or 2 | 05/19/2019 | | have on a typical day when you are | | | | drinking? | | | + + + + | How often do you have six or more drinks on | Not asked | | | one occasion? | | | + + + + + + + | Sex Assigned [...] + + + | Blood Pressure | 107/71 | 09/24/2009 12:06 PM | | | | | PDT | | + + + + + | Pulse | 95 | 09/24/2009 12:06 PM | | | | | PDT [...] Weight | 58.5 kg (129 lb) | 05/09/2019 2:54 PM | | | | | PST | | + + + + + | Height | 162.6 cm (5' 4") | 05/09/2019 2:54 PM | | | | | PST | | + + + + + | Body Mass Index | 22.14 | 05/09/2019 2:54 PM | | | | | PST | | + + + + + Plan of Treatment + + + + + | Health Maintenance | Due Date | Last Done | Comments | + + + + + | Influenza (Flu) | | | | | vaccination (#1) | 9 | | | + + + + + | Pneumococcal | Aged Out | 03/13/2019 | No longer eligible | | vaccination | | | based on patient's | | | | | age to complete this | | | | | topic | + + + + + Results Not on filefrom Last 3 Months Insurance + +--------+ +--------+ + +------+ | Payer | Benefi | Subscriber | Effect | Phone | Address | Type | | | t Plan | ID | darling | | | | | | / | | Dates | | | | | | Group | | | | | | + +--------+ +--------+ + +------+ | BLUE CROSS BLUE | BCBS | [phone] | 06/04/19 | [phone] | [address] | PPO | | SHIELD | OUT OF | x | 19-Pre | 8 | [address] [address] | | | | STATE | | sent | | [place], | | | | | | | | [place] | | | | | | | | [address] | | + +--------+ +--------+ + +------+ + +--------+ +--------+ + + | Guarantor Name | Accoun | Relation to | Date | Phone | Billing Address | | | t Type | Patient | of | | | | | | | | | | + +--------+ +--------+ + + | Nilsa Cornell | Person | Self [birth year] | [address] | | | al/Fam | | 1966 | [phone] | [place] | | | [place] | | | [address] (Home) | [address] | + +--------+ +--------+ + +
--- OUTSIDE RECORDS SUMMARY | ~2019-09-06 | XMS | Encounter Summary ---
Demographics + + + | Address | [address] | | | [place] [address] | + + + | Home Phone [...] [place], [place] | | | | | [address] | | + + + + + Care Team Providers + +------+ + | Care Meter Installer Name | Role | Phone | + [...] + + | 01/29/ | Hospital | [facility] | Pipo Rajan | | | 2014 - | Encounter | [facility] | DO [address] | | | | | [address] | [facility] | | | 01/30/ | | [place] | [place] [address] | | | 2014 | | [address] | [phone] | | | | | [phone] | | | +--------+ + + + [...] can also do teaching , phone number: [phone]. In emergency go to the emergency department. [...] you use a basin, wash it out. [phone] [employer]. [address] [place] [address], [place] [address]. All righ ts reserved. This information is [...] mosley RN - 01/30/2015 11:45 AM PDTCase manufacturing manager here to help organize supplies for [...] Pipo Wu, - 01/30/2015 8:26 AM PDT [facility] Progress note Hospital Day: 2 POST [...] Signed by: Pipo Rajan DO, 01/30/2015 8:27 [facility] Nita Jason RN - 01/30/2015 7:45 AM [...] P DTC/o pain increasing, encouraged to use acidity tester more frequently. Patient states she keeps forge tting that acidity tester is there. Nita Jason RN - 01/29/2015 3:30 PM PDTSleeping with even, unlabored respira tions. Nita Jason RN - 01/29/2015 3:00 PM PDTC/o pain 8/10, dilaudid acidity tester started. C/o itching and na usea, medicated [...] [address] | | | | | | [place] [address] | | | | | | [phone] | | | | | | | [...] [address] | [place] | [phone] | | [facility] | | [address] | | | - LABORATORY | | [...] + | [facility] | [address] | [place] | [phone] | | [facility] | | [address] | | | - LABORATORY | | [...] - 1.030 | [facility] | | | [place], | | | [facility] | | [...] [address] | [place] | [phone] | | [facility] | | [address] | | | - LABORATORY | | [...] | | | | | | use Savage 10/325 if ordered. If | | | [...] | | | | (DILAUDID) 1 mg/mL TRENCH PIPE LAYER HELPER | | 15 3:01 | | | [...] | | | | Dose(mg): 0, Starting TRENCH PIPE LAYER HELPER | | | | | | | Dose(mg): 0.2, Incremental | | | | | | | Increase TRENCH PIPE LAYER HELPER Dose(mg): 0.1, | | | | | | | Maximum TRENCH PIPE LAYER HELPER Dose(mg): 0.4, | | | | | [...]
--- OUTSIDE RECORDS SUMMARY | ~2019-09-06 | XMS | Encounter Summary ---
Demographics + + + | Address | [address] | | | [place] [address] | + + + | Home Phone | | + + + | Preferred Language | Unknown | + + + | Marital Status | | + + + | Jew Affiliation | 1013 | + + + | Race | Unknown | + + + | Ethnic Group | Unknown | + + + Author + + + | Author | [facility] | | | and [place] | + + + | Organization | [facility] | | | [...] [place], [place] | | | | | [address] | | + + + + + Care Team Providers + +------+ + | Care Surgical Technician Name | Role | Phone | + +------+ + | Raven Kim PA-C | PCP | | + +------+ + Reason for Visit +---------+ + | Reason | Comments | +---------+ + | Results | Patterson pH study | +---------+ + Encounter Details +--------+ + + + + | Date | Type | Department | Care Team | Description | +--------+ + + + + | 10/07/ | Telephone | [facility] | Pipo Don MD | Results (Patterson pH | | 2019 | | GASTROENTEROLOGY | [address], [place] | study) | | | | [address] [place] | [address] [place], [place] | | | | | [address] [place], [place] | [address] | | | | | [address] | | | | | | [phone] | | | +--------+ + + + [...] | | | | | [place] [address] | | | | | | [phone] | | | | | | | | +--------+---------+ + + + documented as of this encounter Visit Diagnoses Not on filedocumented in this encounter"
--- OUTSIDE RECORDS SUMMARY | ~2019-09-06 | XMS | Encounter Summary ---
Demographics + + + | Address | [address] | | | [place] [address] | + + + | Home Phone [...] [place], [place] | | | | | [address] | | + + + + + Care Team Providers + +------+ + | Care Computer Systems Architect Name | Role | Phone | + [...] | 10/07/ | Telephone | [facility] [place] | Pipo Don MD | Results (Patterson pH | | 2019 | | GASTROENTEROLOGY | [address], [place] | study) | | | | [address] [place] | [address] [place], [place] | | | | | [address] [place], [place] | [address] | | | | | [address] | | | | | | [phone] | | | +--------+ + + + [...] | | | | | | [address] | | | | | | [place] [address] | | | | | | [phone] | | | | | | | | +--------+---------+ + + + documented as of this encounter Visit Diagnoses Not on filedocumented in this encounter"
--- OUTSIDE RECORDS SUMMARY | ~2019-09-06 | XMS | Clinical Summary ---
Demographics + + + | Address | [address] | | | [place] [address] | + + + | Home Phone | | + + + | Preferred Language | Unknown | + + + | Marital Status | | + + + | Buddhist Affiliation | CHR | + + + [...] [place], [place] | | | | | [address] | | + + + + + Care Team Providers + +------+ + | Care Systems Accountant Name | Role | Phone | + +------+ + | Raven Kim | PCP | | + +------+ + Source Comments SAN[facility] is fully [facility] InPatient.[facility] & [facility] Allergies + + + + + [...] | BCBS | xxxxxxxxxxx | 06/04/19 | [phone] | [address] | PPO | | SHIELD | OUT OF | x | 19-Pre | 8 | [address] [address] | | | | STATE | | sent | | [place], | | | | | | | | [place] | | | | | | | | [address] | | + +--------+ +--------+ + +------+ [...] [place] | | | 6 (Home) | [address] | + +--------+ +--------+ + +
--- OUTSIDE RECORDS SUMMARY | ~2019-09-06 | XMS | Encounter Summary ---
Demographics + + + | Address | [address] | | | [place] [address] | + + + | Home Phone | | + + + | Preferred Language | Unknown | + + + | Marital Status | | + + + | Congregation Affiliation | 1013 | + + + [...] [place], [place] | | | | | [address] | | + + + + + Care Team Providers + +------+ + | Care Negative Notcher Name | Role | Phone | + [...] Radiology | Diagnoses | Ying, | [facility] | | | | | Pulmonary | Yuli | [address] | | | | | hypertension | MD [address] | [address] | | | | | ([facility]) | [address] | [place], [place] | | | | | Procedures | [address] | [address] | | | | | ECHO | [address] | Phone: | | | | | Complete | [place], [place] | [phone] | | | | | | [address] | Fax: | | | | | | Phone: | [phone] | | | | | | [phone] | | | | | | | Fax: | | | | | | | [phone] | | +--------+--------+ + + + + Reason for Visit Diagnostic/Screening (Routine) +--------+--------+ + + + + | Status | Reason | Specialty | Diagnoses / | Referred By | Referred To | | | | | Procedures | Contact | Contact | +--------+--------+ + + + + | Closed | | Radiology | Diagnoses | Ying, | [facility] | | | | | Pulmonary | Yuli | [address] | | | | | hypertension | MD [address] | [address] | | | | | (HCC) | [address] | [place], [place] | | | | | Procedures | [address] | [address] | | | | | ECHO | [address] | Phone: | | | | | Complete | [place], [place] | [phone] | | | | | | [address] | Fax: | | | | | | Phone: | [phone] | | | | | | [phone] | | | | | | | Fax: | | | | | | | [phone] | | +--------+--------+ + + + + Encounter Details +--------+ + + + + | Date | Type | Department | Care Team | Description | +--------+ + + + + | 03/01/ | Hospital | [facility] | Yuli He | Pulmonary | | 2019 | Encounter | [facility] ECHO | MD [address] | hypertension (HCC) | | | | [address] | [address] | | | | | [address] [place], [place] | [place], [place] | | | | | [address] | [address] | | | | | [phone] | [phone] | | | | | | | [...] | 1 | 12/19/19 | | | [id number]-hxycttiaz-q | RIBBON TO BOTH EYES | | | 18 | 9 | | examethasone | TID | | | | | | (MAXITROL) | | | | | | | 3.5-07066-8.1 | | | | | | | [...] [address] | | | | | | [place] [address] | | | | | | [phone] | | | | | | | | +--------+---------+ + + + documented as of this encounter Procedures + +--------+ + + + | Procedure Name | Priori | Date/Time | Associated Diagnosis | Comments | | | ty | | | | + +--------+ + + + | ECHO COMPLETE | Routin | 03/01/2019 | Pulmonary | Results for this | | | e | 2:52 PM | hypertension (HCC) | procedure are in the | | | | PDT | | results section. | + +--------+ + + + documented in this encounter Results ECHO Complete (03/01/2019 2:52 PM PDT) + +--------+ + + + | Component | Value | Ref Range | Performed | Pathologist | | | | | At | Signature | + +--------+ + + + | LVEF-TTE | 67 | % | [facility] | | | TRANSTHORAC | | | | | | IC ECHO | | | | | + +--------+ + + + | BASELINE | 120/80 | mmHg | [facility] | | | BLOOD | | | | | | PRESSURE | | | | | + +--------+ + + + | Patient | 127# | | [facility] | | | Weight | | | | | | (lbs) | | | | | + +--------+ + + + | Patient | 64" | | [facility] | | | Height | | | | | + +--------+ + + + | Inferior | 0.3 | cm | [facility] | | | Vena Cava | | | | | | Diameter at | | | | | | | | | | | | Inspiration | | | | | + +--------+ + + + | Inferior | 1.8 | cm | [facility] | | | Vena Cava | | | | | | Diameter at | | | | | | Expiration | | | | | + +--------+ + + + | RA PRESSURE | 3 | mmHg | [facility] | | + +--------+ + + + | LVIDd | 4.43 | cm | [facility] | | + +--------+ + + + | FS | 33 | % | [facility] | | + +--------+ + + + | LA volume | 39.93 | mL | [facility] | | + +--------+ + + + | Ascending | 2.82 | cm | [facility] | | | aorta | | | | | + +--------+ + + + | AV mean | 5.81 | mmHg | [facility] | | | gradient | | | | | + +--------+ + + + | MV mean | 5 | mmHg | [facility] | | | gradient | | | | | + +--------+ + + + | MV Area by | 3.55 | cm2 | [facility] | | | P 1/2 | | | | | | method | | | | | + +--------+ + + + | PV peak | 6.23 | mmHg | [facility] | | | gradient | | | | | + +--------+ + + + | LVOT peak | 108.7 | cm/s | [facility] | | | shelley | | | | | + +--------+ + + + | LVOT peak | 23.76 | cm | [facility] | | | VTI | | | | | + +--------+ + + + | AV peak shelley | 140.11 | cm/s | [facility] | | + +--------+ + + + | AV VTI | 32.96 | cm | [facility] | | + +--------+ + + + | AV peak | 7.85 | mmHg | [facility] | | | gradient | | | | | + +--------+ + + + | MV peak | 10.24 | mmHg | [facility] | | | gradient | | | | | + +--------+ + + + | TV peak | 2.26 | mmHg | [facility] | | | gradient | | | | | + +--------+ + + + | PV mean | 3.36 | mmHg | [facility] | | | gradient | | | | | + +--------+ + + + | MV Pressure | 61.9 | msec | [facility] | | | 1/2 time | | | | | + +--------+ + + + | LA Volume | 25 | mL/m2 | [facility] | | | Index | | | | | + +--------+ + + + | AV LVOT | 4.73 | mmHg | [facility] | | | Peak | | | | | | Gradient | | | | | + +--------+ + + + | AV LVOT | 3.08 | mmHg | [facility] | | | Mean | | | | | | Gradient | | | | | + +--------+ + + + | TR Peak | 8 | mmHg | [facility] | | | Gradient | | | | | + +--------+ + + + | RV Free | 11.98 | cm/s | [facility] | | | Wall Peak | | | | | | S' | | | | | + +--------+ + + + | TR Velocity | 143.84 | cm | [facility] | | + +--------+ + + + | PI Peak | 124.82 | cm/s | [facility] | | | Velocity | | | | | + +--------+ + + + | LV | 6.25 | cm | [facility] | | | Diastolic | | | | | | Length 4C | | | | | + +--------+ + + + | RV | 2.79 | cm | [facility] | | | Diastolic | | | | | | Basal | | | | | | Diameter | | | | | + +--------+ + + + | LV | 67 | % | [facility] | | | Tate's | | | | | | Biplane EF | | | | | + +--------+ + + + | LV ED | 73.76 | ml | [facility] | | | Volume | | | | | | (Tate's) | | | | | + +--------+ + + + | LV ED | 46 | ml/m2 | [facility] | | | Volume | | | | | | Index | | | | | + +--------+ + + + | LV ES | 24.56 | ml | [facility] | | | Volume | | | | | + +--------+ + + + | LVOT Mean | 84.08 | cm/s | [facility] | | | Velocity | | | | | + +--------+ + + + | RVSP | 11 | mmHg | [facility] | | | Estimated | | | | | + +--------+ + + + | MV E' | 8.3 | cm/s | [facility] | | | Lateral | | | | | | Velocity | | | | | + +--------+ + + + | MV E' | 8.65 | cm/s | [facility] | | | Septal | | | | | | Velocity | | | | | + +--------+ + + + | MV | 208.83 | msec | [facility] | | | Deceleratio | | | | | | n Time | | | | | + +--------+ + + + | MV E/A | 1.61 | | [facility] | | | Ratio | | | | | + +--------+ + + + | MV Mean | 106.24 | cm/s | [facility] | | | Velocity | | | | | + +--------+ + + + | MV Peak | 93.59 | cm/s | [facility] | | | A-Wave | | | | | + +--------+ + + + | MV Peak | 150.9 | cm/s | [facility] | | | E-Wave | | | | | + +--------+ + + + | TV | 198.58 | msec | [facility] | | | Deceleratio | | | | | | n Time | | | | | + +--------+ + + + | TV Peak | 46.13 | cm/s | [facility] | | | A-Wave | | | | | + +--------+ + + + | TV Peak | 75.23 | cm/s | [facility] | | | E-Wave | | | | | + +--------+ + + + | PV Mean | 85.41 | cm/s | [facility] | | | Velocity | | | | | + +--------+ + + + | AV Mean | 117.82 | cm/s | [facility] | | | Velocity | | | | | + +--------+ + + + | RA Area | 14.6 | cm2 | [facility] | | + +--------+ + + + | RA | 3.5 | cm | [facility] | | | Dimension | | | | | + +--------+ + + + | LA/Aorta | 1.28 | | [facility] | | | Ratio | | | | | + +--------+ + + + | LA Area | 12.67 | cm2 | [facility] | | + +--------+ + + + | LA Systolic | 24.73 | mmHg | [facility] | | | Pressure | | | | | + +--------+ + + + | MV E/E | 17.45 | | [facility] | | | SEPTAL | | | | | + +--------+ + + + | MV E/E | 18.18 | | [facility] | | | LATERAL | | | | | + +--------+ + + + | LA Major | 0.3296 | cm | [facility] | | + +--------+ + + + | LV ES | 15 | ml/m2 | [facility] | | | Volume | | | | | | Index | | | | | + +--------+ + + + | Heart Rate | 80 | | [facility] | | + +--------+ + + + | MV E/E' | 17.8 | | [facility] | | | AVERAGE | | | | | + +--------+ + + + | Aortic Root | 3.2 | cm | [facility] | | | Diameter | | | | | + +--------+ + + + | IVS | 0.8 | cm | [facility] | | | Diastolic | | | | | | Thickness | | | | | | MM | | | | | + +--------+ + + + | LVPW | 0.89 | cm | [facility] | | | Diastolic | | | | | | Thickness | | | | | | MM | | | | | + +--------+ + + + | IVS | 1.23 | cm | [facility] | | | Systolic | | | | | | Thickness | | | | | | MM | | | | | + +--------+ + + + | LV Systolic | 2.98 | cm | [facility] | | | Diameter | | | | | | MM | | | | | + +--------+ + + + | LVPW | 1.4 | cm | [facility] | | | Systolic | | | | | | Thickness | | | | | | MM | | | | | + +--------+ + + + | AV Cusp | 1.27 | cm | [facility] | | | Seperation | | | | | | MM | | | | | + +--------+ + + + | LA Systolic | 4.11 | cm | [facility] | | | Diameter | | | | | | MM | | | | | + +--------+ + + + | TAPSE | 1.67 | cm | [facility] | | + +--------+ + + + + + | Specimen | + + | | + + + + + | Narrative | Performed At | + + + | 1. Normal | [facility] | | left ventricular systolic function. Left ventricular ejection | | | fraction estimated at 67%2. Normal left ventricular wall motion.3. | | | Normal right ventricular size and systolic function4. Normally | | | functioning mechanical mitral valve. No prosthetic valvular or | | | paravalvular regurgitation. Mean gradient is 5 mmHg. | | | | | + + + + +---------+ + + | Performing | Address | City/State/Zipcode | Phone Number | | Organization | | | | + +---------+ + + | [facility] | | | | + +---------+ + + documented in this encounter Visit Diagnoses + + | Diagnosis | + + | Pulmonary hypertension (HCC) Other chronic pulmonary heart diseases | + + documented in this encounter
--- OUTSIDE RECORDS SUMMARY | ~2019-09-06 | XMS | Encounter Summary ---
Demographics + + + | Address | [address] | | | [place] [address] | + + + | Home Phone | | + + + | Preferred Language | Unknown | + + + | Marital Status | | + + + | Adventism Affiliation | 1013 | + + + | Race | Unknown | + + + | Ethnic Group | Unknown | + + + Author + + + | Author | [facility] | | | and [place] | + + + | Organization | [facility] | [...] [place], [place] | | | | | [address] | | + + + + + Care Team Providers + +------+ + | Care Women'S Health Care Nurse Practitioner Name | Role | Phone | + [...] + + | 03/01/ | Emergency | [facility] | Eduin Khoury, | Medication side | | 2019 | | MEDICAL CENTER | PA-C [address] | effect (Primary Dx); | | | | EMERGENCY CENTER | [address]VD [place], [place] | SOB (shortness of | | | | [address] | [address] | breath) | | | | [place], [place] | | | | | | [address] | Carmenza Espino, DO [address] | | | | | [phone] | [address] | | | | | | [place] [address] | | | | | | [phone] | | | | | | | [...] sent through Care Everywhere.Albuterol inhal ation solution (Afghan)documented in this encounter Medications at Time of [...] | 1 | 12/19/19 | | | [id number] | RIBBON TO BOTH EYES | | | 18 | 9 | | examethasone | TID | | | | | | (MAXITROL) | | | | | | | 3.5-05540-8.1 | | | | | | | [...] | | | | | | [address] [facility] [address] | | | | | | [place] [address] | | | | | | [phone] | | | | | | | [...] (500), | | | | | | development editor Shane Campbell | | | | [...]
--- OUTSIDE RECORDS SUMMARY | ~2019-09-06 | XMS | Encounter Summary ---
Demographics + + + | Address | [address] | | | [place] [address] | + + + | Home Phone | | + + + | Preferred Language | Unknown | + + + | Marital Status | | + + + | Religion Affiliation | 1013 | + + + | Race | Unknown | + + + | Ethnic Group | Unknown | + + + Author + + + | Author | [facility] | | | and [place] | + + + | Organization | [facility] | | | [...] [place], [place] | | | | | [address] | | + + + + + Care Team Providers + +------+ + | Care Underwear Cutter Name | Role | Phone | + +------+ + PCP | Unavailable | + +------+ + Encounter Details +--------+ + + + + | Date | Type | Department | Care Team | Description | +--------+ + + + + | / | Hospital | [facility] | Joon Ferris, | | | 2008 - | Encounter | [facility] | MD [address] | | | | | [address] | [address] [facility] | | | 07/06/ | | [place] | [place] | | | 2007 | | [address] | [address] | | | | | [phone] | [phone] | | | | | | | [...] documented as of this encounter Discharge Summaries Emre Lopez PA-C - 03/09/2013 4:32 PM PSTPATIENT NAME: Hernando Mora DATE OF ADMISSION: 07/02/2007 AGE/SEX: 41/F DATE OF DISCHAR GE: 07/07/2007 : 1965 ADMISSION DIAGNOSIS: Mitral regurgitation. DISCHARGE DIAGNOSES: 1. Severe mitral regurgitation. 2. Mitral stenosis. HISTORY OF PRESENT ILLNESS: The patient had mitral problems and has been evaluated and fo und to need mitral valve surgery. Hoping for robotic surgery, this had been arranged throtequila Ferris as well as Dr. Mendoza Fleming by the primary doctor as well as her cardiol ogist in [facility]. GAVIN was performed and patient was transferred up here for further amanda luation. HOSPITAL COURSE: The patient was admitted to the hospital after a couple of days wait for an available bed. When the patient was brought up here, she underwent cardiac catheteriza tion with right heart pressures and outputs and the case was reviewed by Dr. Oliva or Dr. Lawson. The patient was on beta-blockers. This was discontinued. Lasix was increased and afterload reduction was also obtained. The patient really did very well actually with IV morphine to help with her breathing as well as some of the anxiety associated with this. After evaluation, it was not quite as clear whether or not robotic surgery would be benef icial for this patient as she was found to have some degree of mitral stenosis. Unfortunat twin, both Dr. Fleming as well as Dr. Dickson are out of town this entire week. Then the pat ient decided she would like to try to stay at home until this was able to be reviewed and a final determination on surgery of choice would be made. DISPOSITION: The patient is discharged home in satisfactory condition. She did well for n early 24 hours with any IV morphine. She did well with Ativan, Lasix, and afterload reduct ion. DISCHARGE MEDICATIONS: 1. Elavil 75 mg at night. 2. Celexa 20 mg at night. 3. Enalapril 5 mg daily. 4. Lasix 40 mg daily. 5. Levoxyl 0.112 mg daily. 6. Potassium chloride 10 mEq daily. 7. Ativan 0.5 mg 1-2 every 4-6 hours as needed. We will open invitation to return or to give our office a call if she is having any increa sing problems at all. ARRON Rothman MD,FSCAI HERNANDO MORA [id number] 07/07/07 DIS IN [id number] DISCHARGE SUMMARY SILVANA Coley ES R [facility] Curtis Lawson MD [facility] B THIS REPORT IS CONFIDENTIAL AND NOT TO BE RELEASED WITHOUT PROPER AUTHORIZATION. [facility] P DEW/pmt #[id number] cc: Curtis parnell MD,[facility] MD Emre Hanna PA-C Digitally authenticated 09/02/07 1043 Curtis Lawson MD [facility] [place] [id number] 07/07/07 DIS IN [id number] DISCHARGE SUMMARY SILVANA Coley R [facility] Curtis Lawson MD [facility] B THIS REPORT IS CONFIDENTIAL AND NOT TO BE RELEASED WITHOUT PROPER AUTHORIZATION.Electronica lly signed by Emre Lopez PA-C at 03/11/2013 5:55 AM PSTdocumented in this encount er Plan of Treatment +--------+---------+ + + + | Date | Type | Specialty | Care Team | Description | +--------+---------+ + + + | 11/21/ | Office | Urology | Stephanie Robles | | | 2019 | Visit | | MD [address] | | | | | | [address] | | | | | | [place] [address] | | | | | | [phone] | | | | | | | | +--------+---------+ + + + documented as of this encounter Visit Diagnoses Not on filedocumented in this encounter"
--- OUTSIDE RECORDS SUMMARY | ~2019-09-06 | XMS | Encounter Summary ---
Demographics + + + | Address | [address] | | | [place] [address] | + + + | Home Phone | | + + + | Preferred Language | Unknown | + + + | Marital Status | | + + + | Confucianism Affiliation | 1013 | + + + [...] [place], [place] | | | | | [address] | | + + + + + Care Team Providers + +------+ + | Care Cement Crusher Operator Name | Role | Phone | [...] | | voice | | [address], | | | | | Gastroesopha | | [address] | | | | | geal reflux | | [place], | | | | | disease, | | [place] [address] | | | | | esophagitis | | Phone: | | | | | presence not | | [phone] | | | | | specified | | Fax: | | | | | Procedures | | [phone] | | | | | [place] | [...] + + + + | 09/14/ | Hospital | [facility] | Pipo Don MD | Change in voice; | | 2019 | Encounter | MED CTR [facility] INTRA OP | [address], [place] | Gastroesophageal | | | | [address] | [address] [place], [place] | reflux disease, | | | | [place], [place] | [address] | esophagitis presence | | | | [address] | | not specified | | | | [phone] | | | +--------+ + + + [...] vomiting, or vomiting blood Date Last Reviewed: 11/02/[id number] [employer]. [address] [place] [address], [place] [address]. All caro centerh ts reserved. This information is not intended [...] PO 3 XD | | 0 | / | | | (LIORESAL) 10 mg | [...] | 1 | 12/19/19 | | | [id number]-trgknvgwr-w | RIBBON TO BOTH EYES | | | 18 | 9 | | examethasone | TID | | | | | | (MAXITROL) | | | | | | | 3.5-94261-1.1 | | | | | | | [...] | | | | | [place] [address] | | | | | | [phone] | | | | | | | [...] | + + + + + | [address] | [address] | [place] [address] | [phone] | | [place] | | | [...] Negative | [facility] | | | r pau [facility] | | | [facility] | | [...] ST. | [address] | [place] | [phone] | | [facility] | | [address] | | | - LABORATORY | | | | + + + + + MARK (09/14/2018 11:11 AM PDT) + + | Specimen | + + | | + + + + + | Narrative | Performed At | + + + | Gastroenterology Patient Name: Nilsa Cornell Procedure Date: | [facility] | | 09/14/2018 11:11 AM Date of | PROVATION | | : 1965 Admit Type: Ambulatory Age: 52 Room: [facility] 01 | | | Gender: Female Note Status: Finalized Attending MD: Pipo Don , | | | MD Procedure: Upper GI endoscopy Indications: | | | Suspected esophageal reflux, For therapy of esophageal | | | reflux Providers: Pipo Don MD, | | | Mateo Baugh RN, Pahni Vu, | | | [facility], Jl Nunez MD (Anesthesia Staff) Referring MD: [...] | | nurse, the anesthesiologist and the proof technician in the | | | endoscopy [...] for pathology results in 1 week. Pipo Don | | | 09/14/2018 11:38:58 AM This report has been signed | | | electronically. Number of Addenda: 0 Note Initiated On: 09/14/2018 | | | 11:11 AM Scope In: 11:21:44 AM Scope Out: 11:29:49 AM | | | [facility], [address] , [place], [place] | | | [address] | | + + + + +---------+ [...] SPECIMEN(S): A DISTAL ESOPHAGUS SPECIMEN SOURCE: A. DISTAL | [place] [facility] | | ESOPHAGUS CLINICAL HISTORY: R49.9 [...] | | | Negative for glandular mucosa. JVR:[employer]:C2NR GROSS | | | DESCRIPTION: The specimen, [...] | | technical component was performed by [employer], [address] [place] [address] | | | [facility] [address] (Jelly Maker: Nita Ríos MD; CLIA# | | | [id number]). Professional interpretation was performed by [employer] | | | [employer] [address] | | | [facility] [address] [place] [address] (Jelly Maker: José | | | Jadyn Samson). Diagnostician: José V Rittenbach MD | | | Pathologist Electronically Signed [...]
--- OUTSIDE RECORDS SUMMARY | ~2019-09-06 | XMS | Encounter Summary ---
Demographics + + + | Address | [address] | | | [place] [address] | + + + | Home Phone | | + + + | Preferred Language | Unknown | + + + | Marital Status | | + + + | Hinduism Affiliation | 1013 | + + + | Race | Unknown | + + + | Ethnic Group | Unknown | + + + Author + + + | Author | [facility] | | | and [place] | + + + | Organization | [facility] | | | [...] [place], [place] | | | | | [address] | | + + + + + Care Team Providers + +------+ + | Care Stay Cutter Name | Role | Phone | + +------+ + | Raven Kim PA-C | PCP | | + +------+ + Reason for Visit + + + | Reason | Comments | + + + | Numbness | BUE | + + + | Pain | generalized all over body pain | + + + | Fatigue | | + + + Encounter Details +--------+---------+ + + + | Date | Type | Department | Care Team | Description | +--------+---------+ + + + | 06/24/ | Office | [facility] | Shankar Kaufman, | Fibromyalgia | | 2018 | Visit | PHYSIATRY [address] | MD [address] | (Primary Dx); | | | | [address] | [place] | Myalgia; Total body | | | | [place] | [id number] | pain; Vitamin D | | | | [address] | | deficiency; Chronic | | | | [phone] | | fatigue; Acquired | | | | | | hypothyroidism; | | | | | | General weakness; | | | | | | Bilateral hip pain | +--------+---------+ + + + Social History [...] + + + | Blood Pressure | 129/80 | 06/24/2017 2:34 PM | | | | | PST | | + + + + + | Pulse | 83 | 06/24/2017 2:34 PM | | | | | PST | | + + + + + | Temperature | - | - | | + + + + + | Respiratory Rate | 18 | 06/24/2017 2:34 PM | | | | | PST | | + + + + + | Oxygen Saturation | - | - | | + + + + + | Inhaled Oxygen | - | - | | | Concentration | | | | + + + + + | Weight | 61.2 kg (135 lb) | 06/24/2017 2:34 PM | | | | | PST | | + + + + + | Height | 160 cm (5' 3") | 06/24/2017 2:34 PM | | | | | PST | | + + + + + | Body Mass Index | 23.91 | 06/24/2017 2:34 PM | | | | | PST | | + + + + + documented in this encounter Patient Instructions Patient Instructions Alyssa Salvador RN - 06/24/2017 2:30 PM PSTLaboratory tests have be en requested. Please go to the lab to complete your laboratory testing. The results of you r laboratory testing will be reviewed at your next appointment. If your labratory results d emonstrate any emergent results the clinic will contact you. X-rays have been requested. Please go to the x-ray department after your appointment to co mplete these x-rays. The results of your x-rays will be reviewed at your next appointment. If your x-rays demonstrate any emergent results, the clinic will contact you. Please complete sleep study. We will see you back for botox injections. Get exercise Gentle exercise can help lessen your pain. Try these tips: Choose activities that are gentle on your joints, such as walking, biking, and swimming or other water exercises. Don t push yourself too hard. Build up your strength and endurance slowly, over time. Stick to it. For the most relief, exercise should become part of your daily life. Get a good night s rest To help you get more sleep, try the tips below: Sleep only in a bed, not on a couch or chair. Don t watch TV, read, or work in bed. Go to bed and get up at the same time each day. Try to avoid naps. Avoid alcohol, caffeine, and tobacco for at least 3 hours before going to bed. Avoid fluids in the evening to avoid having to get up to urinate. Other things you can do No one knows what causes fibromyalgia. But stress, poor eating habits, and extra weight can make it worse. These tips may help you feel better: Eat a balanced diet with plenty of fruits and vegetables, whole grains, lean protein, an d low-fat or nonfat dairy products. Maintain a healthy weight. Learn ways to reduce or manage the stress in your life. documented in this encounter Progress Notes Shankar Kaufman MD - 06/24/2017 2:30 PM PSTFormatting of this note might be different fro m the original. Physical Medicine & Rehabilitation Consult Referring Provider: Raven Kim PA-C Date of Service: 06/24/17 Patient ID: Nilsa Cornell is a 51 y.o. female with bilateral upper extremity tingl ing. HPI Nilsa Cornell reports that she started having numbness in the both upper extremiti es approximately 2 years ago. Her symptoms have been worsening overtime. She reports neck pain. She denies a noted association between neck pain She rate her neck pain as 5 on a numerical pain scale. Her upper extremity numbness is intermittent, occurring about every approximatly once every 7-14 days and lasting 24 hours per episode. Her upper extremity numbness is strongest over the 4th and 5th. Her upper extremity numbness is exacerbated by: No known cause. Her upper extremity numbness is reduced by: nothing Her numbness does wake her from sleep. Nilsa Cornell reports weakness. She describe her upper extremity weakness as "mod erate." She reports dropping objects. Nilsa Cornell reports taking blood thinning medications such as Coumadin or hepari n. She denies having implanted electronic device such as a pacemaker. She denies a history of diabetes. She reports a history of thyroid disease. She denies a history of rheumatoid arthritis. She denies a history of chemical exposure. She reports a history of frequent alcohol consumption, approximately 2-3 bottles of wine we ekly. Nilsa Cornell reports that they have not had previous nerve conduction study. She reports generalized body pain, body weakness. She reports "extreme fatigue". Nilsa Cornell reports onset of bilateral hip pain approximately 2 years ago. She reports she is sore "head to toe", all day everyday. She denies improved pain with activity, she reports worsening pain after physical activity. Nilsa Cornell reports having several brui ses from which she is unsure how they occurred. She indicates weakness with standing from a seated position. Nilsa Cornell denies ever having any know tick bits, [place] She reports that she travel to the [facility] a round 6-7 years ago. Past Medical History Past Medical History: Diagnosis [...] 2007 mechanical heart valve mitral, Dr. Veliz; [facility]; [facility]. CHOLECYSTECTOMY, LAPAROSCOPIC 1995 ; [facility], [facility]. 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 Review of Systems:Review of Systems Constitutional: Positive for malaise/fatigue. Negative for chills, diaphoresis, fever and w eight loss. HENT: Positive for sinus pain. Negative for congestion, ear discharge, ear pain, hearing lo ss, nosebleeds, sore throat and tinnitus. Difficult swallowing Eyes: Negative for blurred vision, double vision, photophobia, pain, discharge and redness. Respiratory: Negative for cough, hemoptysis, sputum production, shortness of breath, wheezi ng and stridor. Cardiovascular: Negative for chest pain, palpitations, orthopnea, claudication, leg swellin g and PND. Gastrointestinal: Negative for abdominal pain, blood in stool, constipation, diarrhea, hear tburn, melena, nausea and vomiting. Genitourinary: Negative for dysuria, flank pain, frequency, hematuria and urgency. Musculoskeletal: Positive for back pain, joint pain, myalgias and neck pain. Negative for f alls. Skin: Positive for itching and rash. Neurological: Positive for dizziness, tingling, weakness and headaches. Negative for tremor s, sensory change, speech change, focal weakness, seizures and loss of consciousness. Endo/Heme/Allergies: Negative for environmental allergies and polydipsia. Does not bruise/b leed easily. Psychiatric/Behavioral: Positive for depression and memory loss. Negative for hallucination s, substance abuse and suicidal ideas. The patient is nervous/anxious and has insomnia. Vitals: 06/24/17 1434 BP: 129/80 Pulse: 83 Resp: 18 PainSc: 5 PainLoc: Neck Objective Physical Exam: General Appearance: Alert and Oriented to person, place, time and situation, no distress. HEENT: PERRL, conjunctiva clear, no scleral icterus, EOM's intact Neck: Costovertebral maneuver positive to left and negative to right. Increased tone to le ft scalene complex and trapezius muscle bilaterally. Heart: Regular Rate and Rhythm Lungs: No audible wheezing or crackles. Abdomen: Non-distended Back: Symmetric Extremities: No clubbing, cyanosis or edema in all four extremities Neurological: Cranial Nerves: Intact Speech: Normal Sensory: Intact to light touch and pin prick in upper extremities. MOTOR EXAM: (5 IS NORMAL) * Indicates pain limited MUSCLE/ MOVEMENT: RIGHT LEFT Deltoids 5 5 Biceps 5 5 Triceps 5 5 Wrist Flexion 5 5 Wrist Extension 5 5 Finger Abduction 5 5 Express Clerk Strength 4+ 5 Hip Flexion 5 5 Hip Extension 5 5 Knee Flexion 5 5 Knee Extension 5 5 Extensor Hallicus Longus 5 5 Ankle Dorsiflexion 5 5 Plantarflexion 5 5 Reflexes: 2+ normal and symmetric over the biceps and brachioradialis of both upper extremities. 3+ bilateral patella and 2+bilateral Achilles Coordination: Intact with finger to nose testing in both upper extremities. Hip impingement testing positive bilaterally Able to complete squat without use of hands. Database: Cervical MRI 03/10/2017 imaging was personally reviewed by me. I concur with findings repo rted by the radiologist. There is mild cervical spondylosis at C6-7. Assessment 1. Fibromyalgia 2. Myalgia 3. Total body pain 4. Vitamin D deficiency 5. Chronic fatigue 6. Acquired hypothyroidism 7. General weakness 8. Bilateral hip pain Plan Bilateral upper extremity numbness and tingling 1. The differential diagnosis for Nilsa Cornell's symptoms included, but are not limited to: cubital tunnel syndrome, a brachial plexus injury, cervical radiculopathy, or le ss likely ulnar neuropathy at the wrist. Nilsa Cornell's clinical presentation is most consistent with intermittent paresthesia for cervical radiculitis or dystonic neck musc les. She may referred paresthesia from myofacial referral of pain from dystonic neck muscle s. 2. Today we reviewed Nilsa Cornell's most recently completed cervical MRI. We dic ussed that overall her cervical MRI is unremarkable, with noted mild degenerative changes, r elatively normal for age. 3. Today Nilsa Cornell physical examination of her upper extremities in unremarkab le. She is noted with normal sensation and strength. She reports that her upper extremity sy mptoms of bilateral hand numbness and tingling is infrequent and intermittent. She does not report having symptoms at this time. 4. For now, no nerve conduction study/EMG will be ordered. In the future if she develops mo re frequent symptoms, or physical changes including changes such as sensory or strength will consider completing a BUE NCS/EMG. Generalized body pain 5. In regard to Nilsa Cornell symptoms of chronic fatigue and generalized chronic pain we dicussed possible diagnosis including but not limited to; myopathy, fibromyalgia, v itamin deficiencies , rheumatoid arthritis, hypothyroidism, chronic infection, a rheumatolog ical condition such as Lupus and less likely lyme disease. Nilsa Cornell will complete laboratory testing to evaluate for evidence of muscle breakdown and to evaluate for rheumatoid disorders. We reviewed that there are vitamin deficiencies that may contribute all over body aches and fatigue. She will also complete laboratory testing to evaluate for common possible deficien cies. 6. We dicussed in detail the possible diagnostic consideration of fibromyalgia. We dicussed that fibromyalgia is a diagnosis of exclusion. We dicussed briefly the Chemistry change in brain involved. Nilsa Cornell was advi sed that these chemistry changes may cause everything to hurt. She was advised that for clark viduals with fibromyalgia, the area of the brain responsible for pain is put on high alert, causing a heightened response to stimulus, even what would usually be identified as non-elisa nful stimuli. It was emphasized that the pain is real, but it is being felt at a greater lev el due to chemical changes in the brain. We dicussed that exercise can help shift the brain chemistry in a positive way; she was enc ouraged to participate in cardio aerobic exercise. 7.Today we dicussed that completing exercise is not likely to be causing actual damage to t he tissues and structures of her body. We dicussed that chronic pain is no longer a marker o f damage being done rather it is evidence of past damage. Nilsa Cornell is encourag ed to maintain physical activity so long as it doesn't create new severe pain. We discusse d that inactivity may increase rate of degeneration when arthritis is involved. We discu ssed that activity maintains function, strength, and mobility. Nilsa Cornell is e ncouraged to maintain gradually increasing levels of activity. We discussed the cyclical loop were pain may contribute to tightness, then this tightness m ay contribute to pain, creating this cycle of pain and increased tone and decreased Range of motion. 8. We dicussed that as previously dicussed Nilsa Cornell should move forward with completion of sleep study, as poor sleep can contribute symptoms of generalized body pains a nd fatigue. 9. Today we discussed that if all labs return as unremarkable we will plan to move forward with treatment of fibromyalgia. 10. In regard to Nilsa Cornell increased bruising we dicussed this may due to her use of warfarin. She should discuss these changes with her PCP. 11. Nilsa Cornell was noted with positive hip impingement testing upon exam. She i dentifies her hip pain as one of her primary origins of discomfort. Nilsa Cornell w ill complete bilateral hip x-rays to evaluate for evidence of arthritic changes. 12. Nilsa Cornell will return to the clinic for previously schedule botox injectio ns for the treatment of chronic headaches. As many as 2/3 of people with fibromyalgia also suffer from chronic headaches. Thank you for allowing me to [...] documentation, as scribed by in my presence, Alyssa Salvador RN and are both accurate and complete. Shankar Kaufman MD - 06/24/2017 Cc: Raven Kim PA-C documented in this en [...] | | | | | [place] [address] | | | | | | [phone] | | | | | | | | +--------+---------+ + + + + +---------+--------+ + + | Name | Type | Priori | Associated Diagnoses | Order Schedule | | | | ty | | | + +---------+--------+ + + | XR Hip Right 2-3 | Imaging | Routin | Bilateral hip pain | Expected: | | Views | | e | | 06/24/2017, Expires: | | | | | | 06/24/2018 | + +---------+--------+ + + | XR Hip Left 2-3 | Imaging | Routin | Bilateral hip pain | Expected: | | Views | | e | | 06/24/2017, Expires: | | | | | | 06/24/2018 | + +---------+--------+ + + documented as of this encounter Procedures + +--------+ + + + | Procedure Name | Priori | Date/Time | Associated Diagnosis | Comments | | | ty | | | | + +--------+ + + + | IMAGING REPORT - | | 03/10/2017 | | Results for this | | EXTERNAL SCAN | | 12:00 AM | | procedure are in the | | | | PST | | results section. | + +--------+ + + + documented in this encounter Results Magnesium (06/24/2017 4:25 PM PST) + +-------+ + + + | Component | Value | Ref Range | Performed | Pathologist | | | | | At | Signature | + +-------+ + + + | Magnesium | 2.1 | 1.8 - 2.5 mg/dL | [facility] | | | | [...] + | [facility] | [address] | [place] | [phone] | | [facility] | | [address] | | | - LABORATORY | | | | + + + + + Iron and Transferrin (06/24/2017 4:25 PM PST) + +-------+ + + + | Component | Value | Ref Range | Performed | Pathologist | | | | | At | Signature | + +-------+ + + + | Iron | 86 | 40 - 150 ug/dL | [facility] | | [facility] - | | | | | | LABORATORY | | + +-------+ + + + | TRANSFERRIN | 278.9 | 240.0 - 480.0 | [facility] | | | | | mg/dL | [facility] | [facility] | | | | | | C[facility] - | | | | | | LABORATORY | | + +-------+ + + + | TIBC | 390 | 235 - 425 ug/dL | [facility] | | | | | [facility] | | [facility] | [facility] | | | | | | C[facility] - | | | | | | LABORATORY | | + +-------+ + + + | % | 22.0 | 20.0 - 55.0 % | [facility] | | | SATUR[facility] | | | [facility] | | [...] + | [facility] | [address] | [place] | [phone] | | [facility] | | [address] | | | - LABORATORY | | | | + + + + + TSH (06/24/2017 4:25 PM PST) + + + + + + | Component | Value | Ref Range | Performed | Pathologist | | | | | At | Signature | + + + + + + | TSH | 1.47Comment: This is a | 0.45 - 5.33 | [facility] | | | | third generation TSH | uIU/mL | [facility] | | | | test. | | MEDICAL | | | | [...] [address] | [place] | [phone] | | [facility] | | [address] | | | - LABORATORY | | | | + + + + + Borrelia burgdorferi, Ab (06/24/2017 4:25 PM PST) + + + + + + | Component | Value | Ref Range | Performed | Pathologist | | | | | At | Signature | + + + + + + | Lyme | <0.91Comment: | 0.00 - 0.90 ISR | [facility] | | | IgG/IgM EIA | | | LAB [facility] | | | | Negative | | - BKR | | | | <0.91 | | | | | | | | | | | | | | | | | | Equivocal 0.91 - | | | | | | 1.09 | | | | | | | | | | | | Positive | | | | | | >1.09 | | | | + + + + + + + + | Specimen | + + | Blood | + + + + + | Narrative | Performed At | + + + | Performed at: 01 - [facility] [address] [facility], | REFERENCE LAB | | [place], [place] [id number] Logistics Specialist: Mohan Mann MD, Phone: | [facility] | | [phone] | | + + + + + + + + | Performing | Address | City/State/Zipcode | Phone Number | | Organization | | | | + + + + + | REFERENCE LAB | [address] | [place], [place] | [phone] | | [facility] | [facility] | [address] | | + + + + + Rheumatoid Factor, Quant (06/24/2017 4:25 PM PST) + +-------+ + + + | Component | Value | Ref Range | Performed | Pathologist | | | | | At | Signature | + +-------+ + + + | RHEUMATOID | <10.0 | 0.0 - 13.9 | REFERENCE | | | FACTOR | | IU/mL | LAB [facility] | | | | | | - BKR | | + +-------+ + + + + + | Specimen | + + | Blood | + + + + + | Narrative | Performed At | + + + | Performed at: 01 - [facility] [place] [address], | REFERENCE LAB | | [place], [place] [id number] Logistics Specialist: Bernard Trammell MD, Phone: | [facility] | | [phone] | | + + + + + + + + | Performing | Address | City/State/Zipcode | Phone Number | | Organization | | | | + + + + + | REFERENCE LAB | [address] | [place], [place] | [phone] | | [facility] | [facility] | [address] | | + + + + + CCP Antibodies, IgG IgA (06/24/2017 4:25 PM PST) + + + + + + | Component | Value | Ref Range | Performed | Pathologist | | | | | At | Signature | + + + + + + | Cyclic | 8Comment: | 0 - 19 units | REFERENCE | | | Citrullin | | | LAB [facility] | | | Peptide Ab | Negative | | - BKR | | | | <20 | | | | | | | | | | | | Weak positive | | | | | | 20 - 39 | | | | | | | | | | | | Moderate positive 40 | | | | | | - 59 | | | | | | | | | | | | Strong positive | | | | | | >59 | | | | + + + + + + + + | Specimen | + + | Blood | + + + + + | Narrative | Performed At | + + + | Performed at: 01 - [facility] [address], | REFERENCE LAB | | [place] [id number] Logistics Specialist: Mohan Mann MD, Phone: | [facility] | | [phone] | | + + + + + + + + | Performing | Address | City/State/Zipcode | Phone Number | | Organization | | | | + + + + + | REFERENCE LAB | [address] | [place], [place] | [phone] | | [facility] | [place] | [address] | | + + + + + JOANN Panel, Quant (06/24/2017 4:25 PM PST) + + + + + + | Component | Value | Ref Range | Performed | Pathologist | | | | | At | Signature | + + + + + + | DS DNA AB | 1Comment: | 0 - 9 IU/mL | REFERENCE | | | | | | LAB [facility] | | | | Negative | | - BKR | | | | <5 | | | | | | | | | | | | Equivocal | | | | | | 5 - 9 | | | | | | | | | | | | Positive | | | | | | >9 | | | | + + + + + + | COIL TIER | <0.2 | 0.0 - 0.9 AI | REFERENCE | | | Autoantibod | | | LAB [facility] | | | y | | | - BKR | | + + + + + + | CABRERA | <0.2 | 0.0 - 0.9 AI | REFERENCE | | | ANTIBODY | | | LAB [facility] | | | | | | - BKR | | + + + + + + | Cabrera COIL TIER | <0.2 | 0.0 - 0.9 AI | REFERENCE | | | Antibodies | | | LAB [facility] | | | | | | - BKR | | + + + + + + | Scleroderma | <0.2 | 0.0 - 0.9 AI | REFERENCE | | | SCL-70 | | | LAB [facility] | | | | | | - BKR | | + + + + + + | SS-A | <0.2 | 0.0 - 0.9 AI | REFERENCE | | | Autoantibod | | | LAB [facility] | | | y | | | - BKR | | + + + + + + | SS-B | <0.2 | 0.0 - 0.9 AI | REFERENCE | | | Autoantibod | | | LAB [facility] | | | y | | | - BKR | | + + + + + + | Antichromat | <0.2 | 0.0 - 0.9 AI | REFERENCE | | | in IgG, | | | LAB [facility] | | | Antibodies | | | - BKR | | + + + + + + | Ribosomal P | <0.2 | 0.0 - 0.9 AI | REFERENCE | | | | | | LAB [facility] | | | Autoantibod | | | - BKR | | | y | | | | | + + + + + + | TAINA-1 | <0.2 | 0.0 - 0.9 AI | REFERENCE | | | ANTIBODY | | | LAB [facility] | | | IGG | | | - BKR | | + + + + + + | Centromere | 0.3 | 0.0 - 0.9 AI | REFERENCE | | | B | | | LAB [facility] | | | Autoantibod | | | - BKR | | | y | | | | | + + + + + + | See below: | CommentComment: | | REFERENCE | | | | Autoantibody | | LAB [facility] | | | | | | - BKR | | | | Disease | | | | | | Association | | | | | | | | | | | | | | | | | | | | | | | | Condition | | | | | | | | | | | | Frequency | | | | | | | | | | | | | | | | | | Antinuclear | | | | | | Antibody, SLE, | | | | | | mixed connectiveDirect | | | | | | (JOANN-D) | | | | | | tissue | | | | | | diseases | | | | | | | | | | | | | | | | | | dsDNA | | | | | | | | | | | | SLE | | | | | | 40 - | | | | | | 60% | | | | | | | | | | | | | | | | | | Chromatin | | | | | | | | | | | | Drug induced SLE | | | | | | 90% | | | | | | | | | | | | SLE | | | | | | | | | | | | 48 - | | | | | | 97% | | | | | | | | | | | | | | | | | | SSA (Ro) | | | | | | | | | | | | SLE | | | | | | 25 - 35% | | | | | | | | | | | | Sjogren's | | | | | | Syndrome 40 | | | | | | - 70% | | | | | | | | | | | | Lupus | | | | | | | | | | | | 100% | | | | | | _ | | | | | | | | | | | | SSB (La) | | | | | | | | | | | | SLE | | | | | | | | | | | | 10% | | | | | | | | | | | | Sjogren's Syndrome | | | | | | | | | | | | 30% | | | | | | __ | | | | | | | | | | | | Sm | | | | | | (anti-Cabrera) | | | | | | SLE | | | | | | 15 - | | | | | | 30% | | | | | | | | | | | | | | | | | | RNP | | | | | | | | | | | | Mixed Connective | | | | | | Tissue | | | | | | | | | | | | Disease | | | | | | | | | | | | 95%(U1 nRNP, | | | | | | SLE | | | | | | | | | | | | 30 - | | | | | | 50%anti-ribonucleoprotei | | | | | | n) Polymyositis and/or | | | | | | | | | | | | | | | | | | Dermatomyositis | | | | | | | | | | | | 20% | | | | | | | | | | | | | | | | | | Scl-70 | | | | | | (antiDNA | | | | | | Scleroderma (diffuse) | | | | | | 20 - | | | | | | 35%topoisomerase) | | | | | | Crest | | | | | | | | | | | | | | | | | | 13% | | | | | | | | | | | | | | | | | | Jo-1 | | | | | | | | | | | | Polymyositis and/or | | | | | | | | | | | | Dermatomyositis | | | | | | 20 - | | | | | | 40% | | | | | | | | | | | | | | | | | | Centromere | | | | | | B | | | | | | Scleroderma - Crest | | | | | | | | | | | | variant | | | | | | | | | | | | | | | | | | 80% | | | | | | | | | | | | | | | | | | Ribosomal P | | | | | | SLE | | | | | | | | | | | | 10 - 20% | | | | + + + + + + + + | Specimen | + + | Blood | + + + + + | Narrative | Performed At | + + + | Performed at: 01 - [facility] [address], | REFERENCE LAB | | [place], [place] [id number] Logistics Specialist: Bernard Trammell MD, Phone: | [facility] | | [phone] | | + + + + + + + + | Performing | Address | City/State/Zipcode | Phone Number | | Organization | | | | + + + + + | REFERENCE LAB | [address] | [place], [place] | [phone] | | [facility] | [facility] | [address] | | + + + + + Vitamin D, Deficiency Screen (25-Hydroxy) (06/24/2017 4:25 PM PST) + +--------+ + + + | Component | Value | Ref Range | Performed | Pathologist | | | | | At | Signature | + +--------+ + + + | Vitamin D, | 14 (L) | 30 - 80 ng/mL | [facility] | | | 25 Hydroxy | | | [facility] | | [...] + | [facility] | [address] | [place] | [phone] | | [facility] | | [address] | | | - LABORATORY | | | | + + + + + Vitamin B-12 (06/24/2017 4:25 PM PST) + + + + + + | Component | Value | Ref Range | Performed | Pathologist | | | | | At | Signature | + + + + + + | VITAMIN | 481Comment: DEFICIENT: | 180 - 914 pg/mL | [facility] | | | B-12 | <145 | | [facility] | | | | pg/mLINDETERMINATE: | | MEDICAL | | | | 145-180 pg/mL | | CENTER - | | | | | | LABORATORY | | + + + + + + + + | Specimen | + + | Blood | + + + + + + + | Performing | Address | City/State/Zipcode | Phone Number | | Organization | | | | + + + + + | [facility] | [address] | [place] | [phone] | | [facility] | | [address] | | | - LABORATORY | | | | + + + + + T4, Free (06/24/2017 4:25 PM PST) + +-------+ + + + | Component | Value | Ref Range | Performed | Pathologist | | | | | At | Signature | + +-------+ + + + | FT4 | 0.9 | 0.6 - 1.1 ng/dL | [facility] | | | | | | [facility] [address] | [place] | [phone] | | [facility] | | [address] | | | - LABORATORY | | | | + + + + + CK Total (06/24/2017 4:25 PM PST) + +-------+ + + + | Component | Value | Ref Range | Performed | Pathologist | | | | | At | Signature | + +-------+ + + + | CK TOTAL | 49 | 22 - 269 U/L | [facility] | | | | | | [facility] | | | | | | MEDICAL [...] + | [facility] | [address] | [place] | [phone] | | [facility] | | [address] | | | - LABORATORY | | | | + + + + + Aldolase (06/24/2017 4:25 PM PST) + +-------+ + + + | Component | Value | Ref Range | Performed | Pathologist | | | | | At | Signature | + +-------+ + + + | Aldolase | 8.1 | 3.3 - 10.3 U/L | REFERENCE | | | | | | LAB [facility] | | | | | | [facility] | | + +-------+ + + + + + | Specimen | + + | Blood | + + + + + | Narrative | Performed At | + + + | Performed at: 01 - [facility] [address] [facility], | REFERENCE LAB | | [place], [place] [id number] Logistics Specialist: Mohan Mann MD, Phone: | JESUS THAKKAR | | [phone] | | + + + + + + + + | Performing | Address | City/State/Zipcode | Phone Number | | Organization | | | | + + + + + | REFERENCE LAB | [address] | [place], [place] | [phone] | | [facility] | [address] [facility] | [address] | | + + + + + Lactate Dehydrogenase (06/24/2017 4:25 PM PST) + +---------+ + + + | Component | Value | Ref Range | Performed | Pathologist | | | | | At | Signature | + +---------+ + + + | LDH TOTAL | 220 (H) | 91 - 180 U/L | [facility] | | | | [...] + + + + + | [facility] | [address] | [place] | [phone] | | [facility] | | [address] | | | - LABORATORY | | | | + + + + + Urinalysis (06/24/2017 4:25 PM PST) + + + + + + | Component | Value | Ref Range | Performed | Pathologist | | | | | At | Signature | + + + + + + | Color, | Yellow | Light Yellow, | [facility] | | | Urine | | Yellow, Straw | [facility] | | | | [...] + + + + | Specific | 1.008 | 1.001 - 1.030 | [facility] | | | [place], | | | [facility] | | [...] + + + + | Urobilinoge | Negative | 0.2 mg/dL, 1.0 | [facility] | | | n, Urine | | mg/dL, Negative | [facility] | | | | [...] [address] | [place] | [phone] | | [facility] | | [address] | | | - LABORATORY | | | | + + + + + Myoglobin (06/24/2017 4:25 PM PST) + +---------+ + + + | Component | Value | Ref Range | Performed | Pathologist | | | | | At | Signature | + +---------+ + + + | Myoglobin | <21 (L) | 25 - 58 ng/mL | [facility] | | | | | | LAB [facility] | | | | | | [facility] | | + +---------+ + + + + + | Specimen | + + | Blood | + + + + + | Narrative | Performed At | + + + | Performed at: 01 - [facility] [place] [address], | REFERENCE LAB | | [place] [id number] Logistics Specialist: Mohan Mann MD, Phone: | JESUS - ARIANE | | [phone] | | + + + + + + + + | Performing | Address | City/State/Zipcode | Phone Number | | Organization | | | | + + + + + | REFERENCE LAB | [address] | [place], [place] | [phone] | | [facility] | [place] | [address] | | + + + + + IMAGING REPORT - EXTERNAL SCAN (03/10/2017 12:00 AM PST) + + + | Narrative | Performed At | + + + | Ordered by an | | | unspecified provider. | | + + + documented in this encounter Visit Diagnoses + + | Diagnosis | + + | Fibromyalgia - Primary Mylagia and myositis, unspecified | + + | Myalgia Mylagia and myositis, unspecified | + + | Total body pain Generalized pain | + + | Vitamin D deficiency Unspecified vitamin D deficiency | + + | Chronic fatigue Other malaise and fatigue | + + | Acquired hypothyroidism Unspecified hypothyroidism | + + | General weakness Other malaise and fatigue | + + | Bilateral hip pain Pain in joint, pelvic region and thigh | + + documented in this encounter
--- OUTSIDE RECORDS SUMMARY | ~2019-09-06 | XMS | Encounter Summary ---
Demographics + + + | Address | [address] | | | [place] [address] | + + + | Home Phone | | + + + | Preferred Language | Unknown | + + + | Marital Status | | + + + | Spiritism Affiliation | 1013 | + + + | Race | Unknown | + + + | Ethnic Group | Unknown | + + + Author + + + | Author | [facility] | | | and [place] | + + + | Organization | [facility] | | | [...] [place], [place] | | | | | [address] | | + + + + + Care Team Providers + +------+ + | Care Toe Sewer Name | Role | Phone | [...] + | 09/10/ | Telephone | [facility] | Pipo Don MD | Medication | | 2018 | | GASTROENTEROLOGY | [address], [place] | Management (lovenox) | | | | [address] [place] | [address] [facility], [place] | | | | | [address] [place], [place] | [address] | | | | | [address] | | | | | | [phone] | | | +--------+ + + + [...] | | | | | [place] [address] | | | | | | [phone] | | | | | | | | +--------+---------+ + + + documented as of this encounter Visit Diagnoses Not on filedocumented in this encounter"
--- OUTSIDE RECORDS SUMMARY | ~2019-09-06 | XMS | Encounter Summary ---
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, | [address] | Phone: | | | | | Raynaud's | [address] | [phone] | | | | | syndrome, | [place], [place] | Fax: | | | | | sclerodactyl | [address] | [phone] | | | | | y and | Phone: | | | | | | telangiectas | [phone] | | | | | | ia (CRST) | Fax: | | | | | | syndrome | [phone] | | | | | | (HCC) [...] | Radiology | Diagnoses | Ying, | [facility] [address] | | | | | Breath | Yuil | [address] | | | | | shortness | MD Keyonna | [place] | | | | | 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, | [address] | Phone: | | | | | Raynaud's | [address] | [phone] | | | | | syndrome, | [place], [place] | Fax: | | | | | sclerodactyl | [address] | [phone] | | | | | y and | Phone: | | | | | | telangiectas | [phone] | | | | | | ia (CRST) | Fax: | | | | | | syndrome | [phone] | | | | | | (HCC) [...] + + | 03/01/ | Hospital | [facility] | David Heen | Breath shortness; | | 2019 | Encounter | [facility] [address] | MD [address] | Calcinosis cutis, | | | | [address] | [address] | Raynaud's syndrome, | | | | [place], [place] | [place], [place] | sclerodactyly and | | | | [address]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
--- OUTSIDE RECORDS SUMMARY | ~2019-09-06 | XMS | Encounter Summary ---
Demographics + + + | Address | [address] | | | [place] [address] | + + + | Home Phone | | + + + | Preferred Language | Unknown | + + + | Marital Status | | + + + | Methodist Affiliation | CHR | + + + | Race | White | + + + | Ethnic Group | Not or | + + + Author + + + | Author | [facility] | + + + | Organization | [facility] | + + + | Address | Unknown | + + + | Phone | Unavailable | + + + Support + + + + + | Name | Relationship | Address | Phone | + + + + + | Gamaliel Cornell | ECON | [address] | | | | | [place], [place] | | | | | [address] | | + + + + + Care Team Providers + +------+ + | Care Winery Worker Name | Role | Phone | + +------+ + | Raven Kim | PCP | | + +------+ + Reason for Visit Speech Therapy (Routine) + +--------+ + + + + | Status | Reason | Specialty | Diagnoses / | Referred By | Referred To | | | | | Procedures | Contact | Contact | + +--------+ + + + + | Authorized | | Speech | Diagnoses | Bebeto, | Ent Speech | | | | Therapy | Dysphonia | MD Robert | [facility] [address] | | | | | | [address] | | | | | | [address] | Mailcode: | | | | | | Radha | [place] | | | | | | [place] [address] | for Health | | | | | | Phone: | and Healing, | | | | | | [phone] | [address], | | | | | | Fax: | 15th Floor | | | | | | [phone] | [place], [place] | | | | | | | [address] | | | | | | | Phone: | | | | | | | [phone] | | | | | | | Fax: | | | | | | | [phone] | + +--------+ + + + + Encounter Details +--------+---------+ + + + | Date | Type | Department | Care Team | Description | +--------+---------+ + + + | 05/09/ | Office | [facility]ol[facility] | Raven Machado, NASIM | Dysphonia (Primary | | 2020 | Visit | [facility] | [address] | Dx); Laryngeal | | | | Swallowing at [facility] | [address] | hyperfunction | | | | [address] | [place] [address] | | | | | Mailcode: [facility] | [phone] | | | | | [facility] | | | | | | and Healing, | | | | | | Building | | | | | | Floor [place], [place] | | | | | | [address] | | | | | | [phone] | | | +--------+---------+ + + + [...] documented as of this encounter Progress Notes Raven Machado, NASIM - 05/09/2019 3:00 PM PST Clinic: [facility] for Voice & Swallowing Referring Physician: Robert Tate MD [address] [place] [address] PCP: LAITH Shaw Medical Diagnosis: 1. Dysphonia 2. Laryngeal hyperfunction Date of Onset for This Diagnosis: 05/05/2019 Treatment Diagnosis: 1. Dysphonia 2. Laryngeal hyperfunction Start of Care Date: 05/09/2019 Duration of session: 45 min. Session Number: 1 In attendance: [facility]-STAFF TOXICOLOGIST The patient stated her name and date of to confirm identity prior to the examination and procedure. REASON FOR REFERRAL: Nilsa Cornell was referred to the [facility] for Voice and S wallowing by Dr. Robert Tate for a complete evaluation. The patient reported a 2 year histor y of voice problems. However, medical notes indicate that she complained of voice problems s everal years prior. She feels that these problems initially began with Botox injections in J 2016 to the forehead and neck muscles to manage headaches related to fibromyalgia. [facility], she also feels that her voice problems may be associated with her medical diagnosis of s cleroderma. The patient reported that her voice feels raw and rough. If she sneezes, she los es her voice completely. 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 The patient also complained of fluctuating voice, weak voice, effort with voicing, inability to yell, and difficulty on the phone. She reported that her voice sounded more rough today than it typically does. She does not experience periods of normal voicing but reported that her voice sounds best in the afternoon. Finally, the pt reported that she feels her throat is closing up and that it always feel s there is something in her throat . She did not feel that this sensation is worse after t alking and noted that the sensation has been constant since her endoscopy. She denied any di fficulty breathing with this sensation. She have a history of breathing difficulty reportedl y due to inflammation which is responsive to inhalers. Past Medical History: Diagnosis Date Anxiety Cholelithiasis Depression Duodenal ulcer Gastric ulcer Hypothyroidism Migraine headache Peptic ulcer Scleroderma, gastroparesis, GERD This evaluation was completed in cooperation with Dr. David Wilson M.D. Please refer to his report for details regarding the medical diagnosis. VOCAL HYGIENE: The patient drinks 30 oz. of water per day, no caffeinated beverages and no alcohol. The patient was never a smoker. The patient's vocal demands include conversation, the phone, performing as she is an actor. The patient is employed. 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 The patient was previously diagnosed with GERD and this is managed with Prilosec. SINGING: The patient is not a singleton. SWALLOWING: The patient reports that swallowing feels like a 2-3 step process. She re cently underwent manometry in 02/2019 which revealed a hypertonic UES and esophageal dysmoti lity. She has diagnoses of GERD and gastroparesis. She is currently avoiding steak and other meats. She uses dysphagia strategies such as eating slow and taking small bites. She has lo st 10 pounds in 2 months. She does not report any recent pneumonias. PERCEPTUAL ASSESSMENT: The patient's voice was mildly dysphonic and characterized by a rou gh and hoarse vocal quality without glottal villafuerte. There were noaudible spasms during phonati on. There was no tremor noted during all tasks. The patient's pitch was at the low end of n ormal for her age and gender. Loudness was normal. Articulation was normal but she did demo nstrate significant jaw restriction and tension during speech production. Speech rate was n ormal. Resonance was throat-focused with normal nasality. Breathing pattern was thoracic. Breath support for speech was poor. Coordination of breath and voice was poor. The patient spoke 10-15 syllables per breath group during connected speech. The patient's speech intel ligibility was approximately 100%. CAPE-V results revealed overall mild dysphonia (20/100) , mild-moderate ()I) roughness (35/100), no breathiness (0/100), mild+ strain (29/100), mild ly low pitch (29/100), no abnormal loudness (0/100). LARYNGEAL FUNCTION STUDIES: Not completed today. LARYNGEAL EXAMINATION: Laryngovideostroboscopy was completed using the flexible distal chi p telescope. The patient was sprayed with Lidocaine and Phenylephrine to each nostril prior to the examination after verbal consent. The patient tolerated the procedure well. The voc al folds were well visualized. The vocal folds were with straight and smooth edges. There w ere no lesions noted. Patient was noted to maintain vocal folds in slightly adducted positio n during quiet breathing (>50%). Range of motion for vocal fold abduction was within normal limits during inspiration. Range of motion for vocal fold adduction was within normal limit s bilaterally during phonation. However, the right vocal fold appeared sluggish during alte rnating tasks. There was increased supraglottic activity during phonation and connected spee ch. Supraglottic activity was characterized by mild anterior-posterior and lateral squeezin g. The patient was able to achieve more relaxed phonation with trial therapy. Vocal fold elongation during glissando was normal. During stroboscopy, vertical level of the vocal fold s was equal. Glottic closure was complete. The mucosal wave was normal. Amplitude of vibrat ion was normal. The closed phase was predominant. Vibration was always periodic. Phase symm etry was sometimes irregular and characterized by chasing pattern. Vibratory behavior was p resent. Trial therapy was completed today. The patient benefited from humming, coordination of kevin ath and voice to improve voice. She also benefited from a tongue roll forward and relaxed th roat breathing to improve vocal fold abduction during the respiratory cycle which may in tur n improve the sensation of throat constriction. The patient is motivated to improve and is a good candidate for improvement with voice therapy. Patient education was completed with video review and verbal information. The patient did appear to understand the information presented today. SUMMARY: The patient presented with mild dysphonia characterized by hoarse, rough vocal qu ality with laryngeal hyperfunction. The laryngeal hyperfunction may be contributing to her s ensation of throat constriction and she may be responsive to relaxed breathing techniques. 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 RECOMMENDATIONS: 1. Voice therapy one time per week for 4-6 weeks. We provided patient with contact luis miguel gomez for a speech-language pathologist in [place] and are happy to collaborate on goals and treatment. Raven Machado MA,[facility]-STAFF TOXICOLOGIST Cable [facility]ander Speech Language Pathologist [facility] [address], [place] [phone] documented in this enc ounter Plan of Treatment Not on filedocumented as of this encounter Procedures + +--------+ + + + | Procedure Name | Priori | Date/Time | Associated Diagnosis | Comments | | | ty | | | | + +--------+ + + + | [facility] | Routin | 05/10/2019 | Laryngeal | | | QUALITATIVE ANALYSIS | e | 10:30 AM | hyperfunction | | | OF VOICE AND | | PST | Dysphonia | | | RESONANCE | | | | | + +--------+ + + + | [place] | Routin | 05/10/2019 | Laryngeal | | | LARYNGOSCOPY,FLEX/RI | e | 10:30 AM | hyperfunction | | | GID+STROBOSCOPY | | PST | Dysphonia | | + +--------+ + + + documented in this encounter Visit Diagnoses + + | Diagnosis | + + | Dysphonia - Primary | + + | Laryngeal hyperfunction Other diseases of larynx | + + documented in this encounter"
--- OUTSIDE RECORDS SUMMARY | ~2019-09-06 | XMS | Encounter Summary ---
Demographics + + + | Address | [address] | | | [place] [address] | + + + | Home Phone | | + + + | Preferred Language | Unknown | + + + | Marital Status | | + + + | Restorationist Affiliation | 1013 | + + + | Race | Unknown | + + + | Ethnic Group | Unknown | + + + Author + + + | Author | [facility] | | | and [place] | + + + | Organization | [facility] | | | [...] [place], [place] | | | | | [address] | | + + + + + Care Team Providers + +------+ + | Care Server Service Assistant Name | Role | Phone | + +------+ + | Raven Kim PA-C | PCP | | + +------+ + Encounter Details +--------+ + + + + | Date | Type | Department | Care Team | Description | +--------+ + + + + | 02/16/ | Transcribed | [facility] | Yuli He | Shortness of breath | | 2019 | Orders | CENTRAL SCHEDULING | MD [address] | (Primary Dx); [facility] | | | | [address] | [address] | syndrome (HCC) | | | | [place], [place] | [place], [place] | | | | | [address] | [address] | | | | | [phone] | [phone] | | | | | | | [...] [address] | | | | | | [facility] [address] | | | | | | [place] [address] | | | | | | [phone] | | | | | | | | +--------+---------+ + + + documented as of this encounter Results Pulmonary function test full PFT (03/01/2019 3:57 PM PDT) + + + | Narrative | Performed At | + + + | Sonya Parker MD 03/01/2019 15:59 PULMONARY | | | FUNCTION TEST NAME: Nilsa Cornell : 1965 MRN: | | | [id number] REASON FOR TESTING: Dyspnea FINDINGS | | [...] Parker MD Pulmonary and Critical Care Medicine [facility] | | | [facility] [address], [address] | | | [place] [address] | | + + + documented in this encounter Visit Diagnoses + + | Diagnosis | + + | Shortness of breath - Primary | + + | CRST syndrome (HCC) Systemic sclerosis | + + documented in this encounter"
--- OUTSIDE RECORDS SUMMARY | ~2019-09-06 | XMS | Encounter Summary ---
Demographics + + + | Address | [address] | | | [place] [address] | + + + | Home Phone | | + + + | Preferred Language | Unknown | + + + | Marital Status | | + + + | Zoroastrianism Affiliation | 1013 | + + + | Race | Unknown | + + + | Ethnic Group | Unknown | + + + Author + + + | Author | [facility] | | | and [place] | + + + | Organization | [facility] | | | [...] [place] | | | | | [address] | | + + + + + Care Team Providers + +------+ + | Care Customer Service Manager Name | Role | Phone | [...] [facility] | MD [address] | | | | | GENERIC CONV DEPT | [place] [place] | | | | | [address] | [address] | | | | | [place] | | | | | | [address] | | | | | | [phone] | | | +--------+ + + + [...] | | | | | [place] [address] | | | | | | [phone] | | | | | | | | +--------+---------+ + + + documented as of this encounter Visit Diagnoses Not on filedocumented in this encounter"
--- OUTSIDE RECORDS SUMMARY | ~2019-09-06 | XMS | Encounter Summary ---
Demographics + + + | Address | [address] | | | [place] [address] | + + + | Home Phone | | + + + | Preferred Language | Unknown | + + + | Marital Status | | + + + | Rastafari Affiliation | 1013 | + + + | Race | Unknown | + + + | Ethnic Group | Unknown | + + + Author + + + | Author | [facility] | | | and [place] | + + + | Organization | [facility] | | [...] [place], [place] | | | | | [address] | | + + + + + Care Team Providers + +------+ + | Care Rougher Operator Name | Role | Phone | [...] + + | 07/15/ | Telephone | [facility] | Shankar Kaufman, | Lab Results | | 2018 | | PHYSIATRY [address] | MD [address] | | | | | [address] | [place], [place] | | | | | [place], [place] | [address] | | | | | [address] | | | | | | [phone] | | | +--------+ + + + [...] 11/21/ | Office | Urology | Stephanie Rolbes | | | 2020 | Visit | | MD [address] | | | | | | [address] | | | | | | [place] [address] | | | | | | [phone] | | | | | | | | +--------+---------+ + + + documented as of this encounter Visit Diagnoses Not on filedocumented in this encounter"
--- OUTSIDE RECORDS SUMMARY | ~2019-09-06 | XMS | Encounter Summary ---
Demographics + + + | Address | [address] | | | [place] [address] | + + + | Home Phone | | + + + | Preferred Language | Unknown | + + + | Marital Status | | + + + | Confucianist Affiliation | 1013 | + + + | Race | Unknown | + + + | Ethnic Group | Unknown | + + + Author + + + | Author | [facility] | | | and [place] | + + + | Organization | [facility] | | [...] [place], [place] | | | | | [address] | | + + + + + Care Team Providers + +------+ + | Care Ophthalmic Aide Name | Role | Phone | [...] + + | 09/10/ | Telephone | [facility] | Monty Kramer MD | Other (Lovenox) | | 2019 | | MED CTR MP INTRA OP | [address] | | | | | [address] | [place], [place] | | | | | [place], [place] | [address] | | | | | [address] | [phone] | | | | | [phone] | | | +--------+ + + + [...] | | | | | [place] [address] | | | | | | [phone] | | | | | | | | +--------+---------+ + + + documented as of this encounter Visit Diagnoses Not on filedocumented in this encounter"
--- OUTSIDE RECORDS SUMMARY | ~2019-09-06 | XMS | Encounter Summary ---
Demographics + + + | Address | [address] | | | [place] [address] | + + + | Home Phone | | + + + | Preferred Language | Unknown | + + + | Marital Status | | + + + | Mormonism Affiliation | CHR | + + + | Race | White | + + + | Ethnic Group | Not or | + + + Author + + + | Author | [facility] | + + + | Organization | [facility] | + + + | Address | Unknown | + + + | Phone | Unavailable | + + + Support + + + + + | Name | Relationship | Address | Phone | + + + + + | Gamaliel Cornell | ECON | [address] | | | | | [place], [place] | | | | | [address] | | + + + + + Care Team Providers + +------+ + | Care [place] Name | Role | Phone | + +------+ + | Bernard Cesar MD | PCP | | + +------+ + Reason for Visit + + + | Reason | Comments | + + + | New patient | | | consultation | | + + + Consultation (Routine) +--------+--------+ + + + + | Status | Reason | Specialty | Diagnoses / | Referred By | Referred To | | | | | Procedures | Contact | Contact | +--------+--------+ + + + + | Closed | | Neurological | Diagnoses | Non-[facility] | Ragel, | | | | Surgery | Bulging | Epic Dept | Zay Andres MD | | | | | disc | | [address] | | | | | | | [place] | | | | | | | [place], | | | | | | | [place] [address] | | | | | | | Phone: | | | | | | | [phone] | | | | | | | Fax: | | | | | | | [phone] | +--------+--------+ + + + + Encounter Details +--------+---------+ + + + | Date | Type | Department | Care Team | Description | +--------+---------+ + + + | 09/24/ | Office | Neurosurgery at | Zay Cortez MD | Cervicalgia (Primary | | 2009 | Visit | [facility] | [address] | Dx) | | | | and Healing [address] | [place] | | | | | [address] [place] Mailcode: | [place] [address] | | | | | [facility] | [phone] | | | | | Health and Healing, | | | | | | [facility] | | | | | | Floor [place], [place] | | | | | | [address] | | | | | | [phone] | | | +--------+---------+ + + + [...] this encounter Last Filed Vital Signs + +---------+ + + | Vital Sign | Reading | Time Taken | Comments | + +---------+ + + | Blood Pressure | 107/71 | 09/24/2009 12:06 PM | | | | | PDT | | + +---------+ + + | Pulse | 95 | 09/24/2009 12:06 PM | | | | | PDT | | + +---------+ + + | Temperature | - | - | | + +---------+ + + | Respiratory Rate | - | - | | + +---------+ + + | Oxygen Saturation | - | - | | + +---------+ + + | Inhaled Oxygen | - | - | | | Concentration | | | | + +---------+ + + | Weight | - | - | | + +---------+ + + | Height | - | - | | + +---------+ + + | Body Mass Index | - | - | | + +---------+ + + documented in this encounter Progress Notes Zay Cortez Md - 09/25/2009 10:41 AM PDT NEUROLOGICAL SURGERY - HISTORY & PHYSICAL Chief Complaint: Neck pain History of Present Illness: Ms. 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 She is on Co umadin. Prior to this surgery she complained of intermittent dull aching between of her lowe r cervical spine, but following she complained of constant burning ache in her upper thoraci c/lower cervical spine radiating to the back of her head. This is present at all times and i ncreases with neck motion, especially rotational motion and decreases with rest. Interesting ly, when her pain becomes too great her will place his hands alongside her head with gentle pressure with some relief. To date, she has tried cervical traction, physical therap y, and narcotics. She has been unable to take aspirin or NSAIDs due to her chronic anticoagu lation for her cardiac valve. None which have helped to any great extent. Denies changes in bowel or bladder, Lhermitte's phenomena, numbness or tingling of upper or lower extremities, or weakness. Review of Systems: This patient denies any difficulties with headache, double vision, numbness or weakness of face, difficulty with swallowing, history of seizures, numbness or weakness of extremities, or difficulty with gait. All other systems were reviewed and have been found to be negative except per HPI. Current medication list: Current outpatient prescriptions Medication Sig amitriptyline 75 mg Oral Tablet 1 an 1/2 po q d duloxetine (CYMBALTA) 30 mg Oral Capsule, Delayed Release(E.C.) Take 30 mg by mouth onc e daily. levothyroxine 112 mcg Oral Tablet take 1 tablet (112 mcg) by oral route once daily WARFARIN OR 3 days 12mg and 4 day 8 mg Allergies: Allergies Allergen Reactions Sulfa (Sulfonamide Antibiotics) Nausea/Vomiting Past surgical history: Past Surgical History Procedure Date Hx cholecystectomy Hx heart valve surgery Past medical history: Past Medical History Diagnosis Date Hypothyroidism Depression Cholelithiasis Peptic ulcer Gastric ulcer Duodenal ulcer Anxiety Migraine headache Social history: Family History Problem Relation Osteoporosis History Tobacco Use Never History Alcohol Use Yes Family History: Negative for brain tumors, spine tumors. Daughter with neurofibromatosis ty pe I diagnosed by [id number] spots (daughter now 22 years old). Social History: Lives in [place], [place] with . Raised in [facility]. Attended [employer]. Physical Exam: Constitutional: BP 107/71 | Pulse 95 No acute distress, well-groomed, thin. Heent: NC/AT Spine: Cervical: ROM limited to 45 degrees in all directions due to pain. Moderate paraspinous te nderness noted Spurling's: Left neg Right neg Thoracic: ROM full, point tenderness around T3 spinous process Musculoskeletal: MOTOR SCORE LEFT RIGHT C5 (Shoulder Abduct) 5 5 C6 (Elbow Flex) 5 5 C7 (Elbow Ext) 5 5 C8 (Wrist Ext) 5 5 T1 (Pinky Abd) 5 5 L2 (Hip Flex) 5 5 L3 (Knee Ext) 5 5 L4 (Dorsiflexion) 5 5 L5 (EHL) 5 5 S1 (Plantar Flex) 5 5 Gait: Normal. Station: Normal. Tone: Normal tone in upper and lower extremities. No rigidity, atrophy, or abnormal moveme nts. Neurological: Oriented to time, place, person. Memory intact, normal recall. Normal attention span, concentration. Language: no receptive or expressive aphasia, normal spontaneous speech. Fund of knowledge: average. Coordination: normal rapid alternating movements, no finger-nose dysmetria. Cranial Nerves: II PERRL, visual gorman intact. III, IV, Extraocular movements intact. V facial sensation intact to light touch. VII facies symmetric. VIII hearing WNL. IX, X normal phonation, palate elevates in midline XI Good SCM and Trapezius muscle function bilaterally. XII tongue protrudes in midline. SENSORY Light Touch Pin Prick C2 (Occiput) LEFT RIGHT LEFT RIGHT C3 (Clavicle) normal normal normal normal C4 (Shoulder) normal normal normal normal C5 (Lat Elbow) normal normal normal normal C6 (Thumb) normal normal normal normal C7 (Middle Finger) normal normal normal normal C8 (Pinky) normal normal normal normal T1 (Med Elbow) normal normal normal normal T2 (Axilla) normal normal normal normal T4 (Nipple) normal normal normal normal T10 (Umbilicus) normal normal normal normal T12 (Inguinal L.) normal normal normal normal L2 (Med Thigh) normal normal normal normal L3 (Med Knee) normal normal normal normal L4 (Med Mall) normal normal normal normal L5 (Mid Toe) normal normal normal normal S1 (Lat Heel) normal normal normal normal S2 (Pop Fossa) normal normal normal normal S4-5 (Perianal) deferred deferred deferred deferred TENDON REFLEXES LEFT RIGHT C5-6 (Biceps) 2 2 C6 (Brachioradialis) 2 2 C7-8 (Triceps) 2 2 L3-4 (Knee jerk) 2 2 S1-2 (Achilles) 2 2 PATHOLOGIC REFLEXES LEFT RIGHT Jaime neg neg Babinkski neg neg Clonus neg neg Anal Sphincter: Deferred. Imaging: MRI of cervical and upper thoracic spine, 2009 (outside study) - degenerative disc changes noted at C5/6 with Modic changes. No neuro-foraminal stenosis. T4 vertebral body lesion enco mpassing inferior dorsal aspect of VB. Assessment: 1. Cervicalgia 2. T4 vertebral body lesion, ?hemangioma? 3. C5/6 degenerative disc disease with Modic endplate changes noted. 3. Cardiac valve replacement on Coumadin Plan: Long standing neck pain after cardiac surgery. On exam, noted for paraspinous spasm and poi nt tenderness of upper thoracic spine around T4. Imaging shows degenerative disc at C5/6 and probable hemangioma at T4. These types of cases with long standing cervicalgia are difficul t, often we are not able to delineate a clear pain generator site. I think her two most like ly candidates based upon imaging are the degenerative disc at C5/6 and probable hemangioma a t T4. However, hemangiomas of the vertebral body do not typically cause pain, if this T4 les ion represented an osteoid osteoma it could be associated with pain. Often times the pain as sociated with osteoid osteomas are relieved by aspirin, but she has been unable to take this due to her anticoagulation. Please consider a pain management referral for possible cervical medial facet branch nerve blocks, if this is successful she maybe a candidate for denervation procedures. Also, I have given her a prescription for a CT of her cervical and upper thoracic spine to better assess the bone abnormality at T4 to aid in differentiating between hemangioma versus osteoid oste raymon versus other. If she did not gain significant relief from the cervical spine injections I would explore the T4 vertebral body further with a PET scan and/or lidocaine vertebral bod y injection to see if this was the source of her pain. If she did end up having a T4 vertebr al body injection I would recommend biopsying it at the same time. I'm wondering if she has osteonecrosis of the T4 vertebral body following her cardiac surgery, which has been describ ed in hips and can be a source of chronic pain. I look forward to reviewing her CT of her cervical and thoracic spine after it is completed . Please let me know if I can assist in the pain management referral. I think this might be the magana in help sorting out her pain generator site. I spent 60 minutes [id number] with the patient. I spent more than 50% of this visit in counseling in which we discussed diagnosis, treatment, imaging studies and follow-up. Zay Cortez MD documented in this enco unter Plan of Treatment Not on filedocumented as of this encounter Procedures + +--------+ + + + | Procedure Name | Priori | Date/Time | Associated Diagnosis | Comments | | | ty | | | | + +--------+ + + + | RADIOLOGY | | 11/06/2009 | | Results for this | | | | 9:43 AM | | procedure are in the | | | | PDT | | results section. | + +--------+ + + + documented in this encounter Results RADIOLOGY (11/06/2009 9:43 AM PDT) + + + | Narrative | Performed At | + + + | | | + + + + + | Procedure Note | + + | Colt Graves - 11/06/2009 9:43 AM PDT | | | + + documented in this encounter Visit Diagnoses + + | Diagnosis | + + | Cervicalgia - Primary | + + documented in this encounter"
--- OUTSIDE RECORDS SUMMARY | ~2019-09-06 | XMS | Encounter Summary ---
Demographics + + + | Address | [address] | | | [place] [address] | + + + | Home Phone | | + + + | Preferred Language | Unknown | + + + | Marital Status | | + + + | Sikh Affiliation | 1013 | + + + [...] [place], [place] | | | | | [address] | | + + + + + Care Team Providers + +------+ + | Care Transcribing Machine Operator Name | Role | Phone [...] + + | 01/29/ | Surgery | [facility] | Pipo Rajan | Re-suturing of a/p | | 2014 | | MED CTR OR INTRA OP | DO [address] | repair | | | | [address] | [address] | | | | | [place] | [place] [address] | | | | | [address] | [phone] | | | | | [phone] | | | +--------+---------+ + + + [...] can also do teaching , phone number: [phone]. In emergency go to the emergency department. [...] you use a basin, wash it out. [id number] [employer]. [address] [place] [address], [place] [address]. All righ ts reserved. This information is [...] home with spouse. Electronic ally signed by Ntia Ramírez RN at 01/30/2015 5:38 PM PDTVanNita [...] mosley RN - 01/30/2015 11:45 AM PDTCase nursing home manager here to help organize supplies for [...] Wu DO - 01/30/2015 8:26 AM PDT [facility] Progress note Hospital Day: 2 POST [...] Signed by: Pipo Rajan DO, 01/30/2015 8:27 [facility] Nita Jason RN - 01/30/2015 7:45 AM [...] P DTC/o pain increasing, encouraged to use marketing project manager more frequently. Patient states she keeps forge tting that marketing project manager is there. Nita Jason RN - 01/29/2015 3:30 PM PDTSleeping with even, unlabored respira tions. Nita Jason RN - 01/29/2015 3:00 PM PDTC/o pain 12/11, dilaudid marketing project manager started. C/o itching and na usea, medicated [...] [address] | | | | | | [place] [address] | | | | | | [phone] | | | | | | | [...] | | | [facility] Range: | | [facility] | | | | 2.0 - [...] [address] | [place] | [phone] | | [facility] | | [address] | | | - LABORATORY | | [...] + | [facility] | [address] | [place] | [phone] | | [facility] | | [address] | | | - LABORATORY | | [...] - 1.030 | [facility] | | | [place], | | | [facility] | | [...] [address] | [place] | [phone] | | [facility] | | [address] | | | - LABORATORY | | [...]
--- OUTSIDE RECORDS SUMMARY | ~2019-09-06 | XMS | Encounter Summary ---
Demographics + + + | Address | [address] | | | [place] [address] | + + + | Home Phone [...] [place], [place] | | | | | [address] | | + + + + + Care Team Providers + +------+ + | Care Mold Release Worker Name | Role | Phone | + +------+ + | Raven Kim PA-C | PCP | | + +------+ + Reason for Visit +--------+ + | Reason | Comments | +--------+ + | Other | request to [facility] | +--------+ + Encounter Details +--------+ + + + + | Date | Type | Department | Care Team | Description | +--------+ + + + + | 04/05/ | Documentati | [facility] | Shiv, | Other (request to | | 2018 | on | PULMONOLOGY [address] | Anabel Haley [facility] | [facility]) | | | | KRISTY ROSARIO | Hose Operator | | | | | [place] | | | | | | [address] | | | | | | [phone] | | | +--------+ + + + [...] of this encounter Progress Notes Anabel Chaney, Embossing Calender Operator - 04/05/2019 4:09 PM PSTSent faxed request to [facility] for GI imaging and chart notes faxed [...] | | | | | [place] [address] | | | | | | [phone] | | | | | | | | +--------+---------+ + + + documented as of this encounter Visit Diagnoses Not on filedocumented in this encounter"
--- OUTSIDE RECORDS SUMMARY | ~2019-09-06 | XMS | Encounter Summary ---
Demographics + + + | Address | [address] | | | [place] [address] | + + + | Home Phone | | + + + | Preferred Language | Unknown | + + + | Marital Status | | + + + | Anabaptism Affiliation | 1013 | + + + | Race | Unknown | + + + | Ethnic Group | Unknown | + + + Author + + + | Author | [facility] | | | and [place] | + + + | Organization | [facility] | | | [...] [place], [place] | | | | | [address] | | + + + + + Care Team Providers + +------+ + | Care Scientist Engineer Name | Role | Phone | [...] | | voice | | [address], | | | | | Gastroesopha | | [address] | | | | | geal reflux | | [place], | | | | | disease, | | [place] [address] | | | | | esophagitis | | Phone: | | | | | presence not | | [phone] | | | | | specified | | Fax: | | | | | Procedures | | [phone] | | | | | [place] | | | | | | | ESOPHAGOGAST | | | | | | | RODUODENOSCO | | | | | | | PY TRANSORAL | | | | | | | DIAGNOSTIC | | | | | | | OR EGD | | | | | | | TRANSORAL | | | | | | | BIOPSY | | | | | | | SINGLE/MULTI | | | | | | | PLE OR GERD | | | | | | | TST W/ | | | | | | | MUCOS PH | | | | | | | ELECTROD OR | | | | | | [...] | | | | | [address] | [place] | | | | | [place] | [address] | | | | | [address] | [phone] | | | | | [phone] | | | +--------+ + + + [...] 09/14/18 1249 by | | lavelle | [id number] catheter system; | Carol Plummer, | Carol [...] [address] | | | | | | [place] [address] | | | | | | [phone] | | | | | | | [...]
--- OUTSIDE RECORDS SUMMARY | ~2019-09-06 | XMS | Encounter Summary ---
Demographics + + + | Address | [address] | | | [place] [address] | + + + | Home Phone [...] + | Author | [facility] | | | and [place] | + + + | Organization | [facility] | | | and [...] [place], [place] | | | | | [address] | | + + + + + Care Team Providers + +------+ + | Care Rig Site Engineer Name | Role | Phone | [...] | | | | | daily | [address] | | | | | | headache | [place], | | | | | | Procedures | [place] [address] | | | | | | [facility] 07/14 | Phone: | | | | | | | [phone] | | | | | | | Fax: | | | | | | | [phone] | | +--------+ + + + + [...] | daily | [address] | | | | n | headache | [address] | [place], | | | | | Chronic | [place], | [place] [address] | | | | | migraine | [place] [address] | Phone: | | | | | without aura | Phone: | [phone] | | | | | without | [phone] | Fax: | | | | | status | Fax: | [phone] | | | | | migrainosus, | [phone] | | | | | | not [...] Rehabilitatio | (degenerativ | [address] | | | | n | e disc | [address] | [place], | | | | | disease), | [address] | [place] [address] | | | | | cervical | [place], | Phone: | | | | | | [place] [address] | [phone] | | | | | | Phone: | Fax: | | | | | | [phone] | [phone] | | | | | | Fax: | | | | | | | [phone] | | +--------+--------+ + + + + Encounter Details +--------+---------+ + + + | Date | Type | Department | Care Team | Description | +--------+---------+ + + + | 06/22/ | Office | [facility] | Shankar Kaufman, | Chronic daily | | 2017 | Visit | PHYSIATRY [address] | MD [address] | headache (Primary | | | | [address] | [place] | Dx); Chronic | | | | [place] | [address] | migraine without | | | | [address] | | aura without status | | | | [phone] | | migrainosus, not | | | [...] encounter Patient Instructions Patient Instructions Elena Carroll, Certified Fire Investigator - 06/22/2017 11:20 AM PST Wor k [...] m the original. Shankar Kaufman MD [address] [facility], [address] [place], [place] [address] FAX: PHYSICAL MEDICINE AND REHABILITATION H&P Referring [...] 2007 mechanical heart valve mitral, Dr. Veliz; [facility]; [facility]. CHOLECYSTECTOMY, LAPAROSCOPIC 1995 ; [facility], [facility]. COLPORRHAPHY N/A 01/22/2015 Procedure: Repair Anterior Colporrhaphy; Surgeon: Evelio Alston MD; Location: [facility] MAIN OR COLPORRHAPHY N/A 01/29/2015 Procedure: Re-suturing of a/p repair ; Surgeon: Pipo Rajan DO; Location: [facility] MAIN OR Family History: Family History Problem [...] 2 Years of education: N/A Occupational History [employer] Social History Main Topics Smoking status: Former [...] Extension 5 5 Finger Abduction 5 5 Ammonia Refrigeration Technician Strength 5 5 REFLEX: RIGHT LEFT BICEPS [...] for Botox injections for the treatment of lunchroom aide young daily headaches. Anticipate using 200 units [...] Raven Kim PA-C Cc: Raven Kim PA-C, Raevn Kim PA-C documented in this en counter [...] [address] | | | | | | [place] [address] | | | | | | [phone] | | | | | | | [...] + | [facility] | [address] | [place], [place] | [phone] | | [facility] | | [address] | | | - LABORATORY | | [...] [address] | [place] | [phone] | | [facility] | | [address] | | | - LABORATORY | | [...] 11 | 7 - 18 mg/dL | [facility] | | | | | | [facility] | | | | | | MEDICAL | | | | | | C[facility] - | | | | | | LABORATORY | | + + + + + + | Creatinine | 0.66 | 0.60 - 1.30 | [facility] | | | | | mg/dL | [facility] | | | | | | MEDICAL | | | | | | CENTER - | | | | | | LABORATORY | | + + + + + + | eGFR if not | >60Comment: GLOMERULAR | >=60 | [facility] | | | | FILTRATION | mL/min/1.73m2 | [facility] | | | [facility]ER[facility] | RATE,ESTIMATED | | MEDICAL | | | | mL/min/1.05d4Rxzs than | | CENTER - | | [...] [address] | [place] | [phone] | | [facility] | | [address] | | | - LABORATORY | | [...] [address] | [place] | [phone] | | [facility] | | [address] | | | - LABORATORY | | [...]
--- OUTSIDE RECORDS SUMMARY | ~2019-09-06 | XMS | Encounter Summary ---
Demographics + + + | Address | [address] | | | [place] [address] | + + + | Home Phone [...] [place] | | | | | [address] | | + + + + + Care Team Providers + +------+ + | Care Portainer Operator Name | Role | Phone | [...] [facility] | MD Arlen [address] | | | | | CARDIAC TELEMETRY | [address] [place] | | | 08/[birth year]/ | | [address] | [address] | | | 2007 | | [place] | | | | | | [address] | | | | | | [phone] | | | +--------+ + + + [...] have some postoperative pain which was given Bodfish, as well as ibuprofen for this. She was started on Coumadin and titrated accordingly. On postoperative day #3, the patient wa s able to be discharged to [facility] where she will stay for 2 nights. DISCHARGE MEDICATIONS: 1. Elavil 75 mg at bedtime. 2. Celexa 20 mg at bedtime. 3. Synthroid 0.112 mg at bedtime. 4. Senokot one tablet twice daily. 5. Ibuprofen 40 mg q.8h. 6. Pepcid 21 mg daily. 7. Coumadin 4 mg daily. 8. Bodfish 10 mg one tablet q.4h. p.r.n. pain, #60 with one refill given. DISPOSITION: The patient was discharged to the [facility] where she will stay on and Thursday nights. DISCHARGE INSTRUCTIONS: The patient will recheck PT/INR on Thursday with the results to Dr. Pradhan' office. The patient will have to take Coumadin 4 mg today and on Thursday. [facility] and activity level precautions. The patient will f ollow up with Dr. Pradhan in 3 to 4 weeks' time with chest x-ray prior to that. The patie nt again will call the office with further questions or concerns. STAN MORA [id number] 08/07/07 DIS IN [id number] DISCHARGE SUMMARY SLIVANA Jesus ES N [facility] Tera Peck THIS REPORT IS CONFIDENTIAL AND NOT TO BE RELEASED WITHOUT PROPER AUTHORIZATION. [facility] ARRON Gallegos MD A FACILITY TECHNICIAN/pmt #[id number] cc: ARRON Brown MD STAN MORA [id number] 08/07/07 DIS IN [id number] DISCHARGE SUMMARY SILVANA Jesus N [facility] Tera Peck THIS REPORT IS CONFIDENTIAL AND NOT TO BE RELEASED WITHOUT PROPER AUTHORIZATION.Electronica lly signed by Pati Loev at 03/11/2013 4:54 AM PSTdocumented in this [...] [address] | | | | | | [place] [address] | | | | | | [phone] | | | | | | | [...] + + | SURGICAL PATHOLOGY REPORT | [facility] | | Date Taken: 08/04/2007 Date [...] | | | vegetations are not identified. Maintenance And Engineering Manager section in A1. (PK) | | | 1: [address] | | | [id number] or Testing performed at: | | | [facility] Evelio Hdz, | | | Jadyn, Director [address] [place], [place] [address], [place] [address] | | | | | + + + + + + + + | Performing | Address | City/State/Zipcode | Phone Number | | Organization | | | | + + + + + | [facility] | [address] | [place] [address] | | | [facility] | | | | | LABORATORY | | | | + + + + + | [facility] | | | | + + + + + documented in this encounter Visit Diagnoses Not on filedocumented in this encounter
--- OUTSIDE RECORDS SUMMARY | ~2019-09-06 | XMS | Encounter Summary ---
Demographics + + + | Address | [address] | | | [place] [address] | + + + | Home Phone | | + + + | Preferred Language | Unknown | + + + | Marital Status | | + + + | Presybeterian Affiliation | 1013 | + + + | Race | Unknown | + + + | Ethnic Group | Unknown | + + + Author + + + | Author | [facility] | | [...] [place], [place] | | | | | [address] | | + + + + + Care Team Providers + +------+ + | Care Manager Continuous Improvement Name | Role | Phone | + [...] | | [address] | [place] [address] | | | | | [place] [address] | | | | | | [phone] | | | +--------+ + + + [...] [address] | | | | | | [place] [address] | | | | | | [phone] | | | | | | | [...] for comparison only - no result from [facility]. | [facility] | + + + + +---------+ + + | Performing | Address | City/State/Zipcode | Phone Number | | Organization | | | | + +---------+ + + | [facility] | | | | + +---------+ + + documented in this encounter Visit Diagnoses Not on filedocumented in this encounter"
--- OUTSIDE RECORDS SUMMARY | ~2019-09-06 | XMS | Encounter Summary ---
Demographics + + + | Address | [address] | | | [place] [address] | + + + | Home Phone | | + + + | Preferred Language | Unknown | + + + | Marital Status | | + + + | Jainism Affiliation | 1013 | + + + | Race | Unknown | + + + | Ethnic Group | Unknown | + + + Author + + + | Author | [facility] | | | and [place] | + + + | Organization | [facility] | | | [...] [place], [place] | | | | | [address] | | + + + + + Care Team Providers + +------+ + | Care Drafter Geophysical Name | Role | Phone | + +------+ + | Raven Kim PA-C | PCP | | + +------+ + Encounter Details +--------+ + + + + | Date | Type | Department | Care Team | Description | +--------+ + + + + | 06/15/ | Abstract | [facility] | Provider, | | | 2019 | | GASTROENTEROLOGY | MD Daniel [address] | | | | | [address] [facility] | Fatmata Robledo | | | | | [address] | [place] [address] | | | | | [address] | | | | | | [phone] | | | +--------+ + + + [...] [address] | | | | | | [place] [address] | | | | | | [phone] | | | | | | | | +--------+---------+ + + + documented as of this encounter Visit Diagnoses Not on filedocumented in this encounter"
--- OUTSIDE RECORDS SUMMARY | ~2019-09-06 | XMS | Encounter Summary ---
Demographics + + + | Address | [address] | | | [place] [address] | + + + | Home Phone | | + + + | Preferred Language | Unknown | + + + | Marital Status | | + + + | Amish Affiliation | CHR | + + + | Race | White | + + + | Ethnic Group | Not or | + + + Author + + + | Author | [facility] | + + + | Organization | [facility] | + + + | Address | Unknown | + + + | Phone | Unavailable | + + + Support + + + + + | Name | Relationship | Address | Phone | + + + + + | Gamaliel Cornell | ECON | [address] | | | | | [place], [place] | | | | | [address] | | + + + + + Care Team Providers + +------+ + | Care Concrete Bucket Unloader Name | Role | Phone | + +------+ + | Raven Kim | PCP | | + +------+ + Reason for Visit + + + | Reason | Comments | + + + | New patient | | | consultation | | + + + | Hoarseness | | + + + Intake Referral (Routine) + +--------+ + + + + | Status | Reason | Specialty | Diagnoses / | Referred By | Referred To | | | | | Procedures | Contact | Contact | + +--------+ + + + + | Authorized | | Otolaryngolog | Diagnoses | Bebeto, | Ent | | | | y | Hoarseness | MD Robert | Laryngology | | | | | | [address] | [address] | | | | | [address] | [address] | | | | | | [place], | [place], [place] | | | | | | [place] [address] | [address] | | | | | | Phone: | Phone: | | | | | | [phone] | [phone] | | | | | | Fax: | Fax: | | | | | | [phone] | [phone] | + +--------+ + + + + Encounter Details +--------+---------+ + + + | Date | Type | Department | Care Team | Description | +--------+---------+ + + + | 05/09/ | Office | Otolaryngology | Katie, David | Laryngeal | | 2020 | Visit | Laryngology Services | MD Adalgisa [address] | hyperfunction | | | | at [facility] [address] | [address] | (Primary Dx); | | | | [place], [place] | [place], [place] | Dysphonia; Globus | | | | [address] | [address] | sensation | | | | [phone] | [phone] | | | | | | | [...] + + + | Blood Pressure | - | - | | + + + + + | Pulse | - | - | | + [...] + documented in this encounter Progress Notes David Wilson MD - 05/09/2019 3:30 PM PST PATIENT: Nilsa Cornell [facility] MR#: [id number] : 1965 REQUESTING PROVIDER: Robert Tate MD [address] [facility] [place] [address] PRIMARY CARE PROVIDER: LAITH Shaw CLINIC: [facility] CHIEF COMPLAINT: Chief Complaint Patient presents with New patient consultation Hoarseness HPI: Nilsa Cornell is a 53 y.o. female who presents to the [facility] with difficulty phonating. She has noted waxing and waning difficulty wi th hoarseness for the past 7 months. She believes that the problem is associated with inter mittent "throat closing" as well as cough and "constant clearing of voice." She thinks feve r started note voice problems 3 years ago when she was in plays, but now she notes that much more frequently. She has seen Dr. Kaufman as well as Dr. Tate. Dr. Tate has felt that she s uffered from laryngopharyngeal reflux. He noted that she seemed to improve on proton pump i nhibitor, however she denies that she got any benefit from the reflux medication. He referr ed her for comprehensive evaluation by Dr. Don, a environmental scientist. Dr. Don has perfo rmed extensive studies including barium esophagram, gastric emptying study, 48-hour Patterson pH probe study and upper GI endoscopy recently. These are failed to demonstrate any evidence of pathologic gastroesophageal reflux, esophageal dysmotility or gastroparesis. Dr. Bebeto king requested a consultation from the [facility] for eval uation of Ms. Cornell's ongoing hoarseness and throat complaints. She now does note periods of normal voicing. She notes most trouble when she is acting in place. She started doing this in approximately 2011 and has since taken over and acting gr oup and respiratory failure. Specific difficulties with voicing include: poor vocal quality , fluctuating voice quality, weak voice, effortful voicing, inability to yell and trouble vo icing on the telephone. She notes that she will intermittently lose her voice for short per iods of time. Sometimes sneezing will precipitate this. She does not note anterior neck di scomfort or pain with voicing. She does note globus sensation. She does not note pain wit h swallowing. She does not note specific difficulties with swallowing. She has not altered her diet. She denies coughing and sputtering with swallowing, trouble breathing while swall owing, choking or recent aspiration-associated pneumonia. She denies dyspnea or noisy breat neli generally. She does note that she will occasionally lose her breath and feel that she is not able to move air momentarily. She denies problems with productive cough or hemoptysi s. He does note a dry cough that troubles her. She has not noted any otalgia. She has not had any fevers, chills or sweats. She does not experience classic heartburn symptoms often. She does use antacids. She does not have a known hiatal hernia. She has had a trial of reflux therapy. 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 Her vocal demands are primar mireille those of conversational speech, wireless telephone use, acting and heavy telephone use. She reports that she is talkative. She notes that she occasionally abuses her voice with y elling or shouting. VOCAL HYGIENE: Ms. Cornell drinks about 30 oz of noncaffeinated fluid daily, 0 oz of caffei nated beverages. She is not currently smoking. She notes that she is frequently clearing h er throat. PREVIOUS SURGERY: She has not had previous surgery on her esophagus. She has not had prev ious surgery on her larynx. She has not had recent intubation. PMHx: Past Medical History: Diagnosis Date Anticoagulated on warfarin Anxiety Cholelithiasis Chronic cystitis Depression Duodenal ulcer Fibromyalgia Gastric ulcer History of artificial heart valve Hypothyroidism Migraine headache treated with botulinum toxin Moderate obstructive sleep apnea Osteopenia Raynaud's phenomenon Scleroderma (HCC) Dr. Yuli He SURGHx: Past Surgical History Procedure Laterality Date Cholecystectomy 1998 Heart valve surgery Egd (esophagogastroduodenoscopy) 11/2018 Heart valve replacement 08/2007 Bladder suspension 2014 SOCIAL HISTORY: Ms. Cornell reports that she has never smoked. She has never used smokeles s tobacco. She reports current alcohol use of about 2.0 standard drinks of alcohol per week. She reports that she does not use drugs. Social History Social History Narrative Ms. Cornell is partnered. She is a(n) [employer] and former [employer]. She lives in [place], [place]. She enjoys performing in plays since 2011. She does have children. She does have supportive friends or family members in the [facility] area. FAMILY HX: Family History Problem Relation Thyroid disease Mother Autoimmune Disease Mother Thyroid disease Father Osteoporosis Other ALLERGIES: Allergies Allergen Reactions Sulfa (Sulfonamide Antibiotics) Nausea/Vomiting MEDICATIONS: Current Outpatient Medications Medication Sig azelastine 137 mcg (0.1 %) nasal aerosol,spray Instill 1 spray in nose. baclofen 10 mg oral tablet TAKE 1 TO 2 TABLETS BY MOUTH THREE TIMES DAILY NEEDED FOR SPASMS beclomethasone (QVAR REDIHALER) 40 mcg/actuation inhalation HFA aerosol breath activate d Inhale by mouth. calcium carbonate/vitamin D3 (CALCIUM+D ORAL) Take 120 mg by mouth once daily. duloxetine (CYMBALTA) 30 mg Oral Capsule, Delayed Release(E.C.) Take 30 mg by mouth onc e daily. levalbuterol 45 mcg/actuation inhalation HFA aerosol inhaler INHALE 2 PUFFS INTO LUNGS EVERY 4 TO 6 HOURS DIRECTED Levocetirizine (XYZAL) 5 mg oral tablet Take by mouth. levothyroxine 100 mcg oral tablet Take 100 mcg by mouth once daily. WARFARIN OR 3 days 12mg and 4 day 8 mg No current facility-administered medications for this visit. ROS: She does note a history of quite severe migraine headaches. She has been treated wit h botulinum toxin with some benefit. She thinks that her headaches have affected her vocal quality. Her last botulinum toxin injection was in October 2017. She does also have chronic n noelle and back pain. She gets occasional palpitations. She has a remote history of gastric u lceration, but none recently noted on her endoscopy. She reports a history of scleroderma a s well as Raynaud's phenomenon and telangiectasias. She is not sure if she suffers from CRE ST syndrome. She does follow with Dr. He for autoimmune disease. She does not note head t remors. She does not note extremity tremors. She does note problems with anxiety. She elaine s note problems with depression. System review was otherwise negative for: recent objectiv e fevers, productive cough, recent hemoptysis, physiologically significant murmur, recent an aleksander, recent myocardial infarction, persistent arrhythmia, stroke, liver disease, primary bl eeding disorder, bowel problems, or renal insufficiency/failure. EXAMINATION: Ht 1.626 m (5' 4") | Wt 58.5 kg (129 lb) | BMI 22.14 kg/m | BSA 1.63 m Gen: She is a 53 y.o. female. She is awake, alert and comfortable with the examination. Her weight is appropriate. She is normocephalic. Ears: The pinnae are normal. External auditory canals show minimal cerumen bilaterally. The tympanic membranes are clear with normal anatomic landmarks and an aerated middle ear sp alvarado. Nose: The nasal dorsum is straight and the nares are widely patent. The mucosa is pink and there are no lesions or masses noted. There is no significant nasal obstruction noted. Face: There are no worrisome lesions noted of the face or head. Salivary Glands: The salivary glands are soft and show no lesions or masses within the par otid or submandibular glands bilaterally. There is no obvious obstruction of Stensen's or W moira's ducts bilaterally. Oropharynx: Normal lips and oral competence are noted. The dentition is good. The mucosa is dry and pale, but shows no lesions or masses. The tonsils are 1+ and the fossae show no lesions. Bimanual palpation of the gigivolabial sulcus, lingual sulcus, tonsillar pillars, palate and base of tongue did not demonstrate any concerning lesions or masses. Neck: The neck is atraumatic. There is no lymphadenopathy noted in the anterior, posterior , digastric or submental triangles. The thyroid is palpable, but not enlarged or tender. I cannot appreciate any nodules. The larynx is anatomic in positioning. The bilateral thyro hyoid muscle(s) are tight with voicing. The thyrohyoid muscle(s) are tender. The bilateral digastric muscle(s) are not tight with voicing. The digastric muscle(s) are not tender. T he base of tongue is tight with voicing. It is not tender to palpation. Chest: Chest rise is symmetric and there is no audible wheezing, stridor or wet vocal qual ity. Her chest is clear to auscultation bilaterally. There is no wheeze noted with forced expiration bilaterally. Heart: She has a regular rate and rhythm. Her pulses are full. Neurologic: The patient is awake, alert and cooperative with the examination. Responses t o questions were judged to be appropriate throughout the interview. The extraoccular moveme nts are intact and symmetric throughout. The pupils are equal. Emergency Physician strength does gilbert ear full bilaterally. Facial motion is normal on the right. Facial motion is normal on t he left. Hearing is grossly intact. Gag reflex is normal on the right. Gag reflex is nor mal on the left. Palatal elevation is normal on the right. Palatal elevation is normal on the left. Tongue bulk is normal bilaterally and protrusion is midline. Tongue protrusion i s normal on the right. Tongue protrusion is normal on the left. There are no tremors of t he head, palate or tongue noted. There are no extremity tremors noted. VOICE EVALUATION: Perceptual voice evaluation demonstrates dysphonia which is mild. The pitch is low normal for a female and shows normal range. Vocal intensity is appropriate and shows normal upper range. There is 1+ roughness, 0 breathiness, 0 asthenia and 1+ tightn ess appreciated. There is no tremor noted with sustained vowel phonation. I am unable to d etect voice breaks. Glottal villafuerte is mild to moderate. There is no diplophonia noted. Artic ulation is normal. Resonance is abnormal and posterior. LARYNGOSCOPY: Laryngoscopy was performed using a distal-chip Olympus flexible videolaryngo scope following the topical nasal application of oxymetazoline and pontocaine. This was per formed because the patient's gag reflex precluded adequate transoral indirect laryngoscopy. This demonstrates a clear vallecula and crisp epiglottis. The aryepiglottic folds are inta ct and symmetric bilaterally. The hypopharynx is clear to the limits of my examination toda y and shows no pooling. The interarytenoid space demonstrates no lesions or pachydermia. T he false vocal folds are symmetric and without lesions or masses. They show significant inc orporation during sustained vowel phonation and partially obscure the vocal folds. The voca l folds show full range and symmetric motion bilaterally. There is no paradoxical motion. The medial edges are crisp and show no lesions or masses. The mucosal covering appears vinay atous, but otherwise healthy. There is no obvious vascular ectasia or erythema. While clos ure is difficult to assess completely without stroboscopy, it appears to be complete. The v ocal processes show no granulomas or contact ulcers. The subglottis and proximal trachea is clear and unobstructed to the limits of the examination today. No pseudosulcus can be appr eciated on indirect examination. VIDEOSTROBOSCOPY: Laryngovideostroboscopy was performed today by Raven Machado, CCC-INJECTOR ASSEMBLER and Cheyenne Singer MS, CF-INJECTOR ASSEMBLER. Review of laryngovideostroboscopy demonstrates laryngeal anatom y and motion as noted above. There is moderate laryngeal hyperfunction which is most notabl e in the anterior-posterior dimension(s). There is not noted to be increased thick laryngeal mucous. Cricothyroid function appears to be intact bilaterally. The mucosal wave is period ic. Propagation of the mucosal waveform is inferior to superior and lateral. There is no c hasing asymmetry noted. On the right, the wave amplitude is normal. On the left, the wave amplitude is normal. Closure is complete with a slit-like closure. There is not noted to b e a vertical phase defect by videostroboscopy. On the right, the mucosal edge appears free of lesions. On the left, the mucosal edge appears free of lesions. On the right, the submu cosal space appears free of lesions. On the left, the submucosal space appears free of lesi ons. ASSESSMENT: Ms. 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 She does not appear to have any signs of laryngoph aryngeal reflux, does not test positively for gastroesophageal reflux and-- by her report-- has not improved substantially on proton pump inhibitor. She does not appear to have any es ophageal dysmotility based on her barium esophagram. I did not see that manometry had been performed, but I am satisfied that she does not have moderate or severe esophageal dysmotili ty. She reports that she had a methacholine challenge performed, but I do not have the resu lts of this test. She is on asthma medications and this may be contributing to her globus s ensation. She does not appear to be on medications that are troubling her vocal folds. Armand e of the dry powder preparations of inhaled bronchodilator/inhaled corticosteroid combinatio n such as Advair can desiccate the vocal folds and contribute to fungal laryngitis. She ambrose ws no evidence of this and I would continue her current treatment for asthma as she has been directed by her prescribing doctor. I think addressing her laryngeal hyperfunction would b e the most helpful thing for her. We talked about this for a while today. We talked about the relationship between laryngeal hyperfunction, globus sensation and mus barbie tension dysphonia at length today. These problems are often intertwined and may be eith er primary or secondary to problems such as chronic laryngitis (from laryngopharyngeal reflu x or otherwise), acute fungal laryngitis, spasmodic dysphonia, or traumatic vocal fold patho logy. We do not understand the etiology of such problems when they are primary, but often p atients will note a upper respiratory tract infection with voice change at the outset. The URI resolves, but the voice may not return normally. Other patients have a component of anx iety and the larynx is often where they store, or focus, excess tension. Treatment is best accomplished with identification of any underling vocal fold pathology, if possible, and sub sequent voice therapy. If no predisposing pathology can be identified, voice therapy is usu ally curative. Sometimes, the voice must be unloaded with voice therapy to allow the underl aric pathology to be identified. This is particularly true of patients with spasmodic dysph onia and chronic constriction. PLAN: After a thorough discussion of our findings today, I have recommended voice therapy. I noted that I do not really have a trained voice therapists close to where she lives. Elza argelia notes that she comes department periodically and would like to do voice therapy here. We are certainly happy to arrange this and if she stays overnight we often will arrange back-to -back sessions. She was interested in this. We will also try to find a therapist locally f or her and Raven was working on someone who might be suitable. Throat clearing is largely a bad habit in the absence of abnormal secretions or dysphagia. We discussed the use of wate r and swallowing as an adaptive habit to replace frequent throat clearing. I am happy to s ee her back if she fails to improve in voice therapy or has further troubles. David Wilson M.D. Cone Operator Laryngology and Head & Neck Surgery documented in thi s encounter Plan of Treatment Not on filedocumented as of this encounter Visit Diagnoses + + | Diagnosis | + + | Laryngeal hyperfunction - Primary Other diseases of larynx | + + | Dysphonia | + + | Globus sensation Dysphagia, pharyngeal phase | + + documented in this encounter
--- OUTSIDE RECORDS SUMMARY | ~2019-09-06 | XMS | Encounter Summary ---
Demographics + + + | Address | [address] | | | [place] [address] | + + + | Home Phone [...] + | Author | [facility] | | | and [place] | + + + | Organization | [facility] | | | and [...] [place], [place] | | | | | [address] | | + + + + + Care Team Providers + +------+ + | Care Red Lead Burner Name | Role | Phone | + +------+ + | Raven Kim PA-C | PCP | | + +------+ + Reason for Visit +--------+ + | Reason | Comments | +--------+ + | Other | | +--------+ + Encounter Details +--------+ + + + + | Date | Type | Department | Care Team | Description | +--------+ + + + + | 07/21/ | Telephone | [facility] | Pipo Don MD | Other | | 2019 | | GASTROENTEROLOGY | [address], [place] | | | | | [address] [place] | [address] [place], [place] | | | | | [address] [place], [place] | [address] | | | | | [address] | | | | | | [phone] | | | +--------+ + + + [...] | | | | | [place] [address] | | | | | | [phone] | | | | | | | | +--------+---------+ + + + documented as of this encounter Visit Diagnoses Not on filedocumented in this encounter"
--- OUTSIDE RECORDS SUMMARY | ~2019-09-06 | XMS | Encounter Summary ---
Demographics + + + | Address | [address] | | | [place] [address] | + + + | Home Phone | | + + + | Preferred Language | Unknown | + + + | Marital Status | | + + + | Restorationism Affiliation | 1013 | + + + | Race | Unknown | + + + | Ethnic Group | Unknown | + + + Author + + + | Author | [facility] | | | and [place] | + + + | Organization | [facility] | | | [...] [place], [place] | | | | | [address] | | + + + + + Care Team Providers + +------+ + | Care Tourist Home Keeper Name | Role | Phone | + [...] 2019 | | GASTROENTEROLOGY | [address], [place] | | | | | [address] [place] | [address] [place], [place] | | | | | [address] [place], [place] | [address] | | | | | [address] | | | | | | [phone] | | | +--------+ + + + [...] | | | | | [place] [address] | | | | | | [phone] | | | | | | | | +--------+---------+ + + + documented as of this encounter Visit Diagnoses Not on filedocumented in this encounter"
--- OUTSIDE RECORDS SUMMARY | ~2019-09-06 | XMS | Encounter Summary ---
Demographics + + + | Address | [address] | | | [place] [address] | + + + | Home Phone | | + + + | Preferred Language | Unknown | + + + | Marital Status | | + + + | Taoist Affiliation | 1013 | + + + | Race | Unknown | + + + | Ethnic Group | Unknown | + + + Author + + + | Author | [facility] | | | and [place] | + + + | Organization | [facility] | | [...] [place], [place] | | | | | [address] | | + + + + + Care Team Providers + +------+ + | Care Dry Cleaner Helper Name | Role | Phone | + [...] | BLVD | | | | | ([facility]) | [address] | [place], [place] | | | | | Procedures | [address] | [address] | | | | | ECHO | [address] | Phone: | | | | | Complete | [place], [place] | [phone] | | | | | | [address] | Fax: | | | | | | Phone: | [phone] | | | | | | [phone] | | | | | | | Fax: | | | | | | | [phone] | | +--------+--------+ + + + + [...] | | (HCC) | [address] | [place], [place] | | | | | Procedures | [address] | [address] | | | | | ECHO | [address] | Phone: | | | | | Complete | [place], [place] | [phone] | | | | | | [address] | Fax: | | | | | | Phone: | [phone] | | | | | | [phone] | | | | | | | Fax: | | | | | | | [phone] | | +--------+--------+ + + + + Encounter Details +--------+ + + + + | Date | Type | Department | Care Team | Description | +--------+ + + + + | 03/01/ | Hospital | [facility] | Yuli He | Pulmonary | | 2019 | Encounter | [facility] ECHO | MD [address] | hypertension (HCC) | | | | [address] | [address] [address] | | | | | [address] [place], [place] | [place], [place] | | | | | [address] | [address] | | | | | [phone] | [phone] | | | | | | | [...] | 1 | 12/19/19 | | | [id number] | RIBBON TO BOTH EYES | | | 18 | 9 | | examethasone | TID | | | | | | (MAXITROL) | | | | | | | 3.5-26683-3.1 | | | | | | | [...] [address] | | | | | | [place] [address] | | | | | | [phone] | | | | | | | [...]
--- OUTSIDE RECORDS SUMMARY | ~2019-09-06 | XMS | Encounter Summary ---
Demographics + + + | Address | [address] | | | [place] [address] | + + + | Home Phone | | + + + | Preferred Language | Unknown | + + + | Marital Status | | + + + | Christian Affiliation | 1013 | + + + [...] [place], [place] | | | | | [address] | | + + + + + Care Team Providers + +------+ + | Care Qa Consultant Name | Role | Phone | + +------+ + | Raven Kim PA-C | PCP | | + +------+ + Encounter Details +--------+ + + + + | Date | Type | Department | Care Team | Description | +--------+ + + + + | 03/08/ | Transcribed | [facility] | Yuli He | | | 2019 | Orders | THERAPY PT MARYBEL | MD [address] | | | | | [address] | [address] [place] [address] | | | | | [place], [place] | [place], [place] | | | | | [address] | [address] | | | | | [phone] | [phone] | | | | | | | [...] | | | | | [place] [address] | | | | | | [phone] | | | | | | | | +--------+---------+ + + + documented as of this encounter Visit Diagnoses Not on filedocumented in this encounter"
--- OUTSIDE RECORDS SUMMARY | ~2019-09-06 | XMS | Encounter Summary ---
Demographics + + + | Address | [address] | | | [place] [address] | + + + | Home Phone [...] [place], [place] | | | | | [address] | | + + + + + Care Team Providers + +------+ + | Care Hearing Officer Name | Role | Phone | + [...] | daily | [address] | | | | n | headache | [address] | [place], | | | | | Chronic | [place], | [place] [address] | | | | | migraine | [place] [address] | Phone: | | | | | without aura | Phone: | [phone] | | | | | without | [phone] | Fax: | | | | | status | Fax: | [phone] | | | | | migrainosus, | [phone] | | | | | | not | | | | | | | intractable | | | | | | | Procedures | | | | | | | CT | | | | | | | CHEMODERVATE | | | | | | | | | | | | | | FACIAL/TRIGE | | | | | | | M/CERV MUSC | | | | | | | MIGRAINE - | | | | | | | BILATERAL | | | | | | | CT NEEDLE | | | | | | | EMG GUIDANCE | | | | | | | FOR | | | | | | | CHEMODENERVA | | | | | | | TION CT | | | | | | | [...] | Procedure | [facility] [place] | Shankar Kaufman, | Chronic migraine | | 2018 | visit | PHYSIATRY [address] | MD [address] | without aura without | | | | [address] | [place] | status migrainosus, | | | | [place], [place] | [address] | not intractable | | | | [address] | | (Primary Dx); | | | | [phone] | | Chronic daily | | | [...] Risk Evaluation Mitigation Strategy (REMS) handout from [employer], the lie detector operator of botulinum toxin type A. Informed consent [...] 1 inch needle from Neuro-line manufactured by [employer]. Face: 3.125 units of botulinum toxin type [...] | | | | | | [facility] [address] | | | | | | [place] [address] | | | | | | [phone] | | | | | | | [...] | | (Comment | | Intramuscular, ONCE, [facility] 10/22/17 | | PM PDT | | [...] | | (Comment | | Intramuscular, ONCE, [facility] 10/22/17 | | PM PDT | | | ) | | at 1530, For 1 dose | | | | | | + + + +-------+---+ + +---+---+ | | | +---+---+ documented in this encounter
--- OUTSIDE RECORDS SUMMARY | ~2019-09-06 | XMS | Encounter Summary ---
Demographics + + + | Address | [address] | | | [place] [address] | + + + | Home Phone | | + + + | Preferred Language | Unknown | + + + | Marital Status | | + + + | Restorationism Affiliation | 1013 | + + + | Race | Unknown | + + + | Ethnic Group | Unknown | + + + Author + + + | Author | [facility] | | | and [place] | + + + | Organization | [facility] | | [...] [address] | | | | | [place], [place] | | | | | [address] | | + + + + + Care Team Providers + +------+ + | Care Trumpet Teacher Name | Role | Phone | + +------+ + PCP | Unavailable | + +------+ + Encounter Details +--------+ + + + + | Date | Type | Department | Care Team | Description | +--------+ + + + + | 01/14/ | Abstract | [place] [facility] | DATA MIGRATION DELFIN | | | 2011 | | Conversion Location | SR | | | | | [address] | | | | | | [place], [place] | | | | | | [address] | | | | | | [phone] | | | +--------+ + + + [...] + + + | Blood Pressure | 130/80 | 07/19/2009 12:00 AM | | | | | PDT [...] + + + + | Weight | 53.9 kg (118 lb 12.8 | 07/19/2009 12:00 AM | | | | oz) | PDT | | + + + + + | Height | 160 cm (5' 2.99") | 07/19/2009 12:00 AM | | | | | PDT | | + + + + + | Body Mass Index | 21.05 | 07/19/2009 12:00 AM | | | | | PDT [...] COOK | | | | | | [facility] [place] [address] | | | | | | [phone] | | | | | | | | +--------+---------+ + + + documented as of this encounter Visit Diagnoses Not on filedocumented in this encounter
--- OUTSIDE RECORDS SUMMARY | ~2019-09-06 | XMS | Encounter Summary ---
Demographics + + + | Address | [address] | | | [place] [address] | + + + | Home Phone [...] [place], [place] | | | | | [address] | | + + + + + Care Team Providers + +------+ + | Care Landfill Gas Technician Name | Role | Phone | [...] + + | 06/24/ | Office | [facility] | Shankar Kaufman, | Fibromyalgia | | 2018 | Visit | PHYSIATRY [address] | MD [address] | (Primary Dx); | | | | [address] | [place] | Myalgia; Total body | | | | [place] | [address] | pain; Vitamin D | | | | [address] | | deficiency; Chronic | | | | [phone] | | fatigue; Acquired | | | [...] She reports that she [facility]7 years ago. Past Medical [...] mechanical heart valve mitral, Dr. Veliz; [facility]; [facility] CHOLECYSTECTOMY, LAPAROSCOPIC 1995 ; [facility], [facility]. 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 Nlisa Cornell is encourag ed to maintain physical [...] | | | | | [place] [address] | | | | | | [phone] | | | | | | | [...] + | [facility] | [address] | [place] | [phone] | | [facility] | | [address] | | | - LABORATORY | | [...] + | [facility] | [address] | [place] | [phone] | | [facility] | | [address] | | | - LABORATORY | | [...] third generation TSH | uIU/mL | [facility] | | | | test. | | [...] [address] | [place] | [phone] | | [facility] | | [address] | | | - LABORATORY | | [...] + | Performed at: 01 - [facility] [address] [facility], | REFERENCE LAB | | [place], [place] [id number] Grip: Mohan Mann MD, Phone: | [facility] | | [phone] | | + + + + + + + + | Performing | Address | City/State/Zipcode | Phone Number | | Organization | | | | + + + + + | REFERENCE LAB | [address] | [place], [place] | [phone] | | [facility] | [facility] | [address] | | + + + + + [...] + | Performed at: 01 - [facility] [place] [address], | REFERENCE LAB | | [place], [place] [id number] Grip: Bernard Trammell MD, Phone: | [facility] | | [phone] | | + + + + + + + + | Performing | Address | City/State/Zipcode | Phone Number | | Organization | | | | + + + + + | REFERENCE LAB | [address] | [place], [place] | [phone] | | [facility] | [facility] | [address] | | + + + + + [...] | REFERENCE LAB | | [place] [id number] Grip: Mohan Mann MD, Phone: | [facility] | | [phone] | | + + + + + + + + | Performing | Address | City/State/Zipcode | Phone Number | | Organization | | | | + + + + + | REFERENCE LAB | [address] | [place], [place] | [phone] | | [facility] | [place] | [address] | | + + + + + [...] + + + + + + | QUARANTINE INSPECTOR | <0.2 | 0.0 - 0.9 AI [...] + + + + + | Cabrera QUARANTINE INSPECTOR | <0.2 | 0.0 - 0.9 AI [...] + + | Performed at: 01 - [facility] [address], | REFERENCE LAB | | [place], [place] [id number] Grip: Bernard Trammell MD, Phone: | [facility] | | [phone] | | + + + + + + + + | Performing | Address | City/State/Zipcode | Phone Number | | Organization | | | | + + + + + | REFERENCE LAB | [address] | [place], [place] | [phone] | | [facility] | [facility] | [address] | | + + + + + [...] + | [facility] | [address] | [place] | [phone] | | [facility] | | [address] | | | - LABORATORY | | [...] + | [facility] | [address] | [place] | [phone] | | [facility] | | [address] | | | - LABORATORY | | [...] [address] | [place] | [phone] | | [facility] | | [address] | | | - LABORATORY | | [...] | | | | | | [facility] | | | | | | MEDICAL [...] + | [facility] | [address] | [place] | [phone] | | [facility] | | [address] | | | - LABORATORY | | [...] + | Performed at: 01 - [facility] [address] [facility], | REFERENCE LAB | | [place], [place] [id number] Grip: Mohan Mann MD, Phone: | [facility] | | [phone] | | + + + + + + + + | Performing | Address | City/State/Zipcode | Phone Number | | Organization | | | | + + + + + | REFERENCE LAB | [address] | [place], [place] | [phone] | | [facility] | [facility] | [address] | | + + + + + [...] [address] | [place] | [phone] | | [facility] | | [address] | | | - LABORATORY | | [...] - 1.030 | [facility] | | | [place], | | | [facility] | | [...] [address] | [place] | [phone] | | [facility] | | [address] | | | - LABORATORY | | [...] | REFERENCE LAB | | [place] [id number] Grip: Mohan Mann MD, Phone: | [facility] | | [phone] | | + + + + + + + + | Performing | Address | City/State/Zipcode | Phone Number | | Organization | | | | + + + + + | REFERENCE LAB | [address] | [place], [place] | [phone] | | [facility] | [place] | [address] | | + + + + + [...]
--- OUTSIDE RECORDS SUMMARY | ~2019-09-06 | XMS | Encounter Summary ---
Demographics + + + | Address | [address] | | | [place] [address] | + + + | Home Phone [...] [place], [place] | | | | | [address] | | + + + + + Care Team Providers + +------+ + | Care Ticket Printer Name | Role | Phone | + [...] + + | 02/28/ | Telephone | [facility] | Jeovanny, | Anticoagulation | | 2019 | | CARDIOLOGY NATALEE | Alyssa Haley RN | | | | | [address] | | | | | | [place] | | | | | | [address] | | | | | | [phone] | | | +--------+ + + + [...] | | | | | [place] [address] | | | | | | [phone] | | | | | | | | +--------+---------+ + + + documented as of this encounter Visit Diagnoses Not on filedocumented in this encounter"
--- OUTSIDE RECORDS SUMMARY | ~2019-09-06 | XMS | Clinical Summary ---
Demographics + + + | Address | [address] | | | [place] [address] | + + + | Home Phone | | + + + | Preferred Language | Unknown | + + + | Marital Status | | + + + | Mormonism Affiliation | 1013 | + + + | Race | Unknown | + + + | Ethnic Group | Unknown | + + + Author + + + | Author | [facility] | | | and [place] | + + + | Organization | [facility] | | [...] [place], [place] | | | | | [address] | | + + + + + Care Team Providers + +------+ + | Care High Rigger Name | Role | Phone | + [...] | 19 | | | | [facility] | [facility] for | | | | | | | | administration under | | | | | | | | the direct | | | | | | | | supervision of the | | | | | | | | [facility] Pulmonary | | | | | | [...] automatically from request for surgery | | [id number] | + + + + + | Gastroesophageal reflux disease, esophagitis presence not | 08/19/2018 | | specified | | + + + + + | Overview: Added automatically from request for surgery | | [id number] | + + + + + | [...] call) | | 2020 | | | CASH POSTING SPECIALIST | | +--------+ + + + + [...] [address] | | | | | | [place] [address] | | | | | | [phone] | | | | | | | [...] +-------+--------+ +--------+-------+---------+------+ | BCBS | BCBS | [id number] | 06/04/19 | | | PPO | | | OOS | 2 | 19-Pre | | | | | | PPO | | sent | | | | +-------+--------+ +--------+-------+---------+------+ | BCBS | BCBS | [id number] | 06/04/19 | | | PPO | [...] [place] | | | 6 (Home) | [address] | + +--------+ +--------+ + + | Nilsa Cornell | Person | Self | [birth year] | [address] | | [place] | al/Fam | | 1965 | [address] | [place], [place] | | | [place] | | | 6 (Home) | [address] | + +--------+ +--------+ + + Advance Directives + + + + + | Type | Date Recorded | Patient | Explanation | | | | Cat Scan Technologist | | + + + + + | Power of | | | | | Cdl Team Truck Driver | | | | + + + [...]
--- OUTSIDE RECORDS SUMMARY | ~2019-09-06 | XMS | Encounter Summary ---
Demographics + + + | Address | [address] | | | [place] [address] | + + + | Home Phone | | + + + | Preferred Language | Unknown | + + + | Marital Status | | + + + | Lutheran Affiliation | CHR | + + + | Race | White | + + + | Ethnic Group | Not or | + + + Author + + + | Author | [facility] | + + + | Organization | [facility] | + + + | Address | Unknown | + + + | Phone | Unavailable | + + + Support + + + + + | Name | Relationship | Address | Phone | + + + + + | Gamaliel Cornell | ECON | [address] | | | | | [place], [place] | | | | | [address] | | + + + + + Care Team Providers + +------+ + | Care Qa Lead Name | Role | Phone | + [...] | | | | | [place], | [place], [place] | | | | | | [place] [address] | [address] | | | | | | Phone: | Phone: | | | | | | [phone] | [phone] | | | | | | Fax: | Fax: | | | | | | [phone] | [phone] | + +--------+ + + + + Encounter Details +--------+---------+ + + + | Date | Type | Department | Care Team | Description | +--------+---------+ + + + | 05/09/ | Office | Otolaryngology | Katie, David | Laryngeal | | 2020 | Visit | Laryngology Services | MD Adalgisa [address] | hyperfunction | | | | at [facility] [address] | [address] | (Primary Dx); | | | | [place], [place] | [place], [place] | Dysphonia; Globus | | | | [address] | [address] | sensation | | | | [phone] | [phone] | | | | | | | [...] 05/09/2019 3:30 PM PST PATIENT: Nilsa Cornell [facility] MR#: [id number] : 1965 REQUESTING PROVIDER: Robert Tate MD [address] [place] [address] PRIMARY CARE PROVIDER: LAITH Shaw CLINIC: [facility] CHIEF COMPLAINT: Chief Complaint Patient presents with New patient consultation Hoarseness HPI: Nilsa Cornell is a 53 y.o. female who presents to the [facility] for Vo ice and Swallowing with [...] for comprehensive evaluation by Dr. Don, a stringed instrument assembler. Dr. Don has perfo rmed extensive studies including barium esophagram, gastric emptying study, 48-hour Patterson pH probe study and upper GI endoscopy recently. These are failed to demonstrate any evidence of pathologic gastroesophageal reflux, esophageal dysmotility or gastroparesis. Dr. Bebeto king requested a consultation from the [facility] for [facility] Swallowing for eval uation [...] therapy. 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 Her vocal demands are primar mireille those [...] Ms. Cornell is partnered. She is a(n) Fangcang and former [employer]. She lives in [place], [place]. She enjoys performing in plays since 2011. She does have children. She does have supportive friends or family members in the [facility] area. FAMILY HX: Family History Problem [...] and symmetric throughout. The pupils are equal. Instructional Technology Coach strength does gilbert ear full bilaterally. Facial [...] Laryngovideostroboscopy was performed today by Raven Machado, CCC-LUBRICATING ENGINEER and Cheyenne Singer MS, CF-LUBRICATING ENGINEER. Review of laryngovideostroboscopy demonstrates laryngeal anatom y [...] or has further troubles. David Wilson M.D. Cotton Classer Aide Laryngology and Head & Neck Surgery documented [...]
--- OUTSIDE RECORDS SUMMARY | ~2019-09-06 | XMS | Encounter Summary ---
Demographics + + + | Address | [address] | | | [place] [address] | + + + | Home Phone | | + + + | Preferred Language | Unknown | + + + | Marital Status | | + + + | Quaker Affiliation | 1013 | + + + | Race | Unknown | + + + | Ethnic Group | Unknown | + + + Author + + + | Author | [facility] | | | and [place] | + + + | Organization | [facility] | | [...] [place], [place] | | | | | [address] | | + + + + + Care Team Providers + +------+ + | Care Copyright Clerk Name | Role | Phone | + +------+ + PCP | Unavailable | + +------+ + Encounter Details +--------+ + + + + | Date | Type | Department | Care Team | Description | +--------+ + + + + | 06/30/ | Hospital | [facility] | Eder Bunch | Unspecified Chest | | 2008 | Encounter | [facility] | [address] | Pain | | | | CLINICAL DECISION | [address] [place], [place] | | | | | [address] | [address] | | | | | [place], [place] | | | | | | [address] | | | | | | [phone] | | | +--------+ + + + [...] | | | | | [place] [address] | | | | | | [phone] | | | | | | | | +--------+---------+ + + + documented as of this encounter Visit Diagnoses + + | Diagnosis | + + | Chest pain, unspecified | + + documented in this encounter"
--- OUTSIDE RECORDS SUMMARY | ~2019-09-06 | XMS | Encounter Summary ---
Demographics + + + | Address | [address] | | | [place] [address] | + + + | Home Phone | | + + + | Preferred Language | Unknown | + + + | Marital Status | | + + + | Anglican Affiliation | CHR | + + + | Race | White | + + + | Ethnic Group | Not or | + + + Author + + + | Author | [facility] | + + + | Organization | [facility] | + + + | Address | Unknown | + + + | Phone | Unavailable | + + + Support + + + + + | Name | Relationship | Address | Phone | + + + + + | Gamaliel Cornell | ECON | [address] | | | | | [place], [place] | | | | | [address] | | + + + + + Care Team Providers + +------+ + | Care Strategic Analyst Name | Role | Phone | [...] | Dysphonia | MD Robert | [address] | | | | | | [address] | | | | | | [address] | Mailcode: | | | | | | Radha | [place] | | | | | | [place] [address] | for Health | | | | | | Phone: | and Healing, | | | | | | [phone] | Building 1, | | | | | | Fax: | 15th Floor | | | | | | [phone] | [place], [place] | | | | | | | [address] | | | | | | | Phone: | | | | | | | [phone] | | | | | | | Fax: | | | | | | | [phone] | + +--------+ + + + + [...] Laryngeal | | | | Swallowing at [facility] | [address] | hyperfunction | | | | [address] | [facility] [place] [address] | | | | | Mailcode: [facility] | [phone] | | | | | [facility] | | | | | | and Healing, | | | | | | Building | | | | | | Floor [place], [place] | | | | | | [address] | | | | | | [phone] | | | +--------+---------+ + + + [...] NASIM - 05/09/2019 3:00 PM PST Clinic: [facility] Referring Physician: Robert Tate MD [address] [place] [address] PCP: LAITH Shaw Medical Diagnosis: 1. Dysphonia 2. Laryngeal hyperfunction Date of Onset for This Diagnosis: 05/05/2019 Treatment Diagnosis: 1. Dysphonia 2. Laryngeal hyperfunction Start of Care Date: 05/09/2019 Duration of session: 45 min. Session Number: 1 In attendance: [facility]-TELECOMMUNICATIONS SPECIALIST The patient stated her name and date of to confirm identity prior to the examination and procedure. REASON FOR REFERRAL: Nilsa Cornell was referred to the [facility] for Voice and S wallowing by Dr. Robert Tate for a complete evaluation. The patient reported a 2 year histor y of voice problems. However, medical notes indicate that she complained of voice problems s everal years prior. She feels that these problems initially began with Botox injections in J 2016 to the forehead and neck muscles to manage headaches related to fibromyalgia. [facility] she also feels that her voice [...] employed. 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 She [...] miguel gomez for a speech-language pathologist in [place] and are happy to collaborate on goals and treatment. Raven Machado MA,[facility]-TELECOMMUNICATIONS SPECIALIST Audio Experience Expert Speech Language Pathologist [facility] [address], [place] [phone] documented in this enc ounter Plan of Treatment Not on filedocumented as of this encounter Procedures + +--------+ + + + | Procedure Name | Priori | Date/Time | Associated Diagnosis | Comments | | | ty | | | | + +--------+ + + + | [facility] | Routin | 05/10/2019 | Laryngeal | | | QUALITATIVE ANALYSIS | e | 10:30 AM | hyperfunction | | | OF VOICE AND | | PST | Dysphonia | | | RESONANCE | | | | | + +--------+ + + + | MT | Routin | 05/10/2019 | Laryngeal | [...]
--- OUTSIDE RECORDS SUMMARY | ~2019-09-06 | XMS | Encounter Summary ---
Demographics + + + | Address | [address] | | | [place] [address] | + + + | Home Phone | | + + + | Preferred Language | Unknown | + + + | Marital Status | | + + + | Congregational Affiliation | 1013 | + + + [...] [place], [place] | | | | | [address] | | + + + + + Care Team Providers + +------+ + | Care Administrative Court Justice Name | Role | Phone | + [...] + | 09/10/ | Telephone | [facility] | Pipo Don MD | Medication | | 2018 | | GASTROENTEROLOGY | [address] [place], [place] | Management (lovenox) | | | | [address] [place] | [address] [place] [facility] [place] | | | | | [address] [place], [place] | [address] | | | | | [address] | | | | | | [phone] | | | +--------+ + + + [...] | | | | | [place] [address] | | | | | | [phone] | | | | | | | | +--------+---------+ + + + documented as of this encounter Visit Diagnoses Not on filedocumented in this encounter"
--- OUTSIDE RECORDS SUMMARY | ~2019-09-06 | XMS | Encounter Summary ---
Demographics + + + | Address | [address] | | | [place] [address] | + + + | Home Phone | | + + + | Preferred Language | Unknown | + + + | Marital Status | | + + + | Pentecostal Affiliation | 1013 | + + + | Race | Unknown | + + + | Ethnic Group | Unknown | + + + Author + + + | Author | [facility] | | | and [place] | + + + | Organization | [facility] | | [...] [place], [place] | | | | | [address] | | + + + + + Care Team Providers + +------+ + | Care Power Switchboard Operator Name | Role | Phone | [...] PHYSIATRY [address] | MD [address] | | | | | [address] | [place], [place] | | | | | [place] | [address] | | | | | [address] | | | | | | [phone] | | | +--------+ + + + [...] | | | | | [place] [address] | | | | | | [phone] | | | | | | | | +--------+---------+ + + + documented as of this encounter Visit Diagnoses Not on filedocumented in this encounter"
--- OUTSIDE RECORDS SUMMARY | ~2019-09-06 | XMS | Encounter Summary ---
Demographics + + + | Address | [address] | | | [place] [address] | + + + | Home Phone [...] [place], [place] | | | | | [address] | | + + + + + Care Team Providers + +------+ + | Care Mailing Machine Operator Name | Role | Phone [...] [address] | | | | | | [place], [place] | | | | | | [address] | | | | | | [phone] | | | +--------+ + + + [...] COOK | | | | | | [facility] [place] [address] | | | | | | [phone] | | | | | | | | +--------+---------+ + + + documented as of this encounter Visit Diagnoses Not on filedocumented in this encounter
--- OUTSIDE RECORDS SUMMARY | ~2019-09-06 | XMS | Encounter Summary ---
Demographics + + + | Address | [address] | | | [place] [address] | + + + | Home Phone | | + + + | Preferred Language | Unknown | + + + | Marital Status | | + + + | Congregation Affiliation | 1013 | + + + | Race | Unknown | + + + | Ethnic Group | Unknown | + + + Author + + + | Author | [facility] | | | and [place] | + + + | Organization | [facility] | | | [...] [place], [place] | | | | | [address] | | + + + + + Care Team Providers + +------+ + | Care Mash Tub Cooker Operator Name | Role | Phone | [...] [address] | [address] [facility] | | | 07/06/ | | [place] | [place] | | | 2007 | | [address] | [address] | | | | | [phone] | [phone] | | | | | | | [...] as well as her cardiol ogist in [facility]. GAVIN was performed and patient was transferred [...] at all. ARRON Rothman MD,FSCAI HERNANDO MORA [id number] 07/07/07 DIS IN [id number] DISCHARGE SUMMARY SILVANA Coley ES [facility] Curtis Lawson MD [facility] B THIS REPORT IS CONFIDENTIAL AND NOT TO BE RELEASED WITHOUT PROPER AUTHORIZATION. [facility] P DEW/pmt #[id number] cc: Curtis parnell MD,[facility] MD Emre Hanna PA-C Digitally authenticated 09/02/07 [address] [facility] [place] [id number] 07/07/07 DIS IN [id number] DISCHARGE SUMMARY SILVANA Coley R [facility] Curtis Lawson MD [facility] B THIS REPORT IS CONFIDENTIAL AND NOT [...] [address] | | | | | | [place] [address] | | | | | | [phone] | | | | | | | | +--------+---------+ + + + documented as of this encounter Visit Diagnoses Not on filedocumented in this encounter"
--- OUTSIDE RECORDS SUMMARY | ~2019-09-06 | XMS | Encounter Summary ---
Demographics + + + | Address | [address] | | | [place] [address] | + + + | Home Phone | | + + + | Preferred Language | Unknown | + + + | Marital Status | | + + + | Church Affiliation | 1013 | + + + | Race | Unknown | + + + | Ethnic Group | Unknown | + + + Author + + + | Author | [facility] | | | and [place] | + + + | Organization | [facility] | | | [...] [place], [place] | | | | | [address] | | + + + + + Care Team Providers + +------+ + | Care Wool Handler Name | Role | Phone | + [...] + | 09/10/ | Telephone | [facility] | Pipo Don MD | Medication | | 2018 | | GASTROENTEROLOGY | [address], [place] | Management (lovenox) | | | | [address] [place] | [address] [place] [facility] [place] | | | | | [address] [place], [place] | [address] | | | | | [address] | | | | | | [phone] | | | +--------+ + + + [...] | | | | | [place] [address] | | | | | | [phone] | | | | | | | | +--------+---------+ + + + documented as of this encounter Visit Diagnoses Not on filedocumented in this encounter"
--- OUTSIDE RECORDS SUMMARY | ~2019-09-06 | XMS | Encounter Summary ---
Demographics + + + | Address | [address] | | | [place] [address] | + + + | Home Phone [...] [place], [place] | | | | | [address] | | + + + + + Care Team Providers + +------+ + | Care Furniture Painter Name | Role | Phone | + +------+ + | Bernard Cesar MD | PCP | | + +------+ + Reason for Visit + + + | Reason | Comments | + + + | Vaginal Bleeding | Observed vaginal bleeding yesterday, after bladder suspension | | | 01/22/[address] Rajan. Pt. takes warfarin and Lovenox for | | | Hx. Mitral valve prolapse | + + + Encounter Details +--------+ + + + + | Date | Type | Department | Care Team | Description | +--------+ + + + + | 02/01/ | Emergency | [facility] | Sherie, | UTI (lower urinary | | 2015 | | [facility] | Jl Banerjee MD [address] | tract infection) | | | | CENTER [address] | [facility] | (Primary Dx); | | | | [place] | [place] [address] | Urinary retention | | | | [address] | [phone] | with incomplete | | | | [phone] | | bladder emptying; | | | | | | Postoperative | | | | | | vaginal bleeding | +--------+ + + + + Social [...] + + + | Blood Pressure | 130/73 | 02/01/2015 10:24 AM | | | | | PDT | | + + + + + | Pulse | 78 | 02/01/2015 10:24 AM | | | | | PDT | | + + + + + | Temperature | 36.9 C (98.5 F) | 02/01/2015 10:24 AM | | | | | PDT | | + + + + + | Respiratory Rate | 16 | 02/01/2015 10:24 AM | | | | | PDT | | + + + + + | Oxygen Saturation | 100% | 02/01/2015 10:24 AM | | | | | PDT | | + + + + + | Inhaled Oxygen | - | - | | | Concentration | | | | + + + + + | Weight | 61.2 kg (135 lb) | 02/01/2015 10:24 AM | | | | | PDT | | + + + + + | Height | 160 cm (5' 3") | 02/01/2015 10:24 AM | | | | | PDT | | + + + + + | Body Mass Index | 23.91 | 02/01/2015 10:24 AM | | | | | PDT | | + + + + + documented in this encounter Discharge Instructions Instructions Jl Rehman MD - 02/01/2015Fill the prescription for antibiotics. Keep the catheter in until you see Dr. Alston. Call the clinic for a specific time, but thursday is when Dr. Alston should see you. documented in this encounter Medications at Time [...] 201 | | | | | | [address] | | | | | | [phone] | | | | | | | | +--------+---------+ + + + documented as of this encounter Procedures + +--------+ + + + | Procedure Name | Priori | Date/Time | Associated Diagnosis | Comments | | | ty | | | | + +--------+ + + + | URINALYSIS WITH | STAT | 02/01/2015 | | Results for this | | MICROSCOPIC WITH | | 11:19 AM | | procedure are in the | | CULTURE IF INDICATED | | PDT | | results section. | + +--------+ + + + | CULTURE, URINE | STAT | 02/01/2015 | | Results for this | | | | 11:19 AM | | procedure are in the | | | | PDT | | results section. | + +--------+ + + + | EXTRA GREEN TOP TUBE | Routin | 02/01/2015 | | Results for this | | | e | 11:05 AM | | procedure are in the | | | | PDT | | results section. | + +--------+ + + + | EXTRA GOLD TOP TUBE | Routin | 02/01/2015 | | Results for this | | | e | 11:05 AM | | procedure are in the | | | | PDT | | results section. | + +--------+ + + + | EXTRA GREEN TOP TUBE | Routin | 02/01/2015 | | Results for this | | | e | 11:04 AM | | procedure are in the | | | | PDT | | results section. | + +--------+ + + + | EXTRA BLUE TOP TUBE | Routin | 02/01/2015 | | Results for this | | | e | 11:04 AM | | procedure are in the | | | | PDT | | results section. | + +--------+ + + + | PROTIME INR | Add-On | 02/01/2015 | | Results for this | | | | 11:04 AM | | procedure are in the | | | | PDT | | results section. | + +--------+ + + + | CBC WITH | STAT | 02/01/2015 | | Results for this | | DIFFERENTIAL | | 10:58 AM | | procedure are in the | | | | PDT | | results section. | + +--------+ + + + documented in this encounter Results Culture, Urine (02/01/2015 11:19 AM PDT) + + + + + + | Component | Value | Ref Range | Performed | Pathologist | | | | | At | Signature | + + + + + + | Culture | >100,000 CFU/ml | | [facility] | | | | Escherichia coli | | [facility] | | | | | | MEDICAL | | | | | | CENTER - | | | | | | LABORATORY | | + + + + + + + + | Specimen | + + | Urine - Urine | | specimen obtained by | | single | | catheterization of | | bladder (specimen) | + + + + +--------+ + | Organism | Antibiotic | Method | Susceptibility | + + +--------+ + | Escherichia coli | Amikacin | | <=2: Sensitive | + + +--------+ + | Escherichia coli | Ampicillin | | >=32: Resistant | + + +--------+ + | Escherichia coli | Ampicillin + | | >=32: Resistant | | | Sulbactam | | | + + +--------+ + | Escherichia coli | Cefazolin | | 16: Intermediate | + + +--------+ + | Escherichia coli | Cefoxitin | | <=4: Sensitive | + + +--------+ + | Escherichia coli | Ceftazidime | | <=1: Sensitive | + + +--------+ + | Escherichia coli | Ceftriaxone | | <=1: Sensitive | + + +--------+ + | Escherichia coli | Ciprofloxacin | | 0.5: Sensitive | + + +--------+ + | Escherichia coli | Ertapenem | | <=0.5: Sensitive | + + +--------+ + | Escherichia coli | Gentamicin | | >=16: Resistant | + + +--------+ + | Escherichia coli | Meropenem | | <=0.25: Sensitive | + + +--------+ + | Escherichia coli | Nitrofurantoin | | <=16: Sensitive | + + +--------+ + | Escherichia coli | Piperacillin + | | 32: Intermediate | | | Tazobactam | | | + + +--------+ + | Escherichia coli | Tobramycin | | 4: Sensitive | + + +--------+ + | Escherichia coli | Trimethoprim + | | >=320: Resistant | | | Sulfamethoxazole | | | + + +--------+ + + + + + + | Performing | Address | City/State/Zipcode | Phone Number | | Organization | | | | + + + + + | [facility] | [address] | [place] | [phone] | | [facility] | | [address] | | | - LABORATORY | | | | + + + + + Urinalysis with Microscopic with Culture if Indicated (02/01/2015 11:19 AM PDT) + + + + + [...] - 1.030 | [facility] | | | [place], | | | [facility] | [...] + + + + | Leukocyte | Small (A) | Negative | [facility] | | [...] + + + + | Squamous | 2-5 (A) | 0 - 2 /LPF | [facility] | | | Epithelial | | | [facility] | | | Cells, | | | MEDICAL | | | Urine | | | CENTER - | | | | | | LABORATORY | | + + + + + + | Bacteria, | 4+ (A) | Negative /HPF | [facility] | [...] | Urine - Urine | | specimen obtained by | | single | | catheterization of | | bladder (specimen) | + + + + + + + | Performing | Address | City/State/Zipcode | Phone Number | | Organization | | | | + + + + + | [facility] | [address] | [place] | [phone] | | [facility] | | [address] | | | - LABORATORY | | | | + + + + + EXTRA GOLD TOP TUBE (02/01/2015 11:05 AM PDT) + +-------+ + + + | Component | Value | Ref Range | Performed | Pathologist | | | | | At | Signature | + +-------+ + + + | Extra Gold | Done | | [facility] | | | Top Tube | | | [facility] | | [address] | [place] | [phone] | | [facility] | | [address] | | | - LABORATORY | | | | + + + + + EXTRA GREEN TOP TUBE (02/01/2015 11:05 AM PDT) + +-------+ + + + | Component | Value | Ref Range | Performed | Pathologist | | | | | At | Signature | + +-------+ + + + | Extra Green | Done | | [facility] | | | Top Tube | | | [facility] | | [...] + | [facility] | [address] | [place] | [phone] | | [facility] | | [address] | | | - LABORATORY | | | | + + + + + Protime INR (02/01/2015 11:04 AM PDT) + + + + + + | Component | Value | Ref Range | Performed | Pathologist | | | | | At | Signature | + + + + + + | Prothrombin | 16.1 (H) | 11.3 - 13.9 | [facility] | | | Time | | seconds | [facility] | | | | | | MEDICAL | | | | | | CENTER - | | | | | | LABORATORY | | + + + + + + | INR | 1.23 (H)Comment: Usual | 0.90 - 1.10 | [facility] | | | | Oral Anticoagulation | | [facility] | | | | Range: 2.0 - | | MEDICAL | | | | 3.0High Level Oral | | CENTER - | [...] + + | [facility] | [address] | [place] | [phone] | | [facility] | | [address] | | | - LABORATORY | | | | + + + + + EXTRA BLUE TOP TUBE (02/01/2015 11:04 AM PDT) + +-------+ + + + | Component | Value | Ref Range | Performed | Pathologist | | | | | At | Signature | + +-------+ + + + | Extra Blue | Done | | [facility] | | | Top Tube | | | [facility] | | [...] + | [facility] | [address] | [place], [place] | [phone] | | [facility] | | [address] | | | - LABORATORY | | | | + + + + + EXTRA GREEN TOP TUBE (02/01/2015 11:04 AM PDT) + +-------+ + + + | Component | Value | Ref Range | Performed | Pathologist | | | | | At | Signature | + +-------+ + + + | Extra Green | Done | | [facility] | | | Top Tube | | | [facility] | | [...] [address] | [place] | [phone] | | [facility] | | [address] | | | - LABORATORY | | | | + + + + + CBC with Differential (02/01/2015 10:58 AM PDT) + + + + + + | Component | Value | Ref Range | Performed | Pathologist | | | | | At | Signature | + + + + + + | WBC | 9.6 | 4.0 - 11.0 K/uL | [facility] | | | | | | [facility] | | | | | | MEDICAL | | | | | | CENTER - | | | | | | LABORATORY | | + + + + + + | RBC | 2.97 (L) | 3.70 - 5.20 | [facility] | | | | | M/uL | [facility] | | | | | | MEDICAL | | | | | | CENTER - | | | | | | LABORATORY | | + + + + + + | Hemoglobin | 9.3 (L) | 11.5 - 16.0 | [facility] | | | | | g/dL | [facility] | | | | | | MEDICAL | | | | | | CENTER - | | | | | | LABORATORY | | + + + + + + | Hematocrit | 28.0 (L) | 34.0 - 47.0 % | [facility] | | | | | | [facility] | | | | | | MEDICAL | | | | | | CENTER - | | | | | | LABORATORY | | + + + + + + | MCV | 94.4 | 83.0 - 101.0 fL | [facility] | | | | | | [facility] | | | | | | MEDICAL | | | | | | CENTER - | | | | | | LABORATORY | | + + + + + + | MCH | 31.2 | 28.0 - 35.0 pg | [facility] | | | | | | [facility] | | | | | | MEDICAL | | | | | | CENTER - | | | | | | LABORATORY | | + + + + + + | MCHC | 33.0 | 32.0 - 36.0 | [facility] | | | | | g/dL | [facility] | | | | | | MEDICAL | | | | | | CENTER - | | | | | | LABORATORY | | + + + + + + | RDW-CV | 14.2 | <15.0 % | [facility] | | | | | | [facility] | | | | | | MEDICAL | | | | | | CENTER - | | | | | | LABORATORY | | + + + + + + | Platelet | 353 | 140 - 440 K/uL | [facility] | | | Count | | | [facility] | | | | | | MEDICAL | | | | | | CENTER - | | | | | | LABORATORY | | + + + + + + | MPV | 8.0 | fL | [facility] | | | | | | [facility] | | | | | | MEDICAL | | | | | | CENTER - | | | | | | LABORATORY | | + + + + + + | % | 73.6 | 45.0 - 82.0 % | [facility] | | | Neutrophils | | | [facility] | | | | | | MEDICAL | | | | | | CENTER - | | | | | | LABORATORY | | + + + + + + | % | 14.8 (L) | 20.0 - 45.0 % | [facility] | | | Lymphocytes | | | [facility] | | | | | | MEDICAL | | | | | | CENTER - | | | | | | LABORATORY | | + + + + + + | % Monocytes | 7.9 | 4.0 - 12.0 % | [facility] | | | | | | [facility] | | | | | | MEDICAL | | | | | | CENTER - | | | | | | LABORATORY | | + + + + + + | % | 3.3 | 0.0 - 5.0 % | [facility] | | | Eosinophils | | | [facility] | | | | | | MEDICAL | | | | | | CENTER - | | | | | | LABORATORY | | + + + + + + | % Basophils | 0.4 | 0.0 - 1.0 % | [facility] | | | | | | [facility] | | | | | | MEDICAL | | | | | | CENTER - | | | | | | LABORATORY | | + + + + + + | Absolute | 7.10 | 1.80 - 8.50 | [facility] | [...] + + + + | Absolute | 0.80 | 0.00 - 1.00 | [facility] | [...] + + + + | Absolute | 0.00 | 0.00 - 0.10 | [facility] | [...] [address] | [place] | [phone] | | [facility] | | [address] | | | - LABORATORY | | | | + + + + + documented in this encounter Visit Diagnoses + + | Diagnosis | + + | UTI (lower urinary tract infection) - Primary Urinary tract infection, site not | | specified | + + | Urinary retention with incomplete bladder emptying Incomplete bladder emptying | + + | Postoperative vaginal bleeding Hemorrhage complicating a procedure | + + documented in this encounter
--- OUTSIDE RECORDS SUMMARY | ~2019-09-06 | XMS | Encounter Summary ---
Demographics + + + | Address | [address] | | | [place] [address] | + + + | Home Phone | | + + + | Preferred Language | Unknown | + + + | Marital Status | | + + + | Restoration Affiliation | 1013 | + + + | Race | Unknown | + + + | Ethnic Group | Unknown | + + + Author + + + | Author | [facility] | | | and [place] | + + + | Organization | [facility] | | [...] [place], [place] | | | | | [address] | | + + + + + Care Team Providers + +------+ + | Care Director Inbound Sales Name | Role | Phone | + [...] | | | | | | [place] [address] | [place] [address] | | | | | | Phone: | Phone: | | | | | | [phone] | [phone] | | | | | | Fax: | Fax: | | | | | | [phone] | [phone] | +--------+--------+ + + + + Encounter Details +--------+---------+ + + + | Date | Type | Department | Care Team | Description | +--------+---------+ + + + | 08/17/ | Office | [facility] | Pipo Don MD | Change in voice | | 2019 | Visit | GASTROENTEROLOGY | [address], [place] | (Primary Dx); | | | | [address] [place] | [address] [place], [place] | Gastroesophageal | | | | [address] [place], [place] | [address] | reflux disease, | | | | [address] | | esophagitis presence | | | | [phone] | | not specified | +--------+---------+ + [...] [address] | | | | | [address] | | | | | | [place] [address] | | | | | | [phone] | | | | | | | | +--------+---------+ + + + documented as of this encounter Visit Diagnoses + + | Diagnosis | + + | Change in voice - Primary Other voice and resonance disorders | + + | Gastroesophageal reflux disease, esophagitis presence not specified | + + documented in this encounter
--- OUTSIDE RECORDS SUMMARY | ~2019-09-06 | XMS | Encounter Summary ---
Demographics + + + | Address | [address] | | | [place] [address] | + + + | Home Phone | | + + + | Preferred Language | Unknown | + + + | Marital Status | | + + + | Mormonism Affiliation | 1013 | + + + | Race | Unknown | + + + | Ethnic Group | Unknown | + + + Author + + + | Author | [facility] | | | and [place] | + + + | Organization | [facility] | | | and [...] [place], [place] | | | | | [address] | | + + + + + Care Team Providers + +------+ + | Care Field Technical Support Consultant Name | Role | Phone | [...] | | | | | syndrome | [address] | [address] | | | | | (HCC) | [address] | [place], [place] | | | | | Procedures | [place], [place] | [address] | | | | | PFT | [address] | Phone: | | | | | | Phone: | [phone] | | | | | | [phone] | Fax: | | | | | | Fax: | [phone] | | | | | | [phone] | | +--------+--------+ + + + + Encounter Details +--------+ + + + + | Date | Type | Department | Care Team | Description | +--------+ + + + + | 03/01/ | Hospital | [facility] | Yuli He | Shortness of breath; | | 2019 | Encounter | PULMONARY FUNCTION | MD 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) | | | | LAB [address] | [address] | | | | | [place], [place] | [place], [place] | | | | | [address] | [address] | | | | | [phone] | [phone] | | | | | | | [...] | 1 | 12/19/19 | | | [id number] | RIBBON TO BOTH EYES | | | 18 | 9 | | examethasone | TID | | | | | | (MAXITROL) | | | | | | | 3.5-21768-4.1 | | | | | | | [...] [address] | | | | | | [place] [address] | | | | | | [phone] | | | | | | | [...] Cornell : 1965 MRN: | | | [id number] REASON FOR TESTING: Dyspnea FINDINGS | | [...] Care Medicine [facility] | | | [facility] [address], [address] | | | [place] [address] | | + + + documented in [...]
--- OUTSIDE RECORDS SUMMARY | ~2019-09-06 | XMS | Encounter Summary ---
Demographics + + + | Address | [address] | | | [place] [address] | + + + | Home Phone [...] [place], [place] | | | | | [address] | | + + + + + Care Team Providers + +------+ + | Care Order Processor Name | Role | Phone | + [...] [address] | | | | | [place], [place] | [place] [address] | | | | | [address] | [phone] | | | | | [phone] | | | +--------+ + + + [...] | | | | | | [facility] [address] | | | | | | [place] [address] | | | | | | [phone] | | | | | | | [...] Performed At | + + + | [place] [address] | | | Patient Name: HERNANDO CORNELL Date of : | | | 1965 Medical Record: [id number] Account: [id number] | | | Exam Date/Time: 02/05/2010 14:17 [...] Vein S: 0.40 m/s HR: 64.40 BPM WV maxP.45 mmHg WV | | | meanP.03 mmHg WV Vmax: 1.36 m/s WV Vmean: 0.82 m/s WV | | | VTI: 28.38 cm HR: 64.15 BPM PV maxP.54 mmHg PV meanPG: | | | 2.18 mmHg PV Vmax: 0.94 m/s PV Vmean: 0.70 m/s PV VTI: | | | 18.04 cm TR maxP.45 mmHg TR Vmax: 1.69 m/s TV A Sergio: | | | 0.32 m/s TV Dec Hudspeth: 4.76 m/s2 TV Dec Time: 133.12 ms TV E | | | Sergio: 0.63 m/s TV E/A Ratio: 1.94 Manager Of Planning: ELVIRA | | | Authenticated by: Elton Castillo MD Report Date/Time: 02-05-2010 | | | 22:09:52 | | + + + + + | Procedure Note | + + | Bulmaro Love - 12/26/2018 6:58 PM [facility] | | [place], [place] [address]Vo: Patient Name: Mona CORNELL of : | | 1965Medical Record: [id number]: [id number] | | Date/Time: 02/05/2010 14:17Performing Physician: Elton [...] 26.15 mlLVLs A4C: 5.97 cmLAAs A4C: 11.79 lf3TTCGU A-L A4C: 27.07 mlLALs A4C: | | [...] 23.46 cmAVA Vmax: 1.67 cm2AVA (VTI): 1.99 xz0IURG: 310.53 msLVCI | | Dopp: 1.74 l/cgfn5FZAY Dopp: 2.80 l/minHR: 60.11 BPMLVOT maxP.30 mmHgLVOT [...] A Sergio: 0.32 m/sTV Dec | | Hudspeth: 4.76 m/s2TV Dec Time: 133.12 msTV E Sergio: 0.63 m/sTV E/A Ratio: 1.94 | | Manager Of Planning: MIKAuthenticated by: Elton ARCEOeport Date/Time: 02-05-2010 22:09:52 [...] 0.40 m/s | |HR: 64.40 BPM | |WV maxP.45 mmHg | |WV meanP.03 mmHg | |WV Vmax: 1.36 m/s | |WV Vmean: 0.82 m/s | |WV VTI: 28.38 cm | |HR: 64.15 BPM | |PV maxP.54 mmHg | |PV meanP.18 mmHg | |PV Vmax: 0.94 m/s | |PV Vmean: 0.70 m/s | |PV VTI: 18.04 cm | |TR maxP.45 mmHg | |TR Vmax: 1.69 m/s | |TV A Sergio: 0.32 m/s | |TV Dec Hudspeth: 4.76 m/s2 | |TV Dec Time: 133.12 ms | |TV E Sergio: 0.63 m/s | |TV E/A Ratio: 1.94 | | | |Manager Of Planning: ELVIRA | |Authenticated by: Elton Castillo MD | |Report Date/Time: 02-05-2010 22:09:52 | + + documented in this encounter Visit Diagnoses Not on filedocumented in this encounter"
--- OUTSIDE RECORDS SUMMARY | ~2019-09-06 | XMS | Clinical Summary ---
Demographics + + + | Address | [address] | | | [place] [address] | + + + | Home Phone | | + + + | Preferred Language | Unknown | + + + | Marital Status | | + + + | Cheondoism Affiliation | 1013 | + + + | Race | Unknown | + + + | Ethnic Group | Unknown | + + + Author + + + | Author | [facility] (Historical as of | | | 12-18-18) | + + + | Organization | [facility] (Historical as of | | | 12-18-18) [...] [place] | | | | | [address] | | + + + + + Care Team Providers + +------+ + | Care Commissioner Of Internal Revenue Name | Role | Phone | + [...] +------+-------+---------+ | COMMERCIAL OTHER | COMMER | [id number] | | | | | | CIAL | | | | | | | GENERI | | | | | | | C PLAN | | | | | + +--------+ +------+-------+---------+ | REGENCE | REGENC | [id number] | | | | | | E-OREG [...] | mire[place] | | | [address]507 | [address] | + +--------+ +--------+ + +
--- OUTSIDE RECORDS SUMMARY | ~2019-09-06 | XMS | Encounter Summary ---
Demographics + + + | Address | [address] | | | [place] [address] | + + + | Home Phone | | + + + | Preferred Language | Unknown | + + + | Marital Status | | + + + | Faith Affiliation | 1013 | + + + | Race | Unknown | + + + | Ethnic Group | Unknown | + + + Author + + + | Author | [facility] | | | and [place] | + + + | Organization | [facility] | | [...] [place], [place] | | | | | [address] | | + + + + + Care Team Providers + +------+ + | Care Classification Analyst Name | Role | Phone | [...] DLCO ONLY NO | [address] | [place], [place] | | | | | [place] | [place], [place] | [address] | | | | | | [address] | Phone: | | | | | | Phone: | [phone] | | | | | | [phone] | Fax: | | | | | | Fax: | [phone] | | | | | | [phone] | | +--------+--------+ + + + + Encounter Details +--------+ + + + + | Date | Type | Department | Care Team | Description | +--------+ + + + + | 03/30/ | Hospital | [facility] | Yuli He | Shortness of breath | | 2019 | Encounter | PULMONARY FUNCTION | MD [address] | | | | | LAB [address] [facility] | Josue [address] [facility] [address] | | | | | [place], [place] | [place], [place] | | | | | [address] | [address] | | | | | [phone] | | | | | | | [...] | 1 | 12/19/19 | | | [id number] | RIBBON TO BOTH EYES | | | 18 | 9 | | examethasone | TID | | | | | | (MAXITROL) | | | | | | | 3.5-90853-9.1 | | | | | | | [...] [address] | | | | | | [place] [address] | | | | | | [phone] | | | | | | | [...] | Eder Smith MD 04/08/2019 1:24 PM [facility] | | | Center Service: Pulmonology [...]
--- OUTSIDE RECORDS SUMMARY | ~2019-09-06 | XMS | Encounter Summary ---
Demographics + + + | Address | [address] | | | [place] [address] | + + + | Home Phone | | + + + | Preferred Language | Unknown | + + + | Marital Status | | + + + | Yarsani Affiliation | CHR | + + + [...] [place], [place] | | | | | [address] | | + + + + + Care Team Providers + +------+ + | Care Interlocker Name | Role | Phone | + [...] Hernandez | | | | | at [facility] [address] | [address] | | | | | [place], [place] | [place], [place] | | | | | [address] | [address] | | | | | [phone] | | | | | | | [...]
--- OUTSIDE RECORDS SUMMARY | ~2019-09-06 | XMS | Encounter Summary ---
Demographics + + + | Address | [address] | | | [place] [address] | + + + | Home Phone | | + + + | Preferred Language | Unknown | + + + | Marital Status | | + + + | Protestant Affiliation | 1013 | + + + [...] [place], [place] | | | | | [address] | | + + + + + Care Team Providers + +------+ + | Care Social Studies Teacher Name | Role | Phone | + +------+ + | Raven Kim PA-C | PCP | | + +------+ + Encounter Details +--------+ + + + + | Date | Type | Department | Care Team | Description | +--------+ + + + + | 03/18/ | Transcribed | [facility] | Yuli He | Shortness of breath | | 2019 | Orders | CENTRAL SCHEDULING | MD [address] | (Primary Dx) | | | | [address] | [address] | | | | | [place], [place] | [place], [place] | | | | | [address] | [address] | | | | | [phone] | | | | | | | [...] | | | | | | [address] | | | | | | [place] [address] | | | | | | [phone] | | | | | | | | +--------+---------+ + + + documented as of this encounter Results Pulmonary function test full PFT (03/30/2019 10:30 AM PST) + + + | Narrative | Performed At | + + + | Eder Smith MD 04/08/2019 1:24 PM [facility] | | | Center Service: Pulmonology PULMONARY [...] of breath - Primary | + + documented in this encounter"
--- OUTSIDE RECORDS SUMMARY | ~2019-09-06 | XMS | Encounter Summary ---
Demographics + + + | Address | [address] | | | [place] [address] | + + + | Home Phone | | + + + | Preferred Language | Unknown | + + + | Marital Status | | + + + | Sabianism Affiliation | 1013 | + + + | Race | Unknown | + + + | Ethnic Group | Unknown | + + + Author + + + | Author | [facility] | | | and [place] | + + + | Organization | [facility] | | [...] [place], [place] | | | | | [address] | | + + + + + Care Team Providers + +------+ + | Care Client Support Analyst Name | Role | Phone | + +------+ + | Raven Kim PA-C | PCP | | + +------+ + Reason for Visit + + + | Reason | Comments | + + + | Recurrent Urinary | | | Tract Infection | | + + + Evaluate & Treat (Routine) + +--------+ + + + + | Status | Reason | Specialty | Diagnoses / | Referred By | Referred To | | | | | Procedures | Contact | Contact | + +--------+ + + + + | Authorized | | Urology | Diagnoses | Judy | [facility] | | | | | Urinary | ARRON Carbajal | [address] | | | | | tract | [address] | | | | | infection, | [place] | [place], [place] | | | | | site not | [address] | [address] | | | | | specified | [place], | Phone: | | | | | | [place] [address] | [phone] | | | | | | Phone: | Fax: | | | | | | [phone] | [phone] | | | | | | Fax: | | | | | | | [phone] | | + +--------+ + + + + Encounter Details +--------+---------+ + + + | Date | Type | Department | Care Team | Description | +--------+---------+ + + + | 06/22/ | Office | [facility] | Stephanie Robles | Recurrent UTI | | 2019 | Visit | UROLOGY [address] | MD [address] | (Primary Dx) | | | | [address] | [address] | | | | | [place], [place] | [place] [address] | | | | | [address] | [phone] | | | | | [phone] | | | +--------+---------+ + + + [...] in this encounter Patient Instructions Patient Instructions Stephanie Robles MD - 06/22/2019 10:15 AM PST Follow up in 3-6 months for symptom check For the recurrent UTI's, I have recommended the following: - Vitamin C 1000mg BID to acidify the urine to prevent UTI"s. - cranberry extract pills - probiotics - estrogen vaginal cream three times a week using the fingertip method - call your PCP office with any future UTI symptoms to be directed to drop off a urine spec imen prior to receiving antibioticsElectronically signed by Stephanie Robles MD at 0 06/22/2019 11:06 AM PST documented in this encounter Progress Notes Stephanie Robles MD - 06/22/2019 10:15 AM PSTFormatting of this note might be diff erent from the original. [facility] Urology Primary Care Provider: Raven Kim PA-C CHIEF COMPLAINT: Chief Complaint Patient presents with Recurrent Urinary Tract Infection HISTORY OF PRESENT ILLNESS: The patient is a 53 y.o. female with significant past medical history of depression, anxiet y, fibromyalgia, hypothyroidism, h/o rheumatic fever s/p MVR 2007 (on coumadin), scleroderma presenting with urinary urgency, frequency, dysuria and foul oder to urine. Only prior culture data from 2014 shows E. Coli UTI. Outside records show E.coli UTI in 2018. She was recently started on keflex by her PCP for positive UA, culture pending. In the past year she reports several 6-7 UTIs. Prior to this year she did not have issues w ith UTIs. When having a UTI, she reports severe urgency,small volume voids and dysuria. Patient reports when in normal state of health voiding 4-5X per day, nocturia X1. No incont inence. She was started on estrace cream a few months ago but has been inconsistently using it. She is drinking electrolyte water, gatorade. No coffee, tea or soda. History: Past Medical History: Diagnosis Date Anxiety Cervical spinal stenosis Chronic arthralgias of knees and hips hips bilaterally and shoulders Chronic daily headache Chronic hoarseness Chronic pain syndrome Chronic sinusitis Degenerative cervical disc Depression with anxiety Disorder of right temporomandibular joint Fibromyalgia Heart valve replaced Hypothyroidism Hypothyroidism Long-term (current) use of anticoagulants Myalgia Osteopenia Paresthesias Persistent insomnia Presence of prosthetic heart valve Sleep-related bruxism Stomach ulcer TMJ dysfunction Past Surgical History: Procedure Laterality Date CARDIAC VALVE REPLACEMENT 2007 mechanical heart valve mitral, Dr. Veliz; [facility]; [facility]. CHOLECYSTECTOMY, LAPAROSCOPIC 1995 ; [facility] [place]. COLPORRHAPHY N/A 01/22/2015 Procedure: Repair Anterior Colporrhaphy; Surgeon: Evelio Alston MD; Location: [facility] MAIN OR COLPORRHAPHY N/A 01/29/2015 Procedure: Re-suturing of a/p repair ; Surgeon: Pipo Rajan DO; Location: [facility] MAIN OR ESOPHAGUS-ACID REFLUX TEST N/A 09/14/2018 Procedure: ENDOSCOPIC 48 HOUR PH WALKER "CAPSULE"; Surgeon: Pipo Don MD; Location: [facility] MEDICAL PROCEDURE UNIT Family History Problem Relation Age of Onset [...] Stroke Maternal Aunt Renal failure Maternal Aunt Social History Tobacco Use Smoking status: Former Smoker Types: Cigarettes Last attempt to quit: 05/04/1987 Years since quittin.1 Smokeless tobacco: Never Used Substance Use Topics Alcohol use: Yes Alcohol/week: 2.0 standard drinks Types: 1 Glasses of wine, 1 Cans of beer per week Comment: 1-2 bottles per month Drug use: No Allergies: Allergies Allergen Reactions Sulfa Antibiotics Diarrhea and Nausea And Vomiting Medications: Outpatient Medications Marked as Taking for the 06/22/19 encounter (Office Visit) with Stephanie Robles MD Medication Sig Dispense Refill ALPRAZolam (ALPRAZOLAM XR) 0.5 MG 24 hr tablet Take 0.5 mg by mouth nightly. azelastine 0.1% nasal spray 1 spray by Nasal route 2 times daily. Use in each nostril t wice a day 30 mL 11 baclofen (LIORESAL) 10 mg tablet TK 1 TO 2 TS PO 3 XD PRF SPASMS 0 betamethasone dipropionate 0.05% cream APPLY A THIN LAYER TO AFFECTED AREAS ON THE HAND S DIRECTED BID FOLLOW IMMEDIATELY WITH MOISTURIZER 1 Calcium Carb-Cholecalciferol (CALCIUM 1000 + D PO) Take by mouth. cephalexin (KEFLEX) 500 mg capsule cholecalciferol (VITAMIN D-3) 1000 units TABS Take 1,000 Units by mouth Daily. DULoxetine (CYMBALTA) [address] capsule TK ONE C PO QD 1 fluticasone (FLONASE) 50 mcg/nasal spray 1 spray by Nasal route Daily. levalbuterol (XOPENEX HFA) 45 mcg/puff inhaler INHALE 2 PUFFS INTO LUNGS EVERY 4 TO 6 H OURS DIRECTED 2 levothyroxine (SYNTHROID) 100 mcg tablet TK 1 T PO QD 0 loteprednol (LOTEMAX) 0.5 % ophthalmic suspension INSTILL 1 TO 2 DROPS INTO BOTH EYES 4 TIMES DAILY 10 Magnesium 100 MG CAPS Take by mouth. QVAR REDIHALER 40 MCG/ACT inhaler Inhale 2 puffs into the lungs 2 times daily. 3 Inhale r 4 warfarin (COUMADIN) 4 MG tablet TK 3 TS PO D OR UTD 5 Current Facility-Administered Medications for the 06/22/19 encounter (Office Visit) with [facility] shaila Robles MD Medication Dose Route Frequency Provider Last Rate Last Dose enoxaparin (LOVENOX) 60 mg/0.6 mL injection 60 mg 60 mg Subcutaneous See Admin Instruc tions Pipo Don MD REVIEW OF SYSTEMS Review of Systems Constitutional: Negative. HENT: Negative. Eyes: Negative. Respiratory: Negative. Cardiovascular: Negative. Gastrointestinal: Negative. Genitourinary: Positive for dysuria, frequency and urgency. Musculoskeletal: Negative. Skin: Negative. Neurological: Negative. Endo/Heme/Allergies: Negative. Psychiatric/Behavioral: Negative. PHYSICAL EXAM Vital Signs: BP 143/87 | Pulse 77 | Temp 36.2 C (97.1 F) (Oral) | Ht 1.626 m (5' 4") | Wt 60.3 k g (133 lb) | LMP 02/21/2014 | SpO2 100% | BMI 22.83 kg/m General Exam: General Appearance: alert, awake, oriented, in no apparent distress. HEENT: Head is normocephalic. Pupils are equal and reactive. Neck: Supple without lymphadenopathy. Heart: Regular rate and rhythm. Lungs: Normal respiratory effort. Abdomen: Soft, non-tender, non-distended. No palpable masses Bladder: Non-tender, not distended. Extremities: Without cyanosis, clubbing or edema. Musculoskeletal: No CVA tenderness. Neurological: no focal deficits, grossly intact Skin: Warm and dry without any rash. DATA CBC: Lab Results Component Value Date WBC 6.1 06/24/2017 RBC 4.43 06/24/2017 HGB 13.5 06/24/2017 HCT 41.4 06/24/2017 MCV 93.5 06/24/2017 MCH 30.4 06/24/2017 MCHC 32.5 06/24/2017 PLT 357 06/24/2017 MPV 8.1 06/24/2017 CMP: Lab Results Component Value Date NA 142 06/24/2017 K 3.7 06/24/2017 CL 104 06/24/2017 CO2 30 06/24/2017 ANIONGAP 8 06/24/2017 BUN 11 06/24/2017 BILITOT 0.9 06/24/2017 AST 53 (H) 06/24/2017 ALT 48 (H) 06/24/2017 BMP: Lab Results Component Value Date NA 142 06/24/2017 K 3.7 06/24/2017 CL 104 06/24/2017 CO2 30 06/24/2017 ANIONGAP 8 06/24/2017 BUN 11 06/24/2017 U/A: Lab Results Component Value Date PHUR 7.0 06/24/2017 BLOODU Negative 06/24/2017 KETONES Negative 06/24/2017 GLUCOSEU Negative 06/24/2017 ASSESSMENT 1. Recurrent UTI PLAN Patient presents with recurrent E.coli UTIs over the past year. For the recurrent UTI's, I have recommended the following: - Vitamin C 1000mg BID to acidify the urine to prevent UTI"s. - cranberry extract pills - probiotics - estrogen vaginal cream three times a week using the fingertip method - call the office with any future UTI symptoms to be directed to drop off a urine specimen prior to receiving antibiotics Follow up in 3-6 months for symptom check Stephanie Robles MD documented i n this encounter Plan of Treatment +--------+---------+ + + + | Date | Type | Specialty | Care Team | Description | +--------+---------+ + + + | 11/21/ | Office | Urology | Andi Roblesy | | | 2019 | Visit | | MD [address] | | | | | | [address] | | | | | | [place] [address] | | | | | | [phone] | | | | | | | | +--------+---------+ + + + documented as of this encounter Visit Diagnoses + + | Diagnosis | + + | Recurrent UTI - Primary Urinary tract infection, site not specified | + + documented in this encounter
--- OUTSIDE RECORDS SUMMARY | ~2019-09-06 | XMS | Encounter Summary ---
Demographics + + + | Address | [address] | | | [place] [address] | + + + | Home Phone | | + + + | Preferred Language | Unknown | + + + | Marital Status | | + + + | Gnosticism Affiliation | 1013 | + + + | Race | Unknown | + + + | Ethnic Group | Unknown | + + + Author + + + | Author | [facility] | | | and [place] | + + + | Organization | [facility] | | [...] [place], [place] | | | | | [address] | | + + + + + Care Team Providers + +------+ + | Care Automotive Painter Helper Name | Role | Phone | [...] | | | | | Procedures | FIELD SERVICE ENGINEER [address] | Function Lab | | | | | PULM | [address] | [address] | | | | | [address] | [address] | | | | | [facility] | [place], [place] | [place] | | | | | | [address] | [address] | | | | | | Phone: | Phone: | | | | | | [phone] | [phone] | | | | | | Fax: | Fax: | | | | | | [phone] | [phone] | +--------+--------+ + + + + Encounter Details +--------+ + + + + | Date | Type | Department | Care Team | Description | +--------+ + + + + | 04/11/ | Hospital | [facility] | Marly Kaufman, | Shortness of breath; | | 2019 | Encounter | PULMONARY FUNCTION | FIELD SERVICE ENGINEER [address] | Cough in adult | | | | LAB [address] | [address], | | | | | [place], [place] | [place] [address] | | | | | [address] | [phone] | | | | | [phone] | | | +--------+ + + + [...] 19 | | | (METHACHOLINE PFT) | [facility] | | | | | | dilution kit | [facility] for | | | | | | | administration under | | | | | | | the direct | | | | | | | supervision of the | | | | | | | [facility] Pulmonary | | | | | [...] | | | | | | [address] [facility] [address] | | | | | | [place] [address] | | | | | | [phone] | | | | | | | [...] and | | | Critical Care Medicine [facility] | | | [address], [place] [address] | | + + + documented in [...]
--- OUTSIDE RECORDS SUMMARY | ~2019-09-06 | XMS | Encounter Summary ---
Demographics + + + | Address | [address] | | | [place] [address] | + + + | Home Phone | | + + + | Preferred Language | Unknown | + + + | Marital Status | | + + + | Nondenominational Affiliation | 1013 | + + + | Race | Unknown | + + + | Ethnic Group | Unknown | + + + Author + + + | Author | [facility] | | | and [place] | + + + | Organization | [facility] | | [...] [place], [place] | | | | | [address] | | + + + + + Care Team Providers + +------+ + | Care Security Site Supervisor Name | Role | Phone | + +------+ + | Bernard Cesar MD | PCP | | + +------+ + Encounter Details +--------+ + + + + | Date | Type | Department | Care Team | Description | +--------+ + + + + | 02/11/ | Hospital | [facility] | Evelio Alston, | | | 2015 | Encounter | [place] CTR [place] | [address] | | | | | PROCEDURES [address] | [place] | | | | | [place], | [place] [address] | | | | | [place] [address] | [phone] | | | | | [phone] | | | +--------+ + + + [...] documented in this encounter Discharge Instructions Instructions Ntia Ramírez RN - 02/11/2015 Oliva Catheter Removal [...] with gentle pulling. You can t urinate [id number] of catheter removal. Your abdomen is painful or bloated. You have burning pain with urination that lasts [id number]. You see a lot of blood in the urine (light bleeding [id number] is normal). It feels like the bladder is not emptying. 0619-4753 [employer]. [address] [place] [address]. All righ ts reserved. This information is [...] COOK | | | | | | [facility] [place] [place] [address] | | | | | | [phone] | | | | | | | | +--------+---------+ + + + documented as of this encounter Visit Diagnoses Not on filedocumented in this encounter"
--- OUTSIDE RECORDS SUMMARY | ~2019-09-06 | XMS | Encounter Summary ---
Demographics + + + | Address | [address] | | | [place] [address] | + + + | Home Phone [...] [place], [place] | | | | | [address] | | + + + + + Care Team Providers + +------+ + | Care Commissary Representative Name | Role | Phone | + [...] | | | | Cystocele | | [address] | | | | | Procedures | | [place] | | | | | Not Provided | | [place] | | | | | | | [place], [place] | | | | | | | [address] | | | | | | | Phone: | | | | | | | [phone] | | | | | | | Fax: | | | | | | | [phone] | +--------+--------+ + + + + Encounter [...] | | | | | [address] | [address] [place] | | | | | [place] | [address] | | | | | [address] | | | | | | [phone] | Rivera Veloz | | | | | | MD Hernando [address] | | | | | | [address] [facility] | | | | | | [place] [address] | | | | | | [phone] | | | | | | | [...] 201 | | | | | | [place] [address] | | | | | | [phone] | | | | | | | [...]
--- OUTSIDE RECORDS SUMMARY | ~2019-09-06 | XMS | Encounter Summary ---
Demographics + + + | Address | [address] | | | [place] [address] | + + + | Home Phone | | + + + | Preferred Language | Unknown | + + + | Marital Status | | + + + | Mosque Affiliation | 1013 | + + + | Race | Unknown | + + + | Ethnic Group | Unknown | + + + Author + + + | Author | [facility] | | | and [place] | + + + | Organization | [facility] | | [...] [place], [place] | | | | | [address] | | + + + + + Care Team Providers + +------+ + | Care Proposition Player Name | Role | Phone | + [...] + + | 06/24/ | Telephone | [facility] | Marly Kaufman, | Other (Results call) | | 2019 | | PULMONOLOGY [address] | GRAVE CLEANER [address] | | | | | [address] | [address] [place], | | | | | [place], [place] | [place] [address] | | | | | [address] | [phone] | | | | | [phone] | | | +--------+ + + + [...] | | | | | [place] [address] | | | | | | [phone] | | | | | | | | +--------+---------+ + + + documented as of this encounter Visit Diagnoses Not on filedocumented in this encounter"
--- OUTSIDE RECORDS SUMMARY | ~2019-09-06 | XMS | Encounter Summary ---
Demographics + + + | Address | [address] | | | [place] [address] | + + + | Home Phone | | + + + | Preferred Language | Unknown | + + + | Marital Status | | + + + | Protestant Affiliation | 1013 | + + + | Race | Unknown | + + + | Ethnic Group | Unknown | + + + Author + + + | Author | [facility] | | | and [place] | + + + | Organization | [facility] | | | [...] [place] | | | | | [address] | | + + + + + Care Team Providers + +------+ + | Care Spotter Driver Name | Role | Phone | [...] + + | 09/10/ | Telephone | [facility] | Pipo Don MD | Other (Lovenox | | 2019 | | MED CTR MP INTRA OP | [address], [place] | question) | | | | [address] | [address] [place], [place] | | | | | [place], [place] | [address] | | | | | [address] | | | | | | [phone] | | | +--------+ + + + [...] | | | | | [place] [address] | | | | | | [phone] | | | | | | | | +--------+---------+ + + + documented as of this encounter Visit Diagnoses Not on filedocumented in this encounter"
--- OUTSIDE RECORDS SUMMARY | ~2019-09-06 | XMS | Encounter Summary ---
Demographics + + + | Address | [address] | | | [place] [address] | + + + | Home Phone | | + + + | Preferred Language | Unknown | + + + | Marital Status | | + + + | Amish Affiliation | 1013 | + + + | Race | Unknown | + + + | Ethnic Group | Unknown | + + + Author + + + | Author | [facility] | | | and [place] | + + + | Organization | [facility] | | | [...] [place], [place] | | | | | [address] | | + + + + + Care Team Providers + +------+ + | Care Heel Scorer Name | Role | Phone | + [...] | | | infection, | [address] | [place], [place] | | | | | site not | [address] | [address] | | | | | specified | [place], | Phone: | | | | | | [place] [address] | [phone] | | | | | | Phone: | Fax: | | | | | | [phone] | [phone] | | | | | | Fax: | | | | | | | [phone] | | + +--------+ + + + + Encounter Details +--------+---------+ + + + | Date | Type | Department | Care Team | Description | +--------+---------+ + + + | 06/22/ | Office | [facility] | Stephanie Robles | Recurrent UTI | | 2019 | Visit | UROLOGY [address] | MD [address] | (Primary Dx) | | | | [address] | [address] | | | | | [place], [place] | [place] [address] | | | | | [address] | [phone] | | | | | [phone] | | | +--------+---------+ + + + [...] might be diff erent from the original. Merged With [facility] Primary Care Provider: Raven Kim [...] heart valve mitral, Dr. Veliz; [facility]; [facility]. CHOLECYSTECTOMY, LAPAROSCOPIC 1995 ; [facility] [place]. COLPORRHAPHY N/A 01/22/2015 Procedure: Repair Anterior Colporrhaphy; Surgeon: Evelio Alston MD; Location: [facility] MAIN OR COLPORRHAPHY N/A 01/29/2015 Procedure: Re-suturing of a/p repair ; Surgeon: Pipo Rajan DO; Location: [facility] MAIN OR ESOPHAGUS-ACID REFLUX TEST N/A 09/14/2018 Procedure: ENDOSCOPIC 48 HOUR PH WALKER "CAPSULE"; Surgeon: Pipo Don MD; Location: [facility] MEDICAL PROCEDURE UNIT Family History Problem Relation [...] for the 06/22/19 encounter (Office Visit) with [facility] shaila Robles MD Medication Dose Route [...] [address] | | | | | | [place] [address] | | | | | | [phone] | | | | | | | | +--------+---------+ + + + documented as of this encounter Visit Diagnoses + + | Diagnosis | + + | Recurrent UTI - Primary Urinary tract infection, site not specified | + + documented in this encounter
--- OUTSIDE RECORDS SUMMARY | ~2019-09-06 | XMS | Encounter Summary ---
Demographics + + + | Address | [address] | | | [place] [address] | + + + | Home Phone [...] [place], [place] | | | | | [address] | | + + + + + Care Team Providers + +------+ + | Care Trouble Shooting Mechanic Name | Role | Phone | + [...] + + | 09/16/ | Telephone | [facility] | Pipo Don MD | Follow-up ([place] | | 2019 | | GASTROENTEROLOGY | [address], [place] | study) | | | | [address] [place] | [address] [place], [place] | | | | | [address] [place], [place] | [address] | | | | | [address] | | | | | | [phone] | | | +--------+ + + + [...] | | | | | [place] [address] | | | | | | [phone] | | | | | | | | +--------+---------+ + + + documented as of this encounter Visit Diagnoses Not on filedocumented in this encounter"
--- OUTSIDE RECORDS SUMMARY | ~2019-09-06 | XMS | Encounter Summary ---
Demographics + + + | Address | [address] | | | [place] [address] | + + + | Home Phone | | + + + | Preferred Language | Unknown | + + + | Marital Status | | + + + | Hindu Affiliation | 1013 | + + + | Race | Unknown | + + + | Ethnic Group | Unknown | + + + Author + + + | Author | [facility] | | | and [place] | + + + | Organization | [facility] | | [...] [place], [place] | | | | | [address] | | + + + + + Care Team Providers + +------+ + | Care Cafeteria Aide Name | Role | Phone | [...] | | | | CENTER [address] | [address] [facility] | (Primary Dx); | | | | [place] | [place] [address] | Urinary retention | | | | [address] | [phone] | with incomplete | | | | [phone] | | bladder emptying; | | | [...] | | | | | | [place] [address] | | | | | | [phone] | | | | | | | [...] [address] | [place] | [phone] | | [facility] | | [address] | | | - LABORATORY | | [...] - 1.030 | [facility] | | | [place], | | | [facility] | | [...] ST. | [address] | [place] | [phone] | | [facility] | | [address] | | | - LABORATORY | | [...] [address] | [place] | [phone] | | [facility] | | [address] | | | - LABORATORY | | [...] + | [facility] | [address] | [place] | [phone] | | [facility] | | [address] | | | - LABORATORY | | [...] [address] | [place] | [phone] | | [facility] | | [address] | | | - LABORATORY | | [...] + | [facility] | [address] | [place], [place] | [phone] | | [facility] | | [address] | | | - LABORATORY | | [...] [address] | [place] | [phone] | | [facility] | | [address] | | | - LABORATORY | | [...] [address] | [place] | [phone] | | [facility] | | [address] | | | - LABORATORY | | [...]
--- OUTSIDE RECORDS SUMMARY | ~2019-09-06 | XMS | Encounter Summary ---
Demographics + + + | Address | [address] | | | [place] [address] | + + + | Home Phone [...] [place], [place] | | | | | [address] | | + + + + + Care Team Providers + +------+ + | Care Hand Slitter Name | Role | Phone | + +------+ + | Raven Kim PA-C | PCP | | + +------+ + Encounter Details +--------+ + + + + | Date | Type | Department | Care Team | Description | +--------+ + + + + | 03/18/ | Transcribed | [facility] | Yuli He | Shortness of breath | | 2019 | Orders | CENTRAL SCHEDULING | MD [address] | (Primary Dx) | | | | [address] | [address] | | | | | [place], [place] | [place], [place] | | | | | [address] | [address] | | | | | [phone] | [phone] | | | | | | | [...] 201 | | | | | | [place] [address] | | | | | | [phone] | | | | | | | | +--------+---------+ + + + documented as of this encounter Results Pulmonary function test full PFT (03/30/2019 10:30 AM PST) + + + | Narrative | Performed At | + + + | Eder Smith MD 04/08/2019 1:24 PM [facility] | | | Center Service: Pulmonology PULMONARY [...]
--- OUTSIDE RECORDS SUMMARY | ~2019-09-06 | XMS | Encounter Summary ---
Demographics + + + | Address | [address] | | | [place] [address] | + + + | Home Phone [...] [place], [place] | | | | | [address] | | + + + + + Care Team Providers + +------+ + | Care Safety Trainer Name | Role | Phone | + [...] + + | 06/26/ | Telephone | [facility] [place] | Shankar Kaufman, | Imaging Only | | 2018 | | PHYSIATRY [address] | MD [address] | | | | | [address] | [place] | | | | | [place] | [address] | | | | | [address] | | | | | | [phone] | | | +--------+ + + + [...] | | | | | [place] [address] | | | | | | [phone] | | | | | | | | +--------+---------+ + + + documented as of this encounter Visit Diagnoses Not on filedocumented in this encounter"
--- OUTSIDE RECORDS SUMMARY | ~2019-09-06 | XMS | Encounter Summary ---
Demographics + + + | Address | [address] | | | [place] [address] | + + + | Home Phone [...] + + | Author | [facility] | | | and [place] | + + + | Organization | [facility] | | [...] [place], [place] | | | | | [address] | | + + + + + Care Team Providers + +------+ + | Care Independent Living Advisor Name | Role | Phone | [...] | | [address] [place] | [place] [address] | | | | | [place] [address] | | | | | | [phone] | | | +--------+ + + + [...] [address] | | | | | | [place] [address] | | | | | | [phone] | | | | | | | [...] for comparison only - no result from [facility]. | | + + + + +---------+ + + | Performing | Address | City/State/Zipcode | Phone Number | | Organization | | | | + +---------+ + + | [facility] | | | | + +---------+ + + documented in this encounter Visit Diagnoses Not on filedocumented in this encounter"
--- OUTSIDE RECORDS SUMMARY | ~2019-09-06 | XMS | Encounter Summary ---
Demographics + + + | Address | [address] | | | [place] [address] | + + + | Home Phone | | + + + | Preferred Language | Unknown | + + + | Marital Status | | + + + | Yazdanism Affiliation | 1013 | + + + [...] [place], [place] | | | | | [address] | | + + + + + Care Team Providers + +------+ + | Care [address] Name | Role | Phone | + +------+ + | Raven Kim PA-C | PCP | | + +------+ + Encounter Details +--------+ + + + + | Date | Type | Department | Care Team | Description | +--------+ + + + + | 11/29/ | Orders Only | [facility] | Provider, | | | 2018 | | SYSTEM GENERIC OP | MD [address] | | | | | [address] | [address] | | | | | [address] [place], [place] | [place] [address] | | | | | [address] | | | | | | [phone] | | | +--------+ + + + [...] | | | | | [place] [address] | | | | | | [phone] | | | | | | | | +--------+---------+ + + + documented as of this encounter Visit Diagnoses Not on filedocumented in this encounter"
--- OUTSIDE RECORDS SUMMARY | ~2019-09-06 | XMS | Encounter Summary ---
Demographics + + + | Address | [address] | | | [place] [address] | + + + | Home Phone [...] [place], [place] | | | | | [address] | | + + + + + Care Team Providers + +------+ + | Care Stores Assistant Name | Role | Phone | [...] | | | | Cystocele | | [address] | | | | | Procedures | | [place] | | | | | Not Provided | | [place] | | | | | | | [place], [place] | | | | | | | [address] | | | | | | | Phone: | | | | | | | [phone] | | | | | | | Fax: | | | | | | | [phone] | +--------+--------+ + + + + Encounter Details +--------+ + + + + | Date | Type | Department | Care Team | Description | +--------+ + + + + | 01/22/ | Hospital | [facility] | Evelio Alston, | | | 2015 - | Encounter | MED CTR [facility] | [address] | | | | | [address] | [place] | | | 01/24/ | | [place] | [place] [address] | | | 2015 | | [address] | [phone] | | | | | [phone] | | | +--------+ + + + [...] Physician Discharge Summary Patient ID: Nilsa Cornell [id number] y.o. 1965 Admit date: 01/22/2015 Discharge [...] Catheter that falls out or is dislodged [phone] [employer]. [address] [place] [address], [place] [id number]. All righ ts reserved. This information is [...] the pelvic organ or organs occurring again 9645-6790 [employer]. [address] [place] [address], [place] [address]. All righ ts reserved. This information is [...] 01/24/2015 4:00 PM PDTPt up to [facility] h[facility] and just passes water, no stool.Electronically [...] neck. Medicated with toradol.Electron ically signed by Suh Bravo RN at 01/22/2015 5:21 PM Shu [...] [address] | | | | | | [place] [address] | | | | | | [phone] | | | | | | | [...] - 1.030 | [facility] | | | [place], | | | [facility] | | [...] + | [facility] | [address] | [place] | [phone] | | [facility] | | [address] | | | - LABORATORY | | [...] - 1.030 | [facility] | | | [place], | | | [facility] | | [...] [address] | [place] | [phone] | | [facility] | | [address] | | | - LABORATORY | | [...] [address] | [place] | [phone] | | [facility] | | [address] | | | - LABORATORY | | [...] | | | | | | use [place] 10/325 if ordered. If | | | [...]
--- OUTSIDE RECORDS SUMMARY | ~2019-09-06 | XMS | Encounter Summary ---
Demographics + + + | Address | [address] | | | [place] [address] | + + + | Home Phone | | + + + | Preferred Language | Unknown | + + + | Marital Status | | + + + | Bahai Affiliation | 1013 | + + + | Race | Unknown | + + + | Ethnic Group | Unknown | + + + Author + + + | Author | [facility] | | | and [place] | + + + | Organization | [facility] | | | [...] [place], [place] | | | | | [address] | | + + + + + Care Team Providers + +------+ + | Care Warehouse Selector Name | Role | Phone | + [...] | | voice | | [address], | | | | | Gastroesopha | | [address] [address] | | | | | geal reflux | | [place], | | | | | disease, | | [place] [address] | | | | | esophagitis | | Phone: | | | | | presence not | | [phone] | | | | | specified | | Fax: | | | | | Procedures | | [phone] | | | | | CT | | | | | | | ESOPHAGOGAST | | | | | | | RODUODENOSCO | | | | | | | PY TRANSORAL | | | | | | | DIAGNOSTIC | | | | | | | CT EGD | | | | | | | TRANSORAL | | | | | | | BIOPSY | | | | | | | SINGLE/MULTI | | | | | | | PLE CT GERD | | | | | | | TST W/ | | | | | | | MUCOS PH | | | | | | | ELECTROD CT | | | | | | [...] + + | 09/14/ | Hospital | [facility] | Pipo Don MD | Change in voice; | | 2019 | Encounter | MED CTR MP INTRA OP | [address], [place] | Gastroesophageal | | | | [address] | [address] [place], [place] | reflux disease, | | | | [place], [place] | [address] | esophagitis presence | | | | [address] | | not specified | | | | [phone] | | | +--------+ + + + [...] vomiting, or vomiting blood Date Last Reviewed: 11/02/20151999[address] [employer] [place] [address], [place] [address]. All [facility] ts reserved. This information is not intended [...] | 1 | 12/19/19 | | | [id number] | RIBBON TO BOTH EYES | | | 18 | 9 | | examethasone | TID | | | | | | (MAXITROL) | | | | | | | [id number] | | | | | | | [...] | | | | | [place] [address] | | | | | | [phone] | | | | | | | [...] + + | [address] | [address] | [place] [address] | [phone] | | [place] | | | [...] ST. | [address] | [place] | [phone] | | [facility] | | [address] | | | - LABORATORY | | [...] 1965 Admit Type: Ambulatory Age: 52 Room: [facility] 01 | | | Gender: Female Note Status: Finalized Attending MD: Pipo Don , | | | MD Procedure: Upper GI endoscopy Indications: | | | Suspected esophageal reflux, For therapy of esophageal | | | reflux Providers: Pipo Don MD, | | | Mateo Baugh RN, Phani Vu, | | | [facility], Jl Nunez MD (Anesthesia Staff) Referring MD: [...] | | nurse, the anesthesiologist and the tree and shrub technician in the | | | endoscopy [...] Scope Out: 11:29:49 AM | | | [facility], [address] , [place], [place] | | | [address] | | + + + + +---------+ [...] DISTAL ESOPHAGUS SPECIMEN SOURCE: A. DISTAL | [place] PATHOLOGY | | ESOPHAGUS CLINICAL HISTORY: R49.9 [...] | | | Negative for glandular mucosa. JVR:[facility]:C2NR GROSS | | | DESCRIPTION: The specimen, [...] | | technical component was performed by [place] [address], [address] [place] [address] | | | [facility] [address] (Svp Group Director: Nita Ríos MD; CLIA# | | | [id number]). Professional interpretation was performed by [employer] | | | [place], [address] | | | [facility] [address] [place] [address] (Svp Group Director: José | | | Jadyn Samson). Diagnostician: [...]
--- OUTSIDE RECORDS SUMMARY | ~2019-09-06 | XMS | Encounter Summary ---
Demographics + + + | Address | [address] | | | [place] [address] | + + + | Home Phone | | + + + | Preferred Language | Unknown | + + + | Marital Status | | + + + | Mu-Ism Affiliation | 1013 | + + + | Race | Unknown | + + + | Ethnic Group | Unknown | + + + Author + + + | Author | [facility] | | | and [place] | + + + | Organization | [facility] | | [...] [place] | | | | | [address] | | + + + + + Care Team Providers + +------+ + | Care Safety Risk Lead Name | Role | Phone | [...] [facility] | MD [address] | | | | | LABORATORY [address] | [place] | | | | | [address] [place] | [address] | | | | | [address] | | | | | | [phone] | | | +--------+ + + + [...] | | | | | | [facility] [address] | | | | | | [place] [address] | | | | | | [phone] | | | | | | | | +--------+---------+ + + + documented as of this encounter Visit Diagnoses Not on filedocumented in this encounter"
--- OUTSIDE RECORDS SUMMARY | ~2019-09-06 | XMS | Encounter Summary ---
Demographics + + + | Address | [address] | | | [place] [address] | + + + | Home Phone | | + + + | Preferred Language | Unknown | + + + | Marital Status | | + + + | Adventist Affiliation | 1013 | + + + | Race | Unknown | + + + | Ethnic Group | Unknown | + + + Author + + + | Author | [facility] | | | and [place] | + + + | Organization | [facility] | | | and [...] [place], [place] | | | | | [address] | | + + + + + Care Team Providers + +------+ + | Care Panel Machine Setter Name | Role | Phone [...] | | | | | Procedures | [address] | | | | | | HIM 10/26 | [place], | [place], [place] | | | | | | [place] [address] | [address] Phone: | | | | | | Phone: | [phone] | | | | | | [phone] | Fax: | | | | | | Fax: | [phone] | | | | | | [phone] | | +--------+ + + + + [...] + + | 09/29/ | Office | [facility] | Shankar Kaufman, | Fibromyalgia | | 2018 | Visit | PHYSIATRY [address] | [address] | (Primary Dx); | | | | [address] | [place], [place] | Vitamin D | | | | [place], [place] | [address] | deficiency; General | | | | [address] | | weakness; Chronic | | | | [phone] | | daily headache; | | | [...] m the original. Shankar Kaufman MD [address] [facility] [address] [place] [address] FAX: PHYSICAL MEDICINE AND REHABILITATION H&P CHIEF [...] 3"), weight 62.1 kg (137 lb), last ct nstrual period 02/21/2014, not currently . Body [...] has no apparent deficits with short or longterm memory. The cranial nerves appear grossly intact. [...] [address] | | | | | | [place] [address] | | | | | | [phone] | | | | | | | [...]
--- OUTSIDE RECORDS SUMMARY | ~2019-09-06 | XMS | Encounter Summary ---
Demographics + + + | Address | [address] | | | [place] [address] | + + + | Home Phone | | + + + | Preferred Language | Unknown | + + + | Marital Status | | + + + | Hindu Affiliation | 1013 | + + + | Race | Unknown | + + + | Ethnic Group | Unknown | + + + Author + + + | Author | [facility] | | | and [place] | + + + | Organization | [facility] | | | and [...] [place], [place] | | | | | [address] | | + + + + + Care Team Providers + +------+ + | Care Cloth Pattern Maker Name | Role | Phone | + [...] 2019 | | GASTROENTEROLOGY | [address], [place] | | | | | [address] [place] | [address] [place], [place] | | | | | [address] [place], [place] | [address] | | | | | [address] | | | | | | [phone] | | | +--------+ + + + [...] | | | | | [place] [address] | | | | | | [phone] | | | | | | | | +--------+---------+ + + + documented as of this encounter Visit Diagnoses Not on filedocumented in this encounter"
--- OUTSIDE RECORDS SUMMARY | ~2019-09-06 | XMS | Encounter Summary ---
Demographics + + + | Address | [address] | | | [place] [address] | + + + | Home Phone [...] [place], [place] | | | | | [address] | | + + + + + Care Team Providers + +------+ + | Care Public Health Advisor Name | Role | Phone | [...] + + | 10/27/ | Telephone | [facility] [place] | Shankar Kaufman, | Botox Injection | | 2017 | | PHYSIATRY [address] | MD [address] | (side effects) | | | | [address] | [place] | | | | | [place] | [address] | | | | | [address] | | | | | | [phone] | | | +--------+ + + + [...] COOK | | | | | | [facility] [place] [address] | | | | | | [phone] | | | | | | | | +--------+---------+ + + + documented as of this encounter Visit Diagnoses Not on filedocumented in this encounter"
--- OUTSIDE RECORDS SUMMARY | ~2019-09-06 | XMS | Encounter Summary ---
Demographics + + + | Address | [address] | | | [place] [address] | + + + | Home Phone | | + + + | Preferred Language | Unknown | + + + | Marital Status | | + + + | Islam Affiliation | CHR | + + + | Race | White | + + + | Ethnic Group | Not or | + + + Author + + + | Author | [facility] | + + + | Organization | [facility] | + + + | Address | Unknown | + + + | Phone | Unavailable | + + + Support + + + + + | Name | Relationship | Address | Phone | + + + + + | Gamaliel Cornell | ECON | [address] | | | | | [place], [place] | | | | | [address] | | + + + + + Care Team Providers + +------+ + | Care Burnisher Name | Role | Phone | + [...] | | | | | | | [place], | | | | | | | [place] [address] | | | | | | | Phone: | | | | | | | [phone] | | | | | | | Fax: | | | | | | | [phone] | +--------+--------+ + + + + Encounter Details +--------+---------+ + + + | Date | Type | Department | Care Team | Description | +--------+---------+ + + + | 09/24/ | Office | Neurosurgery at | Zay Cortez MD | Cervicalgia (Primary | | 2009 | Visit | [facility] | [address] | Dx) | | | | and Healing [address] | [address] | | | | | [address] Mailcode: | [place] [address] | | | | | [facility] | [phone] | | | | | Health and Healing, | | | | | | [facility] | | | | | | Floor [place], [place] | | | | | | [address] | | | | | | [phone] | | | +--------+---------+ + + + [...] presumed to be from rheumatic fever at [facility] in [place], [place] via right minimally invasive thoracoscopic approach. [...] with neurofibromatosis ty pe I diagnosed by agoc-[id number]-[id number] spots (daughter now 22 years old). Social History: Lives in [place], [place] with . Raised in [facility]. Attended [employer]. Physical Exam: Constitutional: BP 107/71 | [...] pain generator site. I spent 60 minutes [id number] with the patient. I spent more than [...]
[~2019-09-06 15:45] MED LIST: ALPRAZOLAM0.5 MG PO; AMITRIPTYLINE H75 MG PO; ATIVAN1 MG PO; COUMADIN4 MG PO; DULOXETINE HCL30 MG PO; DULOXETINE HCL60 MG PO; ENOXAPARIN60 MG/0.6 SUB-Q; FERROUS SULFAT325 MG PO; LEVOTHYROXINE100 MCG PO; LEVOTHYROXINE150 MCG PO; LEVOTHYROXINE88 MCG PO; NITROFURANTOIN100 M1 PO; NORCO 5-325 TA1 EACH PO; SENEXON-S TABL1 EACH PO; SLOW-MAG71.5 MG PO; SUPER CALCIUM600 MG PO; TRAZODONE HCL150 MG PO; VITAMIN D32000 UNI1 PO; WARFARIN SODIUM4 MG PO
--- OUTSIDE RECORDS SUMMARY | 2019-09-06 15:48 | XMS ---
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 Hero has no Care Guidelines for this patient. Christa VISIT COUNT (12 MO.) 1 [facility] 1 [place] Kevin TOTAL 2 NOTE: Visits indicate total known visits. ED/C VISIT TRACKING (12 MO.) 09/06/2019 15:46 [place] TYPE: Emergency COMPLAINT: - LARGE PAINFUL BRUISE 03/01/2019 11:40 [facility] TYPE: Emergency DIAGNOSES: - Anxiety - Shortness of Breath - Shortness of breath - Unspecified adverse effect of drug or medicament, initial enc INPATIENT VISIT TRACKING (12 MO.) No inpatient visits to display in this time frame [email or web address]
[2019-09-06] MEDS ORDERED: EUTHYROX112 MCG PO (16:03)
[2019-09-06] MEDS ORDERED: LOTEPREDNOL ETAB5 ML OP (16:04)
[2019-09-06] MEDS ORDERED: BACLOFEN10 MG PO (16:04)
== END 2019-09-06 16:28 | disposition home or self-care (01) ==
LOC: ED 15:45
DX: D68.9 Coagulation defect, unspecified (principal); E03.9 Hypothyroidism, unspecified; F41.9 Anxiety disorder, unspecified; F32.9 Major depressive disorder, single episode, unspecified; Z88.1 Allergy status to other antibiotic agents; Z88.2 Allergy status to sulfonamides; Z88.5 Allergy status to narcotic agent; Z79.899 Other long term (current) drug therapy
CPT/HCPCS: 96372; 99283; J3430

== ENCOUNTER 2020-10-15 17:55 | Emergency (ER) | payer OTHER ==
[~2020-10-15] VITALS: Ht 162.6 cm; Wt 62.6 kg
[~2020-10-15 17:55] MED LIST changes: +BACLOFEN10 MG PO; +EUTHYROX112 MCG PO; +LOTEPREDNOL ETAB5 ML OP
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
[2020-10-15] MEDS ORDERED: WARFARIN SODIUM4 MG PO (18:16)
[2020-10-15] MEDS ORDERED: WARFARIN SODIU7.5 MG PO (18:16)
== END 2020-10-15 20:05 | disposition home or self-care (01) ==
LOC: ED 17:55
DX: S16.1XXA Strain of muscle, fascia and tendon at neck level, initial encounter (principal); S46.911A Strain of unspecified muscle, fascia and tendon at shoulder and upper arm level, right arm, initial encounter; S20.211A Contusion of right front wall of thorax, initial encounter; V43.52XA Car driver injured in collision with other type car in traffic accident, initial encounter; E03.9 Hypothyroidism, unspecified; Z88.2 Allergy status to sulfonamides; Z88.0 Allergy status to penicillin; Z88.1 Allergy status to other antibiotic agents; Z88.5 Allergy status to narcotic agent; Z79.899 Other long term (current) drug therapy; Z79.01 Long term (current) use of anticoagulants
CPT/HCPCS: 71046; 72040; 73030; 85025; 85610; 99284-25

== ENCOUNTER 2022-09-05 12:48 | Emergency (ER) | payer OTHER ==
[~2022-09-05] VITALS: Ht 162.6 cm; Wt 62.6 kg
[~2022-09-05 12:48] MED LIST changes: +WARFARIN SODIU7.5 MG PO
--- OUTSIDE RECORDS SUMMARY | 2022-09-05 12:51 | XMS ---
PreManage Notification: HERNANDO MORA Security Realty Specialist Events No recent Security Events currently on file CRITERIA MET - [facility] CARE PROVIDERS BRANDI NEWMAN Physician Welfare Centre Manager 10/16/2020-Current PHONE: Unknown [facility] has no Care Guidelines for this patient. Christa VISIT COUNT (12 MO.) 1 TONA Kevin TOTAL 1 NOTE: Visits indicate total known visits. ED/UCC VISIT TRACKING (12 MO.) 09/05/2022 12:49 [facility] [place] TYPE: Emergency COMPLAINT: - ABDOMINAL PAIN INPATIENT VISIT TRACKING (12 MO.) No inpatient visits to display in this time frame [id number]
[2022-09-05] MEDS ORDERED: ALPRAZOLAM ER1 MG PO (13:01)
[2022-09-05] MEDS ORDERED: METOPROLOL SUCC25 MG PO (13:01)
[2022-09-05 17:07] VITALS: BP 140/88
== END 2022-09-05 17:02 | disposition home or self-care (01) ==
LOC: ED 12:48
DX: K29.70 Gastritis, unspecified, without bleeding (principal); Z79.01 Long term (current) use of anticoagulants; E03.9 Hypothyroidism, unspecified; Z88.2 Allergy status to sulfonamides; Z88.1 Allergy status to other antibiotic agents; Z88.8 Allergy status to other drugs, medicaments and biological substances; Z79.899 Other long term (current) drug therapy
CPT/HCPCS: 36415; 80053; 81003; 83690; 85025; 85610; 96374; 99284-25; J2405

== ENCOUNTER 2023-01-06 17:51 | Emergency (ER) | payer OTHER ==
[~2023-01-06] VITALS: Ht 162.6 cm; Wt 54.6 kg
--- OUTSIDE RECORDS SUMMARY | ~2023-01-06 | XMS | Continuity of Care Document ---
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 2022-09-05 | [facility] | NEGATIVE | (missing) | (missing) | | (unavailable | 14:00:07 | [facility] | | | | + + + + + + + + + | Result panel 26 | + + + + + +--------+ + + | | 2022-09-05 | [facility] | 11.7 | (missing) | (missing) | | (unavailable | 15:03:07 | [facility] | | | | + + + +--------+ + + + + | Result panel 27 | + + + + + +--------+ + + | | 2022-09-05 | [facility] | 77.5 | (missing) | (missing) | | (unavailable | 15:03:07 | [facility] | | | | + + + +--------+ + + + + | Result panel 28 | + + + + + +--------+ + + | | 2022-09-05 | [facility] | 11.3 | (missing) | (missing) | | (unavailable | 15:03:07 | [facility] | | | | + + + +--------+ + + + + | Result panel 29 | + + + + + +--------+ + + | | 2022-09-05 | [facility] | 10.3 | (missing) | (missing) | | (unavailable | 15:03:07 | [facility] | | | | + + + +--------+ + + + + | Result panel 30 | + + + + + +-------+ + + | | 2022-09-05 | [facility] | 0.6 | (missing) | (missing) | | (unavailable | 15:03:07 | [facility] | | | | + + + +-------+ + + + + | Result panel 31 | + + + + + +-------+ + + | | 2022-09-05 | [facility] | 0.3 | (missing) | (missing) | | (unavailable | 15:03:07 | [facility] | | | | + + + +-------+ + + + + | Result panel 32 | + + + + + +--------+ + + | | 2022-09-05 | [facility] | 4.36 | (missing) | (missing) | | (unavailable | 15:03:07 | [facility] | | | | + + + +--------+ + + + + | Result panel 33 | + + + + + +--------+ + + | | 2022-09-05 | [facility] | 13.8 | (missing) | (missing) | | (unavailable | 15::07 | [facility] | | | | + + + +--------+ + + + + | Result panel 34 | + + + + + +--------+ + + | | 2022-09-05 | [facility] | 42.2 | (missing) | (missing) | | (unavailable | 15:: | [facility] | | | | + + + +--------+ + + + + | Result panel 35 | + + + + + +--------+ + + | | 2022-09-05 | [facility] | 11.7 | (missing) | (missing) | | (unavailable | 15::07 | [facility] | | | | + + + +--------+ + + + + | Result panel 36 | + + + + + +--------+ + + | | 2022-09-05 | [facility] | 96.8 | (missing) | (missing) | | (unavailable | 15::07 | [facility] | | | | + + + +--------+ + + + + | Result panel 37 | + + + + + +--------+ + + | | 2022-09-05 | [facility] | 4.36 | (missing) | (missing) | | (unavailable | 15::07 | [facility] | | | | + + + +--------+ + + + + | Result panel 38 | + + + + + +--------+ + + | | 2022-09-05 | [facility] | 13.8 | (missing) | (missing) | | (unavailable | 15:03:07 | [facility] | | | | + + + +--------+ + + + + | Result panel 39 | + + + + + +--------+ + + | | 2022-09-05 | [facility] | 42.2 | (missing) | (missing) | | (unavailable | 15::07 | [facility] | | | | + + + +--------+ + + + + | Result panel 40 | + + + + + +--------+ + + | | 2022-09-05 | [facility] | 96.8 | (missing) | (missing) | | (unavailable | 15:03:07 | [facility] | | | | + + + +--------+ + + + + | Result panel 41 | + + + + + +--------+ + + | | 2022-09-05 | [facility] | 31.8 | (missing) | (missing) | | (unavailable | 15:03:07 | [facility] | | | | + + + +--------+ + + + + | Result panel 42 | + + + + + +--------+ + + | | 2022-09-05 | [facility] | 32.8 | (missing) | (missing) | | (unavailable | 15::07 | [facility] | | | | + + + +--------+ + + + + | Result panel 43 | + + + + + +--------+ + + | | 2022-09-05 | [facility] | 14.0 | (missing) | (missing) | | (unavailable | 15::07 | [facility] | | | | + + + +--------+ + + + + | Result panel 44 | + + + + + +-------+ + + | | 2022-09-05 | [facility] | 502 | (missing) | (missing) | | (unavailable | 15:03:07 | [facility] | | | | + + + +-------+ + + + + | Result panel 45 | + + + + + +--------+ + + | | 2022-09-05 | [facility] | 77.5 | (missing) | (missing) | | (unavailable | 15:03:07 | [facility] | | | | + + + +--------+ + + + + | Result panel 46 | + + + + + +--------+ + + | | 2022-09-05 | [facility] | 11.3 | (missing) | (missing) | | (unavailable | 15::07 | [facility] | | | | + + + +--------+ + + + + | Result panel 47 | + + + + + +--------+ + + | | 2022-09-05 | [facility] | 31.8 | (missing) | (missing) | | (unavailable | 15:03:07 | [facility] | | | | + + + +--------+ + + + + | Result panel 48 | + + + + + +--------+ + + | | 2022-09-05 | [facility] | 10.3 | (missing) | (missing) | | (unavailable | 15:03:07 | [facility] | | | | + + + +--------+ + + + + | Result panel 49 | + + + + + +-------+ + + | | 2022-09-05 | [facility] | 0.6 | (missing) | (missing) | | (unavailable | 15:03:07 | [facility] | | | | + + + +-------+ + + + + | Result panel 50 | + + + + + +-------+ + + | | 2022-09-05 | [facility] | 0.3 | (missing) | (missing) | | (unavailable | 15:03:07 | [facility] | | | | + + + +-------+ + + + + | Result panel 51 | + + + + + +--------+ + + | | 2022-09-05 | [facility] | 32.8 | (missing) | (missing) | | (unavailable | 15:03:07 | [facility] | | | | + + + +--------+ + + + + | Result panel 52 | + + + + + +--------+ + + | | 2022-09-05 | [facility] | 14.0 | (missing) | (missing) | | (unavailable | 15:03:07 | [facility] | | | | + + + +--------+ + + + + | Result panel 53 | + + + + + +-------+ + + | | 2022-09-05 | [facility] | 502 | (missing) | (missing) | | (unavailable | 15:03:07 | [facility] | | | | + + + +-------+ + + + + | Result panel 54 | + + + + + +--------+ + + | | 2022-09-05 | [facility] | 13.6 | (missing) | (missing) | | (unavailable | 15:50:07 | [facility] | | | | + + + +--------+ + + + + | Result panel 55 | + + + + + +--------+ + + | | 2022-09-05 | [facility] | 1.08 | (missing) | (missing) | | (unavailable | 15:50:07 | [facility] | | | | + + + +--------+ + + + + | Result panel 56 | + + + + + +------+---------+ + | | 2022-09-05 | [facility] | 98 | mg/dL | (missing) | | (unavailable | 15:50:07 | [facility] | | | | + + + +------+---------+ + + + | Result panel 57 | + + + + + +------+---------+ + | | 2022-09-05 | [facility] | 19 | mg/dL | (missing) | | (unavailable | 15:50:07 | [facility] | | | | + + + +------+---------+ + + + | Result panel 58 | + + + + + +--------+---------+ + | | 2022-09-05 | [facility] | 0.83 | mg/dL | (missing) | | (unavailable | 15:50:07 | [facility] | | | | + + + +--------+---------+ + + + | Result panel 59 | + + + + + +------+ + + | | 2022-09-05 | [facility] | 83 | (missing) | (missing) | | (unavailable | 15:50:07 | [facility] | | | | + + + +------+ + + + + | Result panel 60 | + + + + + +---------+ + + | | 2022-09-05 | [facility] | 22.89 | (missing) | (missing) | | (unavailable | 15:50:07 | [facility] | | | | + + + +---------+ + + + + | Result panel 61 | + + + + + +-------+ + + | | 2022-09-05 | [facility] | 140 | (missing) | (missing) | | (unavailable | 15:50:07 | [facility] | | | | + + + +-------+ + + + + | Result panel 62 | + + + + + +-------+ + + | | 2022-09-05 | [facility] | 4.2 | (missing) | (missing) | | (unavailable | 15:50:07 | [facility] | | | | + + + +-------+ + + + + | Result panel 63 | + + + + + +-------+ + + | | 2022-09-05 | [facility] | 104 | (missing) | (missing) | | (unavailable | 15:50:07 | [facility] | | | | + + + +-------+ + + + + | Result panel 64 | + + + + + +------+ + + | | 2022-09-05 | [facility] | 29 | (missing) | (missing) | | (unavailable | 15:50:07 | [facility] | | | | + + + +------+ + + + + | Result panel 65 | + + + + + +--------+ + + | | 2022-09-05 | [facility] | 11.2 | (missing) | (missing) | | (unavailable | 15:50:07 | [facility] | | | | + + + +--------+ + + + + | Result panel 66 | + + + + + +-------+---------+ + | | 2022-09-05 | [facility] | 9.3 | mg/dL | (missing) | | (unavailable | 15:50:07 | [facility] | | | | + + + +-------+---------+ + + + | Result panel 67 | + + + + + +-------+ + + | | 2022-09-05 | [facility] | 7.9 | (missing) | (missing) | | (unavailable | 15:50:07 | [facility] | | | | + + + +-------+ + + + + | Result panel 68 | + + + + + +-------+ + + | | 2022-09-05 | [facility] | 4.1 | (missing) | (missing) | | (unavailable | 15:50:07 | [facility] | | | | + + + +-------+ + + + + | Result panel 69 | + + + + + +-------+ + + | | 2022-09-05 | [facility] | 3.8 | (missing) | (missing) | | (unavailable | 15:50:07 | [facility] | | | | + + + +-------+ + + + + | Result panel 70 | + + + + + +--------+ + + | | 2022-09-05 | [facility] | 1.08 | (missing) | (missing) | | (unavailable | 15:50:07 | [facility] | | | | + + + +--------+ + + + + | Result panel 71 | + + + + + +-------+ + + | | 2022-09-05 | [facility] | 0.5 | (missing) | (missing) | | (unavailable | 15:50:07 | [facility] | | | | + + + +-------+ + + + + | Result panel 72 | + + + + + +------+ + + | | 2022-09-05 | [facility] | 52 | (missing) | (missing) | | (unavailable | 15:50:07 | [facility] | | | | + + + +------+ + + + + | Result panel 73 | + + + + + +------+ + + | | 2022-09-05 | [facility] | 77 | (missing) | (missing) | | (unavailable | 15:50:07 | [facility] | | | | + + + +------+ + + + + | Result panel 74 | + + + + + +-------+ + + | | 2022-09-05 | [facility] | 142 | (missing) | (missing) | | (unavailable | 15:50:07 | [facility] | | | | + + + +-------+ + + + + | Result panel 75 | + + + + + +------+ + + | | 2022-09-05 | [facility] | 97 | (missing) | (missing) | | (unavailable | 15:50:07 | [facility] | | | | + + + +------+ + + + + | Result panel 76 | + + + + + +--------+ + + | | 2022-09-05 | [facility] | 13.6 | (missing) | (missing) | | (unavailable | 15:50:07 | [facility] | | | | + + + +--------+ + + + + | Result panel 77 | + + + + + +--------+ + + | | 2022-09-05 | [facility] | 1.08 | (missing) | (missing) | | (unavailable | 15:50:07 | [facility] | | | | + + + +--------+ + + + + | Result panel 78 | + + + + + +------+---------+ + | | 2022-09-05 | [facility] | 98 | mg/dL | (missing) | | (unavailable | 15:50:07 | [facility] | | | | + + + +------+---------+ + + + | Result panel 79 | + + + + + +------+---------+ + | | 2022-09-05 | [facility] | 19 | mg/dL | (missing) | | (unavailable | 15:50:07 | [facility] | | | | + + + +------+---------+ + + + | Result panel 80 | + + + + + +--------+---------+ + | | 2022-09-05 | [facility] | 0.83 | mg/dL | (missing) | | (unavailable | 15:50:07 | [facility] | | | | + + + +--------+---------+ + + + | Result panel 81 | + + + + + +------+ + + | | 2022-09-05 | [facility] | 83 | (missing) | (missing) | | (unavailable | 15:50:07 | [facility] | | | | + + + +------+ + + + + | Result panel 82 | + + + + + +---------+ + + | | 2022-09-05 | [facility] | 22.89 | (missing) | (missing) | | (unavailable | 15:50:07 | [facility] | | | | + + + +---------+ + + + + | Result panel 83 | + + + + + +-------+ + + | | 2022-09-05 | [facility] | 140 | (missing) | (missing) | | (unavailable | 15:50:07 | [facility] | | | | + + + +-------+ + + + + | Result panel 84 | + + + + + +-------+ + + | | 2022-09-05 | [facility] | 4.2 | (missing) | (missing) | | (unavailable | 15:50:07 | [facility] | | | | + + + +-------+ + + + + | Result panel 85 | + + + + + +-------+ + + | | 2022-09-05 | [facility] | 104 | (missing) | (missing) | | (unavailable | 15:50:07 | [facility] | | | | + + + +-------+ + + + + | Result panel 86 | + + + + + +------+ + + | | 2022-09-05 | [facility] | 29 | (missing) | (missing) | | (unavailable | 15:50:07 | [facility] | | | | + + + +------+ + + + + | Result panel 87 | + + + + + +--------+ + + | | 2022-09-05 | [facility] | 11.2 | (missing) | (missing) | | (unavailable | 15:50:07 | [facility] | | | | + + + +--------+ + + + + | Result panel 88 | + + + + + +-------+---------+ + | | 2022-09-05 | [facility] | 9.3 | mg/dL | (missing) | | (unavailable | 15:50:07 | [facility] | | | | + + + +-------+---------+ + + + | Result panel 89 | + + + + + +-------+ + + | | 2022-09-05 | [facility] | 7.9 | (missing) | (missing) | | (unavailable | 15:50:07 | [facility] | | | | + + + +-------+ + + + + | Result panel 90 | + + + + + +-------+ + + | | 2022-09-05 | [facility] | 4.1 | (missing) | (missing) | | (unavailable | 15:50:07 | [facility] | | | | + + + +-------+ + + + + | Result panel 91 | + + + + + +-------+ + + | | 2022-09-05 | [facility] | 3.8 | (missing) | (missing) | | (unavailable | 15:50:07 | [facility] | | | | + + + +-------+ + + + + | Result panel 92 | + + + + + +--------+ + + | | 2022-09-05 | [facility] | 1.08 | (missing) | (missing) | | (unavailable | 15:50:07 | [facility] | | | | + + + +--------+ + + + + | Result panel 93 | + + + + + +-------+ + + | | 2022-09-05 | [facility] | 0.5 | (missing) | (missing) | | (unavailable | 15:50:07 | [facility] | | | | + + + +-------+ + + + + | Result panel 94 | + + + + + +------+ + + | | 2022-09-05 | [facility] | 52 | (missing) | (missing) | | (unavailable | 15:50:07 | [facility] | | | | + + + +------+ + + + + | Result panel 95 | + + + + + +------+ + + | | 2022-09-05 | [facility] | 77 | (missing) | (missing) | | (unavailable | 15:50:07 | [facility] | | | | + + + +------+ + + + + | Result panel 96 | + + + + + +-------+ + + | | 2022-09-05 | [facility] | 142 | (missing) | (missing) | | (unavailable | 15:50:07 | [facility] | | | | + + + +-------+ + + + + | Result panel 97 | + + + + + +------+ + + | | 2022-09-05 | [facility] | 97 | (missing) | (missing) | | (unavailable | 15:50:07 | [facility] | | | | + + + +------+ + + Social History No information. Vital Signs + + + +---------+ | date | measurement | value | units | + + + +---------+ | 2022-09-05 00:00 | BMI | 23.7 | kg/m2 | + + + +---------+ | 2022-09-05 00:00 | BP_diastolic | 88 | mmHg | + + + +---------+ | 2022-09-05 00:00 | BP_systolic | 140 | mmHg | + + + +---------+ | 2022-09-05 00:00 | heart_rate | 60 | /min | + + + +---------+ | 2022-09-05 00:00 | height_metric | 162.56 | cm | + + + +---------+ | 2022-09-05 00:00 | height_standard | 64 | in | + + + +---------+ | 2022-09-05 00:00 | o2_saturation | 97 | % | + + + +---------+ | 2022-09-05 00:00 | respiration_rate | 16 | /min | + + + +---------+ | 2022-09-05 00:00 | temperature_metric | 36.78 | C | | | | | | + + + +---------+ | 2022-09-05 00:00 | | 98.2 | F | | | temperature_standar | | | | | d | | | + + + +---------+ | 2022-09-05 00:00 | weight_metric | 62.6 | kg | + + + +---------+ | 2022-09-05 00:00 | weight_standard | 138 | lb | + + + +---------+ | 2022-09-05 00:00 | weight_standard | 138.01 | lb | + + + +---------+ | 2022-09-08 00:00 | BMI | 23.7 | kg/m2 | + + + +---------+ | 2022-09-08 00:00 | BP_diastolic | 94 | mmHg | + + + +---------+ | 2022-09-08 00:00 | BP_systolic | 146 | mmHg | + + + +---------+ | 2022-09-08 00:00 | heart_rate | 63 | /min | + + + +---------+ | 2022-09-08 00:00 | height_metric | 162.56 | cm | + + + +---------+ | 2022-09-08 00:00 | height_standard | 64 | in | + + + +---------+ | 2022-09-08 00:00 | o2_saturation | 99 | % | + + + +---------+ | 2022-09-08 00:00 | respiration_rate | 16 | /min | + + + +---------+ | 2022-09-08 00:00 | temperature_metric | 36.33 | C | | | | | | + + + +---------+ | 2022-09-08 00:00 | | 97.4 | F | | | temperature_standar | | | | | d | | | + + + +---------+ | 2022-09-08 00:00 | weight_metric | 62.6 | kg | + + + +---------+ | 2022-09-08 00:00 | weight_standard | 138 | lb | + + + +---------+ | 2022-09-08 00:00 | weight_standard | 138.01 | lb | + + + +---------+"
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
[~2023-01-06 17:51] MED LIST changes: +ALPRAZOLAM ER1 MG PO; +METOPROLOL SUCC25 MG PO
--- OUTSIDE RECORDS SUMMARY | 2023-01-06 17:54 | XMS ---
PreManage Notification: HERNANDO MORA Security Banquet Steward Events No recent Security Events currently on file CRITERIA MET - [facility] CARE PROVIDERS BRANDI NEWMAN Physician Case Management Manager 10/16/2020-Current PHONE: Unknown [facility] has no Care Guidelines for this patient. ELisa VISIT COUNT (12 MO.) 3 [facility] T[facility] 4 NOTE: Visits indicate total known visits. ED/C VISIT TRACKING (12 MO.) 01/06/2023 17:52 [facility] [place] TYPE: Emergency COMPLAINT: - ABDOMINAL PAIN 09/08/2022 18:47 [facility] [place] TYPE: Emergency COMPLAINT: - HEADACHE DIAGNOSES: - Allergy status to narcotic agent - Allergy status to other drugs, medicaments and biological substances - Allergy status to penicillin - Allergy status to sulfonamides - Headache, unspecified - Hormone replacement therapy - Hypothyroidism, unspecified - FPC (current) use of anticoagulants - Other retirement (current) drug therapy 09/06/2022 15:33 [facility] TYPE: Emergency DIAGNOSES: - Elevated white blood cell count, unspecified - Headache, unspecified - Other chronic pain - Thrombocytosis, unspecified - Upper abdominal pain, unspecified - Urinary tract infection, site not specified - Abdominal Pain - Headache (Adult - Recurrent Or Known Dx Migraines) 09/05/2022 12:49 [facility] [place] TYPE: Emergency COMPLAINT: - ABDOMINAL PAIN DIAGNOSES: - Allergy status to other antibiotic agents - Allergy status to other drugs, medicaments and biological substances - Allergy status to sulfonamides - Epigastric pain - Gastritis, unspecified, without bleeding - Hypothyroidism, unspecified - termite control servicer (current) use of anticoagulants - Other long term acute care registered nurse (current) drug therapy INPATIENT VISIT TRACKING (12 MO.) No inpatient visits to display in this time frame [id number]
[2023-01-06 20:48] LABS: BASOPHILS 0.9 % (0-2); EOSINOPHILS 1.5 % (0-6); HEMATOCRIT 41.3 % (35.0-50.0); HEMOGLOBIN 14.1 g/dL (12.0-18.0); LYMPHOCYTES 13.1 % (24-44); MCH 31.9 (27-36); MCV 93.8 fl (81-99); NEUTROPHILS 72.5 % (39-80); PLATELET COUNT 412 K/uL (140-440); RBC 4.41 M/ul (4.3-5.7); RDW 14.2 (10.5-15.0)
[2023-01-06 20:58] LABS: INR 3.75 (0.80-1.30); PROTIME 35.9 Sec (11.2-14.2)
[2023-01-06 21:04] LABS: ALBUMIN 3.6 g/dL (3.4-5.0); ALBUMIN/GLOBULIN RATIO 0.84 (1.1-2.4); ANION GAP 13.3 (7-21); BUN/CREATININE RATIO 24.05 (6.0-28.6); CALCIUM 9.2 mg/dL (8.5-10.1); CREATININE, SERUM 0.79 mg/dL (0.55-1.02); POTASSIUM 4.3 mmol/L (3.5-5.1); PROTEIN, TOTAL 7.9 g/dL (6.4-8.2)
[2023-01-06] MEDS ORDERED: AMOX TR-K CLV1 EAC1 PO (21:38)
[2023-01-06 21:50] VITALS: BP 102/56
== END 2023-01-06 21:51 | disposition home or self-care (01) ==
LOC: ED 17:51
PROVIDERS: Internal Medicine
DX: K57.32 Diverticulitis of large intestine without perforation or abscess without bleeding (principal); E03.9 Hypothyroidism, unspecified; Z79.899 Other long term (current) drug therapy; Z79.01 Long term (current) use of anticoagulants; Z88.2 Allergy status to sulfonamides; Z88.0 Allergy status to penicillin; Z88.1 Allergy status to other antibiotic agents
CPT/HCPCS: 36415; 74177; 80053; 83690; 84443; 85025; 85610; J2405; J3010; Q9967

== ENCOUNTER 2023-04-29 18:17 | Emergency (ER) | payer OTHER ==
[~2023-04-29] VITALS: Ht 162.6 cm; Wt 54.9 kg
[~2023-04-29 18:17] MED LIST changes: +AMOX TR-K CLV1 EAC1 PO
[2023-04-29 19:58] LABS: INFLUENZA B NAA NEGATIVE (NEGATIVE); RESPIRATORY SYNCYTIAL VIR NAA NEGATIVE (NEGATIVE)
[2023-04-29 20:15] LABS: INR 2.22 (0.80-1.30); PROTIME 23.7 Sec (11.2-14.2)
[2023-04-29] MEDS ORDERED: CEFDINIR300 MG PO (21:35)
[2023-04-29] MEDS ORDERED: BENZONATATE100 MG PO (21:35)
[2023-04-29] MEDS ORDERED: CYCLOBENZAPRINE10 MG PO (21:35)
[2023-04-29] MEDS ORDERED: ONDANSETRON ODT8 MG PO (21:35)
[2023-04-29 22:04] VITALS: BP 135/74
== END 2023-04-29 22:07 | disposition home or self-care (01) ==
LOC: ED 18:17
PROVIDERS: Family Medicine
DX: N39.0 Urinary tract infection, site not specified (principal); J18.9 Pneumonia, unspecified organism; Z95.2 Presence of prosthetic heart valve; Z79.01 Long term (current) use of anticoagulants; Z88.0 Allergy status to penicillin; Z88.2 Allergy status to sulfonamides; Z88.5 Allergy status to narcotic agent; Z79.890 Hormone replacement therapy; Z79.899 Other long term (current) drug therapy; Z11.52 Encounter for screening for COVID-19
CPT/HCPCS: 36415; 71045; 74177; 85610; 87502; 94640; 96365; 96375; 99284-25; A9270; C9803; J0696; J2270; J2405; J7121; Q9967; U0002

== ENCOUNTER 2023-09-08 10:45 | Day surgery (SDC) | payer OTHER ==
[2023-09-03 14:40] VITALS: BP 94/61
[~2023-09-08] VITALS: Ht 162.6 cm; Wt 59.1 kg
[~2023-09-08 10:45] MED LIST changes: +AJOVY225 MG/1.5 SQ; +BENZONATATE100 MG PO; +CEFDINIR300 MG PO; +CYCLOBENZAPRINE10 MG PO; +IBLOOD GLUCOSE TEST STRIP 1 EA TEST VI PRN; +LACTATED RINGER'S 1,000 ML IV SCH; +LIDOCAINE HCL 1% 5 ML SDV INJ ONE; +LOVENOX40 MG/0.4; +ONDANSETRON ODT8 MG PO
[2023-09-08 11:35] VITALS: BP 119/71
[2023-09-08] MEDS ORDERED: LOVENOX60 MG SUB-Q (11:43)
[2023-09-08] MEDS ORDERED: LIOTHYRONINE SO5 MCG PO (11:44)
[2023-09-08] MEDS ORDERED: AMITRIPTYLINE H50 MG PO (11:45)
[2023-09-08] MEDS ORDERED: XYZAL5 MG PO (11:46)
[2023-09-08] MEDS ORDERED: OMEPRAZOLE20 MG PO (11:46)
[2023-09-08] MEDS ORDERED: CEFAZOLIN SODIUM 2 GM/20 ML SYR IV ONE (12:00)
[2023-09-08] MEDS ORDERED: LIDOCAINE HCL 2% 5 ML SDV ONE (12:33)
[2023-09-08] MEDS ORDERED: propofoL 200 MG/20 ML VIAL ONE (12:33)
--- NOTE | 2023-09-08 14:00 | EKG ---
[facility] [address] [place] [address] Signed Sinus tachycardia with frequent premature ventricular complexes in a pattern of bigeminy Left axis deviation Low voltage QRS Inferior infarct (cited on or before 03-SEP-2023) Possible Anterolateral infarct (cited on or before 03-SEP-2023) Abnormal ECG When compared with ECG of 03-SEP-2023 14:48, Sinus rhythm is no longer with junctional escape complexes T wave amplitude has decreased in Inferior leads T wave amplitude has decreased in Anterolateral leads Confirmed by Sherry Irizarry MD ([id number]) on 09/08/2023 2:00:51 PM Electronically Signed By: SHERRY IRIZARRY 09/08/23 1400 PATIENT NAME: HERNANDO MORA Electrocardiogram DATE OF : 65 PHYSICIAN: SHERRY IRIZARRY REPORT #: [id number] REPORT IS CONFIDENTIAL AND NOT TO BE RELEASED WITHOUT AUTHORIZATION
--- NOTE | 2023-09-08 14:04 | NUR ---
09/08/23 1404 Lisa Will 1347- PT ARRIVES TO PACU AWAKE AND TALKING. PT REPORTS NO PAIN OR NAUSEA. RESP EVEN AND UNLABORED. OXYGEN SAT HIGH 90'S TO 100% ON RA. 1354- PT ABLE TO ROLL HERSELF TO HER BACK AND IS SAT UP IN BED. PT DENIES ANY DIZZINESS OR NAUSEA. PT ENCOURAGED TO PASS FLATUS. 1402- DR. CHEN AT THE BEDSIDE TO TALK WITH THE PT.
[2023-09-08 14:15] VITALS: BP 131/71
--- NOTE | 2023-09-11 07:32 | PATH ---
[facility] [address] [place], [place] [address] Signed SPECIMEN(S): A ASCENDING/RIGHT COLON POLYP SPECIMEN SOURCE: A. ASCENDING/RIGHT COLON POLYP CLINICAL HISTORY: Chronic constipation, diverticulitis FINAL PATHOLOGIC DIAGNOSIS: Ascending/right colon, polypectomy: - Tubular adenoma. - Additional fragment with prominent submucosal lymphoid aggregate. - Negative for high grade dysplasia or malignancy. DWS:[email or web address] MICROSCOPIC EXAMINATION: Histologic sections of all submitted blocks are examined by light microscopy. These findings, together with the gross examination, support the pathologic diagnosis. GROSS DESCRIPTION: The specimen, labeled and designated "Kraig, ascending/right colon polyp," is received in formalin and consists of four polk soft tissue fragments, ranging from 0.1-0.4 cm. Entirely submitted in (A1). VB (under the direct supervision of a pathologist) The Gross Description was prepared using a voice recognition system. The report was reviewed for accuracy; however, sound-alike word errors, addition and/or deletions may occur. If there is any question about this report, please contact Client Services. PERFORMING LABORATORY: Technical component was performed by [employer], [address] [place] [id number] (CLIA# [id number]). Professional interpretation was performed by [facility], [address] [place] [id number] (CLIA#: [id number]). Diagnostician: Campbell Yanez MD Pathologist Electronically Signed 09/11/2023 PATIENT NAME: HERNANDO MORA PATHOLOGY DATE OF : 65 REPORT #: [id number] PHYSICIAN: AIMEE PATHOLOGY PCP: BRANDI NEWMAN REPORT IS CONFIDENTIAL AND NOT TO BE RELEASED WITHOUT AUTHORIZATION [address] [place], [place] [address] Signed Copies: ~ PATIENT NAME: HERNANDO MORA PATHOLOGY DATE OF : 65 REPORT #: [id number] PHYSICIAN: AIMEE GALLAGHER PCP: BRANDI NEWMAN REPORT IS CONFIDENTIAL AND NOT TO BE RELEASED WITHOUT AUTHORIZATION
--- NOTE | 2023-09-12 10:52 | OR ---
[facility] [address] [place], [place] [address] Signed DATE OF OPERATION: 09/08/2023 SURGEON: Oralia Chen MD PREOPERATIVE DIAGNOSES: 1. History of diverticular disease (recurrent left lower abdominal pain). 2. Complex medical history (scleroderma, history of mitral valve replacement with Coumadin anticoagulation now on bridge therapy). POSTOPERATIVE DIAGNOSES: 1. History of diverticular disease (recurrent left lower abdominal pain). 2. Complex medical history (scleroderma, history of mitral valve replacement with Coumadin anticoagulation now on bridge therapy). 3. Small polyp right colon (excised and minimal diverticular changes sigmoid. PROCEDURE: Total colonoscopy to cecum with cold morcellation polypectomy x1. ANESTHESIA: Intravenous sedation; propofol infusion, Foster Limon CRNA. INDICATION: This 57-year-old white woman is a patient of LAITH Shaw. She has a complex past medical history which includes scleroderma with multiple manifestations from it. She also has history of mitral valve replacement in the past. She is currently on bridge therapy, usually on Coumadin. She is given Ancef preoperatively and she has mitral valve replacement from a mechanical heart valve. She has had episodes of "diverticulitis" including left lower abdominal pain, treated with antibiotic therapy. She is currently symptom free in that regard. She is here to undergo colonoscopy to better assess for polyps and cancer, and so on. She last underwent colonoscopy in [place], [place] quite some time ago. FINDINGS: Prep was quite good. Complete colonoscopy was undertaken to the cecum was full intubation of the cecum. There was a very small polyp at the right colon which was excised with cold morcellation technique. The remaining colon was normal except for a few scattered diverticula of the sigmoid. The rectum was normal. PROCEDURE IN DETAIL: The patient was brought to the endoscopy suite and placed in the lateral decubitus Electronically Signed By: ORALIA CHEN MD 09/12/23 1052 PATIENT NAME: HERNANDO MORA OPERATIVE REPORT DATE OF : 65 REPORT #: [id number] PHYSICIAN: ORALIA CHEN MD PCP: BRANDI NEWMAN REPORT IS CONFIDENTIAL AND NOT TO BE RELEASED WITHOUT AUTHORIZATION [facility] [address] [place], [place] [address] Signed position, given intravenous sedation with propofol infusional technique. Preoperative antibiotic Ancef was given. She was on bridge therapy, having held Lovenox administration today. After initiation was satisfactory intravenous sedation, digital rectal examination was performed, which was normal. An Olympus video colonoscope was passed in the rectum and manipulated throughout the colon noting a few scattered diverticula of the sigmoid. Scope was ultimately advanced to the cecum. The ileocecal valve and appendiceal orifice were normal. The scope was withdrawn from that point and a small polyp was noted in the upper ascending colon, which was excised with cold morcellation technique. This polyp may be hyperplastic but certainly not large. It was rather subtle overall. The scope was further withdrawn. Examination of the remaining colon showed only few scattered diverticula of the sigmoid. Retroflexed view of the rectum was normal. Scope was removed and the patient was taken to the recovery room in good condition. CONCLUDING DIAGNOSIS: Small polyp x1 and minimal diverticula. PLAN: She will proceed with bridge therapy which will include Lovenox administration tomorrow and we will initiate Coumadin tomorrow as well. Within three days, she may discontinue the Lovenox. She should follow up in the Coumadin Clinic to establish therapeutic protime. Would recommend repeat colonoscopy in 5 years, sooner if clinically indicated. She will return to the ongoing care of LAITH Shaw. MD CIARAN Rincon/LLOYDL /[id number] cc: LAITH Shaw Electronically Signed By: ORALIA CHEN MD 09/12/23 1052 PATIENT NAME: HERNANDO MORA OPERATIVE REPORT DATE OF : 65 REPORT #: [id number] PHYSICIAN: ORALIA CHEN MD PCP: BRANDI NEWMAN REPORT IS CONFIDENTIAL AND NOT TO BE RELEASED WITHOUT AUTHORIZATION [facility] [address] [place] [address] [place], [place] [address] Signed Copies: BRANDI NEWMAN ~ Electronically Signed By: ORALIA CHEN MD 09/12/232 PATIENT NAME: HERNANDO MORA OPERATIVE REPORT DATE OF : 65 REPORT #: [id number] PHYSICIAN: ORALIA CHEN MD PCP: BRANDI NEWMAN REPORT IS CONFIDENTIAL AND NOT TO BE RELEASED WITHOUT AUTHORIZATION
== END 2023-09-08 14:25 | disposition home or self-care (01) ==
LOC: OPS 10:45 → DS 10:45 → OPS 11:30 → DS 12:00 → OPS 14:25
PROVIDERS: ATTEND Surgery
PROC: 0DBK8ZX Excision of Ascending Colon, Via Natural or Artificial Opening Endoscopic, Diagnostic (ICD-10-PCS; principal; 2023-09-08 11:30)
DX: K57.30 Diverticulosis of large intestine without perforation or abscess without bleeding (principal); D12.2 Benign neoplasm of ascending colon; K59.00 Constipation, unspecified; I10 Essential (primary) hypertension; M34.9 Systemic sclerosis, unspecified; E03.9 Hypothyroidism, unspecified; Z79.890 Hormone replacement therapy; Z79.899 Other long term (current) drug therapy; Z79.01 Long term (current) use of anticoagulants; Z95.2 Presence of prosthetic heart valve; Z88.2 Allergy status to sulfonamides
CPT/HCPCS: 00811; 93005; 93010; J0690; J2001; J2704; J7121

== ENCOUNTER 2024-03-08 07:44 | Emergency (ER) | payer OTHER ==
[~2024-03-08] VITALS: Ht 162.6 cm; Wt 61.6 kg
[~2024-03-08 07:44] MED LIST changes: +AMITRIPTYLINE H50 MG PO; -IBLOOD GLUCOSE TEST STRIP 1 EA TEST VI PRN; -LACTATED RINGER'S 1,000 ML IV SCH; -LIDOCAINE HCL 1% 5 ML SDV INJ ONE; +LIOTHYRONINE SO5 MCG PO; +LOVENOX60 MG SUB-Q; +OMEPRAZOLE20 MG PO; +XYZAL5 MG PO
--- OUTSIDE RECORDS SUMMARY | 2024-03-08 07:50 | XMS ---
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 E.Peter VISIT COUNT (12 MO.) [address] ([facility]) TOTAL 3 NOTE: Visits indicate total known visits. ED/UCC VISIT TRACKING (12 MO.) 03/08/2024 07:44 [facility] [place] TYPE: Emergency COMPLAINT: - ABDOMINAL PAIN [facility] Emergency DIAGNOSES: - Other acute postprocedural pain - Abdominal Pain - post op pain bloating - Post-op Problem 04/29/2023 18:18 [facility] [place] TYPE: Emergency COMPLAINT: - COUGH DIAGNOSES: - Allergy status to narcotic agent - Allergy status to penicillin - Allergy status to sulfonamides - Cough, unspecified - Encounter for screening for COVID-19 - Hormone replacement therapy - long-term (current) use of anticoagulants - 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
[2024-03-08] MEDS ORDERED: SODIUM CHLORIDE 0.9% 1,000 ML IV ONE (08:15)
[2024-03-08] MEDS ORDERED: ondansetron HCL 4 MG/2 ML VIAL IV ONE (08:15)
[2024-03-08] MEDS ORDERED: HYDROmorphone HCL 1 MG/ML SYR IV ONE (08:15)
[2024-03-08] MEDS ORDERED: CEFTRIAXONE/SODIUM CHLORIDE 1 GM/100 ML PIGGYBACK IV ONE (08:30)
[2024-03-08 08:43] LABS: BASOPHILS 0.9 % (0-2); EOSINOPHILS 4.1 % (0-6); HEMATOCRIT 36.2 % (35.0-50.0); HEMOGLOBIN 12.2 g/dL (12.0-18.0); LYMPHOCYTES 12.8 % (24-44); MCH 31.8 (27-36); MCHC 33.8 g/dl (30-36); MONOCYTES 10.5 % (0-12); NEUTROPHILS 71.7 % (39-80); PLATELET COUNT 426 K/uL (140-440); RBC 3.85 M/ul (4.3-5.7); RDW 14.8 (10.5-15.0)
[2024-03-08 08:47] LABS: ALBUMIN 3.3 g/dL (3.4-5.0); ALBUMIN/GLOBULIN RATIO 0.94 (1.1-2.4); ANION GAP 11.9 (7-21); BILIRUBIN, TOTAL 0.4 ng/dL (0.2-1.0); BUN/CREATININE RATIO 13.82 (6.0-28.6); CALCIUM 8.6 mg/dL (8.5-10.1); CREATININE, SERUM 0.94 mg/dL (0.55-1.02); POTASSIUM 3.9 mmol/L (3.5-5.1); PROTEIN, TOTAL 6.8 g/dL (6.4-8.2)
[2024-03-08] MEDS ORDERED: CEFDINIR300 MG PO (10:10)
[2024-03-08] MEDS ORDERED: HYDROCODON-ACE1 EA10 PO (10:10)
[2024-03-08 10:18] VITALS: BP 117/66
== END 2024-03-08 10:19 | disposition home or self-care (01) ==
LOC: ED 07:44
PROVIDERS: Emergency Medicine
DX: N39.0 Urinary tract infection, site not specified (principal); E03.9 Hypothyroidism, unspecified; Z79.899 Other long term (current) drug therapy; Z79.890 Hormone replacement therapy; Z79.01 Long term (current) use of anticoagulants; Z88.2 Allergy status to sulfonamides; Z88.5 Allergy status to narcotic agent
CPT/HCPCS: 36415; 74177; 80053; 83690; 85025; 96375; 99284-25; J0696; J1171; J2405; J7030; Q9967

== ENCOUNTER 2025-01-22 16:44 | Emergency (ER) | payer OTHER ==
[~2025-01-22] VITALS: Ht 162.6 cm; Wt 61.6 kg
[~2025-01-22 16:44] MED LIST changes: +HYDROCODON-ACE1 EA10 PO
--- OUTSIDE RECORDS SUMMARY | 2025-01-22 16:51 | XMS ---
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 E.DMadhuri VISIT COUNT (12 MO.) [address] ([place] ) 1 Ashlee Bowens TOTAL 4 NOTE: Visits indicate total known visits. ED/UCC VISIT TRACKING (12 MO.) 01/22/2025 16:44 [facility] [place] TYPE: Emergency COMPLAINT: - DIZZINESS 01/16/2025 11:06 [facility] TYPE: Emergency DIAGNOSES: - Cystitis, unspecified without hematuria - Unspecified atrial fibrillation - Arm Pain - Shortness of Breath - SOB Fever urination problen shoulder neck pain 03/08/2024 07:44 [facility] [place] TYPE: Emergency COMPLAINT: - ABDOMINAL PAIN DIAGNOSES: - Allergy status to narcotic agent - Allergy status to sulfonamides - Hormone replacement therapy - Hypothyroidism, unspecified - intermediate card tender (current) use of anticoagulants - Lower abdominal pain, unspecified - 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
[2025-01-22 17:11] LABS: BASOPHILS 1.0 % (0.1-1.2); EOSINOPHILS 3.8 % (0.7-5.8); LYMPHOCYTES 16.9 % (19.3-51.7); MCH 30.0 PG (25.6-32.2); MCHC 32.1 g/dL (32.2-35.5); MCV 93.5 fL (79.4-94.8); MONOCYTES 11.6 % (4.7-12.5); NEUTROPHILS 66.4 % (34.0-71.1); RBC 4.17 M/uL (3.93-5.22)
[2025-01-22] MEDS ORDERED: EMGALITY120 MG/1 M SQ (17:11)
[2025-01-22] MEDS ORDERED: WARFARIN SODIUM3 MG PO (17:13)
[2025-01-22] MEDS ORDERED: TRAMADOL HCL50 MG PO (17:13)
[2025-01-22] MEDS ORDERED: PANTOPRAZOLE SO40 MG PO (17:13)
[2025-01-22 17:31] LABS: ALT (SGPT) 48.0 U/L (14-59); AST (SGOT) 45.0 U/L (15-37); GLOMERULAR FILTRATION RATE,EST 76.0 mL/min (>60); PROTEIN, TOTAL 7.7 g/dL (6.4-8.2); UREA NITROGEN 25.0 mg/dL (7-18)
[2025-01-22 17:53] LABS: INR 3.24 (0.80-1.30); PROTIME 31.3 Sec (11.2-14.2)
[2025-01-22 19:13] VITALS: BP 115/70
--- NOTE | 2025-01-24 21:54 | EKG ---
[facility] [address] [place] [address] Signed Sinus tachycardia with frequent premature ventricular complexes in a pattern of bigeminy Left axis deviation Low voltage QRS Inferior infarct , age undetermined Cannot rule out Anterior infarct , age undetermined Abnormal ECG When compared with ECG of 08-SEP-2023 11:17, No significant change was found Confirmed by Alex Cota MD () on 01/24/2025 9:54:39 PM Electronically Signed By: ALEX COTA MD 01/24/252153 PATIENT NAME: HERNANDO MORA Electrocardiogram DATE OF : 65 PHYSICIAN: ALEX COTA MD REPORT #: [id number] REPORT IS CONFIDENTIAL AND NOT TO BE RELEASED WITHOUT AUTHORIZATION
== END 2025-01-22 19:18 | disposition home or self-care (01) ==
LOC: ED 16:44
PROVIDERS: Emergency Medicine
DX: R06.02 Shortness of breath (principal); E03.9 Hypothyroidism, unspecified; Z79.01 Long term (current) use of anticoagulants; Z79.899 Other long term (current) drug therapy; Z88.2 Allergy status to sulfonamides; Z88.5 Allergy status to narcotic agent; Z88.8 Allergy status to other drugs, medicaments and biological substances
CPT/HCPCS: 36415; 70450; 71045; 80053; 83735; 83880; 84484; 85025; 85610; 93005; 93010; 99285-25